=== PATIENT | female | born 1930 | race Hispanic/Latino ===

== ENCOUNTER 2017-11-07 09:26 | Inpatient (IN) | payer MEDICARE, BC ==
[2017-11-07 09:27] VITALS: BMI 35.9
[2017-11-07] MEDS ORDERED: Sodium Chloride 0.9% 500 ML IV SCH (09:45)
--- NOTE | 2017-11-07 09:52 | ED PDOC ---
HPI: General Adult Time Seen by Provider: 11/07/17 09:50 Chief Complaint (Nursing): Lower Extremity Problem/Injury History Per: Patient, Family, Other (accepting physician) History/Exam Limitations: clinical condition (pt with dementia) Onset/Duration Of Symptoms: Unknown Recently: Seen In ED Additional Complaint(s): Pt transferred from [place] [facility] for further eval by Dr Joel; pt p/w severe left knee swelling and pain, with unknown trauma, unknown timeframe of left knee pain/swelling as well; pt was last documented with fall/trauma 10/19 and was evaluated at [place] [facility] at that time with negative results; per patient's daughter who last saw patient 3 days ago at [facility], there were no mention of patient falling as well as left knee swelling as pt was wearing long pants; pt has moderate-severe dementia; pt is a poor historian per daughter, pt is currently at baseline mental status pt denied headaches, cp/sob/abd pain, no n/v, no numbness/tingling pt is here for further eval/pt's without other complaints per daughter, while pt was at [place] [facility] today/overnight, the ED physician had attempted manipulation of the left knee to relocate the knee but appears unsuccessful; pt was subsequently transferred to [place] ED, unknown who the accepting physician is no documentation was noted currently of accepting physician?? PCP: Dr Post pt with b/l knee surgery ([facility]?) pt is a resident of [facility] Past Medical History Reviewed: Historical Data, Nursing Documentation, Vital Signs Vital Signs: Last Vital Signs Temp 99.1 F 11/07/17 09:33 Pulse 82 11/07/17 11:00 Resp 16 11/07/17 09:33 BP 133/51 L 11/07/17 10:56 Pulse Ox 95 11/07/17 12:00 - Medical History PMH: Anemia, Anxiety, Arthritis, COPD, Dementia, Depression, Deep Vein Thrombosis, HTN, Hypercholesterolemia, Hyperlipidemia, Pulmonary Embolism Denies: Diabetes, Hepatitis, HIV, Personality Disorder, Chronic Kidney Disease, Seizures, Sexually Transmitted Disease - Surgical History Surgical History: - Family History Family History: States: Unknown Family Hx - Living Arrangements Living Arrangements: Snf/Assist Lvng - Social History Alcohol: None - Immunization History Hx Tetanus Toxoid Vaccination: No Hx Influenza Vaccination: No Hx Pneumococcal Vaccination: No - Home Medications Home Medications: Ambulatory Orders Medication Instructions Recorded Losartan [Cozaar] 50 mg PO DAILY #0 tab 05/06/15 Venlafaxine [Effexor XR] 225 mg PO DAILY #0 cer 05/06/15 Docusate [Colace] 200 mg PO HS 05/06/17 Acetaminophen [Tylenol 325mg tab] 650 mg PO Q6 PRN 07/20/17 Acetaminophen [Tylenol 325mg tab] 650 mg PO Q6 PRN MDD 101.0 07/20/17 Arformoterol [Brovana] 15 mcg IH [id number] neb 07/23/17 Aspirin [Aspirin Chewable] 81 mg PO DAILY chew 07/23/17 Atorvastatin [Lipitor] 10 mg PO DIN #30 tab 07/23/17 Carvedilol [Coreg] 3.125 mg PO BID #28 tab 07/23/17 Acetaminophen 650 mg PO PRN PRN 11/07/17 Apixaban [Eliquis] 1 tab PO BID 11/07/17 Arformoterol [Brovana] 1 puff IH DAILY 11/07/17 Budesonide [Pulmicort Respules] 0.5 mg IH DAILY 11/07/17 Calcium Carbonate [Oscal] 1 tab PO DAILY 11/07/17 Cholecalciferol (Vitamin D3) 2,000 unit PO DAILY 11/07/17 [Vitamin D3] Lurasidone HCl [Latuda] 1 tab PO DAILY 11/07/17 Pantoprazole [Protonix EC Tab] 40 mg PO DAILY 11/07/17 Potassium Chloride [K-Tab ER] 1 tab PO DAILY 11/07/17 Tiotropium [Spiriva] 1 puff INH DAILY 11/07/17 hydroCHLOROthiazide [Hydrodiuril] 1 tab PO DAILY 11/07/17 - Allergies Allergies/Adverse Reactions: Allergies Allergy/AdvReac Type Severity Reaction Status Date / Time trazodone Allergy DIZZINESS Verified 11/06/17 22:07 Review of Systems Constitutional: Negative for: Fever, Weakness Eyes: Negative for: Pain ENT: Negative for: Ear Pain Cardiovascular: Negative for: Chest Pain Respiratory: Negative for: Cough, Shortness of Breath Gastrointestinal: Negative for: Nausea, Vomiting, Abdominal Pain Genitourinary Female: Negative for: Dysuria Musculoskeletal: Positive for: Other (left knee pain) Skin: Negative for: Rash Neurological: Negative for: Weakness Psych: Negative for: Anxiety Physical Exam - Reviewed Nursing Documentation Reviewed: Yes Vital Signs Reviewed: Yes (mildly elevated BP) - Physical Exam Appears: Positive for: Well, Non-toxic, Uncomfortable (alert/awake, GCS = 15, oriented x 1 (not to date/time), resting in bed, uncomfortable, NAD, responsive to commands with ease, follows command with ease, interactive) Head Exam: Positive for: ATRAUMATIC Skin: Positive for: Normal Color, Warm, Dry Eye Exam: Positive for: Normal appearance, EOMI, PERRL ENT: Positive for: Normal ENT Inspection Neck: Positive for: Normal, Painless ROM, Supple Cardiovascular/Chest: Positive for: Regular Rate, Rhythm Respiratory: Positive for: Normal Breath Sounds Gastrointestinal/Abdominal: Positive for: Normal Exam Back: Positive for: Normal Inspection Extremity: Positive for: Swelling (extensive left knee swelling is noted, NON- indurated, slightly fluctuant/no discoloration is noted; + mildly tender on exam diffusely, decr ROM due to pain/swelling, distal pulses are intact b/l/no skin discoloration is noted, no ecchymosis noted to left knee; + right anterior knee mild ecchymosis is noted (age indeterminate), intact ROM to right knee; + gross defomity is noted to left knee), Other (decr ROM to b/l legs; severe left knee swelling noted). 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, Oriented (oriented x 1 (not to place/time)) - Laboratory Results Result Diagrams: 11/07/17 10:40 11/07/17 10:40 - ECG ECG: Positive for: Interpreted By Me, Viewed By Me Interpretation Of ECG: NSR at 75 bpm, RBBB, no ectopy, inverted T in leads V1-2, poor baseline, no st changes, ABNL EKG; mild changes compare with old ekg 06/2017 O2 Sat by Pulse Oximetry: 95 Pulse Ox Interpretation: Normal - Radiology X-Ray: Read By Radiologist X-Ray Interpretation: Other - Progress ED Course And Treament: 1015 pt is currently comfortable pt is not in any distress pt is awaiting to be transferred to the OR for further left knee care by DR Joel -- CXR results: 11/07/2017 HISTORY: preop COMPARISON: 07/23/2017 FINDINGS: LUNGS: There is a density in the lingular segment of the left lobe most consistent with atelectasis versus pneumonia PLEURA: No significant pleural effusion identified, no pneumothorax apparent. CARDIOVASCULAR: Mild cardiomegaly OSSEOUS STRUCTURES: No significant abnormalities. VISUALIZED UPPER ABDOMEN: Normal. OTHER FINDINGS: None. IMPRESSION: There is a density in the lingular segment of the left lobe most consistent with atelectasis versus pneumonia -- KNEE xray results: 11/07/2017 PROCEDURE: Left knee two view HISTORY: dislocation COMPARISON: 11/06/2017 TECHNIQUE: Three views FINDINGS: There is a persistent dislocation of the knee with anterior displacement of the femur relative to the tibia. There is no significant change in alignment IMPRESSION: As above -- 11/07/2017 PROCEDURE: CT of the left lower extremity with contrast HISTORY: L knee dislocation COMPARISON: TECHNIQUE: 146 mL of Omnipaque 350 Radiation dose: Total exam DLP = 723 mGy-cm. This CT exam was performed using one or more of the following dose reduction techniques: Automated exposure control, adjustment of the mA and/or kV according to patient size, and/or use of iterative reconstruction technique. FINDINGS: There is a dislocation of the knee with the femur anteriorly displaced relative to the tibia. There is also a displaced fracture of the medial femoral condyle. This is best seen on axial image 72 series 2. There is normal enhancement of the popliteal veins and arteries with no vascular occlusion demonstrated The report concurs with the preliminary [facility] report IMPRESSION: There is a dislocation of the knee with the femur anteriorly displaced relative to the tibia. There is also a displaced fracture of the medial femoral condyle. Re-evaluation Time: 10:15 Condition: Unchanged - Physician Consult Information Time Consulting Physican Contacted: 09:40 Physician Contacted: Ally Barnes (hospitalists automobile brakes bonder, made aware, agrees with admission) Outcome Of Conversation: Dr Joel is contacted, and will be at beside to see the patient Medical Decision Making Medical Decision Making: Impression: left knee pain/swelling i have consider all the differential diagnosis regarding pt's chief medical complaints/clinical findings, including but are not limited to: concern for left knee extensive swelling, left knee pain Differential Diagnosis included but are not limited to: knee dislocation, extensive swelling/bleeding, ? avascular necrosis (worse case scenario) A/P: left knee pain/swelling - labs - type and screen, pt/ptt - ct head - supportive care - observe/reevaluation [id number] Hospitalists, Dr Barnes is at bedside, evaluated patient, will admit patient, would like further tests started in the ED for medical clearance 1005 Dr Joel (ortho), is coming to pt's bedside 1010 Dr Joel is at bedside, would like to take patient to the OR immediately to drain the swelling Hospitalists is at bedside as well, and is aware; consulted Cardiology Cardiology is at bedside currently pt/family are made aware of pt's medical results agrees with admission Disposition - Clinical Impression Clinical Impression: Left knee dislocation, Effusion, left knee, Femur fracture, left - Patient ED Disposition Is Patient to be Admitted: Yes Discussed With : Giselle Barnes Doctor Will See Patient In The: ED Counseled Patient/Family Regarding: Studies Performed, Diagnosis - Disposition Disposition Time: 09:30 Condition: STABLE - Pt Status Changed To: Hospital Disposition Of: Inpatient - Admit Certification Admit to Inpatient:: After my assessment, the patient will require hospitalization for at least two midnights. This is because of the severity of symptoms shown, intensity of services needed, and/or the medical risk in this patient being treated as an outpatient.
--- NOTE | 2017-11-07 10:23 | CP.PCM.HP ---
History of Present Illness - History of Present Illness History of Present Illness: 87 year old female with a past medical history of dementia, HTN, Meningioma, PE on Eliquis, MDD, COPD, GERD, OA, cataracts, psychosis, and immobility who resides from [facility] with her daughter, transferred from [facility]. Patient has a history of fall about 2.5 weeks ago and was evaluated in ED at the time and discharged home. Today patient presents with a severely swollen L knee, tender, unknown if patient fell again at [facility], or when this was sustained. The patient's family stated they saw her 3 days ago , however did not notice her knee because she was wearing long pants. Other family members have visited the patient, however it is unknown if they noticed any trauma to the area; the daughter states the family is fractured. History is limited due to patient's dementia. At [place], the patient L Knee XR showed anterior dislocation. Per the daughter , it was manipulated, repeat XR showed dislocation again. BMP and CXR completed. CT + anterior dislocation and displaced femoral fx At [facility], patient was evaluated by Cardiology, Orthopedic surgery, CBC, coags, T& S, EKG RBBB. Patient denies any chest pain or dyspnea at rest. COPD stable. Unknown last known exacerbation. METS <1, HX NSTEMI 3 months ago. Cardiology evaluation by Dr. Tripp appreciated. Echo demonstrated mod impaired LV with mod AI, mild/mod MR/TR, RVSP 66 (concern for PAH). This patient for aspiration and closed reduction today. Open reduction likely Thursday/Thursday due to Eliquis. This patient is moderate risk for moderate risk procedure. RCRI score 2 - Class III risk, 6.6% risk of major cardiac event. ROS: per HPI all other systems reviewed and neg, limited due to dementia PMH: as above PSH: bilateral knee replacement, hernia Family History: Stroke (father) Breast cancer (mother) Social History: Denies tobacco, alcohol, or illicit drug use; Lives at [facility] PMD: Dr. Webb Present on Admission - Present on Admission Any Indicators Present on Admission: Yes History of DVT/PE: Yes Past Patient History - Infectious Disease Hx of Infectious Diseases: None - Tetanus Immunizations Tetanus Immunization: Unknown - Past Social History Alcohol: None - CARDIAC Hx Hypercholesterolemia: Yes Hx Hypertension: Yes - PULMONARY Hx Chronic Obstructive Pulmonary Disease (COPD): Yes Hx Pulmonary Embolism: Yes - NEUROLOGICAL Hx Dementia: Yes Hx Seizures: No - HEENT Hx HEENT Problems: Yes Hx Cataracts: Yes - RENAL Hx Chronic Kidney Disease: No - ENDOCRINE/METABOLIC Hx Endocrine Disorders: No - HEMATOLOGICAL/ONCOLOGICAL Hx Anemia: Yes Hx Human Immunodeficiency Virus (HIV): No - INTEGUMENTARY Hx Dermatological Problems: Yes (HX:Cellulitis of the lower extremities) - MUSCULOSKELETAL/RHEUMATOLOGICAL Hx Arthritis: Yes - GASTROINTESTINAL Hx Gastrointestinal Disorders: Yes (GI bleed, herniorhapphy) Hx Gastroesophageal Reflux: Yes - GENITOURINARY/GYNECOLOGICAL Hx Sexually Transmitted Disorders: No - PSYCHIATRIC Hx Anxiety: Yes Hx Depression: Yes - ANESTHESIA Hx Anesthesia: Yes Hx Anesthesia Reactions: No Hx Malignant Hyperthermia: No Meds Allergies/Adverse Reactions: Allergies Allergy/AdvReac Type Severity Reaction Status Date / Time trazodone Allergy DIZZINESS Verified 11/06/17 22:07 Physical Exam - Constitutional Appears: Non-toxic, No Acute Distress - Head Exam Head Exam: ATRAUMATIC, NORMOCEPHALIC - Eye Exam Eye Exam: EOMI, Normal appearance, PERRL Pupil Exam: NORMAL ACCOMODATION - ENT Exam ENT Exam: Mucous Membranes Moist, Normal Oropharynx - Respiratory Exam Respiratory Exam: Clear to Auscultation Bilateral, NORMAL BREATHING PATTERN - Cardiovascular Exam Cardiovascular Exam: RRR, +S1, +S2 - GI/Abdominal Exam GI & Abdominal Exam: Normal Bowel Sounds, Soft. absent: Mass, Organomegaly - Extremities Exam Extremities exam: Positive for: normal capillary refill, pedal pulses present - Back Exam Back exam: absent: rash noted, vertebral tenderness - Neurological Exam Neurological exam: CN II-XII Intact, Reflexes Normal - Psychiatric Exam Psychiatric exam: Normal Affect, Normal Mood - Skin Skin Exam: Dry, Warm Results - Vital Signs Recent Vital Signs: Last Vital Signs Temp 99.1 F 11/07/17 09:33 Pulse 86 11/07/17 09:33 Resp 16 11/07/17 09:33 BP 126/70 11/07/17 09:52 Pulse Ox 95 11/07/17 10:20 - Labs Result Diagrams: 11/07/17 10:40 11/07/17 10:40 Assessment & Plan - Assessment and Plan (Free Text) Plan: 87 year old female with a past medical history of dementia, HTN, Meningioma, PE on Eliquis, MDD, COPD, GERD, OA, cataracts, psychosis, and immobility who resides from [facility] with her daughter, transferred from [facility]. Patient has a history of fall about 2.5 weeks ago and was evaluated in ED at the time and discharged home. Today patient presents with a severely swollen L knee, tender, unknown if patient fell again [facility], or when this was sustained. The patient's family stated they saw her 3 days ago , however did not notice her knee because she was wearing long pants. Other family members have visited the patient, however it is unknown if they noticed any trauma to the area; the daughter states the family is fractured. History is limited due to patient's dementia. At [place], the patient L Knee XR showed anterior dislocation. Per the daughter , it was manipulated, repeat XR showed dislocation again. BMP and CXR completed. CT showed dislocations and femoral fracture, displaced. At [facility], patient was evaluated by Cardiology, Orthopedic surgery, CBC, coags, T& S, EKG RBBB. Patient denies any chest pain or dyspnea at rest. COPD stable. Unknown last known exacerbation. METS <1, HX NSTEMI 3 months ago. Cardiology evaluation by Dr. Tripp appreciated. Echo demonstrated mod impaired LV with mod AI, mild/mod MR/TR, RVSP 66 (concern for PAH). This patient for aspiration and closed reduction today. Open reduction likely Thursday/Thursday due to Eliquis. This patient is moderate risk for moderate risk procedure. RCRI score 2 - Class III risk, 6.6% risk of major cardiac event. L knee dislocation with hemarthrosis/joint effusion? Orthopedic surgery consult Dr. Joel for aspiration and closed reduction today for open reduction Thursday as patient is on Eliquis. monitor H/H HTN HLD continue statin, losartan, carvedilol COPD hx continue spiriva and breathing tx PRN Psychosis? cont latuda and effexor hold lovenox/heparin for possible bleed and OR
[2017-11-07] MEDS ORDERED: LURASIDONE HCL PO SCH (10:30)
--- NOTE | 2017-11-07 11:01 | CP.PCM.CON ---
History of Present Illness - History of Present Illness History of Present Illness: THE PATIENT IS AN 87YEAR OLF FEMALE WHO HAS A HISTORY OF BILATERAL KNEE REPLACEMENT FOR SEVERE OA IN 2013. SHE HAD FELL 2 WEEKS AGO AND WENT TO [facility] FOR RIGHT KNEE PAIN AND HAD X-RAYS AND WAS SENT BACK TO HER GROUP HOME. SHE HAD LEFT KNEE SWELLING YESTERDAY AND WAS SENT TO [facility] WHERE THIS TIME SHE WAS FOUND TO HAVE A A LEFT KNEE FRACTURE AND DISLOCATED LEFT KNEE PROSTHESIS. SHE WAS TRANSFERRED TO [facility] TO BE TREATED BY DR CERVANTES AND I WAS CALLED TO SEE HER. SHE ALSO HAS A HISTORY OF DEMENTIA, HYPERTENSION, HYPERLIPIDEMIA, COPD AND OLD DVT AND PE WITH AN INC FILTER INSERTION AND SHE IS ON ELIQUIS. SHE WAS ADMITTED TO [facility] IN AUGUST 2017 FOR WHAT THE FAMILY SAID WAS A UTI THAT CAUSED BACTEREMIA AND SHE SUPPOSEDLY HAD A NSTEMI AT THAT TIME. Past Patient History - Infectious Disease Hx of Infectious Diseases: None - Tetanus Immunizations Tetanus Immunization: Unknown - Past Social History Alcohol: None - CARDIAC Hx Hypercholesterolemia: Yes Hx Hypertension: Yes - PULMONARY Hx Chronic Obstructive Pulmonary Disease (COPD): Yes Hx Pulmonary Embolism: Yes - NEUROLOGICAL Hx Dementia: Yes Hx Seizures: No - HEENT Hx HEENT Problems: Yes Hx Cataracts: Yes - RENAL Hx Chronic Kidney Disease: No - ENDOCRINE/METABOLIC Hx Endocrine Disorders: No - HEMATOLOGICAL/ONCOLOGICAL Hx Anemia: Yes Hx Human Immunodeficiency Virus (HIV): No - INTEGUMENTARY Hx Dermatological Problems: Yes (HX:Cellulitis of the lower extremities) - MUSCULOSKELETAL/RHEUMATOLOGICAL Hx Arthritis: Yes - GASTROINTESTINAL Hx Gastrointestinal Disorders: Yes (GI bleed, herniorhapphy) Hx Gastroesophageal Reflux: Yes - GENITOURINARY/GYNECOLOGICAL Hx Sexually Transmitted Disorders: No - PSYCHIATRIC Hx Anxiety: Yes Hx Depression: Yes - ANESTHESIA Hx Anesthesia: Yes Hx Anesthesia Reactions: No Hx Malignant Hyperthermia: No Meds Allergies/Adverse Reactions: Allergies Allergy/AdvReac Type Severity Reaction Status Date / Time trazodone Allergy DIZZINESS Verified 11/06/17 22:07 - Medications Medications: Current Medications Atorvastatin Calcium (Lipitor) 10 mg PO DIN [facility] Calcium Carbonate (Oscal) 1 mg PO DAILY [facility] Carvedilol (Coreg) 3.125 mg PO BID [facility] Cholecalciferol (Vitamin D) 2,000 intlu PO DAILY [facility] Docusate Sodium (Colace) 200 mg PO HS [place] [facility] (Lurasidone Hcl [Latuda]) 1 tab PO DAILY [facility] Sodium Chloride (Sodium Chloride 0.9%) 500 mls @ 100 mls/hr IV .Q5H [facility] Last Admin: 11/07/17 10:26 Dose: 100 mls/hr Losartan Potassium (Cozaar) 50 mg PO DAILY [facility] Ondansetron HCl (Zofran Inj) 4 mg IVP Q6 PRN PRN Reason: Nausea/Vomiting Pantoprazole Sodium (Protonix Ec Tab) 40 mg PO DAILY [facility] Tiotropium [place] (Spiriva) 18 mcg INH DAILY [facility] Venlafaxine HCl (Effexor Xr) 225 mg PO DAILY [facility] Physical Exam - Respiratory Exam Respiratory Exam: Clear to Auscultation Bilateral - Cardiovascular Exam Cardiovascular Exam: REGULAR RHYTHM, +S1, +S2 - Extremities Exam Additional comments: SEVERE SWELLING OF THE LEFT KNEE AREA - Additional Findings Additional findings: EKG NSR, RBBB AND LAD RECENT LABS INCLUDING RENAL FUNCTIONS WERE GOOD WITH GFR>60 Results - Vital Signs Recent Vital Signs: Last Vital Signs Temp 99.1 F 11/07/17 09:33 Pulse 86 11/07/17 09:33 Resp 16 11/07/17 09:33 BP 126/70 11/07/17 09:52 Pulse Ox 95 11/07/17 10:27 Assessment & Plan - Assessment and Plan (Free Text) Assessment: LEFT KNEE FRACTURE AND DISLOCATION OF THE LEFT KNEE PROSTHESIS HYPERTENSION HYPERLIPIDEMIA OLD DVT WITH PE AND SHE IS ON ELIQUIS COPD DEMENTIA Plan: CONTINUE CARVEDILOL, LOSARTAN, ATORVASTATIN AND COPD MEDS HOLD ELIQUIS THE PATIENT NEEDS SURGICAL REPAIR OF THE LEFT KNEE I DISCUSSED THE PATIENT WITH DR CERVANTES AND THE MAJOR SURGICAL REPAIR SURGERT WILL NOT BE DONE BEFORE 11/09/17 SHE WAS ON ELIQUIS DR CERVANTES WANTS TO DUE A LIMITED LEFT KNEE ASPIRATION AND MANIPULATION TODAY AND THE PATIENT WAS CLEARED FOR THAT LIMITED PROCEDURE TODAY
[2017-11-07 11:12] LABS: ALBUMIN 3.5 g/dL (3.5-5.0); ALT/SGPT 49 U/L (9-52); AST/SGOT 41 U/L (14-36); BLOOD UREA NITROGEN 19 mg/dl (7-17); CALCIUM 8.9 mg/dL (8.4-10.2); GFR AFRICAN-AMERICAN > 60; GFR NON-AFRICAN AMERICAN > 60
[2017-11-07 11:14] LABS: INR 1.2 (0.9-1.2); PARTIAL THROMBOPLASTIN TIME 29.1 Seconds (25.6-37.1); PROTHROMBIN TIME 13.8 Seconds (9.8-13.1)
[2017-11-07 11:16] LABS: BASO # 0.1 K/uL (0.0-0.2); BASO % 0.7 % (0.0-2.0); EOS # 0.1 K/uL (0.0-0.7); EOS % 1.5 % (0.0-4.0); HEMOGLOBIN 11.2 g/dL (12.0-16.0); LYMPH # 0.8 K/uL (1.0-4.3); LYMPH % 8.6 % (20.0-40.0); MEAN CELL VOLUME 87.3 fl (81.0-99.0); MEAN CORPUSCULAR HEMOGLOBIN 29.5 pg (27.0-31.0); MEAN CORPUSCULAR HGB CONC 33.8 g/dL (33.0-37.0); MEAN PLATELET VOLUME 8.6 fl (7.2-11.7); MONO % 10.7 % (0.0-10.0); NEUT # 7.6 K/uL (1.8-7.0); NEUT % 78.5 % (50.0-75.0); NRBC % 0.1 % (0.0-0.0); PLATELET COUNT 229 K/uL (130-400); RBC 3.78 Mil/uL (3.80-5.20); RED CELL DISTRIBUTION WIDTH 14.4 % (11.5-14.5); WHITE BLOOD COUNT 9.6 K/uL (4.8-10.8)
[2017-11-07] MEDS ORDERED: Succinylcholine 200 mg/10 ml Inj IV ONE (11:42)
[2017-11-07] MEDS ORDERED: Etomidate 20 mg/10ml Inj IV ONE (11:42)
[2017-11-07] MEDS ORDERED: Rocuronium 10 mg/ml (5 ml) ONE (11:42)
[2017-11-07] MEDS ORDERED: Lidocaine 4% (Laryng-O-Jet) Kit MM ONE (11:42)
[2017-11-07] MEDS ORDERED: Neostigmine 1:1000 (1 mg/ml) Inj ONE (11:48)
[2017-11-07] MEDS ORDERED: Bacitracin Ointment 30 GM TUBE ONE (11:52)
[2017-11-07] MEDS ORDERED: ceFAZolin IV 2 gm in Dextrose 4 GM/100 ML BAG IVPB ONE (11:52)
[2017-11-07] MEDS ORDERED: Lidocaine 2% MPF (5 ml) Inj ONE (11:52)
[2017-11-07] MEDS ORDERED: GELATIN SPONGE,ABSORB/PORCINE 1 EACH SPONGE TP ONE (11:53)
[2017-11-07] MEDS ORDERED: methylPREDNISolone Depo 80 mg/ml Inj ONE (11:53)
[2017-11-07] MEDS ORDERED: Thrombin Topical 5,000 Int Units Spray Kit ONE (11:53)
[2017-11-07 12:05] LABS: ANISOCYTOSIS SLIGHT; EOSINOPHIL 1 % (0-7); LARGE PLATELETS PRESENT; LYMPHOCYTE 8 % (20-50); MONOCYTE 8 % (0-10); NEUTROPHIL 83 % (42-75); OVALOCYTES SLIGHT; PLATELET ESTIMATE NORMAL (NORMAL); TEARDROP CELLS SLIGHT; TOTAL CELLS COUNTED 100
[2017-11-07] MEDS ORDERED: Bupivacaine 0.25% Inj(30mL) IJ ONE (12:20)
--- NOTE | 2017-11-07 12:54 | PCM.SURG1 ---
Surgeon's Initial Post Op Note - Surgeon's Notes Surgeon: [employer] Billing Analyst: Austin Hannon DPM - podiatry resident Type of Anesthesia: General Endo Anesthesia Administered By: Dr Stewart Pre-Operative Diagnosis: Dislocated Total knee replaceemnt. fracture femoral condyle. hemarthrosis Operative Findings: as above Post-Operative Diagnosis: as above Operation Performed: Closed reduction dislocated prosthetic knee replaceemnt. closed redcution femoral condylar fracture and application Jerel Montanez compression dressing and knee immobilizer. aspiration L knee. positioning of fluoro/interpreetation of video images. intraraticular injec mtion L knee Specimen/Specimens Removed: blood aspirate Estimated Blood Loss: EBL {In ML}: 0 (aspirate 55 cc maryl ou blood) Blood Products Given: N/A Drains Used: No Drains Post-Op Condition: Good Date of Surgery/Procedure: 11/07/17 Time of Surgery/Procedure: 12:15 (time in room 11:45/anaesthesia indcution time 11:45)
[2017-11-07] MEDS ORDERED: Lactated Ringer's 1,000 ML IV ONE (13:22)
[2017-11-07 14:50] LABS: FLUID TYPE SYNOVIAL FLUID
[2017-11-07 15:04] LABS: SF GROSS APPEARANCE BLOODY (CLEAR); SYNOVIAL FLUID COMMENT CLOUDY
[2017-11-07] MEDS: Tiotropium 18 mcg Cap For Inhalation INH SCH (15:56)
[2017-11-07] MEDS: Pantoprazole 40 mg EC Tab PO SCH (15:58)
[2017-11-07] MEDS: Venlafaxine 75 mg ER Cap PO SCH (15:58)
[2017-11-07 16:12] LABS: SYNOVIAL FLUID MONO/MACROPHAGE 5 % (0-0)
--- NOTE | 2017-11-07 17:57 | RAD ---
Date of service: 11/07/2017 PROCEDURE: Left Knee Radiographs. HISTORY: Pain. COMPARISON: None. FINDINGS: BONES: Status post left total knee replacement. Hardware intact. . The left distal femur -femoral component is slightly anteriorly located with respect to the tibial component of this may be secondary flexion positioning in the cross-table lateral view. Clinical correlation recommended. JOINTS: Normal. No osteoarthritis. JOINT EFFUSION: Soft tissue swelling with small joint effusion. There may also be some calcification of the suprapatellar bursa as well. OTHER FINDINGS: None. IMPRESSION: Status post left total knee replacement. Hardware intact. . The left distal femur -femoral component is slightly anteriorly located with respect to the tibial component of this may be secondary flexion positioning in the cross-table lateral view. Clinical correlation recommended.
[2017-11-08 07:17] LABS: HEMOGLOBIN 9.8 g/dL (12.0-16.0); MEAN CORPUSCULAR HEMOGLOBIN 29.7 pg (27.0-31.0); MEAN CORPUSCULAR HGB CONC 34.1 g/dL (33.0-37.0); RBC 3.29 Mil/uL (3.80-5.20); RED CELL DISTRIBUTION WIDTH 14.2 % (11.5-14.5); WHITE BLOOD COUNT 7.2 K/uL (4.8-10.8)
[2017-11-08 07:29] LABS: BLOOD UREA NITROGEN 21 mg/dl (7-17); GFR AFRICAN-AMERICAN > 60; GFR NON-AFRICAN AMERICAN > 60
[2017-11-08 07:30] LABS: CALCIUM 8.9 mg/dL (8.4-10.2)
[2017-11-08] MEDS: Venlafaxine 75 mg ER Cap PO SCH (08:35)
[2017-11-08] MEDS: Pantoprazole 40 mg EC Tab PO SCH (08:35)
[2017-11-08] MEDS: Tiotropium 18 mcg Cap For Inhalation INH SCH (08:36)
[2017-11-08] MEDS: Cholecalciferol 1,000 INTLU TAB PO SCH (08:37)
--- NOTE | 2017-11-08 10:46 | CP.PCM.PN ---
Subjective - Date & Time of Evaluation Date of Evaluation: 11/08/17 Time of Evaluation: 10:39 - Subjective Subjective: patient comfortable this morning tolerated procedure well yesterday pain controlled hd stable nad for OR tomorrow Objective - Vital Signs/Intake and Output Vital Signs (last 24 hours): Temp Pulse Resp BP Pulse Ox 97.6 F 69 19 119/97 H 97 11/08/17 08:05 11/08/17 08:05 11/08/17 08:05 11/08/17 08:05 11/08/17 08:05 Constitutional- cooperative, awake, alert Head- NCAT, PERRL Eye- PERRL, EOMI ENT- normal exam, MMM. Neck- normal inspection, supple, no JVD Respiratory- CTAB, no wheezes rales rhonchi Cardiovascular- RRR, +S1, +S2 no MRG GI/Abdominal- normal bowel sounds, soft, no mass, no hsm Skin- warm, dry Extremities Exam- normal capillary refill, warm well perfused Neurological Exam- alert, awake, oriented Psych- normal mood, normal affect - Medications Medications: Current Medications Acetaminophen (Tylenol 325mg Tab) 975 mg PO Q8 [facility] Last Admin: 11/08/17 08:33 Dose: 975 mg Atorvastatin Calcium (Lipitor) 10 mg PO DIN [facility] Last Admin: 11/07/17 16:01 Dose: 10 mg Calcium Carbonate (Oscal) 1 mg PO DAILY [facility] Carvedilol (Coreg) 3.125 mg PO BID [facility] Last Admin: 11/08/17 08:43 Dose: 3.125 mg Cholecalciferol (Vitamin D) 2,000 intlu PO DAILY [facility] Last Admin: 11/08/17 08:37 Dose: 2,000 intlu Docusate Sodium (Colace) 200 mg PO HS [facility] Last Admin: 11/07/17 22:15 Dose: 200 mg Home Med (Lurasidone Hcl [Latuda]) 1 tab PO DAILY [facility] Losartan Potassium (Cozaar) 50 mg PO DAILY [facility] Last Admin: 11/08/17 08:37 Dose: 50 mg Ondansetron HCl (Zofran Inj) 4 mg IVP Q6 PRN PRN Reason: Nausea/Vomiting Pantoprazole Sodium (Protonix Ec Tab) 40 mg PO DAILY [facility] Last Admin: 11/08/17 08:35 Dose: 40 mg Tiotropium [place] (Spiriva) 18 mcg INH DAILY [facility] Last Admin: 11/08/17 08:36 Dose: 18 mcg Venlafaxine HCl (Effexor Xr) 225 mg PO DAILY [facility] Last Admin: 11/08/17 08:35 Dose: 225 mg - Labs Labs: 11/08/17 06:45 11/08/17 06:45 PT 13.8 Seconds (9.8-13.1) H 11/07/17 10:40 INR 1.2 (0.9-1.2) 11/07/17 10:40 APTT 29.1 Seconds (25.6-37.1) 11/07/17 10:40 Assessment and Plan - Assessment and Plan (Free Text) Plan: 87 year old female with a past medical history of dementia, HTN, Meningioma, PE on Eliquis, MDD, COPD, GERD, OA, cataracts, psychosis, and immobility who resides from [facility] with her daughter, transferred from [facility]. Patient has a history of fall about 2.5 weeks ago and was evaluated in ED at the time and discharged home. Today patient presents with a severely swollen L knee, tender, unknown if patient fell again at custodial, or when this was sustained. The patient's family stated they saw her 3 days ago , however did not notice her knee because she was wearing long pants. Other family members have visited the patient, however it is unknown if they noticed any trauma to the area; the daughter states the family is fractured. History is limited due to patient's dementia. At [place], the patient L Knee XR showed anterior dislocation. Per the daughter , it was manipulated, repeat XR showed dislocation again. BMP and CXR completed. CT showed dislocations and femoral fracture, displaced. At [facility], patient was evaluated by Cardiology, Orthopedic surgery, CBC, coags, T& S, EKG RBBB. Patient denies any chest pain or dyspnea at rest. COPD stable. Unknown last known exacerbation. METS <1, HX NSTEMI 3 months ago. Cardiology evaluation by Dr. Tripp appreciated. Echo demonstrated mod impaired LV with mod AI, mild/mod MR/TR, RVSP 66 (concern for PAH). This patient for aspiration and closed reduction today. Open reduction likely Thursday/Thursday due to Eliquis. This patient is moderate risk for moderate risk procedure. RCRI score 2 - Class III risk, 6.6% risk of major cardiac event. L knee dislocation with hemarthrosis/joint effusion? Orthopedic surgery consult Dr. Joel for aspiration and closed reduction today for open reduction Thursday as patient is on Eliquis. NPO after MN, holding all AC. monitor H/H pain control PT OT HTN HLD continue statin, losartan, carvedilol COPD hx continue spiriva and breathing tx PRN Psychosis? cont latuda and effexor hold lovenox/heparin for possible bleed and OR
[2017-11-08] MEDS ORDERED: Potassium Chloride 20 mEq ER Tab PO ONE (11:11)
--- NOTE | 2017-11-08 12:14 | CP.PCM.PN ---
Subjective - Date & Time of Evaluation Date of Evaluation: 11/08/17 Time of Evaluation: 11:00 - Subjective Subjective: S- pt comfortable/ still a bit disoriented Objective - Vital Signs/Intake and Output Vital Signs (last 24 hours): Temp Pulse Resp BP Pulse Ox 97.6 F 69 19 119/97 H 97 11/08/17 08:05 11/08/17 08:05 11/08/17 08:05 11/08/17 08:05 11/08/17 08:05 - Medications Medications: Current Medications Acetaminophen (Tylenol 325mg Tab) 975 mg PO Q8 [facility] Last Admin: 11/08/17 08:33 Dose: 975 mg Atorvastatin Calcium (Lipitor) 10 mg PO DIN [facility] Last Admin: 11/07/17 16:01 Dose: 10 mg Calcium Carbonate (Oscal) 500 mg PO DAILY [facility] Carvedilol (Coreg) 3.125 mg PO BID [facility] Last Admin: 11/08/17 08:43 Dose: 3.125 mg Cholecalciferol (Vitamin D) 2,000 intlu PO DAILY [facility] Last Admin: 11/08/17 08:37 Dose: 2,000 intlu Docusate Sodium (Colace) 200 mg PO HS [facility] Last Admin: 11/07/17 22:15 Dose: 200 mg Home Med (Lurasidone Hcl [Latuda]) 1 tab PO DAILY [facility] Losartan Potassium (Cozaar) 50 mg PO DAILY [facility] Last Admin: 11/08/17 08:37 Dose: 50 mg Ondansetron HCl (Zofran Inj) 4 mg IVP Q6 PRN PRN Reason: Nausea/Vomiting Pantoprazole Sodium (Protonix Ec Tab) 40 mg PO DAILY [facility] Last Admin: 11/08/17 08:35 Dose: 40 mg Tiotropium [place] (Spiriva) 18 mcg INH DAILY [facility] Last Admin: 11/08/17 08:36 Dose: 18 mcg Venlafaxine HCl (Effexor Xr) 225 mg PO DAILY [facility] Last Admin: 11/08/17 08:35 Dose: 225 mg - Labs Labs: 11/08/17 06:45 11/08/17 06:45 PT 13.8 Seconds (9.8-13.1) H 11/07/17 10:40 INR 1.2 (0.9-1.2) 11/07/17 10:40 APTT 29.1 Seconds (25.6-37.1) 11/07/17 10:40 - Skin Additional comments: Obj systemic pt still somewhat disoriented Musculoskeletal stance/gait- defrred L lower exstremity immobilized in knee immobilizer N/V intact Assessment and Plan - Assessment and Plan (Free Text) Assessment: A- s/p closed reduction L knee dislocation post op xray- reveals repeat subluxation (prsothetic knee unstable) ' P- continue conservatuive mgmt(pt had been on Eliquis) for surgical revision Thu /
--- NOTE | 2017-11-08 13:58 | RAD ---
Date of service: 11/07/2017 PROCEDURE: Intraoperative Fluoroscopy. HISTORY: FLUOROSCOPY FINDINGS: Fluoroscopic assistance was provided. Fluoroscopy time = 23.6 seconds. Please refer to operative report for additional details.
--- NOTE | 2017-11-08 15:09 | RAD ---
Date of service: 11/07/2017 PROCEDURE: Radiographs of the left tibia and fibula. HISTORY: s/p surgery COMPARISON: None available. TECHNIQUE: Frontal and lateral views obtained. FINDINGS: BONES: Total knee arthroplasty. Anterior dislocation of the femur/femoral component with respect to the tibia/ tibial component JOINT SPACES: Apparent anterior dislocation left OTHER FINDINGS: None. IMPRESSION: Total knee arthroplasty. Anterior dislocation of the femur/femoral component with respect to the tibia/ tibial component
--- NOTE | 2017-11-08 15:10 | RAD ---
PROCEDURE: Left Hip X-ray Radiographs. HISTORY: s/p surgery COMPARISON: None. FINDINGS: BONES: No evidence of acute displaced fracture nor dislocation. Degenerative changes both hip joints. JOINTS: As above. SOFT TISSUES: Normal. OTHER FINDINGS: Urinary bladder is apparently opacified with intravenous contrast material. Questionable bladder diverticulum. Follow-up CT scan of the pelvis could be performed further evaluation. In situ IVC filter IMPRESSION: No evidence of acute displaced fracture nor dislocation. Urinary bladder is apparently opacified with intravenous contrast material. Questionable bladder diverticulum. Follow-up CT scan of the pelvis could be performed further evaluation.
[2017-11-08 16:06] LABS: SQUAMOUS EPITHIAL 2 /hpf (0-5); URINE BILIRUBIN NEGATIVE (NEGATIVE); URINE BLOOD NEGATIVE (NEGATIVE); URINE CLARITY SLIGHTY-CLOUDY (Clear); URINE COLOR YELLOW (YELLOW); URINE GLUCOSE (UA) NEG (Normal); URINE LEUKOCYTE ESTERASE NEG Leu/uL (Negative); URINE PROTEIN 30 mg/dL (NEGATIVE); URINE UROBILINOGEN 0.2-1.0 mg/dL (0.2-1.0)
--- NOTE | 2017-11-09 08:17 | CP.PCM.PN ---
Subjective - Date & Time of Evaluation Date of Evaluation: 11/09/17 Time of Evaluation: 08:16 - Subjective Subjective: pt doing well, pain controlled OR planned for Wed or per ortho hd stable nad Objective - Vital Signs/Intake and Output Vital Signs (last 24 hours): Temp Pulse Resp BP Pulse Ox 98.0 F 71 19 137/76 95 11/09/17 00:00 11/09/17 00:00 11/09/17 00:00 11/09/17 00:00 11/09/17 00:00 Vitals Reviewed GEN: WDWN, alert, cooperative HEENT: NCAT, PERRL, EOMI HEART: RRR, +S1S2, NO MRG LUNG: CTAB, NO WRR ABD: soft, NT, ND, No HSM, No masses EXT: normal pedal pulses, normal capillary refill NEURO: awake, alert SKIN: warm, dry PSYCH: normal mood, normal affect Intake and Output: 11/09/17 11/09/17 06:59 18:59 Intake Total 240 Balance 240 - Medications Medications: Current Medications Acetaminophen (Tylenol 325mg Tab) 975 mg PO Q8 [facility] Last Admin: 11/09/17 00:10 Dose: 975 mg Atorvastatin Calcium (Lipitor) 10 mg PO DIN [facility] Last Admin: 11/08/17 16:41 Dose: 10 mg Calcium Carbonate (Oscal) 500 mg PO DAILY [facility] Carvedilol (Coreg) 3.125 mg PO BID [facility] Last Admin: 11/08/17 16:46 Dose: 3.125 mg Cholecalciferol (Vitamin D) 2,000 intlu PO DAILY [facility] Last Admin: 11/08/17 08:37 Dose: 2,000 intlu Docusate Sodium (Colace) 200 mg PO HS [facility] Last Admin: 11/08/17 22:01 Dose: 200 mg Home Med (Lurasidone Hcl [Latuda]) 1 tab PO DAILY [facility] Losartan Potassium (Cozaar) 50 mg PO DAILY [facility] Last Admin: 11/08/17 08:37 Dose: 50 mg Ondansetron HCl (Zofran Inj) 4 mg IVP Q6 PRN PRN Reason: Nausea/Vomiting Pantoprazole Sodium (Protonix Ec Tab) 40 mg PO DAILY [facility] Last Admin: 11/08/17 08:35 Dose: 40 mg Tiotropium [place] (Spiriva) 18 mcg INH DAILY [facility] Last Admin: 11/08/17 08:36 Dose: 18 mcg Venlafaxine HCl (Effexor Xr) 225 mg PO DAILY [facility] Last Admin: 11/08/17 08:35 Dose: 225 mg - Labs Labs: 11/08/17 06:45 11/08/17 06:45 PT 13.8 Seconds (9.8-13.1) H 11/07/17 10:40 INR 1.2 (0.9-1.2) 11/07/17 10:40 APTT 29.1 Seconds (25.6-37.1) 11/07/17 10:40 Assessment and Plan - Assessment and Plan (Free Text) Plan: 87 year old female with a past medical history of dementia, HTN, Meningioma, PE on Eliquis, MDD, COPD, GERD, OA, cataracts, psychosis, and immobility who resides from [facility] with her daughter, transferred from [facility]. Patient has a history of fall about 2.5 weeks ago and was evaluated in ED at the time and discharged home. Today patient presents with a severely swollen L knee, tender, unknown if patient fell again at long-term, or when this was sustained. The patient's family stated they saw her 3 days ago , however did not notice her knee because she was wearing long pants. Other family members have visited the patient, however it is unknown if they noticed any trauma to the area; the daughter states the family is fractured. History is limited due to patient's dementia. At [place], the patient L Knee XR showed anterior dislocation. Per the daughter , it was manipulated, repeat XR showed dislocation again. BMP and CXR completed. CT showed dislocations and femoral fracture, displaced. At [facility], patient was evaluated by Cardiology, Orthopedic surgery, CBC, coags, T& S, EKG RBBB. Patient denies any chest pain or dyspnea at rest. COPD stable. Unknown last known exacerbation. METS <1, HX NSTEMI 3 months ago. Cardiology evaluation by Dr. Tripp appreciated. Echo demonstrated mod impaired LV with mod AI, mild/mod MR/TR, RVSP 66 (concern for PAH). This patient for aspiration and closed reduction today. Open reduction likely Thursday/Thursday due to Eliquis. This patient is moderate risk for moderate risk procedure. RCRI score 2 - Class III risk, 6.6% risk of major cardiac event. L knee dislocation with hemarthrosis/joint effusion? Orthopedic surgery consult Dr. Joel for aspiration and closed reduction, tolerated well for open reduction WED OR THURS as patient is on Eliquis. NPO after MN prior, holding all AC except heparin VTE ppx monitor H/H pain control PT OT HTN HLD continue statin, losartan, carvedilol COPD hx continue spiriva and breathing tx PRN Psychosis? cont latuda and effexor hold lovenox/heparin for possible bleed and OR
--- NOTE | 2017-11-09 08:26 | CP.PCM.PN ---
Subjective - Date & Time of Evaluation Date of Evaluation: 11/09/17 Time of Evaluation: 08:15 - Subjective Subjective: Patient was seen and examined at bedside comfortable. Pain well controlled. No other complaints. Objective - Vital Signs/Intake and Output Vital Signs (last 24 hours): Temp Pulse Resp BP Pulse Ox 98.0 F 71 19 137/76 95 11/09/17 00:00 11/09/17 00:00 11/09/17 00:00 11/09/17 00:00 11/09/17 00:00 Intake and Output: 11/09/17 11/09/17 06:59 18:59 Intake Total 240 Balance 240 - Medications Medications: Current Medications Acetaminophen (Tylenol 325mg Tab) 975 mg PO Q8 [facility] Last Admin: 11/09/17 00:10 Dose: 975 mg Atorvastatin Calcium (Lipitor) 10 mg PO DIN [facility] Last Admin: 11/08/17 16:41 Dose: 10 mg Calcium Carbonate (Oscal) 500 mg PO DAILY [facility] Carvedilol (Coreg) 3.125 mg PO BID [facility] Last Admin: 11/08/17 16:46 Dose: 3.125 mg Cholecalciferol (Vitamin D) 2,000 intlu PO DAILY [facility] Last Admin: 11/08/17 08:37 Dose: 2,000 intlu Docusate Sodium (Colace) 200 mg PO HS [facility] Last Admin: 11/08/17 22:01 Dose: 200 mg Home Med (Lurasidone Hcl [Latuda]) 1 tab PO DAILY [facility] Losartan Potassium (Cozaar) 50 mg PO DAILY [facility] Last Admin: 11/08/17 08:37 Dose: 50 mg Ondansetron HCl (Zofran Inj) 4 mg IVP Q6 PRN PRN Reason: Nausea/Vomiting Pantoprazole Sodium (Protonix Ec Tab) 40 mg PO DAILY [facility] Last Admin: 11/08/17 08:35 Dose: 40 mg Tiotropium [place] (Spiriva) 18 mcg INH DAILY [facility] Last Admin: 11/08/17 08:36 Dose: 18 mcg Venlafaxine HCl (Effexor Xr) 225 mg PO DAILY [facility] Last Admin: 11/08/17 08:35 Dose: 225 mg - Labs Labs: 11/08/17 06:45 11/08/17 06:45 PT 13.8 Seconds (9.8-13.1) H 11/07/17 10:40 INR 1.2 (0.9-1.2) 11/07/17 10:40 APTT 29.1 Seconds (25.6-37.1) 11/07/17 10:40 - Extremities Exam Additional comments: LLE: Dressings and knee immobilizer CDI sensation intact SP/DP/TN motor intact EHL/FHL/TA/G pedal pulse intact comps soft NT Assessment and Plan (1) Dislocation of prosthetic joint of knee Assessment & Plan: POD# 2 left knee dislocation operative closed reduction -pain control -Plan for left revision TKA on Thu/ due to patient being on Eliquis -Continue Lovenox/heparin, hold prior to surgery -PT/OT 10% FF WB -above d/w Dr. Joel in agreement Status: Acute
[2017-11-09] MEDS: Venlafaxine 75 mg ER Cap PO SCH (08:35)
[2017-11-09] MEDS: Cholecalciferol 1,000 INTLU TAB PO SCH (08:36)
[2017-11-09] MEDS: Pantoprazole 40 mg EC Tab PO SCH (08:37)
[2017-11-09] MEDS: Tiotropium 18 mcg Cap For Inhalation INH SCH (08:44)
[2017-11-09 09:17] LABS: HEMOGLOBIN 10.1 g/dL (12.0-16.0); MEAN CELL VOLUME 85.9 fl (81.0-99.0); MEAN CORPUSCULAR HEMOGLOBIN 30.2 pg (27.0-31.0); MEAN CORPUSCULAR HGB CONC 35.1 g/dL (33.0-37.0); RBC 3.34 Mil/uL (3.80-5.20); WHITE BLOOD COUNT 7.2 K/uL (4.8-10.8)
[2017-11-09 09:25] LABS: BLOOD UREA NITROGEN 21 mg/dl (7-17); CALCIUM 8.8 mg/dL (8.4-10.2); GFR AFRICAN-AMERICAN > 60; GFR NON-AFRICAN AMERICAN > 60
--- NOTE | 2017-11-09 10:30 | CP.PCM.PN ---
Subjective - Date & Time of Evaluation Date of Evaluation: 11/09/17 Time of Evaluation: 08:40 - Subjective Subjective: NO COMPLAINTS OF CHEST PAIN OR SOB Objective - Vital Signs/Intake and Output Vital Signs (last 24 hours): Temp Pulse Resp BP Pulse Ox 97.9 F 88 19 136/82 94 L 11/09/17 08:52 11/09/17 08:52 11/09/17 08:52 11/09/17 08:52 11/09/17 08:52 Intake and Output: 11/09/17 11/09/17 06:59 18:59 Intake Total 240 Balance 240 - Medications Medications: Current Medications Acetaminophen (Tylenol 325mg Tab) 975 mg PO Q8 [facility] Last Admin: 11/09/17 08:30 Dose: 975 mg Atorvastatin Calcium (Lipitor) 10 mg PO DIN [facility] Last Admin: 11/08/17 16:41 Dose: 10 mg Calcium Carbonate (Oscal) 500 mg PO DAILY [facility] Last Admin: 11/09/17 08:37 Dose: 500 mg Carvedilol (Coreg) 3.125 mg PO BID [facility] Last Admin: 11/09/17 08:47 Dose: 3.125 mg Cholecalciferol (Vitamin D) 2,000 intlu PO DAILY [facility] Last Admin: 11/09/17 08:36 Dose: 2,000 intlu Docusate Sodium (Colace) 200 mg PO HS [facility] Last Admin: 11/08/17 22:01 Dose: 200 mg Home Med (Lurasidone Hcl [Latuda]) 1 tab PO DAILY [facility] Losartan Potassium (Cozaar) 50 mg PO DAILY [facility] Last Admin: 11/09/17 08:34 Dose: 50 mg Ondansetron HCl (Zofran Inj) 4 mg IVP Q6 PRN PRN Reason: Nausea/Vomiting Pantoprazole Sodium (Protonix Ec Tab) 40 mg PO DAILY [facility] Last Admin: 11/09/17 08:37 Dose: 40 mg Tiotropium [place] (Spiriva) 18 mcg INH DAILY [facility] Last Admin: 11/09/17 08:44 Dose: 18 mcg Venlafaxine HCl (Effexor Xr) 225 mg PO DAILY [facility] Last Admin: 11/09/17 08:35 Dose: 225 mg - Labs Labs: 11/09/17 09:08 11/09/17 09:08 PT 13.8 Seconds (9.8-13.1) H 07/14/18 10:40 INR 1.2 (0.9-1.2) 11/07/17 10:40 APTT 29.1 Seconds (25.6-37.1) 11/07/17 10:40 - Respiratory Exam Respiratory Exam: Clear to Ausculation Bilateral - Cardiovascular Exam Cardiovascular Exam: REGULAR RHYTHM, +S1, +S2 - Extremities Exam Additional comments: LLE IN IMMOBILIZER - Additional Findings Additional findings: JAG CERVANTES'S NOTES REVIEWED Assessment and Plan - Assessment and Plan (Free Text) Assessment: LEFT KNEE TRAUMA AND PROSTHESIS DISLOCATION HYPERTENSION HISTORY OF DVT AND PE DEMENTIA HYPERLIPIDEMIA Plan: CONTINUE LOSARTAN, CARVEDILOL AND ATORVASTATIN FOR SURGERY LATER THIS WEEK-PATIENT CLEARED FOR SURGERY
--- NOTE | 2017-11-09 13:25 | CARD ---
APPROVED REPORT Date of service: 11/07/2017 EKG Measurement Heart [id number] <Conclusion> Normal sinus rhythm with sinus arrhythmia Right bundle branch block Left ventricular hypertrophy with repolarization abnormality Abnormal ECG
[2017-11-10 06:39] LABS: BLOOD UREA NITROGEN 23 mg/dl (7-17); CALCIUM 9.1 mg/dL (8.4-10.2); GFR AFRICAN-AMERICAN > 60; GFR NON-AFRICAN AMERICAN > 60
[2017-11-10 06:41] LABS: HEMOGLOBIN 9.5 g/dL (12.0-16.0); MEAN CELL VOLUME 87.5 fl (81.0-99.0); MEAN CORPUSCULAR HEMOGLOBIN 30.2 pg (27.0-31.0); MEAN CORPUSCULAR HGB CONC 34.5 g/dL (33.0-37.0); RBC 3.14 Mil/uL (3.80-5.20); RED CELL DISTRIBUTION WIDTH 14.3 % (11.5-14.5); WHITE BLOOD COUNT 6.2 K/uL (4.8-10.8)
[2017-11-10] MEDS: Pantoprazole 40 mg EC Tab PO SCH (08:25)
[2017-11-10] MEDS: Cholecalciferol 1,000 INTLU TAB PO SCH (08:26)
[2017-11-10] MEDS: Venlafaxine 75 mg ER Cap PO SCH (08:27)
[2017-11-10] MEDS: Tiotropium 18 mcg Cap For Inhalation INH SCH (08:27)
--- NOTE | 2017-11-10 08:34 | CP.PCM.PN ---
Subjective - Date & Time of Evaluation Date of Evaluation: 11/10/17 Time of Evaluation: 07:45 - Subjective Subjective: Patient seen and examined at bedside comfortable. Poor historian due to dementia. Pain well controlled. No new complaints. Objective - Vital Signs/Intake and Output Vital Signs (last 24 hours): Temp Pulse Resp BP Pulse Ox 98.3 F 69 18 120/83 93 L 11/10/17 08:31 11/10/17 08:33 11/10/17 08:31 11/10/17 08:33 11/10/17 08:31 - Medications Medications: Current Medications Acetaminophen (Tylenol 325mg Tab) 975 mg PO Q8 [facility] Last Admin: 11/10/17 08:23 Dose: 975 mg Atorvastatin Calcium (Lipitor) 10 mg PO DIN [facility] Last Admin: 11/09/17 17:51 Dose: 10 mg Calcium Carbonate (Oscal) 500 mg PO DAILY [facility] Last Admin: 11/10/17 08:24 Dose: 500 mg Carvedilol (Coreg) 3.125 mg PO BID [facility] Last Admin: 11/10/17 08:33 Dose: 3.125 mg Cholecalciferol (Vitamin D) 2,000 intlu PO DAILY [facility] Last Admin: 11/10/17 08:26 Dose: 2,000 intlu Docusate Sodium (Colace) 200 mg PO HS [facility] Last Admin: 11/09/17 21:18 Dose: 200 mg Heparin Sodium (Porcine) (Heparin) 5,000 units SC Q8 [facility] PRN Reason: Protocol Last Admin: 11/10/17 08:33 Dose: 5,000 units Home Med (Lurasidone Hcl [Latuda]) 1 tab PO DAILY [facility] Losartan Potassium (Cozaar) 50 mg PO DAILY [facility] Last Admin: 11/10/17 08:32 Dose: 50 mg Ondansetron HCl (Zofran Inj) 4 mg IVP Q6 PRN PRN Reason: Nausea/Vomiting Pantoprazole Sodium (Protonix Ec Tab) 40 mg PO DAILY [facility] Last Admin: 11/10/17 08:25 Dose: 40 mg Tiotropium [place] (Spiriva) 18 mcg INH DAILY [facility] Last Admin: 11/10/17 08:27 Dose: 18 mcg Venlafaxine HCl (Effexor Xr) 225 mg PO DAILY [facility] Last Admin: 11/10/17 08:27 Dose: 225 mg - Labs Labs: 11/10/17 05:45 11/10/17 05:45 PT 13.8 Seconds (9.8-13.1) H 11/07/17 10:40 INR 1.2 (0.9-1.2) 11/07/17 10:40 APTT 29.1 Seconds (25.6-37.1) 11/07/17 10:40 - Extremities Exam Additional comments: LLE: Dressings and knee immobilizer CDI sensation intact SP/DP/TN motor intact EHL/FHL/TA/G pedal pulse intact comps soft NT Assessment and Plan (1) Dislocation of prosthetic joint of knee Assessment & Plan: POD#3 left knee dislocation operative closed reduction -Anemia: Dr. Joel recommends transfuse 1 unit PRBC's prior to OR. Cardiology and medicine on board. -pain control -Plan for left revision TKA josefina vs thurs -NPO pMN -Hold DVT ppx -PT/OT 10% FF WB -above d/w Dr. Joel in agreement Status: Acute
--- NOTE | 2017-11-10 11:02 | CP.PCM.PN ---
Subjective - Date & Time of Evaluation Date of Evaluation: 11/10/17 Time of Evaluation: 10:00 - Subjective Subjective: NO CHEST PAIN OR SOB Objective - Vital Signs/Intake and Output Vital Signs (last 24 hours): Temp Pulse Resp BP Pulse Ox 98.3 F 69 18 120/83 93 L 11/10/17 08:31 11/10/17 08:33 18 08:31 11/10/17 08:33 11/10/17 08:31 - Medications Medications: Current Medications Acetaminophen (Tylenol 325mg Tab) 975 mg PO Q8 [facility] Last Admin: 11/10/17 08:23 Dose: 975 mg Atorvastatin Calcium (Lipitor) 10 mg PO DIN [facility] Last Admin: 11/09/17 17:51 Dose: 10 mg Calcium Carbonate (Oscal) 500 mg PO DAILY [facility] Last Admin: 11/10/17 08:24 Dose: 500 mg Carvedilol (Coreg) 3.125 mg PO BID [facility] Last Admin: 11/10/17 08:33 Dose: 3.125 mg Cholecalciferol (Vitamin D) 2,000 intlu PO DAILY [facility] Last Admin: 11/10/17 08:26 Dose: 2,000 intlu Docusate Sodium (Colace) 200 mg PO HS [facility] Last Admin: 11/09/17 21:18 Dose: 200 mg Heparin Sodium (Porcine) (Heparin) 5,000 units SC Q8 [facility] PRN Reason: Protocol Last Admin: 11/10/17 08:33 Dose: 5,000 units Home Med (Lurasidone Hcl [Latuda]) 1 tab PO DAILY [facility] Losartan Potassium (Cozaar) 50 mg PO DAILY [facility] Last Admin: 11/10/17 08:32 Dose: 50 mg Ondansetron HCl (Zofran Inj) 4 mg IVP Q6 PRN PRN Reason: Nausea/Vomiting Pantoprazole Sodium (Protonix Ec Tab) 40 mg PO DAILY [facility] Last Admin: 11/10/17 08:25 Dose: 40 mg Tiotropium [place] (Spiriva) 18 mcg INH DAILY [facility] Last Admin: 11/10/17 08:27 Dose: 18 mcg Venlafaxine HCl (Effexor Xr) 225 mg PO DAILY [facility] Last Admin: 11/10/17 08:27 Dose: 225 mg - Labs Labs: 11/10/17 05:45 11/10/17 05:45 PT 13.8 Seconds (9.8-13.1) H 11/07/17 10:40 INR 1.2 (0.9-1.2) 11/07/17 10:40 APTT 29.1 Seconds (25.6-37.1) 11/07/17 10:40 - Respiratory Exam Respiratory Exam: Clear to Ausculation Bilateral - Cardiovascular Exam Cardiovascular Exam: REGULAR RHYTHM - Extremities Exam Additional comments: LEFT KNEE SWELLING Assessment and Plan - Assessment and Plan (Free Text) Assessment: DISLOCATION OF LEFT KNEE PROSTHESIS HYPERTENSION OLD DVT AND PE Plan: FOR SURGERY 11/11 0R 11/12 CONTINUE CARVEDILOL, LOSARTAN AND LOVENOX
--- NOTE | 2017-11-10 12:13 | CP.PCM.PN ---
Subjective - Date & Time of Evaluation Date of Evaluation: 11/10/17 Time of Evaluation: 11:30 - Subjective Subjective: No fever her knee pain resolved denies CP no SOB no abd pain Spoke with daughter Kinjal - discussed plan for blood transfusion, benefits/ risks discussed- agreed to the transfusion. Objective - Vital Signs/Intake and Output Vital Signs (last 24 hours): Temp Pulse Resp BP Pulse Ox 98.3 F 69 18 120/83 93 L 11/10/17 08:31 11/10/17 08:33 11/10/17 08:31 11/10/17 08:33 11/10/17 08:31 - Medications Medications: Current Medications Acetaminophen (Tylenol 325mg Tab) 975 mg PO Q8 [facility] Last Admin: 11/10/17 08:23 Dose: 975 mg Atorvastatin Calcium (Lipitor) 10 mg PO DIN [facility] Last Admin: 11/09/17 17:51 Dose: 10 mg Calcium Carbonate (Oscal) 500 mg PO DAILY [facility] Last Admin: 11/10/17 08:24 Dose: 500 mg Carvedilol (Coreg) 3.125 mg PO BID [facility] Last Admin: 11/10/17 08:33 Dose: 3.125 mg Cholecalciferol (Vitamin D) 2,000 intlu PO DAILY [facility] Last Admin: 11/10/17 08:26 Dose: 2,000 intlu Docusate Sodium (Colace) 200 mg PO HS [facility] Last Admin: 11/09/17 21:18 Dose: 200 mg Heparin Sodium (Porcine) (Heparin) 5,000 units SC Q8 [facility] PRN Reason: Protocol Last Admin: 11/10/17 08:33 Dose: 5,000 units Home Med (Lurasidone Hcl [Latuda]) 1 tab PO DAILY [facility] Losartan Potassium (Cozaar) 50 mg PO DAILY [facility] Last Admin: 11/10/17 08:32 Dose: 50 mg Ondansetron HCl (Zofran Inj) 4 mg IVP Q6 PRN PRN Reason: Nausea/Vomiting Pantoprazole Sodium (Protonix Ec Tab) 40 mg PO DAILY [facility] Last Admin: 11/10/17 08:25 Dose: 40 mg Tiotropium [place] (Spiriva) 18 mcg INH DAILY [facility] Last Admin: 11/10/17 08:27 Dose: 18 mcg Venlafaxine HCl (Effexor Xr) 225 mg PO DAILY [facility] Last Admin: 11/10/17 08:27 Dose: 225 mg - Labs Labs: 11/10/17 05:45 11/10/17 05:45 PT 13.8 Seconds (9.8-13.1) H 11/07/17 10:40 INR 1.2 (0.9-1.2) 11/07/17 10:40 APTT 29.1 Seconds (25.6-37.1) 11/07/17 10:40 - Constitutional Appears: Chronically Ill - Head Exam Head Exam: NORMAL INSPECTION, NORMOCEPHALIC - Eye Exam Pupil Exam: NORMAL ACCOMODATION - ENT Exam ENT Exam: Mucous Membranes Moist, Normal External Ear Exam - Neck Exam Neck Exam: Full ROM. absent: Meningismus - Respiratory Exam Respiratory Exam: NORMAL BREATHING PATTERN. absent: Respiratory Distress - Cardiovascular Exam Cardiovascular Exam: REGULAR RHYTHM, +S1, +S2 - GI/Abdominal Exam GI & Abdominal Exam: Soft, Normal Bowel Sounds. absent: Tenderness - Extremities Exam Extremities Exam: Normal Capillary Refill. absent: Calf Tenderness - Back Exam Back Exam: absent: CVA tenderness (L), CVA tenderness (R) - Neurological Exam Neurological Exam: Alert, Awake Additional comments: oriented to person and Place - Psychiatric Exam Psychiatric exam: Flat Affect, Normal Mood - Skin Skin Exam: Dry, Normal Color, Warm Assessment and Plan - Assessment and Plan (Free Text) Assessment: 87 year old female with a past medical history of dementia, HTN, Meningioma, PE on Eliquis, MDD, COPD, GERD, OA, cataracts, psychosis, and immobility who resides at [facility] , transferred from [facility]. Patient has a history of fall about 2.5 weeks ago and was evaluated in ED at the time and discharged home. Today patient presents with a severely swollen L knee, tender, unknown if patient fell again [facility], or when this was sustained. The patient's family stated they saw her 3 days ago, however did not notice her knee because she was wearing long pants. Other family members have visited the patient, however it is unknown if they noticed any trauma to the area. History is limited due to patient's dementia. At [place], the patient L Knee XR showed anterior dislocation. Per the daughter , it was manipulated, repeat XR showed dislocation again. BMP and CXR completed. CT showed dislocations and femoral fracture, displaced. At [facility], patient was evaluated by Cardiology, Orthopedic surgery, CBC, coags, T& S, EKG RBBB. Patient denies any chest pain or dyspnea at rest. COPD stable. METS <1, HX NSTEMI 3 months ago. Cardiology evaluation by Dr. Tripp appreciated. Echo demonstrated mod impaired LV with mod AI, mild/mod MR/TR, RVSP 66 (concern for PAH). TKR sched for tomorrow (due pt being on Eliquis). 1. Left knee dislocation with hemarthrosis/joint effusion s/p Closed Reduction Orthopedic surgery consult Dr. Joel Plan for TKR in am NPO from [place] pain control PT OT post op seen by Dr Tripp for Cardiac pre op eval - 2. Chronic Dementia with some behavioral changes sl worsening since the fall in [place] no signs of infection cont Latuda and Effexor 3. HTN continue statin, losartan, carvedilol 4. COPD chronic continue spiriva and breathing tx PRN 5. History of PE - d/c Eliquis since admission -Pt on Heparin SQ-d/c for the Surgery in am 6. Anemia , chronic transfuse 1 units PRBC in prep for surgery hgb=9.5 DVT proph - Heparin
[2017-11-11 06:37] LABS: HEMOGLOBIN 10.5 g/dL (12.0-16.0); MEAN CELL VOLUME 88.4 fl (81.0-99.0); MEAN CORPUSCULAR HEMOGLOBIN 29.2 pg (27.0-31.0); MEAN CORPUSCULAR HGB CONC 33.1 g/dL (33.0-37.0); RBC 3.59 Mil/uL (3.80-5.20); RED CELL DISTRIBUTION WIDTH 14.2 % (11.5-14.5); WHITE BLOOD COUNT 6.3 K/uL (4.8-10.8)
[2017-11-11 07:29] LABS: BLOOD UREA NITROGEN 22 mg/dl (7-17); CALCIUM 8.9 mg/dL (8.4-10.2); GFR AFRICAN-AMERICAN > 60; GFR NON-AFRICAN AMERICAN > 60
--- NOTE | 2017-11-11 07:52 | CP.PCM.PN ---
Subjective - Date & Time of Evaluation Date of Evaluation: 11/11/17 Time of Evaluation: 07:30 - Subjective Subjective: Patient seen and examined at bedside comfortable. Poor historian. Pain well controlled. No new complaints. Objective - Vital Signs/Intake and Output Vital Signs (last 24 hours): Temp Pulse Resp BP Pulse Ox 98.2 F 83 19 144/72 95 11/11/17 00:00 11/11/17 00:00 11/11/17 00:00 11/11/17 00:00 11/11/17 00:00 - Medications Medications: Current Medications Acetaminophen (Tylenol 325mg Tab) 975 mg PO Q8 [facility] Last Admin: 11/11/17 00:23 Dose: 975 mg Atorvastatin Calcium (Lipitor) 10 mg PO DIN [facility] Last Admin: 11/10/17 16:15 Dose: 10 mg Calcium Carbonate (Oscal) 500 mg PO DAILY [facility] Last Admin: 11/10/17 08:24 Dose: 500 mg Carvedilol (Coreg) 3.125 mg PO BID [facility] Last Admin: 11/10/17 16:15 Dose: 3.125 mg Cholecalciferol (Vitamin D) 2,000 intlu PO DAILY [facility] Last Admin: 11/10/17 08:26 Dose: 2,000 intlu Docusate Sodium (Colace) 200 mg PO HS [facility] Last Admin: 11/10/17 21:37 Dose: 200 mg Heparin Sodium (Porcine) (Heparin) 5,000 units SC Q8 [facility] PRN Reason: Protocol Last Admin: 11/10/17 16:14 Dose: 5,000 units Home Med (Lurasidone Hcl [Latuda]) 1 tab PO DAILY [facility] Losartan Potassium (Cozaar) 50 mg PO DAILY [facility] Last Admin: 11/10/17 08:32 Dose: 50 mg Ondansetron HCl (Zofran Inj) 4 mg IVP Q6 PRN PRN Reason: Nausea/Vomiting Pantoprazole Sodium (Protonix Ec Tab) 40 mg PO DAILY [facility] Last Admin: 11/10/17 08:25 Dose: 40 mg Tiotropium [place] (Spiriva) 18 mcg INH DAILY [facility] Last Admin: 11/10/17 08:27 Dose: 18 mcg Venlafaxine HCl (Effexor Xr) 225 mg PO DAILY [facility] Last Admin: 11/10/17 08:27 Dose: 225 mg - Labs Labs: 11/11/17 05:30 11/11/17 05:30 PT 13.8 Seconds (9.8-13.1) H 11/07/17 10:40 INR 1.2 (0.9-1.2) 11/07/17 10:40 APTT 29.1 Seconds (25.6-37.1) 11/07/17 10:40 - Extremities Exam Additional comments: LLE: Dressings and knee immobilizer CDI sensation intact SP/DP/TN motor intact EHL/FHL/TA/G pedal pulse intact comps soft NT Assessment and Plan (1) Dislocation of prosthetic joint of knee Assessment & Plan: POD#4 left knee dislocation operative closed reduction -HGB acceptable, spoke to Kemal from blood bank, 2 units PRBC's on hold for OR -OR for left revision TKA tomorrow -NPO pMN -PT/OT 10% FF WB -above d/w Dr. Joel in agreement Status: Acute
--- NOTE | 2017-11-11 09:12 | CP.PCM.PN ---
Subjective - Date & Time of Evaluation Date of Evaluation: 11/11/17 Time of Evaluation: 08:20 - Subjective Subjective: NO CHEST PAIN OR SOB Objective - Vital Signs/Intake and Output Vital Signs (last 24 hours): Temp Pulse Resp BP Pulse Ox 98.3 F 76 18 138/82 93 L 11/11/17 09:03 11/11/17 09:03 11/11/17 09:03 11/11/17 09:03 11/11/17 09:03 Intake and Output: 11/11/17 11/11/17 06:59 18:59 Intake Total 200 Balance 200 - Medications Medications: Current Medications Acetaminophen (Tylenol 325mg Tab) 975 mg PO Q8 [facility] Last Admin: 11/11/17 00:23 Dose: 975 mg Atorvastatin Calcium (Lipitor) 10 mg PO DIN [facility] Last Admin: 11/10/17 16:15 Dose: 10 mg Calcium Carbonate (Oscal) 500 mg PO DAILY [facility] Last Admin: 11/10/17 08:24 Dose: 500 mg Carvedilol (Coreg) 3.125 mg PO BID [facility] Last Admin: 11/10/17 16:15 Dose: 3.125 mg Cholecalciferol (Vitamin D) 2,000 intlu PO DAILY [facility] Last Admin: 11/10/17 08:26 Dose: 2,000 intlu Docusate Sodium (Colace) 200 mg PO HS [facility] Last Admin: 11/10/17 21:37 Dose: 200 mg Losartan Potassium (Cozaar) 50 mg PO DAILY [facility] Last Admin: 11/10/17 08:32 Dose: 50 mg Ondansetron HCl (Zofran Inj) 4 mg IVP Q6 PRN PRN Reason: Nausea/Vomiting Pantoprazole Sodium (Protonix Ec Tab) 40 mg PO DAILY [facility] Last Admin: 11/10/17 08:25 Dose: 40 mg Tiotropium [place] (Spiriva) 18 mcg INH DAILY [facility] Last Admin: 11/10/17 08:27 Dose: 18 mcg Venlafaxine HCl (Effexor Xr) 225 mg PO DAILY [facility] Last Admin: 11/10/17 08:27 Dose: 225 mg - Labs Labs: 11/11/17 05:30 11/11/17 05:30 PT 13.8 Seconds (9.8-13.1) H 11/07/17 10:40 INR 1.2 (0.9-1.2) 11/07/17 10:40 APTT 29.1 Seconds (25.6-37.1) 11/07/17 10:40 - Respiratory Exam Respiratory Exam: Clear to Ausculation Bilateral - Cardiovascular Exam Cardiovascular Exam: REGULAR RHYTHM, +S1, +S2 - Extremities Exam Additional comments: LEFT KNEE SWELLING - Additional Findings Additional findings: H/H 10.5/31.7 Assessment and Plan - Assessment and Plan (Free Text) Assessment: LEFT KNEE FRACTURE WITH PROSTHESIS DISLOCATION HYPERTENSION HISTORY OF DVT AND PE HYPERLIPIDEMIA Plan: CONTINUE CARVEDILOL, LOSARTAN AND ATORVASTATIN FOR LEFT KNEE SURGERY
[2017-11-11] MEDS: Pantoprazole 40 mg EC Tab PO SCH (09:28)
[2017-11-11] MEDS: Venlafaxine 75 mg ER Cap PO SCH (09:28)
[2017-11-11] MEDS: Tiotropium 18 mcg Cap For Inhalation INH SCH (09:29)
[2017-11-11] MEDS: Cholecalciferol 1,000 INTLU TAB PO SCH (09:29)
--- NOTE | 2017-11-11 11:37 | OP ---
PROCEDURE DATE: 11/07/2017 PREOPERATIVE DIAGNOSES: 1. Dislocated left total knee replacement. 2. Fracture femoral condyle. 3. Hemarthrosis. OPERATIVE FINDINGS As above. POSTOPERATIVE DIAGNOSES: 1. Dislocated left total knee replacement. 2. Femoral condylar fracture. 3. Hemarthrosis. SURGEON: Dr. Joel. COPIER AND PRINTER FIELD TECHNICIAN: Petey Hannon DPM, podiatry resident. ANESTHESIA: General endotracheal anesthesia administered by Dr. Polanco. COMPLICATIONS: None. DRAINS: None. SPECIMENS REMOVED: Blood aspirate approximately 5 mL. BLOOD LOSS: Approximately 5 mL, the aspirate. POSTOPERATIVE CONDITION: Stable. PROCEDURE TIME: 12:15. TIME IN THE ROOM: 11:45. OPERATIVE INDICATION: Lorie Machado is an 87-year-old woman who presents to the emergency room at [facility] with a dislocated knee. The patient presented between 8 and 09:30 p.m. I was notified at 05:15 a.m. Because of the nature of the problem, the patient was transferred to [facility] in case possible revision arthroplasty was necessitated as an emergency. Pros, cons, risks, and benefits of the proposed procedure were discussed with the patient's daughter and the son, Dr. Herbie Machado in [place] by telephone. The concept that closed reduction will be obtained and accomplished because the patient was on Eliquis, last dose being given on Thursday. The patient will require revision in my opinion because of the instability. After having obtained informed consent, after the satisfactory induction of general anesthesia by Dr. Nakul Polanco, after having identified side, site, and procedure and a critical pause/time-out , the above-captioned individual, Lorie Machado, in the supine position with all bony prominences well padded. Under the surgeon's direction, the fluoroscope was positioned, video images were generated, therapeutic decisions were made therefrom. The image intensification views reveal a dislocated total knee replacement with a calcified popliteal artery. It should be noted that there was a pulse palpable prior to the procedure and preoperative studies, which were done at [place] were reviewed. The dislocation was reduced. The fracture was reduced as well, but the knee re-dislocates. At this point in time, the knee was again reduced and held in a reduced position by Dr. Hannon, as the lower extremity was prepped and free draped. This having been accomplished from a superolateral portal approximately 5 mL of mary lou water aspirated. At this point in time, a Betadine wet dressing sponge was applied to that region and a Jerel Montanez compression dressing and knee immobilizer were applied. Postoperative x-rays reveal acceptable position of the construct. Neurocirculatory status is intact. The concept that this knee will have to be revised in some way, shape, or form to obtain stability. The knee is unstable possibly because of a fractured polyethylene post or because of component malposition. In any event, pros, cons, risks, and benefits of same were discussed at length with the patient's family, and with the patient's son who is a physician in [place]. OPERATIVE PROCEDURE: 1. Closed reduction of dislocating left total knee replacement. 2. Closed reduction femoral condylar fracture. 3. Aspiration of left knee. 4. Application of Jerel Montanez compression dressing and knee immobilizer. 5. Positioning of fluoroscope interpretation of video images. Mega Joel MD
--- NOTE | 2017-11-11 13:06 | CP.PCM.PN ---
Subjective - Date & Time of Evaluation Date of Evaluation: 11/11/17 Time of Evaluation: 12:00 - Subjective Subjective: no fever denies any hip pain minimal knee painno abd pain no CAT no CP no SOB Objective - Vital Signs/Intake and Output Vital Signs (last 24 hours): Temp Pulse Resp BP Pulse Ox 98.3 F 76 18 138/86 93 L 11/11/17 09:03 11/11/17 09:27 11/11/17 09:03 11/11/17 09:27 11/11/17 09:03 Intake and Output: 11/11/17 11/11/17 06:59 18:59 Intake Total 200 Balance 200 - Medications Medications: Current Medications Acetaminophen (Tylenol 325mg Tab) 975 mg PO Q8 [facility] Last Admin: 11/11/17 09:25 Dose: 975 mg Atorvastatin Calcium (Lipitor) 10 mg PO DIN [facility] Last Admin: 11/10/17 16:15 Dose: 10 mg Calcium Carbonate (Oscal) 500 mg PO DAILY [facility] Last Admin: 11/11/17 09:28 Dose: 500 mg Carvedilol (Coreg) 3.125 mg PO BID [facility] Last Admin: 11/11/17 09:26 Dose: 3.125 mg Cholecalciferol (Vitamin D) 2,000 intlu PO DAILY [facility] Last Admin: 11/11/17 09:29 Dose: 2,000 intlu Docusate Sodium (Colace) 200 mg PO HS [facility] Last Admin: 11/10/17 21:37 Dose: 200 mg Losartan Potassium (Cozaar) 50 mg PO DAILY [facility] Last Admin: 11/11/17 09:27 Dose: 50 mg Ondansetron HCl (Zofran Inj) 4 mg IVP Q6 PRN PRN Reason: Nausea/Vomiting Pantoprazole Sodium (Protonix Ec Tab) 40 mg PO DAILY [facility] Last Admin: 11/11/17 09:28 Dose: 40 mg Tiotropium [place] (Spiriva) 18 mcg INH DAILY [facility] Last Admin: 11/11/17 09:29 Dose: 18 mcg Venlafaxine HCl (Effexor Xr) 225 mg PO DAILY [facility] Last Admin: 11/11/17 09:28 Dose: 225 mg - Labs Labs: 11/11/17 05:30 11/11/17 05:30 PT 13.8 Seconds (9.8-13.1) H 11/07/17 10:40 INR 1.2 (0.9-1.2) 11/07/17 10:40 APTT 29.1 Seconds (25.6-37.1) 11/07/17 10:40 - Constitutional Appears: Chronically Ill - Head Exam Head Exam: NORMAL INSPECTION, NORMOCEPHALIC - Eye Exam Pupil Exam: NORMAL ACCOMODATION - ENT Exam ENT Exam: Mucous Membranes Moist, Normal External Ear Exam - Neck Exam Neck Exam: Full ROM. absent: Meningismus - Respiratory Exam Respiratory Exam: NORMAL BREATHING PATTERN. absent: Respiratory Distress - Cardiovascular Exam Cardiovascular Exam: REGULAR RHYTHM, +S1, +S2 - GI/Abdominal Exam GI & Abdominal Exam: Soft, Normal Bowel Sounds. absent: Tenderness - Extremities Exam Extremities Exam: Normal Capillary Refill. absent: Calf Tenderness knee with immobilizer no hip tenderness - Back Exam Back Exam: absent: CVA tenderness (L), CVA tenderness (R) - Neurological Exam Neurological Exam: Alert, Awake Additional comments: oriented to person and Place - Psychiatric Exam Psychiatric exam: Flat Affect, Normal Mood - Skin Skin Exam: Dry, Normal Color, Warm Assessment and Plan - Assessment and Plan (Free Text) Assessment: 87 year old female with a past medical history of dementia, HTN, Meningioma, PE on Eliquis, MDD, COPD, GERD, OA, cataracts, psychosis, and immobility who resides at [facility] , transferred from [facility]. Patient has a history of fall about 2.5 weeks ago and was evaluated in ED at the time and discharged home. This time presented with a severely swollen L knee, tender, unknown if patient fell again at [facility], or when this was sustained. The patient's family stated they saw her 3 days ago, however did not notice her knee because she was wearing long pants. Other family members have visited the patient, however it is unknown if they noticed any trauma to the area. History is limited due to patient's dementia. At [place], the patient L Knee XR showed anterior dislocation. Per the daughter , it was manipulated, repeat XR showed dislocation again. BMP and CXR completed. CT showed dislocations and femoral fracture, displaced. At [facility], patient was evaluated by Cardiology, Orthopedic surgery, CBC, coags, T& S, EKG RBBB. Patient denies any chest pain or dyspnea at rest. COPD stable. METS <1, HX NSTEMI 3 months ago. Cardiology evaluation by Dr. Tripp. Echo demonstrated mod impaired LV with mod AI, mild/mod MR/TR, RVSP 66 (concern for PAH). TKR sched for tomorrow. Pt off Heparin since 11/10 as recommended by Ortho team. 1. Left knee dislocation with hemarthrosis/joint effusion s/p Closed Reduction Orthopedic surgery consult Dr. Joel Plan for TKR in am NPO from [place] pain control PT OT post op seen by Dr Tripp for Cardiac pre op eval - 2. Chronic Dementia with some behavioral changes sl worsening since the fall in [place] no signs of infection cont Effexor 3. HTN continue statin, losartan, carvedilol 4. COPD chronic continue spiriva and breathing tx PRN 5. History of PE - d/c Eliquis since admission -Pt on Heparin SQ-d/c on 11/10 as pt is for surgery 6. Anemia , chronic transfused 1 units PRBC in prep for surgery for hgb=9.5, rpt Hgb is 10.5 7. Small Pustule right buttock Bactroban started DVT proph - Heparin was d/c 11/10
[2017-11-11] MEDS: Bacitracin OINT 15GM TOP SCH (18:25)
[2017-11-12] MEDS ORDERED: Dextrose 5%/0.45% NS 1,000 ML IV SCH (06:00)
[2017-11-12 06:34] LABS: HEMOGLOBIN 10.6 g/dL (12.0-16.0); MEAN CELL VOLUME 87.6 fl (81.0-99.0); MEAN CORPUSCULAR HEMOGLOBIN 29.6 pg (27.0-31.0); MEAN CORPUSCULAR HGB CONC 33.8 g/dL (33.0-37.0); RBC 3.58 Mil/uL (3.80-5.20); RED CELL DISTRIBUTION WIDTH 14.1 % (11.5-14.5); WHITE BLOOD COUNT 5.6 K/uL (4.8-10.8)
[2017-11-12 06:46] LABS: BLOOD UREA NITROGEN 21 mg/dl (7-17); GFR AFRICAN-AMERICAN > 60; GFR NON-AFRICAN AMERICAN > 60
[2017-11-12] MEDS ORDERED: Thrombin Topical 5,000 Int Units Spray Kit ONE (07:07)
[2017-11-12] MEDS ORDERED: Bacitracin Ointment 30 GM TUBE ONE (07:07)
[2017-11-12] MEDS ORDERED: GELATIN SPONGE,ABSORB/PORCINE 1 EACH SPONGE TP ONE (07:07)
--- NOTE | 2017-11-12 08:16 | CP.PCM.PN ---
Subjective - Date & Time of Evaluation Date of Evaluation: 11/12/17 Time of Evaluation: 07:00 - Subjective Subjective: NO COMPLAINTS OF CHEST PAIN OR SOB Objective - Vital Signs/Intake and Output Vital Signs (last 24 hours): Temp Pulse Resp BP Pulse Ox 98.5 F 68 18 164/81 H 95 11/12/17 00:24 11/12/17 00:24 11/12/17 00:24 11/12/17 00:24 11/12/17 00:24 - Medications Medications: Current Medications Acetaminophen (Tylenol 325mg Tab) 975 mg PO Q8 [facility] Last Admin: 11/12/17 01:46 Dose: Not Given Atorvastatin Calcium (Lipitor) 10 mg PO DIN [facility] Last Admin: 11/11/17 17:10 Dose: 10 mg Bacitracin (Bacitracin Oint) 1 applic TOP BID [facility] Last Admin: 11/11/17 18:25 Dose: 1 applic Calcium Carbonate (Oscal) 500 mg PO DAILY [facility] Last Admin: 11/11/17 09:28 Dose: 500 mg Carvedilol (Coreg) 3.125 mg PO BID [facility] Last Admin: 11/11/17 17:10 Dose: 3.125 mg Cholecalciferol (Vitamin D) 2,000 intlu PO DAILY [facility] Last Admin: 11/11/17 09:29 Dose: 2,000 intlu Docusate Sodium (Colace) 200 mg PO HS [facility] Last Admin: 11/11/17 22:19 Dose: Not Given Dextrose/Sodium Chloride (Dextrose 5%/0.45% Ns 1000 Ml) 1,000 mls @ 60 mls/hr IV .[id number] [facility] Stop: 11/13/17 05:56 Last Admin: 11/12/17 06:04 Dose: 60 mls/hr Losartan Potassium (Cozaar) 50 mg PO DAILY [facility] Last Admin: 11/11/17 09:27 Dose: 50 mg Ondansetron HCl (Zofran Inj) 4 mg IVP Q6 PRN PRN Reason: Nausea/Vomiting Pantoprazole Sodium (Protonix Ec Tab) 40 mg PO DAILY [facility] Last Admin: 11/11/17 09:28 Dose: 40 mg Tiotropium [place] (Spiriva) 18 mcg INH DAILY [facility] Last Admin: 11/11/17 09:29 Dose: 18 mcg Venlafaxine HCl (Effexor Xr) 225 mg PO DAILY [facility] Last Admin: 11/11/17 09:28 Dose: 225 mg - Labs Labs: 11/12/17 05:15 11/12/17 05:15 PT 13.8 Seconds (9.8-13.1) H 11/07/17 10:40 INR 1.2 (0.9-1.2) 11/07/17 10:40 APTT 29.1 Seconds (25.6-37.1) 11/07/17 10:40 - Respiratory Exam Respiratory Exam: Clear to Ausculation Bilateral - Cardiovascular Exam Cardiovascular Exam: REGULAR RHYTHM, +S1, +S2 Assessment and Plan - Assessment and Plan (Free Text) Assessment: LEFT PROSTHETIC KNEE DISLOCATION HYPERTENSION COPD HISTORY OF DVT AND PE Plan: FOR SURGERY TODAY-PATIENT IS CLEARED FOR SURGERY
[2017-11-12] MEDS ORDERED: Lidocaine 4% (Laryng-O-Jet) Kit MM ONE (08:33)
[2017-11-12] MEDS ORDERED: Midazolam 2 MG/2 ML VIAL ONE (08:33)
[2017-11-12] MEDS ORDERED: Succinylcholine 200 mg/10 ml Inj IV ONE (08:33)
[2017-11-12] MEDS ORDERED: Rocuronium 10 mg/ml (5 ml) ONE ×2 (08:34→10:24)
[2017-11-12] MEDS ORDERED: Etomidate 20 mg/10ml Inj IV ONE (08:36)
[2017-11-12] MEDS ORDERED: Ropivacaine 0.5% 30ML IV ONE (08:43)
[2017-11-12] MEDS: Bacitracin OINT 15GM TOP SCH ×2 (09:00→16:21)
[2017-11-12] MEDS: Pantoprazole 40 mg EC Tab PO SCH (09:00)
[2017-11-12] MEDS: Tranexamic Acid 1,000 MG in Sodium Chloride 0.9% 100 ML IVPB ONE ×2 (09:00→09:55)
[2017-11-12] MEDS: Tiotropium 18 mcg Cap For Inhalation INH SCH (09:00)
[2017-11-12] MEDS: Cholecalciferol 1,000 INTLU TAB PO SCH (09:00)
[2017-11-12] MEDS: Venlafaxine 75 mg ER Cap PO SCH (09:00)
[2017-11-12] MEDS ORDERED: Lactated Ringer's 1,000 ML IV ONE ×2 (09:19→13:40)
[2017-11-12] MEDS ORDERED: Sevoflurane - Inhalation Anesthetic Liq (250 ml) ONE (10:35)
[2017-11-12 11:39] LABS: FLUID TYPE SYNOVIAL FLUID
[2017-11-12] MEDS ORDERED: Neostigmine 1:1000 (1 mg/ml) Inj ONE (11:40)
--- NOTE | 2017-11-12 11:53 | PCM.SURG1 ---
Surgeon's Initial Post Op Note - Surgeon's Notes Surgeon: Wisam Mail Courier: LISA Anne/ 2nd assist Josue Barone Type of Anesthesia: General Endo, [facility]est[facility] Administered By: DR Fishman Pre-Operative Diagnosis: Unstable L knee replaceemnt. medial femoral conydle fx. synovitis. posterior capsul;ar contracture Operative Findings: as above. patella ligamne partial avuslion Post-Operative Diagnosis: Unstable L TKR. fx medial femoral condyle. patella ligament partial avulsion. synovitris. posteriro capsular contracture Operation Performed: Revision LTKR(1 component). ORIF L medial femoral condyle fx. primary repair patella ligament. ]anterior and posterior synovectomy. posterior cqpsular release. excsion skin/subcuataneous tissue and muscle Specimen/Specimens Removed: cartilage/synovium /bone Estimated Blood Loss: EBL {In ML}: 85 Drains Used: Wound Vac Post-Op Condition: Fair Date of Surgery/Procedure: 11/12/17 Time of Surgery/Procedure: 10:15 (time in room/anaesthesia indcution time 9:14)
--- NOTE | 2017-11-12 11:55 | PCM.ANESB3 ---
Femoral Nerve Block - Femoral Nerve Block Date of Procedure: 11/12/17 Anesthesiologist: Dr. Fishman Pre-Procedure Diagnosis: Fracture/dislocation left knee prosthesis Post-Procedure Diagnosis: Fracture/dislocation left knee prosthesis Procedure Performed: Femoral Nerve Block Left - Procedure Femoral Nerve Block: The procedure was explained to the patient that it is for the post-operative pain management. Consent was obtained after a thorough discussion with the patient regarding the benefits and possible complications of local anesthetic block of the femoral nerve at the inguinal crease area. The patient was brought to the operating room and standard monitors were applied. Time-out was held with the circulating nurse to confirm the correct surgery and the appropriate block. After applying oxygen by mask and administering general anesthesia, patient was placed in supine position with fully extended lower extremities and the left groin exposed. The femoral artery was then carefully palpated. The ultrasound transducer was then applied to this area in the transverse plane and the femoral nerve was visualized lateral to the femoral artery and underneath the fascia iliaca. After thorough identification, the inguinal crease area was prepped with Chloraprep solution. At this point, a #21 gauge Stimuplex 4-inch needle was inserted immediately lateral to the femoral artery pulse at the inguinal crease and advanced perpendicularly. The needle was inserted to the ultrasound transducer in-plane towards the femoral nerve in a [id number] direction. Needle advancement was performed carefully under direct ultrasound visualization. Nerve stimulator was used and twitch of the quadriceps muscle was obtained at current of 0.3MA. After negative aspiration, 2cc of 0.5% Ropivacaine was injected and this was followed with 18cc of 0.5% Ropivacaine. Under ultrasound guidance the local anesthetics were observed spreading below fascia iliaca and around the femoral nerve. The needle was removed intact and sterile dressing was applied. The patient had stable vital signs and in no apparent distress. The patient tolerated the femoral nerve block well with stable vital signs and was prepared for subsequent surgery.
--- NOTE | 2017-11-12 11:58 | PCM.ANESB2 ---
Popliteal Nerve Block - Popliteal Nerve Block Date of Procedure: 11/12/17 Anesthesiologist: Dr. Fishman Pre-Procedure Diagnosis: Fracture/dislocation left knee prosthesis Post-Procedure Diagnosis: Fracture/dislocation left knee prosthesis Procedure Performed: Popliteal Nerve Block Left - Procedure Popliteal Nerve Block: This procedure was explained to the patient that it is for post-operative pain management. Consent was obtained after a thorough discussion with the patient regarding the benefits and possible complications of local anesthetic block of the sciatic nerve at the popliteal level. The patient was brought to the operating room and standard monitors are applied. Time-out was held with the circulating nurse to confirm the correct surgery and the appropriate block. After applying oxygen by mask and administering general anesthesia, patient's operative leg was gently raised and supported and the groove in between the biceps femoris and vastus lateralis muscles was carefully palpated. The skin approximately 8cm above the popliteal crease was then marked. The ultrasound transducer was then applied to the posterior thigh approximately 8cm above the popliteal crease in the transverse plane and the sciatic nerve before its division was visualized lateral to the popliteal artery and in between the bicep femoris and semimembranosus/semitendinosus muscles. After identification, the lateral portion of the thigh was prepped with Chloraprep solution. At this point, a # 21 gauge Stimuplex insulated 4 inch needle was inserted into pre-marked area and advanced in a perpendicular direction. The needle was inserted above the ultrasound transducer in-plane towards the sciatic nerve in a [id number] direction. Needle advancement was performed carefully under direct ultrasound visualization. Nerve stimulator was used and dorsiflexion of the left foot was elicited at a current of 0.3MA. After repeated negative aspiration, 2cc of 0.5% Ropivacaine was injected and this was flowed with 18cc of 0.5% Ropivacaine. Under ultrasound guidance the local anesthetics were observed surrounding sciatic nerve . The needle was removed intact and sterile dressing was applied. The patient tolerated the popliteal nerve block well with stable vital signs and was subsequently prepared for the surgery.
[2017-11-12 12:00] LABS: SF GROSS APPEARANCE BLOODY (CLEAR); SYNOVIAL FLUID COMMENT TURBID
[2017-11-12] MEDS ORDERED: Lactated Ringer's 1,000 ML IV SCH ×2 (12:30→12:45)
[2017-11-12 12:36] LABS: SYNOVIAL FLUID MONO/MACROPHAGE 6 % (0-0)
--- NOTE | 2017-11-12 13:49 | RAD ---
Date of service: 11/12/2017 PROCEDURE: Left Knee Radiographs. HISTORY: Pain. COMPARISON: 11/07/2017 FINDINGS: BONES: Status post revision arthroplasty. Prosthesis intact. New femoral screw and tibial screw identified. There is technical limitation of this examination due to radiopaque extrinsic materials projecting over the region of interest. JOINTS: As above JOINT EFFUSION: Anterior cutaneous clement. Subcutaneous gas consistent with postoperative status. OTHER FINDINGS: None. IMPRESSION: Revision arthroplasty. No osseous fracture.
[2017-11-12] MEDS: ceFAZolin IV 2 gm in Dextrose 2 GM/50 ML BAG IVPB SCH (16:24)
--- NOTE | 2017-11-12 17:38 | CP.PCM.PN ---
Subjective - Date & Time of Evaluation Date of Evaluation: 11/12/17 Time of Evaluation: 17:00 - Subjective Subjective: Patient seen and examined. Complained of soreness on left leg. Objective - Vital Signs/Intake and Output Vital Signs (last 24 hours): Temp Pulse Resp BP Pulse Ox 99.8 F H 79 27 H 142/64 100 11/12/17 16:00 11/12/17 16:00 11/12/17 16:00 11/12/17 16:00 11/12/17 16:00 Intake and Output: 11/12/17 11/12/17 06:59 18:59 Intake Total 1075 Balance 1075 - Medications Medications: Current Medications Acetaminophen (Tylenol 325mg Tab) 975 mg PO Q8 [facility] Last Admin: 11/12/17 17:00 Dose: Not Given Atorvastatin Calcium (Lipitor) 10 mg PO DIN [facility] Last Admin: 11/12/17 17:00 Dose: Not Given Bacitracin (Bacitracin Oint) 1 applic TOP BID [facility] Last Admin: 11/12/17 16:21 Dose: Not Given Calcium Carbonate (Oscal) 500 mg PO DAILY [facility] Last Admin: 11/12/17 09:00 Dose: Not Given Carvedilol (Coreg) 3.125 mg PO BID [facility] Last Admin: 11/12/17 16:59 Dose: Not Given Cholecalciferol (Vitamin D) 2,000 intlu PO DAILY [facility] Last Admin: 11/12/17 09:00 Dose: Not Given Docusate Sodium (Colace) 200 mg PO HS [facility] Last Admin: 11/11/17 22:19 Dose: Not Given Enoxaparin Sodium (Lovenox) 40 mg SC DAILY [facility] PRN Reason: Protocol Dextrose/Sodium Chloride (Dextrose 5%/0.45% Ns 1000 Ml) 1,000 mls @ 60 mls/hr IV .[id number] [facility] Stop: 11/13/17 05:56 Last Admin: 11/12/17 06:04 Dose: 60 mls/hr Tranexamic Acid 1,000 mg/ (Sodium Chloride) 110 mls @ 12.5 mls/hr IVPB ONCE ONE Stop: 11/12/17 18:02 Lactated Ringer's (Lactated Ringer's) 1,000 mls @ 75 mls/hr IV .[id number] [facility] Cefazolin Sodium/Dextrose (Ancef Iv 2 Gm Duplex) 2 gm in 50 mls @ 50 mls/hr IVPB Q8 [facility] PRN Reason: Protocol Stop: 11/13/17 09:59 Last Admin: 11/12/17 16:24 Dose: 50 mls/hr Lactated Ringer's (Lactated Ringer's) 1,000 mls @ 75 mls/hr IV .[id number] [facility] Losartan Potassium (Cozaar) 50 mg PO DAILY [facility] Last Admin: 11/12/17 09:00 Dose: Not Given Ondansetron HCl (Zofran Inj) 4 mg IVP Q6 PRN PRN Reason: Nausea/Vomiting Last Admin: 11/12/17 16:12 Dose: 4 mg Oxycodone HCl (Oxycodone Immediate Release Tab) 10 mg PO Q4 PRN PRN Reason: Pain, moderate (4-7) Pantoprazole Sodium (Protonix Ec Tab) 40 mg PO DAILY [facility] Last Admin: 11/12/17 09:00 Dose: Not Given Tiotropium [place] (Spiriva) 18 mcg INH DAILY [facility] Last Admin: 11/12/17 09:00 Dose: Not Given Venlafaxine HCl (Effexor Xr) 225 mg PO DAILY [facility] Last Admin: 11/12/17 09:00 Dose: Not Given - Labs Labs: 11/12/17 05:15 11/12/17 05:15 PT 13.8 Seconds (9.8-13.1) H 11/07/17 10:40 INR 1.2 (0.9-1.2) 11/07/17 10:40 APTT 29.1 Seconds (25.6-37.1) 11/07/17 10:40 - Constitutional Appears: No Acute Distress - Head Exam Head Exam: ATRAUMATIC - Eye Exam Eye Exam: absent: Scleral icterus - ENT Exam ENT Exam: Mucous Membranes Moist - Neck Exam Neck Exam: absent: Meningismus - Respiratory Exam Respiratory Exam: absent: Rales, Rhonchi, Wheezes, Respiratory Distress - Cardiovascular Exam Cardiovascular Exam: REGULAR RHYTHM, +S1, +S2 - GI/Abdominal Exam GI & Abdominal Exam: Soft. absent: Tenderness - Rectal Exam Rectal Exam: Deferred - Extremities Exam Extremities Exam: absent: Normal Inspection (left leg completely wrapped with zuhair bandage) - Neurological Exam Neurological Exam: Alert - Psychiatric Exam Psychiatric exam: Normal Affect - Skin Skin Exam: Dry, Intact Assessment and Plan - Assessment and Plan (Free Text) Assessment: 87 yo female with history of Dementia, HTN, Meningioma, PE, COPD and OA was seen in the ER because of pain and swelling of the left knee preceded with falls a few weeks ago. Xray showed anterior dislocation of the left knee and medial femoral condyle fracture. Closed reduction and Left TKR was done on day of admission on 11/07/17. Revision of Left TKR done today, 11/12/17. 1. Anterior dislocation of Left Knee Orthopedic surgery consult Dr. Joel TKR done 11/07/17 followed with revision today, 11/12/17 patient tolerated procedure refer to PT for evaluation and management 2. Chronic Dementia stable 3. HTN BP stable continue Losartan, Carvedilol 4. COPD chronic asymptomatic continue Spiriva 5. 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 Anemia , chronic received 1 unit of PRBC prior to surgery Hgb: 10.6 7. DVT prophylaxis on Lovenox 40mg SC daily
[2017-11-12] MEDS: oxyCODONE 10 mg Immediate Release Tab PO PRN (20:33)
[2017-11-13] MEDS: ceFAZolin IV 2 gm in Dextrose 2 GM/50 ML BAG IVPB SCH ×2 (01:14→09:56)
[2017-11-13 05:33] LABS: HEMOGLOBIN 11.6 g/dL (12.0-16.0); MEAN CORPUSCULAR HEMOGLOBIN 29.7 pg (27.0-31.0); MEAN CORPUSCULAR HGB CONC 33.8 g/dL (33.0-37.0); RBC 3.9 Mil/uL (3.80-5.20); RED CELL DISTRIBUTION WIDTH 14.4 % (11.5-14.5); WHITE BLOOD COUNT 9.7 K/uL (4.8-10.8)
[2017-11-13 05:42] LABS: BLOOD UREA NITROGEN 21 mg/dl (7-17); CALCIUM 8.9 mg/dL (8.4-10.2); GFR AFRICAN-AMERICAN > 60; GFR NON-AFRICAN AMERICAN > 60
--- NOTE | 2017-11-13 06:46 | OP ---
PROCEDURE DATE: 11/12/2017 PREOPERATIVE DIAGNOSES: 1. Unstable left total knee replacement, status post dislocation. 2. Medial femoral condyle fracture. POSTOPERATIVE DIAGNOSES: 1. Unstable left total knee replacement, status post dislocation. 2. Medial femoral condyle fracture. 3. Marked synovitis. OPERATIVE PROCEDURES: 1. Revision of total knee replacement arthroplasty one-component. 2. Open reduction and internal fixation, medial femoral condyle. 3. Primary repair of patellar ligament. 4. Posterior capsular release. 5. Anterior and posterior synovectomy. 6. Lateral patellar retinacular release. 7. Excision of skin, subcutaneous tissue, and muscle; application of Jerel Montanez compression dressing and knee immobilizer. SURGEON: Mega Joel MD VACUUM REPAIRER: BRAYAN Pretty, certified registered nursing assistant unit forester. SECOND MACHINE MAINTENANCE: Fredis Barone PA-C. ESTIMATED BLOOD LOSS: Approximately 125 mL. COMPLICATIONS: No complications. DRAINS: Wound VAC drain was employed. OPERATIVE INDICATIONS: Lorie Machado is an 87-year-old woman who had sustained a dislocated knee on Thursday. The patient was transferred to [facility] ([facility] where a close reduction was accomplished, and the knee was immobilized with the knee dislocated. Again, the knee was certainly found to be unstable. Pros, cons, risks, and benefits of total knee replacement and revision were discussed with the family, the possibility of mechanical failure, infection, thromboembolic disease, nerve injury, secondary and tertiary surgeries were discussed with the patient's family. The concern is that although the patient is at best a household ambulator, the care of the nursing facility with an unstable knee may render her at risk for fracture or further injuries as a result of falls, etc. This was discussed at length with the family including the son, Herbie who is a doctor in [place]. Again, the pros, cons, risks, and benefits including were discussed at length. The family wishes the surgery to be accomplished. DESCRIPTION OF PROCEDURE: After having obtained informed consent in the above fashion, after having identified site, side, and procedure, a pause/time-out, after the satisfactory induction of the anesthetic, the patient was identified as Lorie Machado in the supine position with all bony prominences well padded and the left lower extremity was prepped and free draped in the usual fashion for lower extremity surgery. The tourniquet had been applied, but has not yet inflated. After exsanguinating the limb using 6-inch Esmarch bandage, the tourniquet which had been applied was inflated to 350 mmHg. Initial incision was extended two fingerbreadth distally and two fingerbreadth proximally. Using #10 blade, an ellipse of skin, subcutaneous tissue, and muscle was excised. A medial arthrotomy was accomplished. The patella was everted. The knee was flexed. This having been accomplished, the dissection was carried around posterior medially to the direct head of the semimembranosus tendon. A portion of the patella ligament was elevated. The tibia was dislocated anteriorly. The tibial polyethylene was removed from the tibial component. At this point in time, the patella was inspected, the interspaces between the femoral component and tibial component were found to be intact. The polyethylene tibial component was found to be damaged. At this point in time, trialing was accomplished with an #18 semiconstrained polyethylene tibial component. Flexion and extension was found to be balanced. There was no evidence of instability. At this point in time, the tibial component was revised with #18 poly tibial component. Attention was turned to the femur, the femur was found to be intact. The notch was smoothed using a pete to accept the post through an acceptable post and cam mechanism. The lateral patellar retinacular release was accomplished from inside out. The posterior capsule release was accomplished as well because of the pre-existing contracture. This having been accomplished at this point in time, attention was turned to the lateral femoral condyle fracture. There was found to be most likely an avulsion of the ligament. The sliver of bone and femoral condylar fracture was reduced following drill, followed by sounding to 60 mm. A 4.0 cancellous screw was used to fix the lateral femoral condyle as well as the 14-mm screw more distally in the lateral condyle. Permanent repair of the medial condylar ligament was accomplished with sutures. The wound was thoroughly irrigated. The tourniquet was deflated. Hemostasis controlled with the Aquamantys. Primary repair of the patellar ligament was accomplished using the Arthrex anchor with two sets of sutures emanating from the anchor. Using the sutures, the primary repair of the patellar ligament was carried out. The patellar ligament was repaired/reconstructed and stabilized. The wound was thoroughly irrigated with closure of the arthrotomy with #2 FiberWire followed by 0-Vicryl and clement for skin. At this point in time, the skin incision was measured. The Prevena wound VAC was measured and it was employed. The central aspect is cut and the wound VAC is introduced and is applied to the wound. The patient is transferred from the operating table to stretcher having tolerated the procedure well. Jerel Montanez compression dressing and knee immobilizer was applied. SHORTY Celestin and Yara Hines, certified registered nursing assistant unit forester are necessary for the completion of the operative goal. Mega Joel MD
[2017-11-13] MEDS: oxyCODONE 10 mg Immediate Release Tab PO PRN ×3 (06:48→20:33)
[2017-11-13] MEDS: Lactated Ringer's 1,000 ML IV SCH ×2 (07:21→21:19)
--- NOTE | 2017-11-13 08:55 | CP.PCM.PN ---
Subjective - Date & Time of Evaluation Date of Evaluation: 11/13/17 Time of Evaluation: 08:00 - Subjective Subjective: NO CHEST PAIN OR SOB Objective - Vital Signs/Intake and Output Vital Signs (last 24 hours): Temp Pulse Resp BP Pulse Ox 98.5 F 81 12 145/88 97 11/13/17 08:00 11/13/17 08:00 11/13/17 08:00 11/13/17 08:00 11/13/17 08:00 Intake and Output: 11/13/17 11/13/17 06:59 18:59 Intake Total 690 300 Output Total 0 Balance 690 300 - Medications Medications: Current Medications Acetaminophen (Tylenol 325mg Tab) 975 mg PO Q8 [facility] Last Admin: 11/13/17 01:15 Dose: 975 mg Atorvastatin Calcium (Lipitor) 10 mg PO DIN [facility] Last Admin: 11/12/17 17:00 Dose: Not Given Bacitracin (Bacitracin Oint) 1 applic TOP BID [facility] Last Admin: 11/12/17 16:21 Dose: Not Given Calcium Carbonate (Oscal) 500 mg PO DAILY [facility] Last Admin: 11/12/17 09:00 Dose: Not Given Carvedilol (Coreg) 3.125 mg PO BID [facility] Last Admin: 11/12/17 16:59 Dose: Not Given Cholecalciferol (Vitamin D) 2,000 intlu PO DAILY [facility] Last Admin: 11/12/17 09:00 Dose: Not Given Docusate Sodium (Colace) 200 mg PO HS [facility] Last Admin: 11/12/17 22:08 Dose: 200 mg Enoxaparin Sodium (Lovenox) 40 mg SC DAILY [facility] PRN Reason: Protocol Lactated Ringer's (Lactated Ringer's) 1,000 mls @ 75 mls/hr IV .[id number] [facility] Last Admin: 11/13/17 07:21 Dose: 75 mls/hr Cefazolin Sodium/Dextrose (Ancef Iv 2 Gm Duplex) 2 gm in 50 mls @ 50 mls/hr IVPB Q8 [facility] PRN Reason: Protocol Stop: 11/13/17 09:59 Last Admin: 11/13/17 01:14 Dose: 50 mls/hr Lactated Ringer's (Lactated Ringer's) 1,000 mls @ 75 mls/hr IV .[id number] [facility] Losartan Potassium (Cozaar) 50 mg PO DAILY [facility] Last Admin: 11/12/17 09:00 Dose: Not Given Ondansetron HCl (Zofran Inj) 4 mg IVP Q6 PRN PRN Reason: Nausea/Vomiting Last Admin: 11/12/17 16:12 Dose: 4 mg Oxycodone HCl (Oxycodone Immediate Release Tab) 10 mg PO Q4 PRN PRN Reason: Pain, moderate (4-7) Last Admin: 11/13/17 06:48 Dose: 10 mg Pantoprazole Sodium (Protonix Ec Tab) 40 mg PO DAILY [facility] Last Admin: 11/12/17 09:00 Dose: Not Given Tiotropium [place] (Spiriva) 18 mcg INH DAILY [facility] Last Admin: 11/12/17 09:00 Dose: Not Given Venlafaxine HCl (Effexor Xr) 225 mg PO DAILY [facility] Last Admin: 11/12/17 09:00 Dose: Not Given - Labs Labs: 11/13/17 05:00 11/13/17 05:00 PT 13.8 Seconds (9.8-13.1) H 11/07/17 10:40 INR 1.2 (0.9-1.2) 11/07/17 10:40 APTT 29.1 Seconds (25.6-37.1) 11/07/17 10:40 - Respiratory Exam Respiratory Exam: Clear to Ausculation Bilateral - Cardiovascular Exam Cardiovascular Exam: REGULAR RHYTHM, +S1, +S2 - Extremities Exam Additional comments: LLE WITH IMMOBILIZER - Additional Findings Additional findings: 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
--- NOTE | 2017-11-13 09:56 | CP.PCM.PN ---
Subjective - Date & Time of Evaluation Date of Evaluation: 11/13/17 Time of Evaluation: 10:06 - Subjective Subjective: Patient in chair, comfortable. Follows commands. Sleepy. Objective - Vital Signs/Intake and Output Vital Signs (last 24 hours): Temp Pulse Resp BP Pulse Ox 98.5 F 81 12 145/88 97 11/13/17 08:00 11/13/17 08:00 11/13/17 08:00 11/13/17 08:00 11/13/17 08:00 Intake and Output: 11/13/17 11/13/17 06:59 18:59 Intake Total 690 300 Output Total 0 Balance 690 300 - Medications Medications: Current Medications Acetaminophen (Tylenol 325mg Tab) 975 mg PO Q8 [facility] Last Admin: 11/13/17 01:15 Dose: 975 mg Atorvastatin Calcium (Lipitor) 10 mg PO DIN [facility] Last Admin: 11/12/17 17:00 Dose: Not Given Bacitracin (Bacitracin Oint) 1 applic TOP BID [facility] Last Admin: 11/12/17 16:21 Dose: Not Given Calcium Carbonate (Oscal) 500 mg PO DAILY [facility] Last Admin: 11/12/17 09:00 Dose: Not Given Carvedilol (Coreg) 3.125 mg PO BID [facility] Last Admin: 11/12/17 16:59 Dose: Not Given Cholecalciferol (Vitamin D) 2,000 intlu PO DAILY [facility] Last Admin: 11/12/17 09:00 Dose: Not Given Docusate Sodium (Colace) 200 mg PO HS [facility] Last Admin: 11/12/17 22:08 Dose: 200 mg Enoxaparin Sodium (Lovenox) 40 mg SC DAILY [facility] PRN Reason: Protocol Lactated Ringer's (Lactated Ringer's) 1,000 mls @ 75 mls/hr IV .[id number] [facility] Last Admin: 11/13/17 07:21 Dose: 75 mls/hr Cefazolin Sodium/Dextrose (Ancef Iv 2 Gm Duplex) 2 gm in 50 mls @ 50 mls/hr IVPB Q8 [facility] PRN Reason: Protocol Stop: 11/13/17 09:59 Last Admin: 11/13/17 01:14 Dose: 50 mls/hr Lactated Ringer's (Lactated Ringer's) 1,000 mls @ 75 mls/hr IV .[id number] [facility] Losartan Potassium (Cozaar) 50 mg PO DAILY [facility] Last Admin: 11/12/17 09:00 Dose: Not Given Ondansetron HCl (Zofran Inj) 4 mg IVP Q6 PRN PRN Reason: Nausea/Vomiting Last Admin: 11/12/17 16:12 Dose: 4 mg Oxycodone HCl (Oxycodone Immediate Release Tab) 10 mg PO Q4 PRN PRN Reason: Pain, moderate (4-7) Last Admin: 11/13/17 06:48 Dose: 10 mg Pantoprazole Sodium (Protonix Ec Tab) 40 mg PO DAILY [facility] Last Admin: 11/12/17 09:00 Dose: Not Given Tiotropium [place] (Spiriva) 18 mcg INH DAILY [facility] Last Admin: 11/12/17 09:00 Dose: Not Given Venlafaxine HCl (Effexor Xr) 225 mg PO DAILY [facility] Last Admin: 11/12/17 09:00 Dose: Not Given - Labs Labs: 11/13/17 05:00 11/13/17 05:00 PT 13.8 Seconds (9.8-13.1) H 11/07/17 10:40 INR 1.2 (0.9-1.2) 11/07/17 10:40 APTT 29.1 Seconds (25.6-37.1) 11/07/17 10:40 - Extremities Exam Additional comments: LLE: prevena intact, +ROM ankle/toes, sensation intact to foot, calves soft NT. Assessment and Plan (1) Dislocation of prosthetic joint of knee Assessment & Plan: POSD#1 s/p revision/poly exchange PT/OT d/c planning continue prevena dressing at this time VTE proph d/w DR. Joel, agrees with above Status: Acute
[2017-11-13] MEDS: Bacitracin OINT 15GM TOP SCH ×2 (09:57→17:04)
[2017-11-13] MEDS: Venlafaxine 75 mg ER Cap PO SCH (09:59)
[2017-11-13] MEDS: Enoxaparin 40 mg Syringe SC SCH (10:00)
[2017-11-13] MEDS: Pantoprazole 40 mg EC Tab PO SCH (10:01)
[2017-11-13] MEDS: Tiotropium 18 mcg Cap For Inhalation INH SCH (10:01)
[2017-11-13] MEDS: Cholecalciferol 1,000 INTLU TAB PO SCH (10:01)
--- NOTE | 2017-11-13 10:10 | CP.PCM.PN ---
Subjective - Date & Time of Evaluation Date of Evaluation: 11/13/17 Time of Evaluation: 10:08 - Subjective Subjective: patient doing well pain controlled h/h stable nad hd stable Objective - Vital Signs/Intake and Output Vital Signs (last 24 hours): Temp Pulse Resp BP Pulse Ox 98.5 F 90 12 131/70 97 11/13/17 08:00 11/13/17 09:58 11/13/17 08:00 11/13/17 09:58 11/13/17 08:00 Intake and Output: 11/13/17 11/13/17 06:59 18:59 Intake Total 690 300 Output Total 0 Balance 690 300 - Medications Medications: Current Medications Acetaminophen (Tylenol 325mg Tab) 975 mg PO Q8 [facility] Last Admin: 11/13/17 10:04 Dose: 975 mg Atorvastatin Calcium (Lipitor) 10 mg PO DIN [facility] Last Admin: 11/12/17 17:00 Dose: Not Given Bacitracin (Bacitracin Oint) 1 applic TOP BID [facility] Last Admin: 11/13/17 09:57 Dose: 1 applic Calcium Carbonate (Oscal) 500 mg PO DAILY [facility] Last Admin: 11/13/17 10:01 Dose: 500 mg Carvedilol (Coreg) 3.125 mg PO BID [facility] Last Admin: 11/13/17 09:57 Dose: 3.125 mg Cholecalciferol (Vitamin D) 2,000 intlu PO DAILY [facility] Last Admin: 11/13/17 10:01 Dose: 2,000 intlu Docusate Sodium (Colace) 200 mg PO HS [facility] Last Admin: 11/12/17 22:08 Dose: 200 mg Enoxaparin Sodium (Lovenox) 40 mg SC DAILY [facility] PRN Reason: Protocol Last Admin: 11/13/17 10:00 Dose: 40 mg Lactated Ringer's (Lactated Ringer's) 1,000 mls @ 75 mls/hr IV .[id number] [facility] Last Admin: 11/13/17 07:21 Dose: 75 mls/hr Lactated Ringer's (Lactated Ringer's) 1,000 mls @ 75 mls/hr IV .[id number] [facility] Last Admin: 11/13/17 10:00 Dose: 75 mls/hr Losartan Potassium (Cozaar) 50 mg PO DAILY [facility] Last Admin: 11/13/17 09:58 Dose: 50 mg Ondansetron HCl (Zofran Inj) 4 mg IVP Q6 PRN PRN Reason: Nausea/Vomiting Last Admin: 11/12/17 16:12 Dose: 4 mg Oxycodone HCl (Oxycodone Immediate Release Tab) 10 mg PO Q4 PRN PRN Reason: Pain, moderate (4-7) Last Admin: 11/13/17 06:48 Dose: 10 mg Pantoprazole Sodium (Protonix Ec Tab) 40 mg PO DAILY [facility] Last Admin: 11/13/17 10:01 Dose: 40 mg Tiotropium [place] (Spiriva) 18 mcg INH DAILY [facility] Last Admin: 11/13/17 10:01 Dose: 18 mcg Venlafaxine HCl (Effexor Xr) 225 mg PO DAILY [facility] Last Admin: 11/13/17 09:59 Dose: 225 mg - Labs Labs: 11/13/17 05:00 11/13/17 05:00 PT 13.8 Seconds (9.8-13.1) H 11/07/17 10:40 INR 1.2 (0.9-1.2) 11/07/17 10:40 APTT 29.1 Seconds (25.6-37.1) 11/07/17 10:40 - Constitutional Appears: Non-toxic, No Acute Distress - Head Exam Head Exam: ATRAUMATIC, NORMOCEPHALIC - Eye Exam Eye Exam: EOMI, Normal appearance - ENT Exam ENT Exam: Mucous Membranes Moist, Normal Oropharynx - Respiratory Exam Respiratory Exam: Clear to Ausculation Bilateral, NORMAL BREATHING PATTERN - Cardiovascular Exam Cardiovascular Exam: RRR, +S1, +S2 - GI/Abdominal Exam GI & Abdominal Exam: Soft, Normal Bowel Sounds. absent: Mass, Organomegaly - Extremities Exam Extremities Exam: Normal Capillary Refill. absent: Calf Tenderness - Back Exam Back Exam: absent: CVA tenderness (L), CVA tenderness (R) - Neurological Exam Neurological Exam: Alert, Awake Additional comments: dementia - Psychiatric Exam Psychiatric exam: Normal Affect, Normal Mood - Skin Skin Exam: Dry, Warm Assessment and Plan - Assessment and Plan (Free Text) Plan: 87 yo female with history of Dementia, HTN, Meningioma, PE, COPD and OA was seen in the ER because of pain and swelling of the left knee preceded with falls a few weeks ago. Xray showed anterior dislocation of the left knee and medial femoral condyle fracture. Closed reduction and Left TKR was done on day of admission on 11/07/17. Revision of Left TKR done today, 11/12/17. 1. Anterior dislocation of Left Knee Orthopedic surgery consult Dr. Joel TKR done 11/07/17 followed with revision today, 11/12/17 patient tolerated procedure refer to PT for evaluation and management 2. Chronic Dementia stable 3. HTN BP stable continue Losartan, Carvedilol 4. COPD chronic asymptomatic continue Spiriva 5. 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 Anemia , chronic received 1 unit of PRBC prior to surgery Hgb: 10.6 7. DVT prophylaxis on Lovenox 40mg SC daily
[2017-11-14] MEDS: Lactated Ringer's 1,000 ML IV SCH (04:30)
[2017-11-14 07:37] LABS: MEAN CELL VOLUME 87.5 fl (81.0-99.0); MEAN CORPUSCULAR HEMOGLOBIN 29.8 pg (27.0-31.0); RED CELL DISTRIBUTION WIDTH 14.3 % (11.5-14.5); WHITE BLOOD COUNT 6.9 K/uL (4.8-10.8)
[2017-11-14 07:39] LABS: BLOOD UREA NITROGEN 19 mg/dl (7-17); CALCIUM 8.7 mg/dL (8.4-10.2); GFR AFRICAN-AMERICAN > 60; GFR NON-AFRICAN AMERICAN > 60
[2017-11-14 07:52] LABS: HEMOGLOBIN 8.9 g/dL (12.0-16.0)
[2017-11-14] MEDS: oxyCODONE 10 mg Immediate Release Tab PO PRN ×2 (08:52→16:28)
[2017-11-14] MEDS: Cholecalciferol 1,000 INTLU TAB PO SCH (08:54)
[2017-11-14] MEDS: Venlafaxine 75 mg ER Cap PO SCH (08:54)
[2017-11-14] MEDS: Tiotropium 18 mcg Cap For Inhalation INH SCH (08:55)
[2017-11-14] MEDS: Pantoprazole 40 mg EC Tab PO SCH (08:56)
[2017-11-14] MEDS: Enoxaparin 40 mg Syringe SC SCH (08:56)
[2017-11-14] MEDS: Bacitracin OINT 15GM TOP SCH (09:07)
--- NOTE | 2017-11-14 11:28 | CP.PCM.DIS ---
Provider - Provider Date of Admission: 11/07/17 09:46 Attending physician: Giselle Barnes DO Time Spent in preparation of Discharge (in minutes): 90 Diagnosis - Discharge Diagnosis (1) Dislocation of prosthetic joint of knee Status: Acute (2) Effusion, left knee Status: Acute (3) Femur fracture, left Status: Acute (4) Dementia in Alzheimer's disease with delirium Status: Acute Hospital Course - Lab Results Lab Results: Micro Results 11/12/17 16:00 Nose MRSA Culture (Admit) - Final MRSA NOT DETECTED 11/12/17 11:00 Other: Please Indicate Fungal Culture - Preliminary 11/12/17 11:00 Other: Please Indicate Mycobacterial Culture - Preliminary 11/12/17 16:25 Knee - Left Gram Stain - Final 11/12/17 16:25 Knee - Left Wound Culture - Preliminary NO GROWTH AFTER 24 HOURS 11/12/17 16:25 Knee - Left Gram Stain - Final 11/12/17 16:25 Knee - Left Wound Culture - Preliminary NO GROWTH AFTER 24 HOURS 11/12/17 16:25 Knee - Left Gram Stain - Final 11/12/17 16:25 Knee - Left Wound Culture - Preliminary NO GROWTH AFTER 24 HOURS 11/12/17 16:25 Knee - Left Gram Stain - Final 11/12/17 16:25 Knee - Left Wound Culture - Preliminary NO GROWTH AFTER 24 HOURS 11/12/17 16:25 Knee - Left Gram Stain - Final 11/12/17 16:25 Knee - Left Wound Culture - Preliminary NO GROWTH AFTER 24 HOURS 11/12/17 16:25 Knee - Left Gram Stain - Final 11/12/17 16:25 Knee - Left Wound Culture - Preliminary NO GROWTH AFTER 24 HOURS 11/12/17 16:25 Knee - Left Gram Stain - Final 11/12/17 16:25 Knee - Left Wound Culture - Preliminary NO GROWTH AFTER 24 HOURS 11/12/17 16:25 Knee - Left Gram Stain - Final 11/12/17 16:25 Knee - Left Wound Culture - Preliminary NO GROWTH AFTER 24 HOURS 11/12/17 11:00 Synovial Fluid Gram Stain - Final 11/12/17 11:00 Synovial Fluid Body Fluid Culture - Preliminary NO GROWTH AFTER 24 HOURS 11/07/17 15:04 Knee - Left Gram Stain - Final 11/07/17 15:04 Knee - Left Wound Culture - Final Coagulase Neg Staphylococcus 11/07/17 15:04 Knee - Left Gram Stain - Final 11/07/17 15:04 Knee - Left Wound Culture - Final No growth. 11/07/17 15:04 Knee - Left Gram Stain - Final 11/07/17 15:04 Knee - Left Wound Culture - Final No growth. 11/07/17 15:04 Knee - Left Gram Stain - Final 11/07/17 15:04 Knee - Left Wound Culture - Final No growth. 11/07/17 15:04 Knee - Left Gram Stain - Final 11/07/17 15:04 Knee - Left Wound Culture - Final No growth. 11/07/17 13:32 Synovial Fluid Gram Stain - Final 11/07/17 13:32 Synovial Fluid Body Fluid Culture - Final No growth. 11/07/17 15:15 Other: Please Indicate Fungal Culture - Final 11/07/17 15:04 Knee - Left Gram Stain - Final 11/07/17 15:04 Knee - Left Wound Culture - Final No Growth 11/07/17 15:04 Knee - Left Gram Stain - Final 11/07/17 15:04 Knee - Left Anaerobic Culture - Final NO ANAEROBES ISOLATED. 11/07/17 15:04 Knee - Left Wound Culture - Final No Growth 11/07/17 15:04 Knee - Left Gram Stain - Final 11/07/17 15:04 Knee - Left Anaerobic Culture - Final NO ANAEROBES ISOLATED. 11/07/17 15:04 Knee - Left Wound Culture - Final No Growth 11/08/17 14:45 Urine,Catheterized Urine Culture - Final No Growth (<1,000 CFU/ML) Most Recent Lab Values WBC 6.9 K/uL (4.8-10.8) 11/14/17 06:00 RBC 3.00 Mil/uL (3.80-5.20) L 11/14/17 06:00 Hgb 8.9 g/dL (12.0-16.0) L D 11/14/17 06:00 Hct 26.3 % (34.0-47.0) L 11/14/17 06:00 MCV 87.5 fl (81.0-99.0) 11/14/17 06:00 MCH 29.8 pg (27.0-31.0) 11/14/17 06:00 MCHC 34.0 g/dL (33.0-37.0) 11/14/17 06:00 RDW 14.3 % (11.5-14.5) 11/14/17 06:00 Plt Count 192 K/uL (130-400) 11/14/17 06:00 MPV 8.6 fl (7.2-11.7) 11/07/17 10:40 Neut % (Auto) 78.5 % (50.0-75.0) H 11/07/17 10:40 Lymph % (Auto) 8.6 % (20.0-40.0) L 11/07/17 10:40 [place] % (Auto) 10.7 % (0.0-10.0) H 11/07/17 10:40 Eos % (Auto) 1.5 % (0.0-4.0) 11/07/17 10:40 Baso % (Auto) 0.7 % (0.0-2.0) 11/07/17 10:40 Neut # (Auto) 7.6 K/uL (1.8-7.0) H 11/07/17 10:40 Lymph # (Auto) 0.8 K/uL (1.0-4.3) L 11/07/17 10:40 [place] # (Auto) 1.0 K/uL (0.0-0.8) H 11/07/17 10:40 Eos # (Auto) 0.1 K/uL (0.0-0.7) 11/07/17 10:40 Baso # (Auto) 0.1 K/uL (0.0-0.2) 11/07/17 10:40 Neutrophils % (Manual) 83 % (42-75) H 11/07/17 10:40 Lymphocytes % (Manual) 8 % (20-50) L 11/07/17 10:40 Monocytes % (Manual) 8 % (0-10) 11/07/17 10:40 Eosinophils % (Manual) 1 % (0-7) 11/07/17 10:40 Platelet Estimate Normal (NORMAL) 11/07/17 10:40 Large Platelets Present 11/07/17 10:40 Anisocytosis (manual) Slight 11/07/17 10:40 Macrocytosis (manual) Slight 11/07/17 10:40 Tear Drop Cells Slight 11/07/17 10:40 Ovalocytes Slight 11/07/17 10:40 PT 13.8 Seconds (9.8-13.1) H 11/07/17 10:40 INR 1.2 (0.9-1.2) 11/07/17 10:40 APTT 29.1 Seconds (25.6-37.1) 11/07/17 10:40 Sodium 140 mmol/l (132-148) 11/14/17 06:00 Potassium 3.3 MMOL/L (3.6-5.0) L 11/14/17 06:00 Chloride 108 mmol/L (98-107) H 11/14/17 06:00 Carbon Dioxide 24 mmol/L (22-30) 11/14/17 06:00 Anion Gap 11 (10-20) 11/14/17 06:00 BUN 19 mg/dl (7-17) H 11/14/17 06:00 Creatinine 0.6 mg/dl (0.7-1.2) L 11/14/17 06:00 Est GFR ( Amer) > 60 11/14/17 06:00 Est GFR (Non-Af Amer) > 60 11/14/17 06:00 POC Glucose (mg/dL) 102 mg/dL (65-110) 11/14/17 05:29 Random Glucose 95 mg/dL (65-105) 11/14/17 06:00 Calcium 8.7 mg/dL (8.4-10.2) 11/14/17 06:00 Phosphorus 3.2 mg/dl (2.5-4.5) 11/07/17 10:40 Magnesium 1.8 MG/DL (1.6-2.3) 11/07/17 10:40 Total Bilirubin 0.5 mg/dl (0.2-1.3) 11/07/17 10:40 AST 41 U/L (14-36) H 11/07/17 10:40 ALT 49 U/L (9-52) 11/07/17 10:40 Alkaline Phosphatase 119 U/L (38-126) 11/07/17 10:40 Total Protein 7.0 G/DL (6.3-8.2) 11/07/17 10:40 Albumin 3.5 g/dL (3.5-5.0) 11/07/17 10:40 Globulin 3.5 gm/dL (2.2-3.9) 11/07/17 10:40 Albumin/Globulin Ratio 1.0 (1.0-2.1) 11/07/17 10:40 TSH 3rd Generation 3.13 mIU/ML (0.46-4.68) 11/07/17 10:40 Urine Color Yellow (YELLOW) 11/08/17 14:45 Urine Clarity Slighty-cloudy (Clear) 11/08/17 14:45 Urine pH 6.0 (5.0-8.0) 11/08/17 14:45 Ur Specific [place] 1.045 (1.003-1.030) H 11/08/17 14:45 Urine Protein 30 mg/dL (NEGATIVE) 11/08/17 14:45 Urine Glucose (UA) Neg mg/dL (Normal) 11/08/17 14:45 Urine Ketones Negative mg/dL (NEGATIVE) 11/08/17 14:45 Urine Blood Negative (NEGATIVE) 11/08/17 14:45 Urine Nitrate Negative (NEGATIVE) 11/08/17 14:45 Urine Bilirubin Negative (NEGATIVE) 11/08/17 14:45 Urine Urobilinogen 0.2-1.0 mg/dL (0.2-1.0) 11/08/17 14:45 Ur Leukocyte Esterase Neg [place]/uL (Negative) 11/08/17 14:45 Urine RBC (Auto) 2 /hpf (0-3) 11/08/17 14:45 Urine Microscopic WBC 4 /hpf (0-5) 11/08/17 14:45 Ur Squamous Epith Cells 2 /hpf (0-5) 11/08/17 14:45 Fluid Type Synovial fluid 11/12/17 11:25 Synovial WBC 117.0 /mm3 (0.0-150.0) 11/12/17 11:25 Synovial RBC 306125.0 /mm3 (0.0-0.0) H 11/12/17 11:25 Synovial Neutrophils 60.0 % (0-0) H 11/12/17 11:25 Synovial Lymphocytes 34.0 % (0-0) H 11/12/17 11:25 Synov Monos/Macrophage 6 % (0-0) H 11/12/17 11:25 Synovial Fluid Comment Turbid 11/12/17 11:25 Blood Type B POSITIVE 11/10/17 11:54 Antibody Screen Negative 11/10/17 11:54 Crossmatch See Detail 11/10/17 11:54 BBK History Checked Patient has bt 11/10/17 11:54 - Hospital Course Hospital Course: 87 yo female with history of Dementia, HTN, Meningioma, PE, COPD and OA was seen in the ER because of pain and swelling of the left knee preceded with falls a few weeks ago. Xray showed anterior dislocation of the left knee and medial femoral condyle fracture. Closed reduction and Left TKR was done on day of admission on 11/07/17. Revision of Left TKR 11/12/17. Of note: 11/14/17: had extensive and very detailed conversation with family and addressed ALL concerns and questions regarding patient's condition. Total time 90 minutes. HOSPITAL COURSE BY PROBLEM 1. Anterior dislocation of Left Knee Orthopedic surgery consult Dr. Joel TKR done 11/07/17 followed with revision 11/12/17 patient tolerated procedure PT for evaluation and management Outpatient recommendations per Orthopedic team. stable for discharge for further PT back to [facility]. 2. Chronic Dementia stable 3. HTN BP stable continue Losartan, Carvedilol 4. COPD chronic asymptomatic continue Spiriva 5. History of PE Eliquis held since admission will defer decision to resume Eliquis to ortho and cardiology as outpt 6. Anemia , chronic received 1 unit of PRBC prior to surgery Hgb: 10.6 7. DVT prophylaxis on Lovenox 40mg SC daily until otherwise ordered by orthopedic surgery Discharge Exam - Head Exam Additional comments: Vitals Reviewed GEN: WDWN, alert HEENT: NCAT, PERRL, EOMI HEART: RRR, +S1S2, NO MRG LUNG: CTAB, NO WRR ABD: soft, NT, ND, No HSM, No masses EXT: normal pedal pulses, normal capillary refill, dressings in place NEURO: awake, alert, dementia at baseline SKIN: warm, dry PSYCH: normal mood, normal affect Discharge Plan - Follow Up Plan Condition: STABLE Disposition: HOME/ ROUTINE Additional Instructions: patient to RESUME ELIQUIS PER ORTHOPEDIC SURGERY, and continue lovenox in interim. FOLLOW UP ORTHOPEDIC SURGERY AND PCP IN ONE WEEK.
--- NOTE | 2017-11-14 11:37 | CP.PCM.PN ---
Subjective - Date & Time of Evaluation Date of Evaluation: 11/14/17 Time of Evaluation: 11:00 - Subjective Subjective: S-pt resting comfortably/ daughter Bere in attendance Objective - Vital Signs/Intake and Output Vital Signs (last 24 hours): Temp Pulse Resp BP Pulse Ox 98.3 F 74 19 114/73 95 11/14/17 08:17 11/14/17 08:55 11/14/17 08:17 11/14/17 08:55 11/14/17 08:17 Intake and Output: 11/14/17 11/14/17 06:59 18:59 Intake Total 1100 Balance 1100 - Medications Medications: Current Medications Acetaminophen (Tylenol 325mg Tab) 975 mg PO Q8 [facility] Last Admin: 11/14/17 08:52 Dose: 975 mg Atorvastatin Calcium (Lipitor) 10 mg PO DIN [facility] Last Admin: 11/13/17 17:04 Dose: 10 mg Bacitracin (Bacitracin Oint) 1 applic TOP BID [facility] Last Admin: 11/14/17 09:07 Dose: 1 applic Calcium Carbonate (Oscal) 500 mg PO DAILY [facility] Last Admin: 11/14/17 08:54 Dose: 500 mg Carvedilol (Coreg) 3.125 mg PO BID [facility] Last Admin: 11/14/17 08:55 Dose: 3.125 mg Cholecalciferol (Vitamin D) 2,000 intlu PO DAILY [facility] Last Admin: 11/14/17 08:54 Dose: 2,000 intlu Docusate Sodium (Colace) 200 mg PO HS [facility] Last Admin: 11/13/17 22:05 Dose: 200 mg Enoxaparin Sodium (Lovenox) 40 mg SC DAILY [facility] PRN Reason: Protocol Last Admin: 11/14/17 08:56 Dose: 40 mg Lactated Ringer's (Lactated Ringer's) 1,000 mls @ 75 mls/hr IV .[id number] [facility] Last Admin: 11/14/17 04:30 Dose: Not Given Lactated Ringer's (Lactated Ringer's) 1,000 mls @ 75 mls/hr IV .[id number] [facility] Last Admin: 11/13/17 10:00 Dose: 75 mls/hr Losartan Potassium (Cozaar) 50 mg PO DAILY [facility] Last Admin: 11/14/17 08:54 Dose: 50 mg Ondansetron HCl (Zofran Inj) 4 mg IVP Q6 PRN PRN Reason: Nausea/Vomiting Last Admin: 11/12/17 16:12 Dose: 4 mg Oxycodone HCl (Oxycodone Immediate Release Tab) 10 mg PO Q4 PRN PRN Reason: Pain, moderate (4-7) Last Admin: 11/14/17 08:52 Dose: 10 mg Pantoprazole Sodium (Protonix Ec Tab) 40 mg PO DAILY [facility] Last Admin: 11/14/17 08:56 Dose: 40 mg Tiotropium [place] (Spiriva) 18 mcg INH DAILY [facility] Last Admin: 11/14/17 08:55 Dose: 18 mcg Venlafaxine HCl (Effexor Xr) 225 mg PO DAILY [facility] Last Admin: 11/14/17 08:54 Dose: 225 mg - Labs Labs: 11/14/17 06:00 11/14/17 06:00 PT 13.8 Seconds (9.8-13.1) H 11/07/17 10:40 INR 1.2 (0.9-1.2) 11/07/17 10:40 APTT 29.1 Seconds (25.6-37.1) 11/07/17 10:40 - Skin Additional comments: systemic- pt disoriented/ rsting comfortably at time of encounter Musculoskekeltal stance/gait- defrred L knee wound dressing and kneeimmobilizer dry and intact Assessment and Plan - Assessment and Plan (Free Text) Assessment: A- s/p Revisison TKR- successful post op course P- orthopedically stable transfer to [facility] today orthopedically stable
[2017-11-14 16:22] VITALS: BP 126/83; PULSE 73; RESP 20; TEMP 97.9; O2SAT 98
== END 2017-11-14 16:52 | DRG 467 ==
LOC: H.ER 09:26 → EEVIPCON 09:46 → H.ERHOLD 09:46 → H.MEDSURG1 14:13 → H.ICU/CCU 11-12 13:55 → H.MEDSURG1 11-13 15:56
PROVIDERS: ADMIT Student in an Organized Health Care Education/Training Program; ATTEND Student in an Organized Health Care Education/Training Program
PROC: 0SW Lower Joints, Revision (ICD-10-PCS; 2017-11-07)
PROC: 0S9D3ZZ Drainage of Left Knee Joint, Percutaneous Approach (ICD-10-PCS; 2017-11-07)
PROC: 30233N1 Transfusion of Nonautologous Red Blood Cells into Peripheral Vein, Percutaneous Approach (ICD-10-PCS; 2017-11-10)
PROC: 0SBD0ZZ Excision of Left Knee Joint, Open Approach (ICD-10-PCS; 2017-11-12)
PROC: 0MQP0ZZ Repair Left Knee Bursa and Ligament, Open Approach (ICD-10-PCS; 2017-11-12)
PROC: 3E0T3BZ Introduction of Anesthetic Agent into Peripheral Nerves and Plexi, Percutaneous Approach (ICD-10-PCS; 2017-11-12)
PROC: 0SRW0JZ Replacement of Left Knee Joint, Tibial Surface with Synthetic Substitute, Open Approach (ICD-10-PCS; principal; 2017-11-12 10:15)
PROC: 0SPW0JZ Removal of Synthetic Substitute from Left Knee Joint, Tibial Surface, Open Approach (ICD-10-PCS; 2017-11-12 10:15)
PROC: 0QSC04Z Reposition Left Lower Femur with Internal Fixation Device, Open Approach (ICD-10-PCS; 2017-11-12 10:15)
DX: T84.023A Instability of internal left knee prosthesis, initial encounter (principal); M25.062 Hemarthrosis, left knee; S72.432A Displaced fracture of medial condyle of left femur, initial encounter for closed fracture; Y79.2 Prosthetic and other implants, materials and accessory orthopedic devices associated with adverse incidents; Z79.01 Long term (current) use of anticoagulants; Z80.3 Family history of malignant neoplasm of breast; Z82.3 Family history of stroke; Z86.011 Personal history of benign neoplasm of the brain; Z86.711 Personal history of pulmonary embolism; Z86.718 Personal history of other venous thrombosis and embolism; Z91.81 History of falling; F32.9 Major depressive disorder, single episode, unspecified; F41.9 Anxiety disorder, unspecified; H26.9 Unspecified cataract; M19.90 Unspecified osteoarthritis, unspecified site; Z87.440 Personal history of urinary (tract) infections; Z79.899 Other long term (current) drug therapy; M25.462 Effusion, left knee; M25.562 Pain in left knee; E78.00 Pure hypercholesterolemia, unspecified; E78.5 Hyperlipidemia, unspecified; G30.9 Alzheimer's disease, unspecified; F02.80 Dementia in other diseases classified elsewhere, unspecified severity, without behavioral disturbance, psychotic disturbance, mood disturbance, and anxiety; I10 Essential (primary) hypertension; I25.2 Old myocardial infarction; I45.10 Unspecified right bundle-branch block; J44.9 Chronic obstructive pulmonary disease, unspecified; K21.9 Gastro-esophageal reflux disease without esophagitis; M65.9 Synovitis and tenosynovitis, unspecified; S83.115A Anterior dislocation of proximal end of tibia, left knee, initial encounter; D64.9 Anemia, unspecified

== ENCOUNTER 2018-01-05 17:54 | Inpatient (IN) | payer MEDICARE, BC ==
[2018-01-05 17:54] VITALS: BMI 35.9
[2018-01-05] MEDS ORDERED: Sodium Chloride 0.9% 500 ML IV STA (18:39)
--- NOTE | 2018-01-05 18:40 | ED PDOC ---
Lower Extremity Pain/Injury Time Seen by Provider: 01/05/18 18:06 Chief Complaint (Nursing): Lower Extremity Problem/Injury Chief Complaint (Provider): knee swelling History Per: Patient History/Exam Limitations: clinical condition Onset/Duration Of Symptoms: Days (thursday) Additional Complaint(s): Pt. with knee swelling to the right knee noticed by family Thursday. Went to Dr. Joel Thursday who evaluated knee and did x-rays that were negative. Pt. here as swelling has increased. Mild pain. Is bed ridden. Has dementia so h and p limited as pt. not comprehending all questions or giving responses to all. Swelling without redness to knee. No dc. Pt. had left knee surgery by Dr. Joel in October. Per family it is healing and looks much better. No dc from it. Pt. states mild pain to R knee. Past Medical History Reviewed: Historical Data, Nursing Documentation, Vital Signs - Medical History PMH: Anemia, Anxiety, Arthritis, COPD, Dementia, Depression, Deep Vein Thrombosis, Fractures, HTN, Hypercholesterolemia, Hyperlipidemia, Pulmonary Embolism Denies: Diabetes, Hepatitis, HIV, Personality Disorder, Chronic Kidney Disease, Seizures, Sexually Transmitted Disease - Surgical History Surgical History: Other surgeries: knee surgeries - Family History Family History: States: Unknown Family Hx - Living Arrangements Living Arrangements: Detention/Assist Lvng - Immunization History Hx Tetanus Toxoid Vaccination: No Hx Influenza Vaccination: No Hx Pneumococcal Vaccination: No - Home Medications Home Medications: Ambulatory Orders Medication Instructions Recorded Losartan [Cozaar] 50 mg PO DAILY #0 tab 05/06/15 Venlafaxine [Effexor XR] 225 mg PO DAILY #0 cer 05/06/15 Docusate [Colace] 200 mg PO HS 05/06/17 Acetaminophen [Tylenol 325mg tab] 650 mg PO Q6 PRN 07/20/17 Acetaminophen [Tylenol 325mg tab] 650 mg PO Q6 PRN MDD 101.0 07/20/17 Arformoterol [Brovana] 15 mcg IH [id number] neb 07/23/17 Aspirin [Aspirin Chewable] 81 mg PO DAILY chew 07/23/17 Atorvastatin [Lipitor] 10 mg PO DIN #30 tab 07/23/17 Carvedilol [Coreg] 3.125 mg PO BID #28 tab 07/23/17 Acetaminophen 650 mg PO PRN PRN 11/07/17 Arformoterol [Brovana] 1 puff IH DAILY 11/07/17 Budesonide [Pulmicort Respules] 0.5 mg IH DAILY 11/07/17 Calcium Carbonate [Oscal] 1 tab PO DAILY 11/07/17 Cholecalciferol (Vitamin D3) 2,000 unit PO DAILY 11/07/17 [Vitamin D3] Lurasidone HCl [Latuda] 1 tab PO DAILY 11/07/17 Pantoprazole [Protonix EC Tab] 40 mg PO DAILY 11/07/17 Potassium Chloride [K-Tab ER] 1 tab PO DAILY 11/07/17 Tiotropium [Spiriva] 1 puff INH DAILY 11/07/17 hydroCHLOROthiazide [Hydrodiuril] 1 tab PO DAILY 11/07/17 Acetaminophen [Tylenol 325mg tab] 975 mg PO Q8 tab 11/14/17 Bacitracin OINT 1 applic TOP BID tube 11/14/17 Enoxaparin [Lovenox] 40 mg SC DAILY syr 11/14/17 oxyCODONE [oxyCODONE Immediate 10 mg PO Q4 PRN #10 tab 11/14/17 Release Tab] - Allergies Allergies/Adverse Reactions: Allergies Allergy/AdvReac Type Severity Reaction Status Date / Time trazodone Allergy DIZZINESS Verified 11/06/17 22:07 Review of Systems Review Of Systems: ROS cannot be obtained secondary to pt's inabilty to answer questions. Musculoskeletal: Positive for: Other (knee pain and swelling R) Physical Exam - Reviewed Nursing Documentation Reviewed: Yes Vital Signs Reviewed: Yes - Physical Exam Appears: Positive for: Uncomfortable Head Exam: Positive for: ATRAUMATIC, NORMAL INSPECTION, NORMOCEPHALIC Skin: Positive for: Normal Color, Warm, DRY Eye Exam: Positive for: PERRL. Negative for: Periorbital swelling ENT: Positive for: Normal ENT Inspection Neck: Positive for: Normal, Painless ROM, Supple Cardiovascular/Chest: Positive for: Regular Rate, Rhythm Respiratory: Positive for: CNT, Normal Breath Sounds Pulses-Dorsalis Pedis (L): 1+ Pulses-Dorsalis Pedis (R): 1+ Gastrointestinal/Abdominal: Positive for: Normal Exam, Soft. Negative for: Tenderness Back: Positive for: Normal Inspection. Negative for: L CVA Tenderness, R CVA Tenderness Extremity: Positive for: Tenderness (R knee mild; no erythema; large swelling around R knee; 2+ popliteal pulse R.), Other (L knee with slightly open surgical wound; no erythema or dc; mild swelling; no induration.). Negative for : Normal ROM (limited ROM of L and R knee), Calf Tenderness Neurologic/Psych: Positive for: Alert, Oriented. Negative for: Motor/Sensory Deficits (no sensory deficits gross or fine to the right knee and below; pt. is able to respond to this question; limited ROM.) - Laboratory Results Result Diagrams: 01/05/18 19:05 01/05/18 19:05 Interpretation Of Abn Labs: 24 bun - Radiology X-Ray: Interpreted by Me, Viewed By Me X-Ray Interpretation: Other (dislocation knee) - Progress ED Course And Treament: 1800: Stable. Spoke with Dr. Joel. Pt. known to him. Wants ct and eval. 2030: Spoke with Dr. Joel. He reviewed x-rays and ct findings. Wants pt. to be admitted to the hospitalist. Pt. popliteal, dorsalis pedis, and tibalis pulse 1+. No gross sensory deficits to fine or deep touch to the right knee or lower leg. Pain communicating some and responds to question if she can feel me touching her knee. Dr. Joel does not want any further manipulation or tx for it at this time. 2100: Spoke with pt. son, a physician. States pt. had a fall in September and landed on both knees. At that time had knee pain to both. Left had a dislocation and was fixed. Possibility that right knee had mild subluxation that has progressed to this. No echymosis or significant tenderness to knee. 2119: Spoke with hospitalist. Will admit medsur. Pt. stable. Alert. CT: IMPRESSION: 1. Dislocated right total knee arthroplasty. 2. 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 3. Moderate size knee effusion. - Critical Care Total Time (In Min): 30 Documented Critical Care: Time excludes all time spent performint seperately billable procedures Disposition - Clinical Impression Clinical Impression: Knee dislocation - Patient ED Disposition Is Patient to be Admitted: Yes Counseled Patient/Family Regarding: Studies Performed, Diagnosis - Disposition Disposition Time: 21:00 Condition: FAIR - Pt Status Changed To: Hospital Disposition Of: Inpatient - Admit Certification Admit to Inpatient:: After my assessment, the patient will require hospitalization for at least two midnights. This is because of the severity of symptoms shown, intensity of services needed, and/or the medical risk in this patient being treated as an outpatient. - POA Present On Arrival: Falls Or Trauma
[2018-01-05 19:11] LABS: BASO # 0.1 K/uL (0.0-0.2); EOS # 0.2 K/uL (0.0-0.7); EOS % 2.6 % (0.0-4.0); HEMOGLOBIN 11.7 g/dL (12.0-16.0); LYMPH # 1.7 K/uL (1.0-4.3); LYMPH % 19.7 % (20.0-40.0); MEAN CELL VOLUME 86.6 fl (81.0-99.0); MEAN CORPUSCULAR HGB CONC 33.5 g/dL (33.0-37.0); MEAN PLATELET VOLUME 9.1 fl (7.2-11.7); MONO # 0.8 K/uL (0.0-0.8); MONO % 9.2 % (0.0-10.0); NEUT # 5.7 K/uL (1.8-7.0); NEUT % 67.5 % (50.0-75.0); RBC 4.03 Mil/uL (3.80-5.20); RED CELL DISTRIBUTION WIDTH 16.3 % (11.5-14.5); WHITE BLOOD COUNT 8.4 K/uL (4.8-10.8)
[2018-01-05 19:12] LABS: VENOUS BLOOD GAS BASE EXCESS 3.4 mmol/L (0.0-2.0); VENOUS BLOOD GAS PCO2 44 mmHg (40-60); VENOUS BLOOD GAS PO2 20 mm/Hg (30-55); VENOUS BLOOD PH 7.42 (7.32-7.43)
[2018-01-05 19:15] LABS: INR 1.5; PROTHROMBIN TIME 16.3 Seconds (9.8-13.1)
[2018-01-05 19:18] LABS: PARTIAL THROMBOPLASTIN TIME 34.6 Seconds (25.6-37.1)
[2018-01-05 19:20] LABS: ALB/GLOB RATIO 0.9 (1.0-2.1); ALBUMIN 3.3 g/dL (3.5-5.0); ALT/SGPT 19 U/L (9-52); AST/SGOT 19 U/L (14-36); BLOOD UREA NITROGEN 24 mg/dl (7-17); CALCIUM 9.3 mg/dL (8.4-10.2); GFR NON-AFRICAN AMERICAN > 60
[2018-01-05] MEDS ORDERED: Sodium Chloride 0.9% 50 ML IV ONE (19:22)
[2018-01-05] MEDS ORDERED: Iohexol 300 100 ML IJ ONE (19:22)
--- NOTE | 2018-01-05 21:49 | CP.PCM.HP ---
<Aruna Ornelas - Last Filed: 01/05/18 23:11> History of Present Illness - History of Present Illness History of Present Illness: 87 yr old F brought in to ED by daughter with complaint mild right knee pain witth worsening right knee swelling and redness since thursday. [facility] records reviewed. Patient has PMHx of bilateral knee replacements, ORIF of left medial femoral condyle fracture (11/09/2017) s/p mechanical fall out of shower chair in 10/19/17, HTN, HLD, COPD, hx PE, chronic anemia and chronic dementia. Patient lives in a fpc and is bedridden. All transfers from bed to wheelchair or shower chair are done using a lift. H&P limited due to patients advanced dementia. PMD: Dr. Moran Specialists: Dr. Joel PMHx: HTN, HLD, COPD, hx PE, chronic anemia and chronic dementia SurgHx: bilateral knee replacements, hernia, ORIF of left medial femoral condyle fracture (11/09/2017) FMHx: father-stroke; mother-breast cancer SocHx: denies tobacco, Etoh or drugs Medications: see med rec Allergies: Trazodone ED course: -CBC: H/H 11.7/34.9, RDW 16.3, rest wnl -CMP: Na 140, K+ 4.0, Cl 106, HCO3 25, AG 13, BUN 24/Cr 0.6, est GFR >60 -coags: PT 16.3, INR 1.5, PTT 34.6 -VBG: pH 7.42, pCO2 44, HCO3 26.3, lactate 1.9 -troponin: 0.0200 -Right knee xray: report pending -Right LE CT: Dislocated right total knee arthroplasty; Moderate stenosis in the popliteal artery due to atherosclerotic plaque; Moderate size knee effusion. -ED treatment: NS 500mls IV at 100mls/hr; Ativan 0.5mg IV once, -blood culture pending Present on Admission - Present on Admission Any Indicators Present on Admission: Yes History of DVT/PE: Yes History of Uncontrolled Diabetes: No Urinary Catheter: No Decubitus Ulcer Present: No History Surgical Site Infection Following: None Review of Systems - Review of Systems Systems not reviewed;Unavailable: Dementia (advanced) - Musculoskeletal Musculoskeletal: Arthralgias (reports mild knee pain) Past Patient History - Infectious Disease Hx of Infectious Diseases: None - Tetanus Immunizations Tetanus Immunization: Unknown - Past Medical History & Family History Past Medical History?: Yes - Past Social History Smoking Status: Never Smoked - CARDIAC Hx Hypercholesterolemia: Yes Hx Hypertension: Yes - PULMONARY Hx Chronic Obstructive Pulmonary Disease (COPD): Yes Hx Pulmonary Embolism: Yes - NEUROLOGICAL Hx Dementia: Yes Hx Seizures: No - HEENT Hx HEENT Problems: Yes Hx Cataracts: Yes - RENAL Hx Chronic Kidney Disease: No - ENDOCRINE/METABOLIC Hx Endocrine Disorders: No - HEMATOLOGICAL/ONCOLOGICAL Hx Anemia: Yes Hx Human Immunodeficiency Virus (HIV): No - INTEGUMENTARY Hx Dermatological Problems: Yes (HX:Cellulitis of the lower extremities) - MUSCULOSKELETAL/RHEUMATOLOGICAL Hx Arthritis: Yes Hx Fractures: Yes - GASTROINTESTINAL Hx Gastrointestinal Disorders: Yes (GI bleed, herniorhapphy) Hx Gastroesophageal Reflux: Yes - GENITOURINARY/GYNECOLOGICAL Hx Sexually Transmitted Disorders: No - PSYCHIATRIC Hx Anxiety: Yes Hx Depression: Yes - ANESTHESIA Hx Anesthesia: Yes Hx Anesthesia Reactions: No Hx Malignant Hyperthermia: No Meds Allergies/Adverse Reactions: Allergies Allergy/AdvReac Type Severity Reaction Status Date / Time trazodone Allergy DIZZINESS Verified 11/06/17 22:07 Physical Exam - Constitutional Appears: Non-toxic, No Acute Distress - Head Exam Head Exam: ATRAUMATIC, NORMOCEPHALIC - Eye Exam Eye Exam: EOMI - ENT Exam ENT Exam: Mucous Membranes Moist - Neck Exam Neck exam: Positive for: Full Rom. Negative for: Lymphadenopathy - Respiratory Exam Respiratory Exam: Clear to Auscultation Bilateral, NORMAL BREATHING PATTERN - Cardiovascular Exam Cardiovascular Exam: REGULAR RHYTHM, +S1, +S2 - GI/Abdominal Exam GI & Abdominal Exam: Normal Bowel Sounds, Soft. absent: Tenderness - Extremities Exam Extremities exam: Positive for: joint swelling (right knee swelling and tendernesss), pedal pulses present. Negative for: calf tenderness, full ROM ( RLE in external rotation and flexed at knee), pedal edema - Neurological Exam Neurological exam: Alert (and oriented to self only) - Psychiatric Exam Psychiatric exam: Flat Affect, Normal Mood (advanced dementia, cooperative , follows few commands) - Skin Skin Exam: Abrasion (left anterior knee vertical scar healing well; left posterior knee ulcer 3 x 6 cm with necrotic base; ) Results - Labs Result Diagrams: 01/05/18 19:05 01/05/18 19:05 Labs: Laboratory Results - last 24 hr 01/05/18 01/05/18 01/05/18 18:52 19:05 19:05 WBC 8.4 RBC 4.03 Hgb 11.7 L D Hct 34.9 MCV 86.6 MCH 29.0 MCHC 33.5 RDW 16.3 H Plt Count 195 MPV 9.1 Neut % (Auto) 67.5 Lymph % (Auto) 19.7 L [place] % (Auto) 9.2 Eos % (Auto) 2.6 Baso % (Auto) 1.0 Neut # (Auto) 5.7 Lymph # (Auto) 1.7 [place] # (Auto) 0.8 Eos # (Auto) 0.2 Baso # (Auto) 0.1 PT INR APTT pO2 20 L VBG pH 7.42 VBG pCO2 44 VBG HCO3 26.3 VBG Total CO2 29.9 H VBG O2 Sat (Calc) 52.2 VBG Base Excess 3.4 H VBG Potassium 3.9 Sodium 137.0 140 Chloride 107.0 106 Glucose 155 H Lactate 1.9 FiO2 21.0 Potassium 4.0 Carbon Dioxide 25 Anion Gap 13 BUN 24 H Creatinine 0.6 L Est GFR ( Amer) > 60 Est GFR (Non-Af Amer) > 60 Random Glucose 143 H Calcium 9.3 Total Bilirubin 0.3 AST 19 ALT 19 Alkaline Phosphatase 93 Troponin I 0.0200 Total Protein 6.8 Albumin 3.3 L Globulin 3.5 Albumin/Globulin Ratio 0.9 L Venous Blood Potassium 3.9 01/05/18 19:05 WBC RBC Hgb Hct MCV MCH MCHC RDW Plt Count MPV Neut % (Auto) Lymph % (Auto) [place] % (Auto) Eos % (Auto) Baso % (Auto) Neut # (Auto) Lymph # (Auto) [place] # (Auto) Eos # (Auto) Baso # (Auto) PT 16.3 H INR 1.5 APTT 34.6 pO2 VBG pH VBG pCO2 VBG HCO3 VBG Total CO2 VBG O2 Sat (Calc) VBG Base Excess VBG Potassium Sodium Chloride Glucose Lactate FiO2 Potassium Carbon Dioxide Anion Gap BUN Creatinine Est GFR ( Amer) Est GFR (Non-Af Amer) Random Glucose Calcium Total Bilirubin AST ALT Alkaline Phosphatase Troponin I Total Protein Albumin Globulin Albumin/Globulin Ratio Venous Blood Potassium Assessment & Plan - Assessment and Plan (Free Text) Assessment: 87 yr old F admitted for dislocated right total knee arthroplasty with PMHx HTN , HLD, COPD, hx PE, chronic anemia and chronic dementia. 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 -NPO past midnight for possible ortho procedure tomorrow -Orthopedic consult appreciated-Dr. Joel -fall precautions -NS IV fluids at 100 mls/hr -f/u blood culture, right knee xray report -f/u CXR Left posterior knee ulcer -acute-unstageable -wound care consult appreciated Hypertension -chronic, controlled -continue home medications (HCTZ 25mg PO QD, Losartan 50 mg PO QD, Aspirin 81mg PO QD, Carvedilol 3.125mg PO Q12, ) Hyperlipidemia -chronic, controlled -continue home medications (Atorvastatin 10mg PO HS) COPD -chronic, controlled -continue home medications (Budesonide 0.5mg IH QD, Arformoterol 1 puff IH QD, Spiriva 18mcg INH QD, ) Dementia -chronic, advanced -continue home medications (Donepezil 5mg PO QD) Depression -chronic, controlled -continue home medications (Venlafaxine 225mg PO QD) Hx PE -chronic -hold Eliquis DVT prophylaxis -SCD's for now - Date & Time Date: 01/05/18 Time: 21:49 <Francisco Hernandez - Last Filed: 01/06/18 02:45> Results - Vital Signs Recent Vital Signs: Last Vital Signs Temp 98.3 F 01/06/18 00:30 Pulse 67 01/06/18 00:30 Resp 19 01/06/18 00:30 BP 138/61 01/06/18 00:30 Pulse Ox 96 01/06/18 00:30 - Labs Result Diagrams: 01/05/18 19:05 01/05/18 19:05 Labs: Laboratory Results - last 24 hr 01/05/18 01/05/18 01/05/18 18:52 19:05 19:05 WBC 8.4 RBC 4.03 Hgb 11.7 L D Hct 34.9 MCV 86.6 MCH 29.0 MCHC 33.5 RDW 16.3 H Plt Count 195 MPV 9.1 Neut % (Auto) 67.5 Lymph % (Auto) 19.7 L [place] % (Auto) 9.2 Eos % (Auto) 2.6 Baso % (Auto) 1.0 Neut # (Auto) 5.7 Lymph # (Auto) 1.7 [place] # (Auto) 0.8 Eos # (Auto) 0.2 Baso # (Auto) 0.1 PT INR APTT pO2 20 L VBG pH 7.42 VBG pCO2 44 VBG HCO3 26.3 VBG Total CO2 29.9 H VBG O2 Sat (Calc) 52.2 VBG Base Excess 3.4 H VBG Potassium 3.9 Sodium 137.0 140 Chloride 107.0 106 Glucose 155 H Lactate 1.9 FiO2 21.0 Potassium 4.0 Carbon Dioxide 25 Anion Gap 13 BUN 24 H Creatinine 0.6 L Est GFR ( Amer) > 60 Est GFR (Non-Af Amer) > 60 Random Glucose 143 H Calcium 9.3 Total Bilirubin 0.3 AST 19 ALT 19 Alkaline Phosphatase 93 Troponin I 0.0200 Total Protein 6.8 Albumin 3.3 L Globulin 3.5 Albumin/Globulin Ratio 0.9 L Venous Blood Potassium 3.9 01/05/18 19:05 WBC RBC Hgb Hct MCV MCH MCHC RDW Plt Count MPV Neut % (Auto) Lymph % (Auto) [place] % (Auto) Eos % (Auto) Baso % (Auto) Neut # (Auto) Lymph # (Auto) [place] # (Auto) Eos # (Auto) Baso # (Auto) PT 16.3 H INR 1.5 APTT 34.6 pO2 VBG pH VBG pCO2 VBG HCO3 VBG Total CO2 VBG O2 Sat (Calc) VBG Base Excess VBG Potassium Sodium Chloride Glucose Lactate FiO2 Potassium Carbon Dioxide Anion Gap BUN Creatinine Est GFR ( Amer) Est GFR (Non-Af Amer) Random Glucose Calcium Total Bilirubin AST ALT Alkaline Phosphatase Troponin I Total Protein Albumin Globulin Albumin/Globulin Ratio Venous Blood Potassium Attending/Attestation - Attestation I have personally seen and examined this patient.: Yes I have fully participated in the care of the patient.: Yes I have reviewed all pertinent clinical information: Yes Notes (Text): 01/06/18 02:09 I saw and examined this patient with Dr Ornelas. I agree with the assessment and plan. This is an 87 years old female with hx of Dementia and bilateral Total Knee Replacement with revision of the Left TKR on 11/12/17, sent to the ED from the Doctor's office with worsening swelling and deformity of the right knee. X-Ray of the right knee showed Dislocated Prosthesis. A&P #. Dislocated Right Total Knee Arthroplasty - Consult Dr Joel Orthopedist - Orthopedic Management - NPO after midnight - Pain management - follow INR #. Dehydration - IV fluid #. Abnormal EKG( Sinus Rhythm with sinus arrhythmia and PAC with RBBB 79/min) - Consult Dr Tripp Cardiology for Cardiac clearance - Repeat EKG #. COPD Stable - Spiriva - Albuterol #. HTN Controlled - Cozaar - Coreg #. Dementia - Effixer - Aricept
[2018-01-05] MEDS ORDERED: Patient's Own Med (Arformoterol [Brovana] 15 MCG) IH SCH (23:45)
[2018-01-06] MEDS ORDERED: Sodium Chloride 0.9% 1,000 ML IV SCH (01:30)
--- NOTE | 2018-01-06 06:18 | CARD ---
APPROVED REPORT Date of service: 01/05/2018 EKG Measurement Heart [id number] <Conclusion> Sinus rhythm with premature atrial complexes Left axis deviation Right bundle branch block Septal infarct, age undetermined Abnormal ECG
[2018-01-06 06:34] LABS: INR 1.3
--- NOTE | 2018-01-06 07:40 | CP.PCM.CON ---
History of Present Illness - History of Present Illness History of Present Illness: Orthopedic consultation: Dr. Joel Patient is an 87 y/o female with PMH of HTN, HLD, COPD, PE and dementia admitted after her daughter brought the patient to ER due to severe right knee pain and deformity. The patient has right knee surgical history of bilateral knee replacements 2 1/2 years ago, closed reduction of dislocated knee prosthesis on 11/07/17 and open reduction of dislocated knee prosthesis on 11/12/17. Currently, the patient is a poor historian due to confusion/dementia however, she responds to commands. As per daughter, the knee pain began one week ago on Thursday without any instance of trauma or injury. She resides in a detention and is bedridden, transfers with wheelchair. She denies CP/SOB/N/V/D/dysuria/melena. Review of Systems - Review of Systems All systems: reviewed and no additional remarkable complaints except Review of Systems: as per HPI Past Patient History - Infectious Disease Hx of Infectious Diseases: None - Tetanus Immunizations Tetanus Immunization: Unknown - Past Medical History & Family History Past Medical History?: Yes Past Family History: Reviewed and not pertinent - Past Social History Smoking Status: Former Smoker Alcohol: None Drugs: Denies - CARDIAC Hx Hypercholesterolemia: Yes Hx Hypertension: Yes - PULMONARY Hx Respiratory Disorders: Yes Hx Chronic Obstructive Pulmonary Disease (COPD): Yes Hx Pulmonary Embolism: Yes - NEUROLOGICAL Hx Neurological Disorder: Yes Hx Dementia: Yes Hx Seizures: No - HEENT Hx HEENT Problems: Yes Hx Cataracts: Yes - RENAL Hx Chronic Kidney Disease: No - ENDOCRINE/METABOLIC Hx Endocrine Disorders: No - HEMATOLOGICAL/ONCOLOGICAL Hx Blood Disorders: No Hx AIDS: No Hx Human Immunodeficiency Virus (HIV): No - INTEGUMENTARY Hx Dermatological Problems: Yes (HX:Cellulitis of the lower extremities) - MUSCULOSKELETAL/RHEUMATOLOGICAL Hx Musculoskeletal Disorders: Yes Hx Falls: Yes - GASTROINTESTINAL Hx Gastrointestinal Disorders: Yes (GI bleed, herniorhapphy) Hx Gastroesophageal Reflux: Yes - GENITOURINARY/GYNECOLOGICAL Hx Genitourinary Disorders: No Hx Sexually Transmitted Disorders: No - PSYCHIATRIC Hx Psychophysiologic Disorder: No Hx Substance Use: No - SURGICAL HISTORY Hx Surgeries: Yes Hx Joint Replacement: Yes (b/l knee replacements) - ANESTHESIA Hx Anesthesia: Yes Hx Anesthesia Reactions: No Hx Malignant Hyperthermia: No Meds Allergies/Adverse Reactions: Allergies Allergy/AdvReac Type Severity Reaction Status Date / Time trazodone Allergy DIZZINESS Verified 11/06/17 22:07 - Medications Medications: Current Medications Albuterol Sulfate (Albuterol 0.083% Inhal Tashia (2.5 Mg/3 Ml) Ud) 2.5 mg INH RQ6 [facility] Ascorbic Acid (Vitamin C 500 Mg Tab) 1,000 mg PO DAILY [facility] Atorvastatin Calcium (Lipitor) 10 mg PO DIN [facility] Budesonide (Pulmicort Respules) 0.5 mg IH DAILY [facility] Calcium Carbonate (Oscal) 500 mg PO DAILY [facility] Carvedilol (Coreg) 3.125 mg PO BID [facility] Cholecalciferol (Vitamin D) 2,000 intlu PO DAILY [facility] Docusate Sodium (Colace) 200 mg PO HS [facility] Donepezil HCl (Aricept) 5 mg PO DAILY [facility] Hydrochlorothiazide (Hydrodiuril) 25 mg PO DAILY [facility] Dextrose/Sodium Chloride (Dextrose 5%/0.45% Ns 1000 Ml) 1,000 mls @ 100 mls/hr IV .Q10H [place] Stop: 01/07/18 07:18 Losartan Potassium (Cozaar) 50 mg PO DAILY [facility] Pantoprazole Sodium (Protonix Ec Tab) 40 mg PO DAILY [facility] Potassium Chloride (Klor-Con 10) 10 meq PO DAILY [facility] Tiotropium [place] (Spiriva) 18 mcg INH DAILY [facility] Venlafaxine HCl (Effexor Xr) 225 mg PO DAILY [facility] Physical Exam - Constitutional Appears: Confused - Head Exam Head Exam: ATRAUMATIC, NORMOCEPHALIC - Eye Exam Eye Exam: EOMI, Normal appearance, PERRL - ENT Exam ENT Exam: Mucous Membranes Moist - Respiratory Exam Respiratory Exam: Clear to Auscultation Bilateral, NORMAL BREATHING PATTERN - Cardiovascular Exam Cardiovascular Exam: +S1, +S2 - GI/Abdominal Exam GI & Abdominal Exam: Normal Bowel Sounds, Soft - Extremities Exam Additional comments: R knee: + tenderness, +deformity, + swelling, + effusion sensation intact SP/DP/TN motor intact EHL/FHL pedal pulse intact comps soft NT - Neurological Exam Neurological exam: Alert, Oriented x3 - Psychiatric Exam Psychiatric exam: Normal Affect, Normal Mood - Skin Skin Exam: Normal Color, Warm Results - Vital Signs Recent Vital Signs: Last Vital Signs Temp 98.3 F 01/06/18 00:30 Pulse 67 01/06/18 00:30 Resp 19 09/12/18 00:30 BP 138/61 01/06/18 00:30 Pulse Ox 96 01/06/18 00:30 - Labs Result Diagrams: 01/05/18 19:05 01/05/18 19:05 Labs: Laboratory Results - last 24 hr 01/05/18 01/05/18 01/05/18 18:52 19:05 19:05 WBC 8.4 RBC 4.03 Hgb 11.7 L D Hct 34.9 MCV 86.6 MCH 29.0 MCHC 33.5 RDW 16.3 H Plt Count 195 MPV 9.1 Neut % (Auto) 67.5 Lymph % (Auto) 19.7 L [place] % (Auto) 9.2 Eos % (Auto) 2.6 Baso % (Auto) 1.0 Neut # (Auto) 5.7 Lymph # (Auto) 1.7 [place] # (Auto) 0.8 Eos # (Auto) 0.2 Baso # (Auto) 0.1 PT INR APTT pO2 20 L VBG pH 7.42 VBG pCO2 44 VBG HCO3 26.3 VBG Total CO2 29.9 H VBG O2 Sat (Calc) 52.2 VBG Base Excess 3.4 H VBG Potassium 3.9 Sodium 137.0 140 Chloride 107.0 106 Glucose 155 H Lactate 1.9 FiO2 21.0 Potassium 4.0 Carbon Dioxide 25 Anion Gap 13 BUN 24 H Creatinine 0.6 L Est GFR ( Amer) > 60 Est GFR (Non-Af Amer) > 60 Random Glucose 143 H Calcium 9.3 Total Bilirubin 0.3 AST 19 ALT 19 Alkaline Phosphatase 93 Troponin I 0.0200 Total Protein 6.8 Albumin 3.3 L Globulin 3.5 Albumin/Globulin Ratio 0.9 L Venous Blood Potassium 3.9 01/05/18 01/06/18 19:05 05:40 WBC RBC Hgb Hct MCV MCH MCHC RDW Plt Count MPV Neut % (Auto) Lymph % (Auto) [place] % (Auto) Eos % (Auto) Baso % (Auto) Neut # (Auto) Lymph # (Auto) [place] # (Auto) Eos # (Auto) Baso # (Auto) PT 16.3 H 15.0 H INR 1.5 1.3 APTT 34.6 pO2 VBG pH VBG pCO2 VBG HCO3 VBG Total CO2 VBG O2 Sat (Calc) VBG Base Excess VBG Potassium Sodium Chloride Glucose Lactate FiO2 Potassium Carbon Dioxide Anion Gap BUN Creatinine Est GFR ( Amer) Est GFR (Non-Af Amer) Random Glucose Calcium Total Bilirubin AST ALT Alkaline Phosphatase Troponin I Total Protein Albumin Globulin Albumin/Globulin Ratio Venous Blood Potassium Assessment & Plan (1) Dislocation of prosthetic joint of knee Assessment and Plan: -Dr. Joel recommends closed reduction of dislocated knee prosthesis under anesthesia in OR today -Risks/benefits/alternatives were explained to daughter Kinjal Mar who is POA. She understands and agrees to proceed with above procedure -NPO -If closed reduction is not successful, patient may require open reduction of dislocated knee prosthesis in OR. She will need to be off her anticoagulant for at least 5 days if this is the case, last dose was yesterday. -medical and cardiac clearance appreciated -MARIA D CEDENO -above d/w Dr. Joel in agreement Status: Acute Radiology Interpretation - Raimann Machine Operator Raimann Machine Operator:: Radiologist - Study type Study type:: CT - Notes: Notes:: Accession No. : [id number] Patient Name / ID : BRAXTON JARA / [id number] Exam Date : 01/05/2018 19:48:59 ( Approved ) Study Comment : Sex / Age : F / 87Y Creator : cuco jolly Dictator : Sharlene Lombardi MD Refrigeration Supervisor : [employer] Professor : Sharlene Lombardi MD Approver2 : Report Date : 01/05/2018 20:05:32 My Comment : Date of service: 01/05/2018 PROCEDURE: Right Knee Radiographs. HISTORY: swelling COMPARISON: 11/12/2017 FINDINGS: BONES: There is diffuse bone demineralization. No acute fracture or dislocation. JOINTS: Status post total cemented knee arthroplasty. There is lateral and posterior dislocation of joint. JOINT EFFUSION: Small suprapatellar joint effusion. OTHER FINDINGS: Extensive atherosclerotic vascular calcifications IMPRESSION: Status post total cemented knee arthroplasty, lateral posterior dislocation of the knee joint. - Radiology Interpretation #2 Interpretation: Accession No. : [id number] Patient Name / ID : BRAXTON JARA / [id number] Exam Date : 01/05/2018 19:27:28 ( Approved ) Study Comment : Sex / Age : F / 87Y Creator : Sharlene Lombardi MD Dictator : Sharlene Lombardi MD Refrigeration Supervisor : [employer] Professor : Sharlene Lombardi MD Approver2 : Report Date : 01/06/2018 13:15:40 My Comment : Date of service: 01/05/2018 PROCEDURE: CT of the right knee joint with intravenous contrast. HISTORY: knee swelling COMPARISON: None available. TECHNIQUE: Contiguous axial images of the right knee were obtained after intravenous administration of 90 ml Omnipaque 300. Coronal and sagittal reformats were generated. Radiation dose: 428.[address] exam was performed using one or more of the following dose reduction techniques: Automated exposure control, adjustment of the mA and/or kV according to patient size, and/or use of iterative reconstruction technique. FINDINGS: BONES: Status post total cemented right knee arthroplasty, there is lateral and posterior dislocation of the arthroplasty. The femoral and tibial components are well seated. There is no acute displaced fracture or bone destruction. There is is small suprapatellar joint effusion. SOFT TISSUES: There is mild fatty atrophy of the periarticular muscles. There are extensive atherosclerotic vascular calcifications. IMPRESSION: Lateral and posterior dislocation of the right knee arthroplasty. Small suprapatellar joint effusion. A preliminary report was provided by [employer].
[2018-01-06] MEDS: Albuterol 0.083% Inhal Sol (2.5 mg/3 mL) UD INH SCH ×3 (07:45→19:29)
[2018-01-06] MEDS: Budesonide 0.5 mg/2 ml Inhal Susp UD IH SCH ×2 (07:46→10:26)
[2018-01-06] MEDS ORDERED: Patient's Own Med (Cholecalciferol (Vitamin D3) [Vitamin D3] 2,000 UNIT) PO SCH (09:00)
[2018-01-06] MEDS ORDERED: ARFORMOTEROL IH SCH (09:00)
[2018-01-06] MEDS ORDERED: [UNRECOGNIZED DRUG - REMARK] PO SCH (09:00)
--- NOTE | 2018-01-06 09:21 | CARD ---
APPROVED REPORT Date of service: 01/06/2018 EKG Measurement Heart [id number] <Conclusion> Normal sinus rhythm Right bundle branch block Abnormal ECG
[2018-01-06] MEDS: Venlafaxine 75 mg ER Cap PO SCH (10:26)
[2018-01-06] MEDS: Potassium Chloride 10 mEq ER Tab PO SCH (10:26)
[2018-01-06] MEDS: Pantoprazole 40 mg EC Tab PO SCH (10:26)
[2018-01-06] MEDS: Tiotropium 18 mcg Cap For Inhalation INH SCH (10:27)
[2018-01-06] MEDS: Cholecalciferol 1,000 INTLU TAB PO SCH (10:27)
[2018-01-06] MEDS: Dextrose 5%/0.45% NS 1,000 ML IV SCH ×2 (10:34→17:12)
--- NOTE | 2018-01-06 10:56 | CP.PCM.CON ---
History of Present Illness - History of Present Illness History of Present Illness: THE PATIENT IS AN 87 YEAR OLD FEMALE WHO HAD SWELLING OF THE RIGHT KNEE AND WAS SEEN BY DR CERVANTES AND HAS A DISLOCATED RIGHT TKR. SHE HAD A SIMILAR PROBLEM ON HER LEFT KNEE A FEW MONTHS AGO. SHE ALSO HAS A HISTORY OF DEMENTIA, HYPERTENSION, HYPERLIPIDEMIA, COPD AND HAD LE DVT AND A PE IN THE PAST. SHE IS NOT ABLE TO GIVE MUCH HISTORY BUT DENIES CHEST PAIN OR SOB. SHE WAS ON ELIQUIS IN THE [place] AND TOOK IT YESTERDAY. Past Patient History - Infectious Disease Hx of Infectious Diseases: None - Tetanus Immunizations Tetanus Immunization: Unknown - Past Medical History & Family History Past Medical History?: Yes - Past Social History Smoking Status: Former Smoker - CARDIAC Hx Hypercholesterolemia: Yes Hx Hypertension: Yes - PULMONARY Hx Respiratory Disorders: Yes Hx Chronic Obstructive Pulmonary Disease (COPD): Yes Hx Pulmonary Embolism: Yes - NEUROLOGICAL Hx Neurological Disorder: Yes Hx Dementia: Yes Hx Seizures: No - HEENT Hx HEENT Problems: Yes Hx Cataracts: Yes - RENAL Hx Chronic Kidney Disease: No - ENDOCRINE/METABOLIC Hx Endocrine Disorders: No - HEMATOLOGICAL/ONCOLOGICAL Hx Blood Disorders: No Hx AIDS: No Hx Human Immunodeficiency Virus (HIV): No - INTEGUMENTARY Hx Dermatological Problems: Yes (HX:Cellulitis of the lower extremities) - MUSCULOSKELETAL/RHEUMATOLOGICAL Hx Musculoskeletal Disorders: Yes Hx Falls: Yes - GASTROINTESTINAL Hx Gastrointestinal Disorders: Yes (GI bleed, herniorhapphy) Hx Gastroesophageal Reflux: Yes - GENITOURINARY/GYNECOLOGICAL Hx Genitourinary Disorders: No Hx Sexually Transmitted Disorders: No - PSYCHIATRIC Hx Psychophysiologic Disorder: No Hx Substance Use: No - SURGICAL HISTORY Hx Surgeries: Yes Hx Joint Replacement: Yes (b/l knee surgery) - ANESTHESIA Hx Anesthesia: Yes Hx Anesthesia Reactions: No Hx Malignant Hyperthermia: No Meds Allergies/Adverse Reactions: Allergies Allergy/AdvReac Type Severity Reaction Status Date / Time trazodone Allergy DIZZINESS Verified 11/06/17 22:07 - Medications Medications: Current Medications Albuterol Sulfate (Albuterol 0.083% Inhal Tashia (2.5 Mg/3 Ml) Ud) 2.5 mg INH RQ6 [facility] Last Admin: 01/06/18 07:45 Dose: 2.5 mg Ascorbic Acid (Vitamin C 500 Mg Tab) 1,000 mg PO DAILY [facility] Last Admin: 01/06/18 10:27 Dose: Not Given Atorvastatin Calcium (Lipitor) 10 mg PO DIN [facility] Budesonide (Pulmicort Respules) 0.5 mg IH DAILY [facility] Last Admin: 01/06/18 10:26 Dose: Not Given Calcium Carbonate (Oscal) 500 mg PO DAILY [facility] Last Admin: 01/06/18 10:26 Dose: Not Given Carvedilol (Coreg) 3.125 mg PO BID [facility] Last Admin: 01/06/18 10:33 Dose: 3.125 mg Cholecalciferol (Vitamin D) 2,000 intlu PO DAILY [facility] Last Admin: 01/06/18 10:27 Dose: Not Given Docusate Sodium (Colace) 200 mg PO [facility] Donepezil HCl (Aricept) 5 mg PO DAILY [facility] Last Admin: 01/06/18 10:25 Dose: Not Given Hydrochlorothiazide (Hydrodiuril) 25 mg PO DAILY [facility] Last Admin: 01/06/18 10:34 Dose: Not Given Dextrose/Sodium Chloride (Dextrose 5%/0.45% Ns 1000 Ml) 1,000 mls @ 100 mls/hr IV .Q10H [facility] Stop: 01/07/18 07:18 Last Admin: 01/06/18 10:34 Dose: 100 mls/hr Losartan Potassium (Cozaar) 50 mg PO DAILY [facility] Last Admin: 01/06/18 10:33 Dose: Not Given Pantoprazole Sodium (Protonix Ec Tab) 40 mg PO DAILY [facility] Last Admin: 01/06/18 10:26 Dose: Not Given Potassium Chloride (Klor-Con 10) 10 meq PO DAILY [facility] Last Admin: 01/06/18 10:26 Dose: Not Given Tiotropium [place] (Spiriva) 18 mcg INH DAILY [facility] Last Admin: 01/06/18 10:27 Dose: Not Given Venlafaxine HCl (Effexor Xr) 225 mg PO DAILY [facility] Last Admin: 01/06/18 10:26 Dose: Not Given Physical Exam - Respiratory Exam Respiratory Exam: Clear to Auscultation Bilateral - Cardiovascular Exam Cardiovascular Exam: REGULAR RHYTHM, +S1, +S2 - Extremities Exam Additional comments: RIGHT KNEE IS SWOLLEN LLE IS IN AN IMMOBILIZER Results - Vital Signs Recent Vital Signs: Last Vital Signs Temp 97.5 F L 01/06/18 08:17 Pulse 64 01/06/18 10:33 Resp 18 01/06/18 08:17 BP 157/67 H 01/06/18 10:33 Pulse Ox 96 01/06/18 08:17 - Labs Result Diagrams: 01/05/18 19:05 01/05/18 19:05 Labs: Laboratory Results - last 24 hr 01/05/18 01/05/18 01/05/18 18:52 19:05 19:05 WBC 8.4 RBC 4.03 Hgb 11.7 L D Hct 34.9 MCV 86.6 MCH 29.0 MCHC 33.5 RDW 16.3 H Plt Count 195 MPV 9.1 Neut % (Auto) 67.5 Lymph % (Auto) 19.7 L Porter % (Auto) 9.2 Eos % (Auto) 2.6 Baso % (Auto) 1.0 Neut # (Auto) 5.7 Lymph # (Auto) 1.7 Porter # (Auto) 0.8 Eos # (Auto) 0.2 Baso # (Auto) 0.1 PT INR APTT pO2 20 L VBG pH 7.42 VBG pCO2 44 VBG HCO3 26.3 VBG Total CO2 29.9 H VBG O2 Sat (Calc) 52.2 VBG Base Excess 3.4 H VBG Potassium 3.9 Sodium 137.0 140 Chloride 107.0 106 Glucose 155 H Lactate 1.9 FiO2 21.0 Potassium 4.0 Carbon Dioxide 25 Anion Gap 13 BUN 24 H Creatinine 0.6 L Est GFR ( Amer) > 60 Est GFR (Non-Af Amer) > 60 Random Glucose 143 H Calcium 9.3 Total Bilirubin 0.3 AST 19 ALT 19 Alkaline Phosphatase 93 Troponin I 0.0200 Total Protein 6.8 Albumin 3.3 L Globulin 3.5 Albumin/Globulin Ratio 0.9 L Venous Blood Potassium 3.9 01/05/18 01/06/18 19:05 05:40 WBC RBC Hgb Hct MCV MCH MCHC RDW Plt Count MPV Neut % (Auto) Lymph % (Auto) Porter % (Auto) Eos % (Auto) Baso % (Auto) Neut # (Auto) Lymph # (Auto) Porter # (Auto) Eos # (Auto) Baso # (Auto) PT 16.3 H 15.0 H INR 1.5 1.3 APTT 34.6 pO2 VBG pH VBG pCO2 VBG HCO3 VBG Total CO2 VBG O2 Sat (Calc) VBG Base Excess VBG Potassium Sodium Chloride Glucose Lactate FiO2 Potassium Carbon Dioxide Anion Gap BUN Creatinine Est GFR ( Amer) Est GFR (Non-Af Amer) Random Glucose Calcium Total Bilirubin AST ALT Alkaline Phosphatase Troponin I Total Protein Albumin Globulin Albumin/Globulin Ratio Venous Blood Potassium Assessment & Plan - Assessment and Plan (Free Text) Assessment: DISLOCATION OF THE RIGHT TKR HYPERTENSION HYPERLIPIDEMIA DEMENTIA COPD HISTORY OF DVT AND PE AND IS ON ELIQUIS Plan: THE PATIENT WILL HAVE A CLOSED REDUCTION OF THE RIGHT KNEE DISLOCATION ATTEMPT TODAY BY DR CERVANTES AND IS CLEARED FOR THAT IF THE CLOSED REDUCTION IS UNSUCCESSFUL, AN OPEN REDUCTION SHOULD NOT BE DONE BEFORE LATE 01/07 OR ON 01/08 THE PATIENT TOOK ELIQUIS YESTERDAY
--- NOTE | 2018-01-06 11:11 | CP.PCM.PN ---
Subjective - Date & Time of Evaluation Date of Evaluation: 01/06/18 Time of Evaluation: 11:11 - Subjective Subjective: Patient seen bedside resting comfortably in bed and appears to be in no acute distress. She is awake but unable to provide any verbal information due to her chronic dementia. Objective - Vital Signs/Intake and Output Vital Signs (last 24 hours): Temp Pulse Resp BP Pulse Ox 97.5 F L 64 18 157/67 H 96 01/06/18 08:17 01/06/18 10:33 01/06/18 08:17 01/06/18 10:33 01/06/18 08:17 - Medications Medications: Current Medications Albuterol Sulfate (Albuterol 0.083% Inhal Tashia (2.5 Mg/3 Ml) Ud) 2.5 mg INH RQ6 [facility] Last Admin: 01/06/18 07:45 Dose: 2.5 mg Ascorbic Acid (Vitamin C 500 Mg Tab) 1,000 mg PO DAILY [facility] Last Admin: 01/06/18 10:27 Dose: Not Given Atorvastatin Calcium (Lipitor) 10 mg PO DIN [facility] Budesonide (Pulmicort Respules) 0.5 mg IH DAILY [facility] Last Admin: 01/06/18 10:26 Dose: Not Given Calcium Carbonate (Oscal) 500 mg PO DAILY [facility] Last Admin: 01/06/18 10:26 Dose: Not Given Carvedilol (Coreg) 3.125 mg PO BID [facility] Last Admin: 01/06/18 10:33 Dose: 3.125 mg Cholecalciferol (Vitamin D) 2,000 intlu PO DAILY [facility] Last Admin: 01/06/18 10:27 Dose: Not Given Docusate Sodium (Colace) 200 mg PO [facility] Donepezil HCl (Aricept) 5 mg PO DAILY [facility] Last Admin: 01/06/18 10:25 Dose: Not Given Hydrochlorothiazide (Hydrodiuril) 25 mg PO DAILY [facility] Last Admin: 01/06/18 10:34 Dose: Not Given Dextrose/Sodium Chloride (Dextrose 5%/0.45% Ns 1000 Ml) 1,000 mls @ 100 mls/hr IV .Q10H [facility] Stop: 01/07/18 07:18 Last Admin: 01/06/18 10:34 Dose: 100 mls/hr Losartan Potassium (Cozaar) 50 mg PO DAILY [facility] Last Admin: 01/06/18 10:33 Dose: Not Given Pantoprazole Sodium (Protonix Ec Tab) 40 mg PO DAILY [facility] Last Admin: 01/06/18 10:26 Dose: Not Given Potassium Chloride (Klor-Con 10) 10 meq PO DAILY [facility] Last Admin: 01/06/18 10:26 Dose: Not Given Tiotropium [place] (Spiriva) 18 mcg INH DAILY [facility] Last Admin: 01/06/18 10:27 Dose: Not Given Venlafaxine HCl (Effexor Xr) 225 mg PO DAILY [facility] Last Admin: 01/06/18 10:26 Dose: Not Given - Labs Labs: 01/05/18 19:05 01/05/18 19:05 PT 15.0 Seconds (9.8-13.1) H 01/06/18 05:40 INR 1.3 01/06/18 05:40 APTT 34.6 Seconds (25.6-37.1) 01/05/18 19:05 - Constitutional Appears: Non-toxic, No Acute Distress, Confused (extremely drowsy) - Head Exam Head Exam: ATRAUMATIC - Eye Exam Eye Exam: Normal appearance - ENT Exam ENT Exam: Normal External Ear Exam - Neck Exam Neck Exam: Normal Inspection - Respiratory Exam Respiratory Exam: Clear to Ausculation Bilateral, NORMAL BREATHING PATTERN - Cardiovascular Exam Cardiovascular Exam: REGULAR RHYTHM - Extremities Exam Extremities Exam: Joint Swelling (right knee) Additional comments: RLE flexed, in external rotation Assessment and Plan - Assessment and Plan (Free Text) Assessment: 87 years old female with PMHx of bilateral knee replacements, ORIF of left medial femoral condyle fracture (11/09/2017) s/p mechanical fall out of shower chair on 10/19/17, HTN, HLD, COPD, PE, chronic anemia and chronic dementia was sent to the ED from the Doctor's office with worsening swelling and deformity of the right knee. X-Ray of the right knee showed Dislocated Prosthesis. Dislocated Right Total Knee Arthroplasty -Orthopedics (Dr Joel): planning to take patient to OR for closed reduction today (01/06) -As per RN telephone encounter daughter will consent -NPO -Pain management -INR 1.3 Dehydration -IV fluid (D5 NS) Abnormal EKG -Sinus Rhythm with sinus arrhythmia and PAC with RBBB 79/min -Cardiology (Dr Kyreakakis): pt will have a closed reduction of the right knee dislocation attempt today by Dr Joel and is cleared for that. If closed reduction is unsuccessful, an open reduction should not be done before late or on 01/08 as the patient took Eliquis yesterday (01/05) COPD -Stable -Albuterol 2.5 mg INH RQ6 [facility] HTN -Controlled -Coreg 3.125 mg BID Dementia -Chronic DVT Prophylaxis -SCD - possible OR today
--- NOTE | 2018-01-06 11:39 | RAD ---
Date of service: 01/05/2018 PROCEDURE: Right Knee Radiographs. HISTORY: swelling COMPARISON: 11/12/2017 FINDINGS: BONES: There is diffuse bone demineralization. No acute fracture or dislocation. JOINTS: Status post total cemented knee arthroplasty. There is lateral and posterior dislocation of joint. JOINT EFFUSION: Small suprapatellar joint effusion. OTHER FINDINGS: Extensive atherosclerotic vascular calcifications IMPRESSION: Status post total cemented knee arthroplasty, lateral posterior dislocation of the knee joint.
--- NOTE | 2018-01-06 11:59 | RAD ---
Date of service: 01/05/2018 PROCEDURE: CHEST RADIOGRAPH, 1 VIEW HISTORY: preop COMPARISON: None available. FINDINGS: LUNGS: The lungs are clear. PLEURA: No pneumothorax or pleural fluid seen. CARDIOVASCULAR: Normal. OSSEOUS STRUCTURES: No significant abnormalities. VISUALIZED UPPER ABDOMEN: Normal. OTHER FINDINGS: None. IMPRESSION: No active pulmonary disease.
--- NOTE | 2018-01-06 13:17 | CT ---
Date of service: 01/05/2018 PROCEDURE: CT of the right knee joint with intravenous contrast. HISTORY: knee swelling COMPARISON: None available. TECHNIQUE: Contiguous axial images of the right knee were obtained after intravenous administration of 90 ml Omnipaque 300. Coronal and sagittal reformats were generated. Radiation dose: 428.[address] exam was performed using one or more of the following dose reduction techniques: Automated exposure control, adjustment of the mA and/or kV according to patient size, and/or use of iterative reconstruction technique. FINDINGS: BONES: Status post total cemented right knee arthroplasty, there is lateral and posterior dislocation of the arthroplasty. The femoral and tibial components are well seated. There is no acute displaced fracture or bone destruction. There is is small suprapatellar joint effusion. SOFT TISSUES: There is mild fatty atrophy of the periarticular muscles. There are extensive atherosclerotic vascular calcifications. IMPRESSION: Lateral and posterior dislocation of the right knee arthroplasty. Small suprapatellar joint effusion. A preliminary report was provided by [facility].
[2018-01-06] MEDS ORDERED: Bupivacaine HCl 0.5% PF (30 ml) Inj ONE (14:49)
[2018-01-06] MEDS ORDERED: Iohexol 300 100 ML IJ ONE (14:50)
[2018-01-06] MEDS ORDERED: ePHEDrine 50 mg/ml Inj ONE (16:20)
[2018-01-06] MEDS ORDERED: Phenylephrine 10 mg/ml Inj ONE (16:20)
[2018-01-06] MEDS ORDERED: Rocuronium 10 mg/ml (5 ml) ONE (16:20)
[2018-01-06] MEDS ORDERED: Etomidate 20 mg/10ml Inj IV ONE (16:21)
[2018-01-06] MEDS ORDERED: Lactated Ringer's 500 ML IV ONE (16:45)
[2018-01-06] MEDS ORDERED: Neostigmine 1:1000 (1 mg/ml) Inj ONE (17:22)
[2018-01-06] MEDS ORDERED: Lactated Ringer's 1,000 ML IV SCH (18:00)
--- NOTE | 2018-01-06 18:05 | PCM.SURG1 ---
Surgeon's Initial Post Op Note - Surgeon's Notes Surgeon: Wisam Census Enumerator: LISA Anne Type of Anesthesia: General Endo, General LMA Anesthesia Administered By: DR Nunes and DR Milo Dueñas Pre-Operative Diagnosis: Dislocated R TKR Operative Findings: Dislocated R TKR. Quadriceps tendon rupture Post-Operative Diagnosis: as above Operation Performed: Closed reduction dislocated R TKR. aspiration hematioma R Knee. applx knee immobilizer. positioning of fluor/interpretation of video images Specimen/Specimens Removed: hematoma/bloody aspirate Estimated Blood Loss: EBL {In ML}: 40 (aspirate from suprpatell hematoma) Blood Products Given: N/A Drains Used: No Drains Post-Op Condition: Good Date of Surgery/Procedure: 01/06/18 Time of Surgery/Procedure: 17:15 (time in room 1645/[email or web address] induction time 1645)
[2018-01-06 18:15] LABS: FLUID TYPE SYNOVIAL FLUID
[2018-01-06 18:39] LABS: SF GROSS APPEARANCE BLOODY (CLEAR); SYNOVIAL FLUID COMMENT BLOODY
[2018-01-06 18:56] LABS: SYNOVIAL FLUID MONO/MACROPHAGE 10 % (0-0)
[2018-01-07] MEDS: Albuterol 0.083% Inhal Sol (2.5 mg/3 mL) UD INH SCH ×4 (03:02→19:06)
[2018-01-07] MEDS: Dextrose 5%/0.45% NS 1,000 ML IV SCH (04:41)
[2018-01-07 06:34] LABS: HEMOGLOBIN 11.2 g/dL (12.0-16.0); MEAN CELL VOLUME 85.9 fl (81.0-99.0); MEAN CORPUSCULAR HEMOGLOBIN 29.2 pg (27.0-31.0); RBC 3.84 Mil/uL (3.80-5.20); WHITE BLOOD COUNT 9.1 K/uL (4.8-10.8)
[2018-01-07 07:00] LABS: BLOOD UREA NITROGEN 15 mg/dl (7-17); CALCIUM 9.1 mg/dL (8.4-10.2); GFR NON-AFRICAN AMERICAN > 60
[2018-01-07] MEDS: Budesonide 0.5 mg/2 ml Inhal Susp UD IH SCH ×2 (07:09)
--- NOTE | 2018-01-07 08:31 | RAD ---
Date of service: 01/06/2018 PROCEDURE: Right Knee Radiographs. HISTORY: s/p R knee Closed reduction of dislocated prosthesis COMPARISON: 01/05/2018 FINDINGS: BONES: There is no acute displaced fracture or bone destruction. Bone alignment is normal. There is diffuse bone demineralization JOINTS: Status post closed reduction of dislocated knee prosthesis, there is interval improved lateral alignment however persistent mild posterior dislocation of the tibial prosthesis. JOINT EFFUSION: Small suprapatellar joint effusion. OTHER FINDINGS: None. IMPRESSION: Status post close reduction of dislocated knee prosthesis, interval improved lateral alignment however persistent mild posterior displacement of the tibial prosthesis.
[2018-01-07] MEDS: Pantoprazole 40 mg EC Tab PO SCH (09:24)
[2018-01-07] MEDS: Cholecalciferol 1,000 INTLU TAB PO SCH (09:24)
[2018-01-07] MEDS: Venlafaxine 75 mg ER Cap PO SCH (09:24)
[2018-01-07] MEDS: Potassium Chloride 10 mEq ER Tab PO SCH (09:25)
--- NOTE | 2018-01-07 09:25 | CP.PCM.PN ---
Subjective - Date & Time of Evaluation Date of Evaluation: 01/07/18 Time of Evaluation: 09:00 - Subjective Subjective: NO COMPLAINTS Objective - Vital Signs/Intake and Output Vital Signs (last 24 hours): Temp Pulse Resp BP Pulse Ox 98.9 F 107 H 20 91/56 L 95 01/07/18 08:42 01/07/18 08:42 01/07/18 08:42 01/07/18 08:42 01/07/18 08:42 - Medications Medications: Current Medications Acetaminophen (Tylenol 325mg Tab) 650 mg PO Q4 PRN PRN Reason: Other Last Admin: 01/07/18 02:43 Dose: 650 mg Albuterol Sulfate (Albuterol 0.083% Inhal Tashia (2.5 Mg/3 Ml) Ud) 2.5 mg INH RQ6 [facility] Last Admin: 01/07/18 07:09 Dose: 2.5 mg Ascorbic Acid (Vitamin C 500 Mg Tab) 1,000 mg PO DAILY [facility] Last Admin: 01/06/18 10:27 Dose: Not Given Atorvastatin Calcium (Lipitor) 10 mg PO DIN [facility] Last Admin: 01/06/18 17:12 Dose: Not Given Budesonide (Pulmicort Respules) 0.5 mg IH DAILY@0800 [facility] Last Admin: 01/07/18 07:09 Dose: 0.5 mg Calcium Carbonate (Oscal) 500 mg PO DAILY [facility] Last Admin: 01/06/18 10:26 Dose: Not Given Carvedilol (Coreg) 3.125 mg PO BID [facility] Last Admin: 01/06/18 17:12 Dose: Not Given Cholecalciferol (Vitamin D) 2,000 intlu PO DAILY [facility] Last Admin: 01/06/18 10:27 Dose: Not Given Docusate Sodium (Colace) 200 mg PO HS [facility] Last Admin: 01/06/18 22:20 Dose: 200 mg Donepezil HCl (Aricept) 5 mg PO DAILY [facility] Last Admin: 01/06/18 10:25 Dose: Not Given Hydrochlorothiazide (Hydrodiuril) 25 mg PO DAILY [facility] Last Admin: 01/06/18 10:34 Dose: Not Given Lactated Ringer's (Lactated Ringer's) 1,000 mls @ 50 mls/hr IV .Q20H [facility] Last Admin: 01/06/18 21:20 Dose: 50 mls/hr Losartan Potassium (Cozaar) 50 mg PO DAILY [facility] Last Admin: 01/06/18 10:33 Dose: Not Given Ondansetron HCl (Zofran Inj) 4 mg IVP ONCE PRN PRN Reason: Nausea/Vomiting Pantoprazole Sodium (Protonix Ec Tab) 40 mg PO DAILY [facility] Last Admin: 01/06/18 10:26 Dose: Not Given Potassium Chloride (Klor-Con 10) 10 meq PO DAILY [facility] Last Admin: 01/06/18 10:26 Dose: Not Given Tiotropium [place] (Spiriva) 18 mcg INH DAILY [facility] Last Admin: 01/06/18 10:27 Dose: Not Given Venlafaxine HCl (Effexor Xr) 225 mg PO DAILY [facility] Last Admin: 01/06/18 10:26 Dose: Not Given - Labs Labs: 01/07/18 05:40 01/07/18 05:40 PT 15.0 Seconds (9.8-13.1) H 01/06/18 05:40 INR 1.3 01/06/18 05:40 APTT 34.6 Seconds (25.6-37.1) 01/05/18 19:05 - Respiratory Exam Respiratory Exam: Clear to Ausculation Bilateral - Cardiovascular Exam Cardiovascular Exam: REGULAR RHYTHM, +S1, +S2 - Additional Findings Additional findings: DR CERVANTES'S OPERATIVE REPORT REVIEWED AND PATIENT HAD CLOSED REDUCTION OF RIGHT TKR DISLOCATION Assessment and Plan - Assessment and Plan (Free Text) Assessment: S/P RIGHT TKR DISLOCATION WITH CLOSED REDUCTION HYPERTENSION HYPERLIPIDEMIA DEMENTIA Plan: CONTINUE CARVEDILOL, LOSARTAN, HCTZ AND ATORVASTATIN ELIQUIS CAN BE RESTARTED IN A DAY OR TWO IF OKAY WITH DR CERVANTES IF NO ADDITIONAL OPEN ORTHOPEDIC PROCEDURE WILL BE PERFORMED
[2018-01-07] MEDS: Tiotropium 18 mcg Cap For Inhalation INH SCH (11:03)
--- NOTE | 2018-01-07 11:09 | CP.PCM.PN ---
Subjective - Date & Time of Evaluation Date of Evaluation: 01/07/18 Time of Evaluation: 09:40 - Subjective Subjective: Patient seen bedside complaining of right knee pain. She denies nausea, vomiting , difficulty breathing and chest pain. Encounter difficult due to dementia. Objective - Vital Signs/Intake and Output Vital Signs (last 24 hours): Temp Pulse Resp BP Pulse Ox 98.9 F 108 H 20 93/60 L 95 01/07/18 08:42 01/07/18 09:21 01/07/18 08:42 01/07/18 09:26 01/07/18 08:42 - Medications Medications: Current Medications Acetaminophen (Tylenol 325mg Tab) 650 mg PO Q4 PRN PRN Reason: Other Last Admin: 01/07/18 02:43 Dose: 650 mg Albuterol Sulfate (Albuterol 0.083% Inhal Tashia (2.5 Mg/3 Ml) Ud) 2.5 mg INH RQ6 [facility] Last Admin: 01/07/18 07:09 Dose: 2.5 mg Ascorbic Acid (Vitamin C 500 Mg Tab) 1,000 mg PO DAILY [facility] Last Admin: 01/07/18 09:25 Dose: 1,000 mg Atorvastatin Calcium (Lipitor) 10 mg PO DIN [facility] Last Admin: 01/06/18 17:12 Dose: Not Given Budesonide (Pulmicort Respules) 0.5 mg IH DAILY@0800 [facility] Last Admin: 01/07/18 07:09 Dose: 0.5 mg Calcium Carbonate (Oscal) 500 mg PO DAILY [facility] Last Admin: 01/07/18 09:24 Dose: 500 mg Carvedilol (Coreg) 3.125 mg PO BID [facility] Last Admin: 01/07/18 09:21 Dose: Not Given Cholecalciferol (Vitamin D) 2,000 intlu PO DAILY [facility] Last Admin: 01/07/18 09:24 Dose: 2,000 intlu Docusate Sodium (Colace) 200 mg PO HS [facility] Last Admin: 01/06/18 22:20 Dose: 200 mg Donepezil HCl (Aricept) 5 mg PO DAILY [facility] Last Admin: 01/07/18 09:24 Dose: 5 mg Hydrochlorothiazide (Hydrodiuril) 25 mg PO DAILY [facility] Last Admin: 01/07/18 09:23 Dose: Not Given Lactated Ringer's (Lactated Ringer's) 1,000 mls @ 50 mls/hr IV .Q20H [facility] Last Admin: 01/06/18 21:20 Dose: 50 mls/hr Ketorolac Tromethamine (Toradol) 15 mg IVP Q6 PRN PRN Reason: Pain, moderate (4-7) Losartan Potassium (Cozaar) 50 mg PO DAILY [facility] Last Admin: 01/07/18 09:26 Dose: Not Given Ondansetron HCl (Zofran Inj) 4 mg IVP ONCE PRN PRN Reason: Nausea/Vomiting Pantoprazole Sodium (Protonix Ec Tab) 40 mg PO DAILY [facility] Last Admin: 01/07/18 09:24 Dose: 40 mg Potassium Chloride (Klor-Con 10) 10 meq PO DAILY [facility] Last Admin: 01/07/18 09:25 Dose: 10 meq Tiotropium [place] (Spiriva) 18 mcg INH DAILY [facility] Last Admin: 01/07/18 11:03 Dose: Not Given Venlafaxine HCl (Effexor Xr) 225 mg PO DAILY [facility] Last Admin: 01/07/18 09:24 Dose: 225 mg - Labs Labs: 01/07/18 05:40 01/07/18 05:40 PT 15.0 Seconds (9.8-13.1) H 01/06/18 05:40 INR 1.3 01/06/18 05:40 APTT 34.6 Seconds (25.6-37.1) 01/05/18 19:05 - Constitutional Appears: Non-toxic, Agitated, Confused - Head Exam Head Exam: ATRAUMATIC - Eye Exam Eye Exam: Normal appearance - ENT Exam ENT Exam: Normal External Ear Exam - Neck Exam Neck Exam: Full ROM - Respiratory Exam Respiratory Exam: NORMAL BREATHING PATTERN - Cardiovascular Exam Cardiovascular Exam: REGULAR RHYTHM - GI/Abdominal Exam GI & Abdominal Exam: Soft. absent: Tenderness - Extremities Exam Extremities Exam: Pedal Edema (bilateral edema) Additional comments: knee dressing intact, not removed - Neurological Exam Neurological Exam: Awake Additional comments: oriented to self - Psychiatric Exam Psychiatric exam: Agitated - Skin Skin Exam: Normal Color Assessment and Plan - Assessment and Plan (Free Text) Assessment: 87 years old female with PMHx of bilateral knee replacements, ORIF of left medial femoral condyle fracture (11/09/2017) s/p mechanical fall out of shower chair on 10/19/17, HTN, HLD, COPD, PE, chronic anemia and chronic dementia was sent to the ED from the Doctor's office with worsening swelling and deformity of the right knee. X-Ray of the right knee showed Dislocated Prosthesis. 01/06: closed reduction of right knee, patient tolerated procedure well, repeat XR shows improved lateral alignment but persistent mild posterior displacement of tibial process Dislocated Right Total Knee Arthroplasty -XR knee (01/05): s/p total cemented knee arthroplasty, lateral posterior dislocation of the knee joint -Dr. Joel closed reduction 01/06 -XR knee (01/07): s/p close reduction of dislocated knee prosthesis, interval improved lateral alignment however persistent mild posterior displacement of the tibial prosthesis. -Pain management: Tordol 15 mg IV Q6 PRN -Awaiting plan from surgery (possible open reduction?) Urinary Retention -Likely post-operative, post-anesthesia -Bladder scan @ 1:30 am 01/07 showed 600cc - straight catheter yielded 500cc -As per RN no void as of 9:30 am, scan 11:30am shows 160 cc -Will bladder scan again in 1-2 hours (12:30/:30) Hypokalmeia -K 3.4 -IVF changed to D5 0.5 NS + 40 mEq (previously LR s/p surgery) Abnormal EKG -Sinus Rhythm with sinus arrhythmia and PAC with RBBB 79/min -Cardiology (Dr Tripp): (01/06): pt is cleared for closed reduction 01/06. If closed reduction is unsuccessful, an open reduction should not be done before late 01/07 or on 01/08 as the patient took Eliquis yesterday (01/05) (01/07): continue carvedilol, losartan, HCTZ and atorvastati. eliquis can be restarted in 1-2 days if okay with Dr Joel if no additiona l open orthopedic procedure will be performed. COPD -Stable -Albuterol 2.5 mg INH RQ6 [facility] HTN -Controlled -Home meds held (BP 91/56) -Will monitor Dementia -Chronic DVT Prophylaxis -SCD
--- NOTE | 2018-01-07 14:24 | RAD ---
Date of service: 01/06/2018 PROCEDURE: Intraoperative Fluoroscopy. HISTORY: RIGHT KNEE FINDINGS: Fluoroscopic assistance was provided for dislocation right knee arthroplasty.. Please refer to the operative report from [facility]. Total fluoroscopic time (continuous mode) utilized during the procedure 7.3 (seconds). Total exam DLP: 0.4 (mGy).
--- NOTE | 2018-01-07 16:00 | CP.PCM.PN ---
Subjective - Date & Time of Evaluation Date of Evaluation: 01/07/18 Time of Evaluation: 15:00 - Subjective Subjective: Patient seen and examined at bedside comfortable. Baseline confusion but following commands and much more awake. No complaints of pain at this time. No acute events overnight. Objective - Vital Signs/Intake and Output Vital Signs (last 24 hours): Temp Pulse Resp BP Pulse Ox 98.9 F 98 H 20 93/60 L 96 01/07/18 08:42 01/07/18 13:08 01/07/18 08:42 01/07/18 09:26 01/07/18 13:08 - Medications Medications: Current Medications Acetaminophen (Tylenol 325mg Tab) 650 mg PO Q4 PRN PRN Reason: Other Last Admin: 01/07/18 02:43 Dose: 650 mg Albuterol Sulfate (Albuterol 0.083% Inhal Tashia (2.5 Mg/3 Ml) Ud) 2.5 mg INH RQ6 [facility] Last Admin: 01/07/18 13:24 Dose: 2.5 mg Ascorbic Acid (Vitamin C 500 Mg Tab) 1,000 mg PO DAILY [facility] Last Admin: 01/07/18 09:25 Dose: 1,000 mg Atorvastatin Calcium (Lipitor) 10 mg PO DIN [facility] Last Admin: 01/06/18 17:12 Dose: Not Given Budesonide (Pulmicort Respules) 0.5 mg IH DAILY@0800 [facility] Last Admin: 01/07/18 07:09 Dose: 0.5 mg Calcium Carbonate (Oscal) 500 mg PO DAILY [facility] Last Admin: 01/07/18 09:24 Dose: 500 mg Carvedilol (Coreg) 3.125 mg PO BID [facility] Last Admin: 01/07/18 09:21 Dose: Not Given Cholecalciferol (Vitamin D) 2,000 intlu PO DAILY [facility] Last Admin: 01/07/18 09:24 Dose: 2,000 intlu Docusate Sodium (Colace) 200 mg PO HS [facility] Last Admin: 01/06/18 22:20 Dose: 200 mg Donepezil HCl (Aricept) 5 mg PO DAILY [facility] Last Admin: 01/07/18 09:24 Dose: 5 mg Hydrochlorothiazide (Hydrodiuril) 25 mg PO DAILY [facility] Last Admin: 01/07/18 09:23 Dose: Not Given Potassium Chloride/Dextrose/Sod Cl (Potassium Chl 40 Meq In D5-1/2ns) 1,000 mls @ 125 mls/hr IV .Q8H [facility] Stop: 01/08/18 11:58 Ketorolac Tromethamine (Toradol) 15 mg IVP Q6 PRN PRN Reason: Pain, moderate (4-7) Last Admin: 01/07/18 11:06 Dose: 15 mg Losartan Potassium (Cozaar) 50 mg PO DAILY [facility] Last Admin: 01/07/18 09:26 Dose: Not Given Ondansetron HCl (Zofran Inj) 4 mg IVP ONCE PRN PRN Reason: Nausea/Vomiting Pantoprazole Sodium (Protonix Ec Tab) 40 mg PO DAILY [facility] Last Admin: 01/07/18 09:24 Dose: 40 mg Potassium Chloride (Klor-Con 10) 10 meq PO DAILY [facility] Last Admin: 01/07/18 09:25 Dose: 10 meq Tiotropium [place] (Spiriva) 18 mcg INH DAILY [facility] Last Admin: 01/07/18 11:03 Dose: Not Given Venlafaxine HCl (Effexor Xr) 225 mg PO DAILY [facility] Last Admin: 01/07/18 09:24 Dose: 225 mg - Labs Labs: 01/07/18 05:40 01/07/18 05:40 PT 15.0 Seconds (9.8-13.1) H 01/06/18 05:40 INR 1.3 01/06/18 05:40 APTT 34.6 Seconds (25.6-37.1) 01/05/18 19:05 - Extremities Exam Additional comments: R knee: Knee immobilizer in place, Dressings CDI sensation intact SP/DP/TN motor intact EHL/FHL pedal pulse intact comps soft NT Assessment and Plan (1) Dislocation of prosthetic joint of knee Assessment & Plan: POD #1 s/p R knee closed reduction under anesthesia -maintain strict knee immobilizer at all times -PT/OT NWB RLE -No further surgical intervention at this time -may restart anticoagulation -orthopedically stable for discharge -f/u in office within 7-10 days -above d/w Dr. Joel in agreement Status: Acute
[2018-01-07] MEDS: Potassium Chl 40 mEq in D5-1/2 1,000 ML IV SCH (16:02)
[2018-01-08] MEDS: Potassium Chl 40 mEq in D5-1/2 1,000 ML IV SCH (01:08)
[2018-01-08] MEDS: Albuterol 0.083% Inhal Sol (2.5 mg/3 mL) UD INH SCH ×4 (01:11→19:09)
--- NOTE | 2018-01-08 06:47 | OP ---
PROCEDURE DATE: 01/06/2018 PREOPERATIVE DIAGNOSIS: Dislocated right total knee replacement. POSTOPERATIVE DIAGNOSIS: Dislocated right total knee replacement. OPERATIVE FINDINGS: 1. Dislocated right total knee replacement. 2. Quadriceps tendon rupture. OPERATIONS PERFORMED: 1. Closed reduction right total knee replacement. 2. Aspiration hematoma of right knee. 3. Manipulation of the knee under anesthesia. 4. Application of Jerel Montanez compression dressing and knee immobilizer. 5. Positioning of fluoroscope and interpretation of video images. SURGEON: Mega Joel MD BODY AND FRAME TECHNICIAN: BRAYAN Pretty, certified registered nursing ice cream freezer assistant. ANESTHESIA: General tracheal anesthesia, LMA by Dr. Nunes and Dr. Milo Dueñas. SPECIMENS REMOVED: The hematoma bloody aspirate. ESTIMATED BLOOD LOSS: Approximately 40 mL of the suprapatellar hematoma. BLOOD PRODUCTS: No blood products given. DRAINS: No drains. POSTOPERATIVE CONDITION: Fair. TIME OF SURGERY: 07:15 time in the room, anesthesia induction time 16:45. OPERATIVE INDICATIONS: The patient is an 88-year-old woman well-known to my practice, who presented in October after dislocating a left total knee replacement. The patient now presents with a dislocated right total knee replacement after having been remitted back to the same nursing facility by the family. Pros, cons, risks and benefits of closed reduction were discussed. Concept that the patient has a high mortality risk is discussed. The patient's comorbidities were discussed. The possibility of mechanical failure, infection, thromboembolic disease, possibility of later secondary or tertiary surgery was discussed. The patient can no longer withstand the discomfort. OPERATIVE PROCEDURE: After having obtained informed consent from the daughter, Kinjal, after having identified side, site and procedure and a critical pause/time-out, after the satisfactory induction of the anesthetic, the patient identified as in the supine position with all bony prominences well padded. The right lower extremity is evaluated under anesthesia. Under the surgeon's direction, the fluoroscope was positioned, video images were generated and therapeutic decisions were made therefrom. It should be noted that the knee is unstable. There is evidence for a quadriceps tendon rupture. This having been noted, the knee is reduced after the satisfactory induction of the general laryngeal mask anesthesia. The knee was reduced, but was found to be unstable. On palpation, there was found to be a defect in the area of the quadriceps tendon. At this point in time after reducing the dislocation, an 18-gauge needle was placed in the suprapatellar pouch from a suprapatellar portal and approximately 40 mL of bloody aspirate were noted. Again, there was a palpable defect at the quadriceps junction to the patella. This having been accomplished, the aspiration having been accomplished, reduction was again accomplished. Jerel Montanez compression dressing and knee immobilizer was applied and the fluoroscopic views revealed that the knee had been reduced in the operating room. The fact that the knee is unstable; however, is noted. The fact that there was a quadriceps tendon rupture was noted and in fact the intraoperative fluoroscopy again reveals evidence of the rotation of the patella, evidence of the quadriceps tendon rupture, the knee is immobilized satisfactorily in a woman at her age with multiple comorbidities perhaps is the best to just leave the construct this way except the quadriceps tendon defect and treat the knee in immobilization until scarring occurs. This will be discussed with the patient. The patient is transferred from the operating room table to the stretcher in the knee immobilizer. Mega Joel MD
--- NOTE | 2018-01-08 07:40 | CP.PCM.PN ---
Subjective - Date & Time of Evaluation Date of Evaluation: 01/08/18 Time of Evaluation: 07:00 - Subjective Subjective: Patient seen and examined at bedside comfortable. Patient is confused but follows commands. No acute events overnight. Objective - Vital Signs/Intake and Output Vital Signs (last 24 hours): Temp Pulse Resp BP Pulse Ox 99.9 F H 95 H 18 90/60 L 97 01/08/18 01:00 01/08/18 01:00 01/08/18 01:00 01/08/18 01:00 01/08/18 01:00 - Medications Medications: Current Medications Acetaminophen (Tylenol 325mg Tab) 650 mg PO Q4 PRN PRN Reason: Other Last Admin: 01/07/18 02:43 Dose: 650 mg Albuterol Sulfate (Albuterol 0.083% Inhal Tashia (2.5 Mg/3 Ml) Ud) 2.5 mg INH RQ6 [facility] Last Admin: 01/08/18 01:11 Dose: 2.5 mg Ascorbic Acid (Vitamin C 500 Mg Tab) 1,000 mg PO DAILY [facility] Last Admin: 01/07/18 09:25 Dose: 1,000 mg Atorvastatin Calcium (Lipitor) 10 mg PO DIN [facility] Last Admin: 01/07/18 17:27 Dose: 10 mg Budesonide (Pulmicort Respules) 0.5 mg IH DAILY@0800 [facility] Last Admin: 01/07/18 07:09 Dose: 0.5 mg Calcium Carbonate (Oscal) 500 mg PO DAILY [facility] Last Admin: 01/07/18 09:24 Dose: 500 mg Carvedilol (Coreg) 3.125 mg PO BID [facility] Last Admin: 01/07/18 17:28 Dose: 3.125 mg Cholecalciferol (Vitamin D) 2,000 intlu PO DAILY [facility] Last Admin: 01/07/18 09:24 Dose: 2,000 intlu Docusate Sodium (Colace) 200 mg PO HS [facility] Last Admin: 01/07/18 22:00 Dose: 200 mg Donepezil HCl (Aricept) 5 mg PO DAILY [facility] Last Admin: 01/07/18 09:24 Dose: 5 mg Hydrochlorothiazide (Hydrodiuril) 25 mg PO DAILY [facility] Last Admin: 01/07/18 09:23 Dose: Not Given Potassium Chloride/Dextrose/Sod Cl (Potassium Chl 40 Meq In D5-1/2ns) 1,000 mls @ 125 mls/hr IV .Q8H [facility] Stop: 01/08/18 11:58 Last Admin: 01/08/18 01:08 Dose: 125 mls/hr Ketorolac Tromethamine (Toradol) 15 mg IVP Q6 PRN PRN Reason: Pain, moderate (4-7) Last Admin: 01/07/18 11:06 Dose: 15 mg Losartan Potassium (Cozaar) 50 mg PO DAILY [facility] Last Admin: 01/07/18 09:26 Dose: Not Given Ondansetron HCl (Zofran Inj) 4 mg IVP ONCE PRN PRN Reason: Nausea/Vomiting Pantoprazole Sodium (Protonix Ec Tab) 40 mg PO DAILY [facility] Last Admin: 01/07/18 09:24 Dose: 40 mg Potassium Chloride (Klor-Con 10) 10 meq PO DAILY [facility] Last Admin: 01/07/18 09:25 Dose: 10 meq Tiotropium [place] (Spiriva) 18 mcg INH DAILY [facility] Last Admin: 01/07/18 11:03 Dose: Not Given Venlafaxine HCl (Effexor Xr) 225 mg PO DAILY [facility] Last Admin: 01/07/18 09:24 Dose: 225 mg - Labs Labs: 01/07/18 05:40 01/07/18 05:40 PT 15.0 Seconds (9.8-13.1) H 01/06/18 05:40 INR 1.3 01/06/18 05:40 APTT 34.6 Seconds (25.6-37.1) 01/05/18 19:05 - Extremities Exam Additional comments: R knee: Knee immobilizer in place, Dressings CDI, anterior tender deformity which may represent re-dislocation sensation intact SP/DP/TN motor intact EHL/FHL pedal pulse intact comps soft NT Assessment and Plan (1) Dislocation of prosthetic joint of knee Assessment & Plan: POD #2 s/p R knee closed reduction under anesthesia -repeat Xray reveals re-dislocation of right knee prosthesis -plan for open reduction of knee prosthesis in OR Thursday -hold all anticoagulants -medical and cardiac clearance -maintain strict knee immobilizer at all times -NWB RLE -NPO pMN on Thursday -above d/w Dr. Joel in agreement Status: Acute Radiology Interpretation - Notes: Notes:: Accession No. : [id number] Patient Name / ID : BRAXTON JARA / [id number] Exam Date : 01/08/2018 07:59:06 ( Approved ) Study Comment : Sex / Age : F / 87Y Creator : Vasiliy Boothe MD Dictator : Vasiliy Boothe MD First Press Operator : Signal Tester : Vasiliy Boothe MD Approver2 : Report Date : 01/08/2018 08:11:19 My Comment : Date of service: 01/08/2018 PROCEDURE: Right Knee Radiographs. HISTORY: s/p R knee prosthesis closed reduction COMPARISON: None. FINDINGS: BONES: Posterior dislocation of the right tibia and fibula without apparent fracture identified. Diffuse osteopenia suggests osteoporosis. Twenty replaced has been disarticulated however the separate components appear intact without hardware failure grossly evident. This excludes the radial lucent polyethylene component. Polyethylene component is likely unchanged in position relative to tibial prosthetic component. Patella appears unremarkable grossly. JOINTS: As above. JOINT EFFUSION: None. OTHER FINDINGS: None. IMPRESSION: Posterior dislocation of the tibia without fracture or gross disruption of the metallic components of total knee replacement arthroplasty.
[2018-01-08] MEDS: Budesonide 0.5 mg/2 ml Inhal Susp UD IH SCH (07:52)
--- NOTE | 2018-01-08 08:17 | RAD ---
Date of service: 01/08/2018 PROCEDURE: Right Knee Radiographs. HISTORY: s/p R knee prosthesis closed reduction COMPARISON: None. FINDINGS: BONES: Posterior dislocation of the right tibia and fibula without apparent fracture identified. Diffuse osteopenia suggests osteoporosis. Twenty replaced has been disarticulated however the separate components appear intact without hardware failure grossly evident. This excludes the radial lucent polyethylene component. Polyethylene component is likely unchanged in position relative to tibial prosthetic component. Patella appears unremarkable grossly. JOINTS: As above. JOINT EFFUSION: None. OTHER FINDINGS: None. IMPRESSION: Posterior dislocation of the tibia without fracture or gross disruption of the metallic components of total knee replacement arthroplasty.
[2018-01-08] MEDS: Venlafaxine 75 mg ER Cap PO SCH (08:34)
[2018-01-08] MEDS: Potassium Chloride 10 mEq ER Tab PO SCH (08:35)
[2018-01-08] MEDS: Pantoprazole 40 mg EC Tab PO SCH (08:35)
[2018-01-08] MEDS: Cholecalciferol 1,000 INTLU TAB PO SCH (08:36)
--- NOTE | 2018-01-08 10:13 | CP.PCM.PN ---
Subjective - Date & Time of Evaluation Date of Evaluation: 01/08/18 Time of Evaluation: 09:15 - Subjective Subjective: CONFUSED BUT NO COMPLAINTS Objective - Vital Signs/Intake and Output Vital Signs (last 24 hours): Temp Pulse Resp BP Pulse Ox 97.7 F 68 18 128/64 97 01/08/18 08:09 01/08/18 08:34 01/08/18 08:09 01/08/18 08:34 01/08/18 08:09 - Medications Medications: Current Medications Acetaminophen (Tylenol 325mg Tab) 650 mg PO Q4 PRN PRN Reason: Other Last Admin: 01/07/18 02:43 Dose: 650 mg Albuterol Sulfate (Albuterol 0.083% Inhal Tashia (2.5 Mg/3 Ml) Ud) 2.5 mg INH RQ6 [facility] Last Admin: 01/08/18 07:52 Dose: 2.5 mg Ascorbic Acid (Vitamin C 500 Mg Tab) 1,000 mg PO DAILY [facility] Last Admin: 01/08/18 08:36 Dose: 1,000 mg Atorvastatin Calcium (Lipitor) 10 mg PO DIN [facility] Last Admin: 01/07/18 17:27 Dose: 10 mg Budesonide (Pulmicort Respules) 0.5 mg IH DAILY@0800 [facility] Last Admin: 01/08/18 07:52 Dose: 0.5 mg Calcium Carbonate (Oscal) 500 mg PO DAILY [facility] Last Admin: 01/08/18 08:35 Dose: 500 mg Carvedilol (Coreg) 3.125 mg PO BID [facility] Last Admin: 01/08/18 08:33 Dose: 3.125 mg Cholecalciferol (Vitamin D) 2,000 intlu PO DAILY [facility] Last Admin: 01/08/18 08:36 Dose: 2,000 intlu Docusate Sodium (Colace) 200 mg PO HS [facility] Last Admin: 01/07/18 22:00 Dose: 200 mg Donepezil HCl (Aricept) 5 mg PO DAILY [facility] Last Admin: 01/08/18 08:33 Dose: 5 mg Hydrochlorothiazide (Hydrodiuril) 25 mg PO DAILY [facility] Last Admin: 01/08/18 08:35 Dose: 25 mg Potassium Chloride/Dextrose/Sod Cl (Potassium Chl 40 Meq In D5-1/2ns) 1,000 mls @ 125 mls/hr IV .Q8H [facility] Stop: 01/08/18 11:58 Last Admin: 01/08/18 01:08 Dose: 125 mls/hr Ketorolac Tromethamine (Toradol) 15 mg IVP Q6 PRN PRN Reason: Pain, moderate (4-7) Last Admin: 01/08/18 08:31 Dose: 15 mg Losartan Potassium (Cozaar) 50 mg PO DAILY [facility] Last Admin: 01/08/18 08:34 Dose: 50 mg Ondansetron HCl (Zofran Inj) 4 mg IVP ONCE PRN PRN Reason: Nausea/Vomiting Pantoprazole Sodium (Protonix Ec Tab) 40 mg PO DAILY [facility] Last Admin: 01/08/18 08:35 Dose: 40 mg Potassium Chloride (Klor-Con 10) 10 meq PO DAILY [facility] Last Admin: 01/08/18 08:35 Dose: 10 meq Tiotropium [place] (Spiriva) 18 mcg INH DAILY [facility] Last Admin: 01/07/18 11:03 Dose: Not Given Venlafaxine HCl (Effexor Xr) 225 mg PO DAILY [facility] Last Admin: 01/08/18 08:34 Dose: 225 mg - Labs Labs: 01/07/18 05:40 01/07/18 05:40 PT 15.0 Seconds (9.8-13.1) H 01/06/18 05:40 INR 1.3 01/06/18 05:40 APTT 34.6 Seconds (25.6-37.1) 01/05/18 19:05 - Respiratory Exam Respiratory Exam: Clear to Ausculation Bilateral - Cardiovascular Exam Cardiovascular Exam: REGULAR RHYTHM, +S1, +S2 - Additional Findings Additional findings: RIGHT KNEE X-RAYS OF 01/06 AND 01/08 WERE REVIEWED WITH THE RADIOLOGIST AND THERE IS STILL POSTERIOR DISPLACEMENT OF THE TIBIAL PROSTHESIS COMPONENT Assessment and Plan - Assessment and Plan (Free Text) Assessment: S/P CLOSED REDUCTION OF THE RIGHT TKR DISLOCATION WITH PERSISTENT POSTERIOR DISPLACEMENT OF THE TIBIAL COMPONENT HYPERTENSION HYPERLIPIDEMIA DEMENTIA Plan: I SPOKE TO DR CERVANTES WHO WILL REVIEWED THE RIGHT KNEE X-RAYS AND DECIDED TO DO AN OPEN REDUCTION OF THE DISLOCATION WITH A QUADRICEPS REPAIR ON THURSDAY CONTINUE CARVEDILOL, LOSARTAN, HCTZ AND ATORVASTATIN THE HOSPITALISTS AND NURSING STAFF WERE ADVISED NOT TO RESUME THE ELIQUIS IN LIGHT OF THE PROPOSED SURGERY FOR THURSDAY
--- NOTE | 2018-01-08 11:30 | CP.PCM.PN ---
Subjective - Date & Time of Evaluation Date of Evaluation: 01/08/18 Time of Evaluation: 11:30 - Subjective Subjective: Patient seen bedside complaining of right knee pain. Patient at baseline confusion but does not appear to be in any acute distress. Objective - Vital Signs/Intake and Output Vital Signs (last 24 hours): Temp Pulse Resp BP Pulse Ox 97.7 F 68 18 128/64 97 01/08/18 08:09 01/08/18 08:34 01/08/18 08:09 01/08/18 08:34 01/08/18 08:09 - Medications Medications: Current Medications Acetaminophen (Tylenol 325mg Tab) 650 mg PO Q4 PRN PRN Reason: Other Last Admin: 01/07/18 02:43 Dose: 650 mg Albuterol Sulfate (Albuterol 0.083% Inhal Tashia (2.5 Mg/3 Ml) Ud) 2.5 mg INH RQ6 [facility] Last Admin: 01/08/18 07:52 Dose: 2.5 mg Ascorbic Acid (Vitamin C 500 Mg Tab) 1,000 mg PO DAILY [facility] Last Admin: 01/08/18 08:36 Dose: 1,000 mg Atorvastatin Calcium (Lipitor) 10 mg PO DIN [facility] Last Admin: 01/07/18 17:27 Dose: 10 mg Budesonide (Pulmicort Respules) 0.5 mg IH DAILY@0800 [facility] Last Admin: 01/08/18 07:52 Dose: 0.5 mg Calcium Carbonate (Oscal) 500 mg PO DAILY [facility] Last Admin: 01/08/18 08:35 Dose: 500 mg Carvedilol (Coreg) 3.125 mg PO BID [facility] Last Admin: 01/08/18 08:33 Dose: 3.125 mg Cholecalciferol (Vitamin D) 2,000 intlu PO DAILY [facility] Last Admin: 01/08/18 08:36 Dose: 2,000 intlu Docusate Sodium (Colace) 200 mg PO HS [facility] Last Admin: 01/07/18 22:00 Dose: 200 mg Donepezil HCl (Aricept) 5 mg PO DAILY [facility] Last Admin: 01/08/18 08:33 Dose: 5 mg Hydrochlorothiazide (Hydrodiuril) 25 mg PO DAILY [facility] Last Admin: 01/08/18 08:35 Dose: 25 mg Dextrose/Sodium Chloride (Dextrose 5%/0.45% Ns 1000 Ml) 1,000 mls @ 80 mls/hr IV .[id number] [facility] Stop: 01/09/18 11:09 Ketorolac Tromethamine (Toradol) 15 mg IVP Q6 PRN PRN Reason: Pain, moderate (4-7) Last Admin: 01/08/18 08:31 Dose: 15 mg Losartan Potassium (Cozaar) 50 mg PO DAILY [facility] Last Admin: 01/08/18 08:34 Dose: 50 mg Ondansetron HCl (Zofran Inj) 4 mg IVP ONCE PRN PRN Reason: Nausea/Vomiting Pantoprazole Sodium (Protonix Ec Tab) 40 mg PO DAILY [facility] Last Admin: 01/08/18 08:35 Dose: 40 mg Potassium Chloride (Klor-Con 10) 10 meq PO DAILY [facility] Last Admin: 01/08/18 08:35 Dose: 10 meq Tiotropium [place] (Spiriva) 18 mcg INH DAILY [facility] Last Admin: 01/07/18 11:03 Dose: Not Given Venlafaxine HCl (Effexor Xr) 225 mg PO DAILY [facility] Last Admin: 01/08/18 08:34 Dose: 225 mg - Labs Labs: 01/07/18 05:40 01/07/18 05:40 PT 15.0 Seconds (9.8-13.1) H 01/06/18 05:40 INR 1.3 01/06/18 05:40 APTT 34.6 Seconds (25.6-37.1) 01/05/18 19:05 - Constitutional Appears: Non-toxic, Confused - Head Exam Head Exam: NORMAL INSPECTION - Eye Exam Eye Exam: Normal appearance - ENT Exam ENT Exam: Normal External Ear Exam - Neck Exam Neck Exam: Full ROM - Respiratory Exam Respiratory Exam: NORMAL BREATHING PATTERN - Cardiovascular Exam Cardiovascular Exam: REGULAR RHYTHM - GI/Abdominal Exam GI & Abdominal Exam: Soft. absent: Guarding, Tenderness, Rebound - Exam Additional comments: purewick female external catheter noted - Extremities Exam Additional comments: able to move toes bilaterally, knee brace not removed - Neurological Exam Neurological Exam: Awake - Psychiatric Exam Additional comments: confused - Skin Skin Exam: Normal Color, Warm Assessment and Plan - Assessment and Plan (Free Text) Assessment: 87 years old female with PMHx of bilateral knee replacements, ORIF of left medial femoral condyle fracture (11/09/2017) s/p mechanical fall out of shower chair on 10/19/17, HTN, HLD, COPD, PE, chronic anemia and chronic dementia was sent to the ED from the Doctor's office with worsening swelling and deformity of the right knee. X-Ray of the right knee showed Dislocated Prosthesis. Closed reduction of right knee (01/06), patient tolerated procedure well, repeat XR shows improved lateral alignment but persistent mild posterior displacement of tibial process. Dr. Joel planning open reduction of right knee 01/11. Dislocated Right Total Knee Arthroplasty -XR knee (01/05): s/p total cemented knee arthroplasty, lateral posterior dislocation of the knee joint -s/p closed reduction (Dr. Joel) 01/06, POD 2 -XR knee (01/07): s/p close reduction of dislocated knee prosthesis, interval improved lateral alignment however persistent mild posterior displacement of the tibial prosthesis -XR knee (01/08): Posterior dislocation of the tibia without fracture or gross disruption of the metallic components of total knee replacement arthroplasty -Pain management: Tordol 15 mg IV Q6 PRN -Dr Joel planning open reduction for Thursday 01/11 Urinary Retention -Likely post-operative, post-anesthesia -Straight Cath x2 -Currently on [facility] -Follow up UA Abnormal EKG -Sinus Rhythm with sinus arrhythmia and PAC with RBBB 79/min -Cardiology (Dr Tripp): (01/06): pt is cleared for closed reduction 01/06. If closed reduction is unsuccessful, an open reduction should not be done before late 01/07 or on 01/08 as the patient took Eliquis yesterday (01/05) (01/07): continue carvedilol, losartan, HCTZ and atorvastati. eliquis can be restarted in 1-2 days if okay with Dr Joel if no additiona l open orthopedic procedure will be performed. (01/08): hold Eliquis due to planned open reduction Thursday 01/11 COPD -Stable -Albuterol 2.5 mg INH RQ6 [place] HTN -Controlled -Home meds held (BP 91/56) -Will monitor Dementia -Chronic DVT Prophylaxis -SCD, hold Eliquis (open reduction planned for Thursday 01/11)
[2018-01-08] MEDS: Dextrose 5%/0.45% NS 1,000 ML IV SCH (11:53)
[2018-01-08] MEDS: Tiotropium 18 mcg Cap For Inhalation INH SCH (11:54)
[2018-01-08 17:12] LABS: URINE BACTERIA OCC (<OCC); URINE BILIRUBIN NEGATIVE (NEGATIVE); URINE BLOOD SMALL (NEGATIVE); URINE CLARITY CLOUDY (Clear); URINE COLOR YELLOW (YELLOW); URINE GLUCOSE (UA) NEG (Normal); URINE LEUKOCYTE ESTERASE LARGE Leu/uL (Negative); URINE PROTEIN 30 mg/dL (NEGATIVE); URINE UROBILINOGEN 0.2-1.0 mg/dL (0.2-1.0); WBC CLUMPS MOD /hpf
[2018-01-09] MEDS: Albuterol 0.083% Inhal Sol (2.5 mg/3 mL) UD INH SCH ×4 (01:00→19:02)
[2018-01-09] MEDS: Dextrose 5%/0.45% NS 1,000 ML IV SCH (01:24)
[2018-01-09] MEDS: Budesonide 0.5 mg/2 ml Inhal Susp UD IH SCH (07:56)
[2018-01-09 08:19] LABS: BLOOD UREA NITROGEN 11 mg/dl (7-17); CALCIUM 8.8 mg/dL (8.4-10.2); GFR NON-AFRICAN AMERICAN > 60
[2018-01-09 08:51] LABS: HEMOGLOBIN 9.7 g/dL (12.0-16.0); MEAN CELL VOLUME 88.5 fl (81.0-99.0); MEAN CORPUSCULAR HEMOGLOBIN 28.7 pg (27.0-31.0); MEAN CORPUSCULAR HGB CONC 32.4 g/dL (33.0-37.0); RBC 3.4 Mil/uL (3.80-5.20); RED CELL DISTRIBUTION WIDTH 16.7 % (11.5-14.5); WHITE BLOOD COUNT 5.7 K/uL (4.8-10.8)
[2018-01-09] MEDS: Venlafaxine 75 mg ER Cap PO SCH (09:36)
[2018-01-09] MEDS: Potassium Chloride 10 mEq ER Tab PO SCH (09:37)
[2018-01-09] MEDS: Pantoprazole 40 mg EC Tab PO SCH (09:40)
[2018-01-09] MEDS: Tiotropium 18 mcg Cap For Inhalation INH SCH (09:40)
[2018-01-09] MEDS: Cholecalciferol 1,000 INTLU TAB PO SCH (09:55)
--- NOTE | 2018-01-09 10:56 | CP.PCM.PN ---
Subjective - Date & Time of Evaluation Date of Evaluation: 01/09/18 Time of Evaluation: 09:45 Objective - Vital Signs/Intake and Output Vital Signs (last 24 hours): Temp Pulse Resp BP Pulse Ox 97.7 F 72 18 120/68 99 01/09/18 07:53 01/09/18 10:07 01/09/18 07:53 01/09/18 10:07 01/09/18 07:53 Intake and Output: 01/09/18 01/09/18 06:59 18:59 Intake Total 1060 Output Total 450 Balance 610 - Medications Medications: Current Medications Acetaminophen (Tylenol 325mg Tab) 650 mg PO Q4 PRN PRN Reason: Other Last Admin: 01/07/18 02:43 Dose: 650 mg Albuterol Sulfate (Albuterol 0.083% Inhal [place]ia (2.5 Mg/3 Ml) Ud) 2.5 mg INH RQ6 [facility] Last Admin: 01/09/18 07:56 Dose: 2.5 mg Ascorbic Acid (Vitamin C 500 Mg Tab) 1,000 mg PO DAILY [facility] Last Admin: 01/09/18 09:40 Dose: 1,000 mg Atorvastatin Calcium (Lipitor) 10 mg PO DIN [facility] Last Admin: 01/08/18 16:51 Dose: 10 mg Budesonide (Pulmicort Respules) 0.5 mg IH DAILY@0800 [facility] Last Admin: 01/09/18 07:56 Dose: 0.5 mg Calcium Carbonate (Oscal) 500 mg PO DAILY [facility] Last Admin: 01/09/18 09:39 Dose: 500 mg Carvedilol (Coreg) 3.125 mg PO BID [facility] Last Admin: 01/09/18 10:07 Dose: 3.125 mg Cholecalciferol (Vitamin D) 2,000 intlu PO DAILY [facility] Last Admin: 01/09/18 09:55 Dose: 2,000 intlu Docusate Sodium (Colace) 200 mg PO HS [facility] Last Admin: 01/08/18 21:33 Dose: 200 mg Donepezil HCl (Aricept) 5 mg PO DAILY [facility] Last Admin: 01/09/18 09:39 Dose: 5 mg Hydrochlorothiazide (Hydrodiuril) 25 mg PO DAILY [facility] Last Admin: 01/09/18 09:39 Dose: 25 mg Dextrose/Sodium Chloride (Dextrose 5%/0.45% Ns 1000 Ml) 1,000 mls @ 80 mls/hr IV .[id number] [facility] Stop: 01/09/18 11:09 Last Admin: 01/09/18 01:24 Dose: 80 mls/hr Cefepime HCl 1 gm/ Sodium (Chloride) 100 mls @ 100 mls/hr IVPB Q12 [facility] PRN Reason: Protocol Ketorolac Tromethamine (Toradol) 15 mg IVP Q6 PRN PRN Reason: Pain, moderate (4-7) Last Admin: 01/08/18 08:31 Dose: 15 mg Losartan Potassium (Cozaar) 50 mg PO DAILY [facility] Last Admin: 01/09/18 10:06 Dose: 50 mg Ondansetron HCl (Zofran Inj) 4 mg IVP ONCE PRN PRN Reason: Nausea/Vomiting Pantoprazole Sodium (Protonix Ec Tab) 40 mg PO DAILY [facility] Last Admin: 01/09/18 09:40 Dose: 40 mg Potassium Chloride (Klor-Con 10) 10 meq PO DAILY [facility] Last Admin: 01/09/18 09:37 Dose: 10 meq Tiotropium [place] (Spiriva) 18 mcg INH DAILY [facility] Last Admin: 01/09/18 09:40 Dose: 18 mcg Venlafaxine HCl (Effexor Xr) 225 mg PO DAILY [facility] Last Admin: 01/09/18 09:36 Dose: 225 mg - Labs Labs: 01/09/18 06:30 01/09/18 06:30 PT 15.0 Seconds (9.8-13.1) H 01/06/18 05:40 INR 1.3 01/06/18 05:40 APTT 34.6 Seconds (25.6-37.1) 01/05/18 19:05
--- NOTE | 2018-01-09 10:58 | CP.PCM.PN ---
Subjective - Date & Time of Evaluation Date of Evaluation: 01/09/18 Time of Evaluation: 11:00 - Subjective Subjective: Patient was seen and examined bedside. 87 y/o female with PMH dementia,[place] resident bed[place],COPD, HTN sent to hospital for deformity to Right Knee and found to have dislocated right knee arthroplasty. Presently post closed reduction of right knee and doing well. Pain is controlled but imaging post reduction shows posterior disclocation to right knee is still present. Plan for open reduction by ortho on Thursday She is pleasantly demented , elderly female of stated age .,lying in bed in NAD .Denies any pain or discomfort. Hemodynamically stable, afebrile. No acute issues overnight Urinalysis sent yesterday showed many bacteria and WBC so antibiotics started . Objective - Vital Signs/Intake and Output Vital Signs (last 24 hours): Temp Pulse Resp BP Pulse Ox 97.7 F 72 18 120/68 99 01/09/18 07:53 01/09/18 10:07 01/09/18 07:53 01/09/18 10:07 01/09/18 07:53 Intake and Output: 01/09/18 01/09/18 06:59 18:59 Intake Total 1060 Output Total 450 Balance 610 - Medications Medications: Current Medications Acetaminophen (Tylenol 325mg Tab) 650 mg PO Q4 PRN PRN Reason: Other Last Admin: 01/07/18 02:43 Dose: 650 mg Albuterol Sulfate (Albuterol 0.083% Inhal Tashia (2.5 Mg/3 Ml) Ud) 2.5 mg INH RQ6 [facility] Last Admin: 01/09/18 07:56 Dose: 2.5 mg Ascorbic Acid (Vitamin C 500 Mg Tab) 1,000 mg PO DAILY [facility] Last Admin: 01/09/18 09:40 Dose: 1,000 mg Atorvastatin Calcium (Lipitor) 10 mg PO DIN [facility] Last Admin: 01/08/18 16:51 Dose: 10 mg Budesonide (Pulmicort Respules) 0.5 mg IH DAILY@0800 [facility] Last Admin: 01/09/18 07:56 Dose: 0.5 mg Calcium Carbonate (Oscal) 500 mg PO DAILY [facility] Last Admin: 01/09/18 09:39 Dose: 500 mg Carvedilol (Coreg) 3.125 mg PO BID [facility] Last Admin: 01/09/18 10:07 Dose: 3.125 mg Cholecalciferol (Vitamin D) 2,000 intlu PO DAILY [facility] Last Admin: 01/09/18 09:55 Dose: 2,000 intlu Docusate Sodium (Colace) 200 mg PO HS [facility] Last Admin: 01/08/18 21:33 Dose: 200 mg Donepezil HCl (Aricept) 5 mg PO DAILY [facility] Last Admin: 01/09/18 09:39 Dose: 5 mg Hydrochlorothiazide (Hydrodiuril) 25 mg PO DAILY [facility] Last Admin: 01/09/18 09:39 Dose: 25 mg Dextrose/Sodium Chloride (Dextrose 5%/0.45% Ns 1000 Ml) 1,000 mls @ 80 mls/hr IV .[id number] [facility] Stop: 01/09/18 11:09 Last Admin: 01/09/18 01:24 Dose: 80 mls/hr Cefepime HCl 1 gm/ Sodium (Chloride) 100 mls @ 100 mls/hr IVPB Q12 [place] PRN Reason: Protocol Ketorolac Tromethamine (Toradol) 15 mg IVP Q6 PRN PRN Reason: Pain, moderate (4-7) Last Admin: 01/08/18 08:31 Dose: 15 mg Losartan Potassium (Cozaar) 50 mg PO DAILY [facility] Last Admin: 01/09/18 10:06 Dose: 50 mg Ondansetron HCl (Zofran Inj) 4 mg IVP ONCE PRN PRN Reason: Nausea/Vomiting Pantoprazole Sodium (Protonix Ec Tab) 40 mg PO DAILY [facility] Last Admin: 01/09/18 09:40 Dose: 40 mg Potassium Chloride (Klor-Con 10) 10 meq PO DAILY [facility] Last Admin: 01/09/18 09:37 Dose: 10 meq Tiotropium [place] (Spiriva) 18 mcg INH DAILY [facility] Last Admin: 01/09/18 09:40 Dose: 18 mcg Venlafaxine HCl (Effexor Xr) 225 mg PO DAILY [facility] Last Admin: 01/09/18 09:36 Dose: 225 mg - Labs Labs: 01/09/18 06:30 01/09/18 06:30 PT 15.0 Seconds (9.8-13.1) H 01/06/18 05:40 INR 1.3 01/06/18 05:40 APTT 34.6 Seconds (25.6-37.1) 01/05/18 19:05 - Constitutional Appears: Non-toxic, No Acute Distress, Other (stated age, pleasantly demented ) - Head Exam Head Exam: ATRAUMATIC, NORMOCEPHALIC - Eye Exam Eye Exam: EOMI, PERRL - ENT Exam ENT Exam: Mucous Membranes Dry - Neck Exam Neck Exam: Normal Inspection - Respiratory Exam Respiratory Exam: Clear to Ausculation Bilateral, NORMAL BREATHING PATTERN. absent: Rales, Rhonchi, Wheezes - Cardiovascular Exam Cardiovascular Exam: REGULAR RHYTHM, RRR, +S1, +S2. absent: JVD - GI/Abdominal Exam GI & Abdominal Exam: Soft, Normal Bowel Sounds. absent: Distended, Guarding, Rebound - Rectal Exam Rectal Exam: Deferred - Extremities Exam Extremities Exam: absent: Pedal Edema Additional comments: pulses present to LE, able to move toes , warm to touch bilateral knee immobilizers in place upper extremity hand deformities present - Neurological Exam Neurological Exam: Alert, Awake, CN II-XII Intact Additional comments: oriented to place and person - Psychiatric Exam Psychiatric exam: Normal Affect - Skin Skin Exam: Dry, Pallor, Warm Assessment and Plan - Assessment and Plan (Free Text) Assessment: 87 y/o female , [place] resident , demented ,bedbound with PMH COPD, HTN ,chronic anemia , history left knee ORIF 10/19/17 , dyslipidemia,bilateral knee replacement brought to hospital for evaluation of right knee deformity . Imaging showed dislocated right knee arthroplasty Patient underwent closed reduction on 01/06/18 by ortho . Post reduction imaging showing persistent posterior dislocation . Plan for OR with open reduction on Thursday.Dislocated Right Total Knee Arthroplasty s/p closed reduction (Dr. Joel) 01/06 Repeat right knee xary post reduction (01/07) showed -- interval improved lateral alignment however persistent mild posterior displacement of the tibial prosthesis Rep[eat xray of the same knee (01/08) showed : Posterior dislocation of the tibia without fracture or gross disruption of the metallic components of total knee replacement arthroplasty Continue pain management with Tordol 15 mg IV Q6 PRN Plan for open reduction on Thursday 01/11 Hold Eliquis 2.UTI UA with bacteria and WBC count urine cultures sent ID , Dr. Starr consulted Started Maxipime 3.Urinary Retention Likely post-operative, post-anesthesia Straight Cath x2 Currently on purewick 4.Abnormal EKG Sinus Rhythm with sinus arrhythmia and PAC with RBBB 79/min Cardiology consulted Dr Tripp. Patient is cleared from cardiology for OR continue carvedilol, losartan, HCTZ and atorvastatin. Eliquis on hold 5.COPD Stable Albuterol 2.5 mg INH RQ6 [facility] 6.HTN Controlled BP meds with parameters since BP on the lower side 7.Dementia Chronic 8. Chronic anemia H& H stable, Hgb 9.7 slightly worsened by dilution monitor 9. Osteoporosis on Vitamin D PO and Calcium supplements 10. DVT Prophylaxis SCD, hold Eliquis (open reduction planned for Thursday 01/11)
[2018-01-09] MEDS: Cefepime 1 GM in Sodium Chloride 0.9% 100 ML IVPB SCH ×2 (11:31→21:21)
--- NOTE | 2018-01-09 18:36 | CP.PCM.PN ---
Subjective - Date & Time of Evaluation Date of Evaluation: 01/09/18 Time of Evaluation: 18:30 - Subjective Subjective: I D NOTE PATIENT SCHEDULED FOR KNEE SURGERY ON THURSDAY APPEARSTO HAVE UTI HAVE STARTED MAXIPEME Objective - Vital Signs/Intake and Output Vital Signs (last 24 hours): Temp Pulse Resp BP Pulse Ox 98.1 F 64 20 97/58 L 99 01/09/18 16:10 01/09/18 16:10 01/09/18 16:10 01/09/18 16:10 01/09/18 16:10 Intake and Output: 01/09/18 01/09/18 06:59 18:59 Intake Total 1060 Output Total 450 Balance 610 - Medications Medications: Current Medications Acetaminophen (Tylenol 325mg Tab) 650 mg PO Q4 PRN PRN Reason: Other Last Admin: 01/07/18 02:43 Dose: 650 mg Albuterol Sulfate (Albuterol 0.083% Inhal Tashia (2.5 Mg/3 Ml) Ud) 2.5 mg INH RQ6 [facility] Last Admin: 01/09/18 13:06 Dose: 2.5 mg Ascorbic Acid (Vitamin C 500 Mg Tab) 1,000 mg PO DAILY [facility] Last Admin: 01/09/18 09:40 Dose: 1,000 mg Atorvastatin Calcium (Lipitor) 10 mg PO DIN [facility] Last Admin: 01/09/18 16:59 Dose: 10 mg Budesonide (Pulmicort Respules) 0.5 mg IH DAILY@0800 [facility] Last Admin: 01/09/18 07:56 Dose: 0.5 mg Calcium Carbonate (Oscal) 500 mg PO DAILY [facility] Last Admin: 01/09/18 09:39 Dose: 500 mg Carvedilol (Coreg) 3.125 mg PO BID@0900,2100 [facility] Cholecalciferol (Vitamin D) 2,000 intlu PO DAILY [facility] Last Admin: 01/09/18 09:55 Dose: 2,000 intlu Docusate Sodium (Colace) 200 mg PO HS [facility] Last Admin: 01/08/18 21:33 Dose: 200 mg Donepezil HCl (Aricept) 5 mg PO DAILY [facility] Last Admin: 01/09/18 09:39 Dose: 5 mg Hydrochlorothiazide (Hydrodiuril) 25 mg PO DAILY [facility] Last Admin: 01/09/18 09:39 Dose: 25 mg Cefepime HCl 1 gm/ Sodium (Chloride) 100 mls @ 100 mls/hr IVPB Q12 [facility] PRN Reason: Protocol Last Admin: 01/09/18 11:31 Dose: 100 mls/hr Ketorolac Tromethamine (Toradol) 15 mg IVP Q6 PRN PRN Reason: Pain, moderate (4-7) Last Admin: 01/08/18 08:31 Dose: 15 mg Losartan Potassium (Cozaar) 50 mg PO DAILY [facility] Last Admin: 01/09/18 10:06 Dose: 50 mg Ondansetron HCl (Zofran Inj) 4 mg IVP ONCE PRN PRN Reason: Nausea/Vomiting Pantoprazole Sodium (Protonix Ec Tab) 40 mg PO DAILY [facility] Last Admin: 01/09/18 09:40 Dose: 40 mg Potassium Chloride (Klor-Con 10) 10 meq PO DAILY [facility] Last Admin: 01/09/18 09:37 Dose: 10 meq Tiotropium [place] (Spiriva) 18 mcg INH DAILY [facility] Last Admin: 01/09/18 09:40 Dose: 18 mcg Venlafaxine HCl (Effexor Xr) 225 mg PO DAILY [facility] Last Admin: 01/09/18 09:36 Dose: 225 mg - Labs Labs: 01/09/18 06:30 01/09/18 06:30 PT 15.0 Seconds (9.8-13.1) H 01/06/18 05:40 INR 1.3 01/06/18 05:40 APTT 34.6 Seconds (25.6-37.1) 01/05/18 19:05
[2018-01-10] MEDS: Albuterol 0.083% Inhal Sol (2.5 mg/3 mL) UD INH SCH ×4 (02:33→19:20)
[2018-01-10] MEDS: Budesonide 0.5 mg/2 ml Inhal Susp UD IH SCH (08:01)
[2018-01-10] MEDS: Potassium Chloride 10 mEq ER Tab PO SCH (08:44)
[2018-01-10] MEDS: Pantoprazole 40 mg EC Tab PO SCH (08:44)
[2018-01-10] MEDS: Tiotropium 18 mcg Cap For Inhalation INH SCH (08:44)
[2018-01-10] MEDS: Cholecalciferol 1,000 INTLU TAB PO SCH (08:44)
[2018-01-10] MEDS: Venlafaxine 75 mg ER Cap PO SCH (08:44)
--- NOTE | 2018-01-10 08:58 | CP.PCM.PN ---
<Vandana Cueto - Last Filed: 01/10/18 11:51> Subjective - Date & Time of Evaluation Date of Evaluation: 01/10/18 Time of Evaluation: 08:58 - Subjective Subjective: Patient seen and examined at bedside with Dr. Wilson. Patient is sitting comfortably in her hospital bed. She reports that she ate good breakfast and has been feeling okay. Nurse reports that overnight she was a bit disoriented and kept asking where is was and where her daughter Kinjal was. This morning she denies chest pain, shortness of breath, nausea, vomiting or diarrhea. OR was cancelled for tomorrow, Thursday 01/11 because of UTI. OR plan for open reduction is now for Saturday 01/13. Objective - Vital Signs/Intake and Output Vital Signs (last 24 hours): Temp Pulse Resp BP Pulse Ox 98.0 F 67 18 125/70 98 01/10/18 07:53 01/10/18 08:45 01/10/18 07:53 01/10/18 08:45 01/10/18 07:53 Intake and Output: 01/10/18 01/10/18 06:59 18:59 Intake Total 1060 Output Total 400 Balance 660 - Medications Medications: Current Medications Acetaminophen (Tylenol 325mg Tab) 650 mg PO Q4 PRN PRN Reason: Other Last Admin: 01/07/18 02:43 Dose: 650 mg Albuterol Sulfate (Albuterol 0.083% Inhal Tashia (2.5 Mg/3 Ml) Ud) 2.5 mg INH RQ6 [facility] Last Admin: 01/10/18 08:00 Dose: 2.5 mg Ascorbic Acid (Vitamin C 500 Mg Tab) 1,000 mg PO DAILY [facility] Last Admin: 01/10/18 08:44 Dose: 1,000 mg Atorvastatin Calcium (Lipitor) 10 mg PO DIN [facility] Last Admin: 01/09/18 16:59 Dose: 10 mg Budesonide (Pulmicort Respules) 0.5 mg IH DAILY@0800 [facility] Last Admin: 01/10/18 08:01 Dose: 0.5 mg Calcium Carbonate (Oscal) 500 mg PO DAILY [facility] Last Admin: 01/10/18 08:44 Dose: 500 mg Carvedilol (Coreg) 3.125 mg PO BID@0900,2100 [facility] Last Admin: 01/10/18 08:45 Dose: 3.125 mg Cholecalciferol (Vitamin D) 2,000 intlu PO DAILY [facility] Last Admin: 01/10/18 08:44 Dose: 2,000 intlu Docusate Sodium (Colace) 200 mg PO HS [facility] Last Admin: 01/09/18 21:32 Dose: Not Given Donepezil HCl (Aricept) 5 mg PO DAILY [facility] Last Admin: 01/10/18 08:46 Dose: 5 mg Hydrochlorothiazide (Hydrodiuril) 25 mg PO DAILY [facility] Last Admin: 01/10/18 08:45 Dose: 25 mg Cefepime HCl 1 gm/ Sodium (Chloride) 100 mls @ 100 mls/hr IVPB Q12 [place] PRN Reason: Protocol Last Admin: 01/09/18 21:21 Dose: 100 mls/hr Ketorolac Tromethamine (Toradol) 15 mg IVP Q6 PRN PRN Reason: Pain, moderate (4-7) Last Admin: 01/08/18 08:31 Dose: 15 mg Losartan Potassium (Cozaar) 50 mg PO DAILY [facility] Last Admin: 01/10/18 08:45 Dose: 50 mg Ondansetron HCl (Zofran Inj) 4 mg IVP ONCE PRN PRN Reason: Nausea/Vomiting Pantoprazole Sodium (Protonix Ec Tab) 40 mg PO DAILY [facility] Last Admin: 01/10/18 08:44 Dose: 40 mg Potassium Chloride (Klor-Con 10) 10 meq PO DAILY [facility] Last Admin: 01/10/18 08:44 Dose: 10 meq Tiotropium [place] (Spiriva) 18 mcg INH DAILY [facility] Last Admin: 01/10/18 08:44 Dose: 18 mcg Venlafaxine HCl (Effexor Xr) 225 mg PO DAILY [facility] Last Admin: 01/10/18 08:44 Dose: 225 mg - Labs Labs: 01/09/18 06:30 01/09/18 06:30 PT 15.0 Seconds (9.8-13.1) H 01/06/18 05:40 INR 1.3 01/06/18 05:40 APTT 34.6 Seconds (25.6-37.1) 01/05/18 19:05 - Constitutional Appears: Well, Non-toxic, No Acute Distress - ENT Exam ENT Exam: Mucous Membranes Moist - Respiratory Exam Respiratory Exam: Clear to Ausculation Bilateral, NORMAL BREATHING PATTERN. absent: Rales, Rhonchi, Wheezes, Stridor - Cardiovascular Exam Cardiovascular Exam: REGULAR RHYTHM, +S1, +S2, Murmur (Diastolic murmur appreciated on exam. ) - GI/Abdominal Exam GI & Abdominal Exam: Soft (Obese abdomen.), Normal Bowel Sounds. absent: Firm, Guarding, Rigid, Tenderness - Extremities Exam Additional comments: Both legs with immobilizers. - Neurological Exam Neurological Exam: Alert, Awake. absent: Oriented x3 (Oriented x2. ) - Psychiatric Exam Psychiatric exam: Normal Affect, Normal Mood - Skin Skin Exam: Dry, Intact, Normal Color, Warm Assessment and Plan - Assessment and Plan (Free Text) Assessment: 87 [facility] female [facility] resident who is bed bound as a medical history including dementia, COPD, HTN , chronic anemia , history left knee ORIF 10/19/17 , dyslipidemia, bilateral knee replacement brought to hospital for evaluation of right knee deformity . Imaging showed dislocated right knee arthroplasty. Patient underwent closed reduction on 01/06/18 by ortho . Post reduction imaging showing persistent posterior dislocation . Plan for OR with open reduction on Thursday was cancelled due to UTI, plan is now for patient to go to OR with open reduction Thursday01/13/18. Plan: 1.Dislocated Right Total Knee Arthroplasty s/p closed reduction (Dr. Joel) Repeat right knee x-ray post reduction (01/07) showed -- interval improved lateral alignment however persistent mild posterior displacement of the tibial prosthesis Repeat xray of the same knee (01/08) showed : Posterior dislocation of the tibia without fracture or gross disruption of the metallic components of total knee replacement arthroplasty Continue pain management with Tordol 15 mg IV Q6 PRN Surgery was planned for Thursday but is cancelled due to UTI. Plan for open reduction on Thursday the . Continue to Hold the Eliquis 2.UTI UA with bacteria and WBC count urine cultures pending ID consult appreciated, Dr. Starr - [place] 1 gm Q12H added. Today is Day 2. 3.Urinary Retention Likely post-operative, post-anesthesia Straight Cath x2 Currently on purewick 4.Abnormal EKG Sinus Rhythm with sinus arrhythmia and PAC with RBBB 79/min Cardiology consult appreciated, Dr Tripp. Patient is cleared from cardiology for OR ECHO performed 11/17/2017 demonstrates Left ventricle systolic function mildly impaired; EF 45-50%. continue carvedilol, losartan, HCTZ and atorvastatin. Eliquis on hold 5.COPD Stable Albuterol 2.5 mg INH RQ6 [facility] 6.HTN Controlled BP meds with parameters since BP on the lower side 7.Dementia Chronic 8. Chronic anemia H & H 01/10/18 : 9.6/28.2 PT: 13.6 INR: 1.2 Transfuse if Hgb < 10. 2 Units of pRBC's ordered for transfusion 01/10/18. Transfuse 1 unit at a time. F/U CBC Continue to monitor 9. Osteoporosis on Vitamin D PO and Calcium supplements 10. DVT Prophylaxis SCD, hold Eliquis (open reduction planned for Saturday 01/13) <Bindu Wilson - Last Filed: 01/10/18 16:00> Objective - Vital Signs/Intake and Output Vital Signs (last 24 hours): Temp Pulse Resp BP Pulse Ox 98.0 F 67 18 125/70 98 01/10/18 07:53 01/10/18 08:45 01/10/18 07:53 01/10/18 08:45 01/10/18 07:53 Intake and Output: 01/10/18 01/10/18 06:59 18:59 Intake Total 1060 Output Total 400 Balance 660 - Medications Medications: Current Medications Acetaminophen (Tylenol 325mg Tab) 650 mg PO Q4 PRN PRN Reason: Other Last Admin: 01/07/18 02:43 Dose: 650 mg Albuterol Sulfate (Albuterol 0.083% Inhal [place] (2.5 Mg/3 Ml) Ud) 2.5 mg INH RQ6 [facility] Last Admin: 01/10/18 13:48 Dose: 2.5 mg Ascorbic Acid (Vitamin C 500 Mg Tab) 1,000 mg PO DAILY [facility] Last Admin: 01/10/18 08:44 Dose: 1,000 mg Atorvastatin Calcium (Lipitor) 10 mg PO DIN [facility] Last Admin: 01/09/18 16:59 Dose: 10 mg Budesonide (Pulmicort Respules) 0.5 mg IH DAILY@0800 [facility] Last Admin: 01/10/18 08:01 Dose: 0.5 mg Calcium Carbonate (Oscal) 500 mg PO DAILY [facility] Last Admin: 01/10/18 08:44 Dose: 500 mg Carvedilol (Coreg) 3.125 mg PO BID@0900,2100 [facility] Last Admin: 01/10/18 08:45 Dose: 3.125 mg Cholecalciferol (Vitamin D) 2,000 intlu PO DAILY [facility] Last Admin: 01/10/18 08:44 Dose: 2,000 intlu Docusate Sodium (Colace) 200 mg PO HS [facility] Last Admin: 01/09/18 21:32 Dose: Not Given Donepezil HCl (Aricept) 5 mg PO DAILY [facility] Last Admin: 01/10/18 08:46 Dose: 5 mg Hydrochlorothiazide (Hydrodiuril) 25 mg PO DAILY [facility] Last Admin: 01/10/18 08:45 Dose: 25 mg Cefepime HCl 1 gm/ Sodium (Chloride) 100 mls @ 100 mls/hr IVPB Q12 [facility] PRN Reason: Protocol Last Admin: 01/10/18 09:15 Dose: 100 mls/hr Ketorolac Tromethamine (Toradol) 15 mg IVP Q6 PRN PRN Reason: Pain, moderate (4-7) Last Admin: 01/08/18 08:31 Dose: 15 mg Losartan Potassium (Cozaar) 50 mg PO DAILY [facility] Last Admin: 01/10/18 08:45 Dose: 50 mg Ondansetron HCl (Zofran Inj) 4 mg IVP ONCE PRN PRN Reason: Nausea/Vomiting Pantoprazole Sodium (Protonix Ec Tab) 40 mg PO DAILY [facility] Last Admin: 01/10/18 08:44 Dose: 40 mg Potassium Chloride (Klor-Con 10) 10 meq PO DAILY [facility] Last Admin: 01/10/18 08:44 Dose: 10 meq Tiotropium [place] (Spiriva) 18 mcg INH DAILY [facility] Last Admin: 01/10/18 08:44 Dose: 18 mcg Venlafaxine HCl (Effexor Xr) 225 mg PO DAILY [facility] Last Admin: 01/10/18 08:44 Dose: 225 mg - Labs Labs: 01/10/18 09:18 01/09/18 06:30 PT 13.6 Seconds (9.8-13.1) H 01/10/18 09:18 INR 1.2 01/10/18 09:18 APTT 34.6 Seconds (25.6-37.1) 01/05/18 19:05 Attending/Attestation - Attestation I have personally seen and examined this patient.: Yes I have fully participated in the care of the patient.: Yes I have reviewed all pertinent clinical information, including history, physical exam and plan: Yes Notes (Text): UTI - pt had temp of 99.9 -Urinalysis showed leukoesterase +, pyuria -Pt started on IV Cefepime as rec by Dr [email or web address] - Dr Joel informed of UTI - will reschedule surgery for Thursday ( family informed - Kinjal) - Blood c/s : neg so far Chronic Anemia - transfuse 2 units PRBC in preparation for surgery - consent for blood transfusion obtained from daughter Kinjal
[2018-01-10] MEDS: Cefepime 1 GM in Sodium Chloride 0.9% 100 ML IVPB SCH ×2 (09:15→21:31)
[2018-01-10 09:33] LABS: HEMOGLOBIN 9.6 g/dL (12.0-16.0); MEAN CELL VOLUME 85.7 fl (81.0-99.0); MEAN CORPUSCULAR HEMOGLOBIN 29.1 pg (27.0-31.0); MEAN CORPUSCULAR HGB CONC 33.9 g/dL (33.0-37.0); RBC 3.29 Mil/uL (3.80-5.20); RED CELL DISTRIBUTION WIDTH 15.9 % (11.5-14.5); WHITE BLOOD COUNT 5.5 K/uL (4.8-10.8)
[2018-01-10 09:51] LABS: INR 1.2; PROTHROMBIN TIME 13.6 Seconds (9.8-13.1)
--- NOTE | 2018-01-10 10:53 | CP.PCM.PN ---
Subjective - Date & Time of Evaluation Date of Evaluation: 01/10/18 Time of Evaluation: 10:50 - Subjective Subjective: CC- ptwith dislocated TKR- had undergone successful closed reduction dislocated knee replacement- unfrtunately knee redisplaced PT presents at this point with recurerent subluxation/dislocation R TKR surgery was scheduled for tomorrow, cancelled secondary to UTI Objective - Vital Signs/Intake and Output Vital Signs (last 24 hours): Temp Pulse Resp BP Pulse Ox 98.0 F 67 18 125/70 98 01/10/18 07:53 01/10/18 08:45 01/10/18 07:53 01/10/18 08:45 01/10/18 07:53 Intake and Output: 01/10/18 01/10/18 06:59 18:59 Intake Total 1060 Output Total 400 Balance 660 - Medications Medications: Current Medications Acetaminophen (Tylenol 325mg Tab) 650 mg PO Q4 PRN PRN Reason: Other Last Admin: 01/07/18 02:43 Dose: 650 mg Albuterol Sulfate (Albuterol 0.083% Inhal Tashia (2.5 Mg/3 Ml) Ud) 2.5 mg INH RQ6 [facility] Last Admin: 01/10/18 08:00 Dose: 2.5 mg Ascorbic Acid (Vitamin C 500 Mg Tab) 1,000 mg PO DAILY [facility] Last Admin: 01/10/18 08:44 Dose: 1,000 mg Atorvastatin Calcium (Lipitor) 10 mg PO DIN [facility] Last Admin: 01/09/18 16:59 Dose: 10 mg Budesonide (Pulmicort Respules) 0.5 mg IH DAILY@0800 [facility] Last Admin: 01/10/18 08:01 Dose: 0.5 mg Calcium Carbonate (Oscal) 500 mg PO DAILY [facility] Last Admin: 01/10/18 08:44 Dose: 500 mg Carvedilol (Coreg) 3.125 mg PO BID@0900,2100 [facility] Last Admin: 01/10/18 08:45 Dose: 3.125 mg Cholecalciferol (Vitamin D) 2,000 intlu PO DAILY [facility] Last Admin: 01/10/18 08:44 Dose: 2,000 intlu Docusate Sodium (Colace) 200 mg PO HS [facility] Last Admin: 01/09/18 21:32 Dose: Not Given Donepezil HCl (Aricept) 5 mg PO DAILY [facility] Last Admin: 01/10/18 08:46 Dose: 5 mg Hydrochlorothiazide (Hydrodiuril) 25 mg PO DAILY [facility] Last Admin: 01/10/18 08:45 Dose: 25 mg Cefepime HCl 1 gm/ Sodium (Chloride) 100 mls @ 100 mls/hr IVPB Q12 [facility] PRN Reason: Protocol Last Admin: 01/10/18 09:15 Dose: 100 mls/hr Ketorolac Tromethamine (Toradol) 15 mg IVP Q6 PRN PRN Reason: Pain, moderate (4-7) Last Admin: 01/08/18 08:31 Dose: 15 mg Losartan Potassium (Cozaar) 50 mg PO DAILY [facility] Last Admin: 01/10/18 08:45 Dose: 50 mg Ondansetron HCl (Zofran Inj) 4 mg IVP ONCE PRN PRN Reason: Nausea/Vomiting Pantoprazole Sodium (Protonix Ec Tab) 40 mg PO DAILY [facility] Last Admin: 01/10/18 08:44 Dose: 40 mg Potassium Chloride (Klor-Con 10) 10 meq PO DAILY [facility] Last Admin: 01/10/18 08:44 Dose: 10 meq Tiotropium [place] (Spiriva) 18 mcg INH DAILY [facility] Last Admin: 01/10/18 08:44 Dose: 18 mcg Venlafaxine HCl (Effexor Xr) 225 mg PO DAILY [facility] Last Admin: 01/10/18 08:44 Dose: 225 mg - Labs Labs: 01/10/18 09:18 01/09/18 06:30 PT 13.6 Seconds (9.8-13.1) H 01/10/18 09:18 INR 1.2 01/10/18 09:18 APTT 34.6 Seconds (25.6-37.1) 01/05/18 19:05 - Additional Findings Additional findings: Sysyetmic pt totally disoriented remiander of syetmic O/WE umchaged with exception of the aforementioned UTI Musculoskekltal no signs iof neural/vascular [id number] knee has redsilocated sirtuation discussed at length with family Aminta and DR Herbie Machado- they wish attempted Open recutioon possible revision when pt is stable Assessment and Plan - Assessment and Plan (Free Text) Assessment: A- dislocated R TKR P- surgery cancelled for tomorrow, pending transfusion and i9v abios
[2018-01-11] MEDS: Albuterol 0.083% Inhal Sol (2.5 mg/3 mL) UD INH SCH ×4 (01:09→19:43)
[2018-01-11 06:33] LABS: HEMOGLOBIN 10.6 g/dL (12.0-16.0); MEAN CELL VOLUME 86.3 fl (81.0-99.0); MEAN CORPUSCULAR HEMOGLOBIN 29.1 pg (27.0-31.0); MEAN CORPUSCULAR HGB CONC 33.8 g/dL (33.0-37.0); RBC 3.63 Mil/uL (3.80-5.20); RED CELL DISTRIBUTION WIDTH 15.7 % (11.5-14.5); WHITE BLOOD COUNT 5.1 K/uL (4.8-10.8)
--- NOTE | 2018-01-11 07:35 | CP.PCM.PN ---
Addendum entered and electronically signed by Vandana Cueto MD 13:06: Correction: 1.Dislocated Right Total Knee Arthroplasty s/p closed reduction (Dr. Joel) - Repeat xray of the Right knee (01/08) showed : Posterior dislocation of the tibia without fracture or gross disruption of the metallic components of total knee - replacement arthroplasty - Continue pain management with Tordol 15 mg IV Q6 PRN - Surgery was planned for Thursday but is cancelled due to UTI. Plan for open reduction on Thursday the . - Continue to Hold the Eliquis and ASA. 2.UTI - Urine culture positive for Enterococcus faecalis - Last elevated temp: 99.9 (01/08/18) - ID consult appreciated- Vancomycin 1 gm Q12H day 1. - Blood cultures negative to date. Original Note: Subjective - Date & Time of Evaluation Date of Evaluation: 01/11/18 Time of Evaluation: 07:35 - Subjective Subjective: Patient seen and evaluated with Dr. Wilson. She is resting comfortably in her bed. She has been tolerating her food and states she feels well. She is alert and oriented x2 today. She is unable to state where she is- this is baseline. She denies chest pain, shortness of breath, leg pain, one sided weakness, nausea and vomiting. POA: daughter Kinjal. Objective - Vital Signs/Intake and Output Vital Signs (last 24 hours): Temp Pulse Resp BP Pulse Ox 97.7 F 61 19 136/66 99 01/11/18 00:00 01/11/18 00:00 01/11/18 00:00 01/11/18 00:00 01/11/18 00:00 Intake and Output: 01/11/18 01/11/18 06:59 18:59 Intake Total 325 Balance 325 - Medications Medications: Current Medications Acetaminophen (Tylenol 325mg Tab) 650 mg PO Q4 PRN PRN Reason: Other Last Admin: 01/07/18 02:43 Dose: 650 mg Albuterol Sulfate (Albuterol 0.083% Inhal Tashia (2.5 Mg/3 Ml) Ud) 2.5 mg INH RQ6 [facility] Last Admin: 01/11/18 01:09 Dose: 2.5 mg Ascorbic Acid (Vitamin C 500 Mg Tab) 1,000 mg PO DAILY [facility] Last Admin: 01/10/18 08:44 Dose: 1,000 mg Atorvastatin Calcium (Lipitor) 10 mg PO DIN [facility] Last Admin: 01/10/18 17:21 Dose: 10 mg Budesonide (Pulmicort Respules) 0.5 mg IH DAILY@0800 [facility] Last Admin: 01/10/18 08:01 Dose: 0.5 mg Calcium Carbonate (Oscal) 500 mg PO DAILY [facility] Last Admin: 01/10/18 08:44 Dose: 500 mg Carvedilol (Coreg) 3.125 mg PO BID@0900,2100 [facility] Last Admin: 01/10/18 21:32 Dose: 3.125 mg Cholecalciferol (Vitamin D) 2,000 intlu PO DAILY [facility] Last Admin: 01/10/18 08:44 Dose: 2,000 intlu Docusate Sodium (Colace) 200 mg PO HS [facility] Last Admin: 01/10/18 21:32 Dose: 200 mg Donepezil HCl (Aricept) 5 mg PO DAILY [facility] Last Admin: 01/10/18 08:46 Dose: 5 mg Hydrochlorothiazide (Hydrodiuril) 25 mg PO DAILY [facility] Last Admin: 01/10/18 08:45 Dose: 25 mg Cefepime HCl 1 gm/ Sodium (Chloride) 100 mls @ 100 mls/hr IVPB Q12 [facility] PRN Reason: Protocol Last Admin: 01/10/18 21:31 Dose: 100 mls/hr Ketorolac Tromethamine (Toradol) 15 mg IVP Q6 PRN PRN Reason: Pain, moderate (4-7) Last Admin: 01/10/18 16:27 Dose: 15 mg Losartan Potassium (Cozaar) 50 mg PO DAILY [facility] Last Admin: 01/10/18 08:45 Dose: 50 mg Ondansetron HCl (Zofran Inj) 4 mg IVP ONCE PRN PRN Reason: Nausea/Vomiting Pantoprazole Sodium (Protonix Ec Tab) 40 mg PO DAILY [facility] Last Admin: 01/10/18 08:44 Dose: 40 mg Potassium Chloride (Klor-Con 10) 10 meq PO DAILY [facility] Last Admin: 01/10/18 08:44 Dose: 10 meq Tiotropium [place] (Spiriva) 18 mcg INH DAILY [facility] Last Admin: 01/10/18 08:44 Dose: 18 mcg Venlafaxine HCl (Effexor Xr) 225 mg PO DAILY [facility] Last Admin: 01/10/18 08:44 Dose: 225 mg - Labs Labs: 01/11/18 05:30 01/09/18 06:30 PT 13.6 Seconds (9.8-13.1) H 01/10/18 09:18 INR 1.2 01/10/18 09:18 APTT 34.6 Seconds (25.6-37.1) 01/05/18 19:05 - Constitutional Appears: Well, Non-toxic, No Acute Distress - Respiratory Exam Respiratory Exam: Decreased Breath Sounds, Clear to Ausculation Bilateral. absent: Rales, Rhonchi, Wheezes - Cardiovascular Exam Cardiovascular Exam: Diastolic murmur, REGULAR RHYTHM, RRR, +S1, +S2. absent: Gallop, JVD, Rubs, +S4 - GI/Abdominal Exam GI & Abdominal Exam: Distended, Soft, Normal Bowel Sounds. absent: Firm, Guarding, Rigid, Tenderness, Rebound Additional comments: obese abdomen - Extremities Exam Additional comments: Immobilizers placed on both legs. +2 Dorsalis pedis pulses bilaterally. - Neurological Exam Neurological Exam: Alert, Awake (Oriented x2. ) - Psychiatric Exam Psychiatric exam: Normal Affect, Normal Mood - Skin Skin Exam: Dry, Intact, Normal Color, Warm Assessment and Plan - Assessment and Plan (Free Text) Assessment: 87 y/o female long term resident who is bed bound as a medical history including dementia, COPD, HTN , chronic anemia , history left knee ORIF 10/19/17 , dyslipidemia, bilateral knee replacement brought to hospital for evaluation of right knee deformity . Imaging showed dislocated right knee arthroplasty. Patient underwent closed reduction on 01/06/18 by ortho . Post reduction imaging showing persistent posterior dislocation . Plan for OR with open reduction on Thursday01/11/18 was cancelled due to UTI, plan is now for patient to go to OR with open reduction Thursday01/13/18. Plan: 1.Dislocated Right Total Knee Arthroplasty s/p closed reduction (Dr. Joel) - Repeat xray of the Right knee (01/08) showed : Posterior dislocation of the tibia without fracture or gross disruption of the metallic components of total knee - replacement arthroplasty - Continue pain management with Tordol 15 mg IV Q6 PRN - Surgery was planned for Thursday but is cancelled due to UTI. Plan for open reduction on Thursday the . - Wound culture positive for Staphlococcus- ID consult appreciated- Start Vancomycin 1 gm Q12h - today is day 1 - Continue to Hold the Eliquis and ASA. 2.UTI - Urine culture positive for Enterococcus faecalis - Last elevated temp: 99.9 (01/08/18) - urine cultures pending - ID consult appreciated, Dr. Starr - Maxipime 1 gm Q12H added. Today is Day 3. - Blood cultures negative to date. 3.Urinary Retention Likely post-operative, post-anesthesia Straight Cath x2 Currently on Inovus Solar 4. Chronic anemia H & H 01/11/18 : 10.6/31.3 s/p 1 Unit of pRBC transfusion. Transfuse if Hgb < 10 in preparation for surgery on Thursday01/13/18. 2 Units of pRBC's ordered for transfusion 01/10/18. Transfused 1 unit 01/11/18 @ 7p.m. - Kinjal- Patient's POA informed. F/U CBC Continue to monitor 5.Abnormal EKG Sinus Rhythm with sinus arrhythmia and PAC with RBBB 79/min Cardiology consult appreciated, Dr Tripp. Patient is cleared from cardiology for OR Continue carvedilol, losartan, HCTZ and atorvastatin. Eliquis on hold 6.COPD Stable Albuterol 2.5 mg INH RQ6 [facility] 7.HTN Controlled BP meds with parameters since BP on the lower side 8.Dementia Chronic 9. Osteoporosis on Vitamin D PO and Calcium supplements 10. DVT Prophylaxis SCD, Lovenox 40mgs daily until day before the surgery due to history of P.E. - Dr. Tripp recommendations appreciated. hold Eliquis (open reduction planned for Saturday 01/13)
--- NOTE | 2018-01-11 08:09 | PQF ---
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 Please spe cify the acuity of this condition with terms such as: -- Acute -- Chronic -- Acute and chronic -- Acute on chronic -- History only -- Other (please specify in the medical record) The patient's Clinical Indicators include: Documentation of a history of DVT and PE and is on Eliquis. Query created by: Violeta Price on 01/08/2018 11:58 AM Electronically signed by: Felice Tripp MD 01/11/2018 8:06 AM
[2018-01-11] MEDS: Budesonide 0.5 mg/2 ml Inhal Susp UD IH SCH (08:16)
[2018-01-11] MEDS: Potassium Chloride 10 mEq ER Tab PO SCH (08:25)
[2018-01-11] MEDS: Cholecalciferol 1,000 INTLU TAB PO SCH (08:25)
[2018-01-11] MEDS: Pantoprazole 40 mg EC Tab PO SCH (08:26)
[2018-01-11] MEDS: Venlafaxine 75 mg ER Cap PO SCH (08:26)
[2018-01-11] MEDS: Tiotropium 18 mcg Cap For Inhalation INH SCH (08:28)
[2018-01-11] MEDS: Cefepime 1 GM in Sodium Chloride 0.9% 100 ML IVPB SCH (08:28)
--- NOTE | 2018-01-11 08:45 | CP.PCM.PN ---
Subjective - Date & Time of Evaluation Date of Evaluation: 01/11/18 Time of Evaluation: 08:00 - Subjective Subjective: NO COMPLAINTS OF CHEST PAIN OR SOB Objective - Vital Signs/Intake and Output Vital Signs (last 24 hours): Temp Pulse Resp BP Pulse Ox 97.6 F 66 18 121/74 97 01/11/18 07:53 01/11/18 08:27 01/11/18 07:53 01/11/18 08:27 01/11/18 07:53 Intake and Output: 01/11/18 01/11/18 06:59 18:59 Intake Total 325 Balance 325 - Medications Medications: Current Medications Acetaminophen (Tylenol 325mg Tab) 650 mg PO Q4 PRN PRN Reason: Other Last Admin: 01/07/18 02:43 Dose: 650 mg Albuterol Sulfate (Albuterol 0.083% Inhal Tashia (2.5 Mg/3 Ml) Ud) 2.5 mg INH RQ6 [facility] Last Admin: 01/11/18 08:16 Dose: 2.5 mg Ascorbic Acid (Vitamin C 500 Mg Tab) 1,000 mg PO DAILY [facility] Last Admin: 01/11/18 08:27 Dose: 1,000 mg Atorvastatin Calcium (Lipitor) 10 mg PO DIN [facility] Last Admin: 01/10/18 17:21 Dose: 10 mg Budesonide (Pulmicort Respules) 0.5 mg IH DAILY@0800 [facility] Last Admin: 01/11/18 08:16 Dose: 0.5 mg Calcium Carbonate (Oscal) 500 mg PO DAILY [facility] Last Admin: 01/11/18 08:25 Dose: 500 mg Carvedilol (Coreg) 3.125 mg PO BID@0900,2100 [facility] Last Admin: 01/11/18 08:27 Dose: 3.125 mg Cholecalciferol (Vitamin D) 2,000 intlu PO DAILY [facility] Last Admin: 01/11/18 08:25 Dose: 2,000 intlu Docusate Sodium (Colace) 200 mg PO HS [facility] Last Admin: 01/10/18 21:32 Dose: 200 mg Donepezil HCl (Aricept) 5 mg PO DAILY [facility] Last Admin: 01/11/18 08:26 Dose: 5 mg Hydrochlorothiazide (Hydrodiuril) 25 mg PO DAILY [facility] Last Admin: 01/11/18 08:25 Dose: 25 mg Cefepime HCl 1 gm/ Sodium (Chloride) 100 mls @ 100 mls/hr IVPB Q12 [facility] PRN Reason: Protocol Last Admin: 01/11/18 08:28 Dose: 100 mls/hr Vancomycin HCl 1 gm/ Sodium (Chloride) 250 mls @ 166.667 mls/hr IVPB Q12 [facility] PRN Reason: Protocol Ketorolac Tromethamine (Toradol) 15 mg IVP Q6 PRN PRN Reason: Pain, moderate (4-7) Last Admin: 01/10/18 16:27 Dose: 15 mg Losartan Potassium (Cozaar) 50 mg PO DAILY [facility] Last Admin: 01/11/18 08:26 Dose: 50 mg Ondansetron HCl (Zofran Inj) 4 mg IVP ONCE PRN PRN Reason: Nausea/Vomiting Pantoprazole Sodium (Protonix Ec Tab) 40 mg PO DAILY [facility] Last Admin: 01/11/18 08:26 Dose: 40 mg Potassium Chloride (Klor-Con 10) 10 meq PO DAILY [facility] Last Admin: 01/11/18 08:25 Dose: 10 meq Tiotropium [place] (Spiriva) 18 mcg INH DAILY [facility] Last Admin: 01/11/18 08:28 Dose: 18 mcg Venlafaxine HCl (Effexor Xr) 225 mg PO DAILY [facility] Last Admin: 01/11/18 08:26 Dose: 225 mg - Labs Labs: 01/11/18 05:30 01/09/18 06:30 PT 13.6 Seconds (9.8-13.1) H 01/10/18 09:18 INR 1.2 01/10/18 09:18 APTT 34.6 Seconds (25.6-37.1) 01/05/18 19:05 - Respiratory Exam Respiratory Exam: Clear to Ausculation Bilateral - Cardiovascular Exam Cardiovascular Exam: REGULAR RHYTHM, +S1, +S2 Assessment and Plan - Assessment and Plan (Free Text) Assessment: RIGHT TKR DISLOCATION HYPERTENSION HYPERLIPIDEMIA DEMENTIA Plan: ORTHOPEDIC SURGERY POSTPONED DUE TO UTI CONTINUE ANTIBIOTICS, CARVEDILOL, LOSARTAN, HCTZ AND ATORVASTATIN WILL GIVE LOVENOX 40 MGS SC DAILY UP UNTIL THE DAY BEFORE SURGERY DUE TO HISTORY OF DVT AND PE IN THE PAST SINCE SHE IS OFF ELIQUIS AND ASPIRIN AND SURGERY HAS BEEN POSTPONED
--- NOTE | 2018-01-11 08:52 | CP.PCM.PN ---
Subjective - Date & Time of Evaluation Date of Evaluation: 01/11/18 Time of Evaluation: 08:00 - Subjective Subjective: Patient seen and examined at bedside. She is confused but following commands. No acute events overnight. Objective - Vital Signs/Intake and Output Vital Signs (last 24 hours): Temp Pulse Resp BP Pulse Ox 97.6 F 66 18 121/74 97 01/11/18 07:53 01/11/18 08:27 01/11/18 07:53 01/11/18 08:27 01/11/18 07:53 Intake and Output: 01/11/18 01/11/18 06:59 18:59 Intake Total 325 Balance 325 - Medications Medications: Current Medications Acetaminophen (Tylenol 325mg Tab) 650 mg PO Q4 PRN PRN Reason: Other Last Admin: 01/07/18 02:43 Dose: 650 mg Albuterol Sulfate (Albuterol 0.083% Inhal Tashia (2.5 Mg/3 Ml) Ud) 2.5 mg INH RQ6 [facility] Last Admin: 01/11/18 08:16 Dose: 2.5 mg Ascorbic Acid (Vitamin C 500 Mg Tab) 1,000 mg PO DAILY [facility] Last Admin: 01/11/18 08:27 Dose: 1,000 mg Atorvastatin Calcium (Lipitor) 10 mg PO DIN [facility] Last Admin: 01/10/18 17:21 Dose: 10 mg Budesonide (Pulmicort Respules) 0.5 mg IH DAILY@0800 [facility] Last Admin: 01/11/18 08:16 Dose: 0.5 mg Calcium Carbonate (Oscal) 500 mg PO DAILY [facility] Last Admin: 01/11/18 08:25 Dose: 500 mg Carvedilol (Coreg) 3.125 mg PO BID@0900,2100 [facility] Last Admin: 01/11/18 08:27 Dose: 3.125 mg Cholecalciferol (Vitamin D) 2,000 intlu PO DAILY [facility] Last Admin: 01/11/18 08:25 Dose: 2,000 intlu Docusate Sodium (Colace) 200 mg PO HS [facility] Last Admin: 01/10/18 21:32 Dose: 200 mg Donepezil HCl (Aricept) 5 mg PO DAILY [facility] Last Admin: 01/11/18 08:26 Dose: 5 mg Hydrochlorothiazide (Hydrodiuril) 25 mg PO DAILY [facility] Last Admin: 01/11/18 08:25 Dose: 25 mg Cefepime HCl 1 gm/ Sodium (Chloride) 100 mls @ 100 mls/hr IVPB Q12 [facility] PRN Reason: Protocol Last Admin: 01/11/18 08:28 Dose: 100 mls/hr Vancomycin HCl 1 gm/ Sodium (Chloride) 250 mls @ 166.667 mls/hr IVPB Q12 [facility] PRN Reason: Protocol Ketorolac Tromethamine (Toradol) 15 mg IVP Q6 PRN PRN Reason: Pain, moderate (4-7) Last Admin: 01/10/18 16:27 Dose: 15 mg Losartan Potassium (Cozaar) 50 mg PO DAILY [facility] Last Admin: 01/11/18 08:26 Dose: 50 mg Ondansetron HCl (Zofran Inj) 4 mg IVP ONCE PRN PRN Reason: Nausea/Vomiting Pantoprazole Sodium (Protonix Ec Tab) 40 mg PO DAILY [facility] Last Admin: 01/11/18 08:26 Dose: 40 mg Potassium Chloride (Klor-Con 10) 10 meq PO DAILY [facility] Last Admin: 01/11/18 08:25 Dose: 10 meq Tiotropium [place] (Spiriva) 18 mcg INH DAILY [facility] Last Admin: 01/11/18 08:28 Dose: 18 mcg Venlafaxine HCl (Effexor Xr) 225 mg PO DAILY [facility] Last Admin: 01/11/18 08:26 Dose: 225 mg - Labs Labs: 01/11/18 05:30 18 06:30 PT 13.6 Seconds (9.8-13.1) H 01/10/18 09:18 INR 1.2 01/10/18 09:18 APTT 34.6 Seconds (25.6-37.1) 18 19:05 - Extremities Exam Additional comments: R knee: Knee immobilizer in place, Dressings CDI, anterior tender deformity with diffuse tenderness consistent with dislocated prosthesis sensation intact SP/DP/TN motor intact EHL/FHL pedal pulse intact comps soft NT Assessment and Plan (1) Dislocation of prosthetic joint of knee Assessment & Plan: POD #5 s/p R knee closed reduction under anesthesia -OR cancelled due to current UTI, receiving abx as per ID -plan for open reduction of knee prosthesis later this week -continue to hold eliquis and ASA -maintain strict knee immobilizer at all times -NWB RLE -above d/w Dr. Joel in agreement Status: Acute
[2018-01-11] MEDS: Enoxaparin 40 mg Syringe SC SCH (10:22)
[2018-01-12] MEDS: Albuterol 0.083% Inhal Sol (2.5 mg/3 mL) UD INH SCH ×4 (01:02→19:15)
[2018-01-12 06:56] LABS: BLOOD UREA NITROGEN 11 mg/dl (7-17); GFR NON-AFRICAN AMERICAN > 60
[2018-01-12 06:59] LABS: MEAN CELL VOLUME 85.5 fl (81.0-99.0); MEAN CORPUSCULAR HEMOGLOBIN 29.2 pg (27.0-31.0); MEAN CORPUSCULAR HGB CONC 34.1 g/dL (33.0-37.0); RBC 4.1 Mil/uL (3.80-5.20); RED CELL DISTRIBUTION WIDTH 15.2 % (11.5-14.5); WHITE BLOOD COUNT 6.3 K/uL (4.8-10.8)
[2018-01-12] MEDS: Budesonide 0.5 mg/2 ml Inhal Susp UD IH SCH (07:43)
[2018-01-12] MEDS: Enoxaparin 40 mg Syringe SC SCH (08:32)
[2018-01-12] MEDS: Cholecalciferol 1,000 INTLU TAB PO SCH (08:32)
[2018-01-12] MEDS: Venlafaxine 75 mg ER Cap PO SCH (08:33)
[2018-01-12] MEDS: Pantoprazole 40 mg EC Tab PO SCH (08:33)
[2018-01-12] MEDS: Potassium Chloride 10 mEq ER Tab PO SCH (08:33)
[2018-01-12] MEDS: Tiotropium 18 mcg Cap For Inhalation INH SCH (08:33)
--- NOTE | 2018-01-12 09:04 | CP.PCM.PN ---
Subjective - Date & Time of Evaluation Date of Evaluation: 01/12/18 Time of Evaluation: 07:45 - Subjective Subjective: Patient seen and examined at bedside. No complaints of pain. Patient confused but following commands. No acute events overnight. Objective - Vital Signs/Intake and Output Vital Signs (last 24 hours): Temp Pulse Resp BP Pulse Ox 98.4 F 80 20 153/81 H 96 01/12/18 08:06 01/12/18 08:33 01/12/18 08:06 01/12/18 08:33 01/12/18 08:06 - Medications Medications: Current Medications Acetaminophen (Tylenol 325mg Tab) 650 mg PO Q4 PRN PRN Reason: Other Last Admin: 01/07/18 02:43 Dose: 650 mg Albuterol Sulfate (Albuterol 0.083% Inhal Tashia (2.5 Mg/3 Ml) Ud) 2.5 mg INH RQ6 [facility] Last Admin: 01/12/18 07:43 Dose: 2.5 mg Ascorbic Acid (Vitamin C 500 Mg Tab) 1,000 mg PO DAILY [facility] Last Admin: 01/12/18 08:32 Dose: 1,000 mg Atorvastatin Calcium (Lipitor) 10 mg PO DIN [facility] Last Admin: 01/11/18 17:17 Dose: 10 mg Budesonide (Pulmicort Respules) 0.5 mg IH DAILY@0800 [facility] Last Admin: 01/12/18 07:43 Dose: 0.5 mg Calcium Carbonate (Oscal) 500 mg PO DAILY [facility] Last Admin: 01/12/18 08:32 Dose: 500 mg Carvedilol (Coreg) 3.125 mg PO BID@0900,2100 [facility] Last Admin: 01/12/18 08:32 Dose: 3.125 mg Cholecalciferol (Vitamin D) 2,000 intlu PO DAILY [facility] Last Admin: 01/12/18 08:32 Dose: 2,000 intlu Docusate Sodium (Colace) 200 mg PO HS [facility] Last Admin: 01/11/18 21:45 Dose: 200 mg Donepezil HCl (Aricept) 5 mg PO DAILY [facility] Last Admin: 01/12/18 08:34 Dose: 5 mg Enoxaparin Sodium (Lovenox) 40 mg SC DAILY [facility] PRN Reason: Protocol Last Admin: 01/12/18 08:32 Dose: 40 mg Hydrochlorothiazide (Hydrodiuril) 25 mg PO DAILY [facility] Last Admin: 01/12/18 08:33 Dose: 25 mg Vancomycin HCl 1 gm/ Sodium (Chloride) 250 mls @ 166.667 mls/hr IVPB Q12 [facility] PRN Reason: Protocol Last Admin: 01/11/18 21:46 Dose: 166.667 mls/hr Ketorolac Tromethamine (Toradol) 15 mg IVP Q6 PRN PRN Reason: Pain, moderate (4-7) Last Admin: 01/10/18 16:27 Dose: 15 mg Losartan Potassium (Cozaar) 50 mg PO DAILY [facility] Last Admin: 01/12/18 08:33 Dose: 50 mg Ondansetron HCl (Zofran Inj) 4 mg IVP ONCE PRN PRN Reason: Nausea/Vomiting Pantoprazole Sodium (Protonix Ec Tab) 40 mg PO DAILY [facility] Last Admin: 01/12/18 08:33 Dose: 40 mg Potassium Chloride (Klor-Con 10) 10 meq PO DAILY [facility] Last Admin: 01/12/18 08:33 Dose: 10 meq Tiotropium [place] (Spiriva) 18 mcg INH DAILY [facility] Last Admin: 01/12/18 08:33 Dose: 18 mcg Venlafaxine HCl (Effexor Xr) 225 mg PO DAILY [facility] Last Admin: 01/12/18 08:33 Dose: 225 mg - Labs Labs: 01/12/18 05:55 01/12/18 05:55 PT 13.6 Seconds (9.8-13.1) H 01/10/18 09:18 INR 1.2 01/10/18 09:18 APTT 34.6 Seconds (25.6-37.1) 01/05/18 19:05 - Extremities Exam Additional comments: R knee: Knee immobilizer in place, Dressings CDI, anterior tender deformity with diffuse tenderness consistent with dislocated prosthesis sensation intact SP/DP/TN motor intact EHL/FHL pedal pulse intact comps soft NT Assessment and Plan (1) Dislocation of prosthetic joint of knee Assessment & Plan: POD #6 s/p R knee closed reduction under anesthesia -plan for open reduction of knee prosthesis tomorrow -NPO pMN -continue to hold eliquis and ASA -maintain strict knee immobilizer at all times -NWB RLE -above d/w Dr. Joel in agreement Status: Acute
--- NOTE | 2018-01-12 09:13 | CP.PCM.PN ---
Subjective - Date & Time of Evaluation Date of Evaluation: 01/12/18 Time of Evaluation: 09:13 - Subjective Subjective: Patient seen and examined at bedside. She is resting comfortably in her hospital bed. She denies any active complaints and states she is in no pain. She is oriented only to herself- this is baseline. Denies chills, chest pain, shortness of breath, nausea, vomiting, abdominal pain, dysuria, and leg pain. POA: Kinjal- her daughter. Objective - Vital Signs/Intake and Output Vital Signs (last 24 hours): Temp Pulse Resp BP Pulse Ox 98.4 F 80 20 153/81 H 96 01/12/18 08:06 01/12/18 08:33 01/12/18 08:06 01/12/18 08:33 01/12/18 08:06 - Medications Medications: Current Medications Acetaminophen (Tylenol 325mg Tab) 650 mg PO Q4 PRN PRN Reason: Other Last Admin: 01/07/18 02:43 Dose: 650 mg Albuterol Sulfate (Albuterol 0.083% Inhal Tashia (2.5 Mg/3 Ml) Ud) 2.5 mg INH RQ6 [facility] BEDS AT [facility] Last Admin: 01/12/18 07:43 Dose: 2.5 mg Ascorbic Acid (Vitamin C 500 Mg Tab) 1,000 mg PO DAILY COUNTS INCLUDE 234 BEDS AT THE [facility] Last Admin: 01/12/18 08:32 Dose: 1,000 mg Atorvastatin Calcium (Lipitor) 10 mg PO DIN [facility]S [facility]CLUDE 234 BEDS AT THE [facility] Last Admin: 01/11/18 17:17 Dose: 10 mg Budesonide (Pulmicort Respules) 0.5 mg IH DAILY@0800 [facility]S [facility]CLUDE 234 BEDS AT THE [facility] Last Admin: 01/12/18 07:43 Dose: 0.5 mg Calcium Carbonate (Oscal) 500 mg PO DAILY [facility]S INCLUDE 234 BEDS AT THE [facility] Last Admin: 01/12/18 08:32 Dose: 500 mg Carvedilol (Coreg) 3.125 mg PO BID@0900,2100 [facility]S [facility]CLUDE 234 BEDS AT THE [facility] Last Admin: 01/12/18 08:32 Dose: 3.125 mg Cholecalciferol (Vitamin D) 2,000 intlu PO DAILY [facility]S INCLUDE 234 BEDS AT THE [facility] Last Admin: 01/12/18 08:32 Dose: 2,000 intlu Docusate Sodium (Colace) 200 mg PO HS [facility]S INCLUDE 234 BEDS AT THE [facility] Last Admin: 01/11/18 21:45 Dose: 200 mg Donepezil HCl (Aricept) 5 mg PO DAILY [facility]S [facility]CLUDE 234 BEDS AT THE [facility] Last Admin: 01/12/18 08:34 Dose: 5 mg Enoxaparin Sodium (Lovenox) 40 mg SC DAILY [facility] PRN Reason: Protocol Last Admin: 01/12/18 08:32 Dose: 40 mg Hydrochlorothiazide (Hydrodiuril) 25 mg PO DAILY [facility]S INCLUDE 234 BEDS AT THE [facility] Last Admin: 01/12/18 08:33 Dose: 25 mg Vancomycin HCl 1 gm/ Sodium (Chloride) 250 mls @ 166.667 mls/hr IVPB Q12 [facility] PRN Reason: Protocol Last Admin: 01/11/18 21:46 Dose: 166.667 mls/hr Ketorolac Tromethamine (Toradol) 15 mg IVP Q6 PRN PRN Reason: Pain, moderate (4-7) Last Admin: 01/10/18 16:27 Dose: 15 mg Losartan Potassium (Cozaar) 50 mg PO DAILY [facility]S [facility]CLUDE 234 BEDS AT THE [facility] Last Admin: 01/12/18 08:33 Dose: 50 mg Ondansetron HCl (Zofran Inj) 4 mg IVP ONCE PRN PRN Reason: Nausea/Vomiting Pantoprazole Sodium (Protonix Ec Tab) 40 mg PO DAILY [facility]S [facility]CLUDE 234 BEDS AT THE [facility] Last Admin: 01/12/18 08:33 Dose: 40 mg Potassium Chloride (Klor-Con 10) 10 meq PO DAILY [facility]S [facility]CLUDE 234 BEDS AT THE [facility] Last Admin: 01/12/18 08:33 Dose: 10 meq Tiotropium [place] (Spiriva) 18 mcg INH DAILY COUNTS INCLUDE 234 BEDS AT THE [facility] Last Admin: 01/12/18 08:33 Dose: 18 mcg Venlafaxine HCl (Effexor Xr) 225 mg PO DAILY [facility]S [facility]CLUDE 234 BEDS AT THE [facility] Last Admin: 01/12/18 08:33 Dose: 225 mg - Labs Labs: 01/12/18 05:55 01/12/18 05:55 PT 13.6 Seconds (9.8-13.1) H 01/10/18 09:18 INR 1.2 01/10/18 09:18 APTT 34.6 Seconds (25.6-37.1) 01/05/18 19:05 - Constitutional Appears: Well, Non-toxic, No Acute Distress - ENT Exam ENT Exam: Mucous Membranes Moist - Respiratory Exam Respiratory Exam: Clear to Ausculation Bilateral, NORMAL BREATHING PATTERN. absent: Decreased Breath Sounds, Rales, Rhonchi, Wheezes, Respiratory Distress, Stridor - Cardiovascular Exam Cardiovascular Exam: REGULAR RHYTHM, RRR, +S1, +S2, Murmur. absent: Clicks, Gallop, JVD, Rubs, +S4 - GI/Abdominal Exam GI & Abdominal Exam: Soft, Normal Bowel Sounds. absent: Guarding, Tenderness, Organomegaly, Rebound - Neurological Exam Neurological Exam: Alert, Awake (Oriented x1. (to self)) - Psychiatric Exam Psychiatric exam: Normal Affect, Normal Mood - Skin Skin Exam: Dry, Intact, Normal Color, Warm Assessment and Plan - Assessment and Plan (Free Text) Assessment: 87 y/o female long term resident who is bed bound as a medical history including dementia, COPD, HTN , chronic anemia , history left knee ORIF 10/19/17 , dyslipidemia, bilateral knee replacement brought to hospital for evaluation of right knee deformity . Imaging showed dislocated right knee arthroplasty. Patient underwent closed reduction on 01/06/18 by ortho . Post reduction imaging showing persistent posterior dislocation . Plan for OR with open reduction on Thursday01/13/18. Plan: 1.Dislocated Right Total Knee Arthroplasty s/p closed reduction (Dr. Joel) - Repeat xray of the Right knee (01/08) showed : Posterior dislocation of the tibia without fracture or gross disruption of the metallic components of total knee - replacement arthroplasty - Continue pain management with Tordol 15 mg IV Q6 PRN - Plan for open reduction tomorrow, 01/13 - Continue to Hold the Eliquis and ASA. - Hold lovenox for surgery. - NPO at midnight. 2.UTI - Urine culture positive for Enterococcus faecalis - Last elevated temp: 99.9 (01/08/18) - ID consult appreciated- Vancomycin 1 gm Q12H day 2. - Blood cultures negative to date. 3.Urinary Retention - Likely post-operative, post-anesthesia - Straight Cath x2 - Currently on purewick 4. Chronic anemia - H & H 01/12/18 : s/p 2 Unit of pRBC transfusion. - F/U CBC - Continue to monitor 5.Abnormal EKG - Sinus Rhythm with sinus arrhythmia and PAC with RBBB 79/min - Cardiology consult appreciated, Dr Tripp. Patient is cleared from cardiology for OR - Continue carvedilol, losartan, HCTZ and atorvastatin. - Eliquis on hold 6.COPD - Stable - Albuterol 2.5 mg INH RQ6 [facility] 7.HTN - Controlled - BP meds with parameters since BP on the lower side 8.Dementia Chronic 9. Osteoporosis on Vitamin D PO and Calcium supplements 10. DVT Prophylaxis SCD, Lovenox held due to surgery tomorrow. Eliquis on hold for same reason.
--- NOTE | 2018-01-12 12:03 | CP.PCM.PN ---
Subjective - Date & Time of Evaluation Date of Evaluation: 01/12/18 Time of Evaluation: 11:00 - Subjective Subjective: NO COMPLAINTS Objective - Vital Signs/Intake and Output Vital Signs (last 24 hours): Temp Pulse Resp BP Pulse Ox 98.4 F 80 20 153/81 H 96 01/12/18 08:06 01/12/18 08:33 01/12/18 08:06 01/12/18 08:33 01/12/18 08:06 - Medications Medications: Current Medications Acetaminophen (Tylenol 325mg Tab) 650 mg PO Q4 PRN PRN Reason: Other Last Admin: 01/07/18 02:43 Dose: 650 mg Albuterol Sulfate (Albuterol 0.083% Inhal Tashia (2.5 Mg/3 Ml) Ud) 2.5 mg INH RQ6 [facility] Last Admin: 01/12/18 07:43 Dose: 2.5 mg Ascorbic Acid (Vitamin C 500 Mg Tab) 1,000 mg PO DAILY [facility] Last Admin: 01/12/18 08:32 Dose: 1,000 mg Atorvastatin Calcium (Lipitor) 10 mg PO DIN [facility] Last Admin: 01/11/18 17:17 Dose: 10 mg Budesonide (Pulmicort Respules) 0.5 mg IH DAILY@0800 [facility] Last Admin: 01/12/18 07:43 Dose: 0.5 mg Calcium Carbonate (Oscal) 500 mg PO DAILY [facility] Last Admin: 01/12/18 08:32 Dose: 500 mg Carvedilol (Coreg) 3.125 mg PO BID@0900,2100 [facility] Last Admin: 01/12/18 08:32 Dose: 3.125 mg Cholecalciferol (Vitamin D) 2,000 intlu PO DAILY [facility] Last Admin: 01/12/18 08:32 Dose: 2,000 intlu Docusate Sodium (Colace) 200 mg PO HS [facility] Last Admin: 01/11/18 21:45 Dose: 200 mg Donepezil HCl (Aricept) 5 mg PO DAILY [facility] Last Admin: 01/12/18 08:34 Dose: 5 mg Hydrochlorothiazide (Hydrodiuril) 25 mg PO DAILY [facility] Last Admin: 01/12/18 08:33 Dose: 25 mg Vancomycin HCl 1 gm/ Sodium (Chloride) 250 mls @ 166.667 mls/hr IVPB Q12 [facility] PRN Reason: Protocol Last Admin: 01/11/18 21:46 Dose: 166.667 mls/hr Ketorolac Tromethamine (Toradol) 15 mg IVP Q6 PRN PRN Reason: Pain, moderate (4-7) Last Admin: 01/10/18 16:27 Dose: 15 mg Losartan Potassium (Cozaar) 50 mg PO DAILY [facility] Last Admin: 01/12/18 08:33 Dose: 50 mg Ondansetron HCl (Zofran Inj) 4 mg IVP ONCE PRN PRN Reason: Nausea/Vomiting Pantoprazole Sodium (Protonix Ec Tab) 40 mg PO DAILY [facility] Last Admin: 01/12/18 08:33 Dose: 40 mg Potassium Chloride (Klor-Con 10) 10 meq PO DAILY [facility] Last Admin: 01/12/18 08:33 Dose: 10 meq Tiotropium [place] (Spiriva) 18 mcg INH DAILY [facility] Last Admin: 01/12/18 08:33 Dose: 18 mcg Venlafaxine HCl (Effexor Xr) 225 mg PO DAILY [facility] Last Admin: 01/12/18 08:33 Dose: 225 mg - Labs Labs: 01/12/18 05:55 01/12/18 05:55 PT 13.6 Seconds (9.8-13.1) H 01/10/18 09:18 INR 1.2 01/10/18 09:18 APTT 34.6 Seconds (25.6-37.1) 01/05/18 19:05 - Respiratory Exam Respiratory Exam: Clear to Ausculation Bilateral - Cardiovascular Exam Cardiovascular Exam: REGULAR RHYTHM, +S1, +S2 - Extremities Exam Additional comments: BOTH LE IN IMMOBILIZERS Assessment and Plan - Assessment and Plan (Free Text) Assessment: HYPERTENSION HYPERLIPIDEMIA DEMENTIA DISLOCATION OF THE RIGHT KNEE PROSTHESIS AND QUADRICEPS TEAR Plan: FOR SURGERY BY DR CERVANTES TOMORROW-PATIENT IS CLEARED FROM THE CARDIAC [facility] LOVENOX WAS DISCONTINUED CONTINUE [place], CARVEDILOL AND HCTZ
--- NOTE | 2018-01-12 15:01 | PQF ---
PROVIDER RESPONSE TEXT: MOST LIKELY UTI PRESENT ON ADMISSION REVIEWER QUERY TEXT: Present On Admission It is unclear whether a diagnosis of UTI was present on admission. Your help is needed. Please clar carrie the POA status Such as: -- Present on admission -- Not present on admission -- Unable to clinically determine whether condition was present on admission or not The patient's Clinical Indicators include: Admitted with a dislocated total knee arthroplasty. UA not done on admission of 01/05/18 UA and Urine C/S obtained on 01/09/18. Urine C/S growing Enterococcus Faecalis and started on IVAB Query created by: Violeta Price on 01/12/2018 10:22 AM Electronically signed by: Shubham Cummins 01/12/2018 2:58 PM
[2018-01-12 16:21] LABS: SQUAMOUS EPITHIAL < 1 /hpf (0-5); URINE BACTERIA RARE (<OCC); URINE BILIRUBIN NEGATIVE (NEGATIVE); URINE CLARITY SLIGHTY-CLOUDY (Clear); URINE COLOR YELLOW (YELLOW); URINE GLUCOSE (UA) NEG (Normal); URINE LEUKOCYTE ESTERASE SMALL Leu/uL (Negative); URINE PROTEIN NEGATIVE (NEGATIVE); URINE UROBILINOGEN 0.2-1.0 mg/dL (0.2-1.0)
[2018-01-12 16:24] LABS: URINE BLOOD TRACE (NEGATIVE)
--- NOTE | 2018-01-12 20:01 | CP.PCM.PN ---
Subjective - Date & Time of Evaluation Date of Evaluation: 01/12/18 Time of Evaluation: 20:00 - Subjective Subjective: I D NOTE PATIENT c enterococcus faecalis in urine discussed yesterday c Abimbola & Placido rx c vancomycin which will also cover for proposed surgery Objective - Vital Signs/Intake and Output Vital Signs (last 24 hours): Temp Pulse Resp BP Pulse Ox 98.9 F 61 20 137/67 97 01/12/18 16:23 01/12/18 16:23 01/12/18 16:23 01/12/18 16:23 01/12/18 16:23 - Medications Medications: Current Medications Acetaminophen (Tylenol 325mg Tab) 650 mg PO Q4 PRN PRN Reason: Other Last Admin: 01/07/18 02:43 Dose: 650 mg Albuterol Sulfate (Albuterol 0.083% Inhal Tashia (2.5 Mg/3 Ml) Ud) 2.5 mg INH RQ6 [facility] Last Admin: 01/12/18 19:15 Dose: 2.5 mg Ascorbic Acid (Vitamin C 500 Mg Tab) 1,000 mg PO DAILY [facility] Last Admin: 01/12/18 08:32 Dose: 1,000 mg Atorvastatin Calcium (Lipitor) 10 mg PO DIN [facility] Last Admin: 01/12/18 16:26 Dose: 10 mg Budesonide (Pulmicort Respules) 0.5 mg IH DAILY@0800 [facility] Last Admin: 01/12/18 07:43 Dose: 0.5 mg Calcium Carbonate (Oscal) 500 mg PO DAILY [facility] Last Admin: 01/12/18 08:32 Dose: 500 mg Carvedilol (Coreg) 3.125 mg PO BID@0900,2100 [facility] Last Admin: 01/12/18 08:32 Dose: 3.125 mg Cholecalciferol (Vitamin D) 2,000 intlu PO DAILY [facility] Last Admin: 01/12/18 08:32 Dose: 2,000 intlu Docusate Sodium (Colace) 200 mg PO HS [facility] Last Admin: 01/11/18 21:45 Dose: 200 mg Donepezil HCl (Aricept) 5 mg PO DAILY [facility] Last Admin: 01/12/18 08:34 Dose: 5 mg Hydrochlorothiazide (Hydrodiuril) 25 mg PO DAILY [facility] Last Admin: 01/12/18 08:33 Dose: 25 mg Vancomycin HCl 1 gm/ Sodium (Chloride) 250 mls @ 166.667 mls/hr IVPB Q12 [facility] PRN Reason: Protocol Last Admin: 01/12/18 12:34 Dose: 166.667 mls/hr Ketorolac Tromethamine (Toradol) 15 mg IVP Q6 PRN PRN Reason: Pain, moderate (4-7) Last Admin: 01/10/18 16:27 Dose: 15 mg Losartan Potassium (Cozaar) 50 mg PO DAILY [facility] Last Admin: 01/12/18 08:33 Dose: 50 mg Ondansetron HCl (Zofran Inj) 4 mg IVP ONCE PRN PRN Reason: Nausea/Vomiting Pantoprazole Sodium (Protonix Ec Tab) 40 mg PO DAILY [facility] Last Admin: 01/12/18 08:33 Dose: 40 mg Potassium Chloride (Klor-Con 10) 10 meq PO DAILY [facility] Last Admin: 01/12/18 08:33 Dose: 10 meq Tiotropium [place] (Spiriva) 18 mcg INH DAILY [facility] Last Admin: 01/12/18 08:33 Dose: 18 mcg Venlafaxine HCl (Effexor Xr) 225 mg PO DAILY [facility] Last Admin: 01/12/18 08:33 Dose: 225 mg - Labs Labs: 01/12/18 05:55 01/12/18 05:55 PT 13.6 Seconds (9.8-13.1) H 01/10/18 09:18 INR 1.2 01/10/18 09:18 APTT 34.6 Seconds (25.6-37.1) 01/05/18 19:05
[2018-01-13] MEDS: Albuterol 0.083% Inhal Sol (2.5 mg/3 mL) UD INH SCH ×4 (01:04→19:26)
[2018-01-13 06:34] LABS: BLOOD UREA NITROGEN 10 mg/dl (7-17); CALCIUM 8.9 mg/dL (8.4-10.2); GFR NON-AFRICAN AMERICAN > 60
[2018-01-13 07:46] LABS: HEMOGLOBIN 12.2 g/dL (12.0-16.0); MEAN CORPUSCULAR HEMOGLOBIN 29.8 pg (27.0-31.0); MEAN CORPUSCULAR HGB CONC 33.8 g/dL (33.0-37.0); RBC 4.1 Mil/uL (3.80-5.20); RED CELL DISTRIBUTION WIDTH 15.5 % (11.5-14.5); WHITE BLOOD COUNT 4.9 K/uL (4.8-10.8)
[2018-01-13] MEDS ORDERED: Potassium Chloride 20 mEq ER Tab PO ONE (08:01)
[2018-01-13] MEDS: Budesonide 0.5 mg/2 ml Inhal Susp UD IH SCH (08:05)
--- NOTE | 2018-01-13 08:05 | CP.PCM.PN ---
Subjective - Date & Time of Evaluation Date of Evaluation: 01/13/18 Time of Evaluation: 07:15 - Subjective Subjective: NO COMPLAINTS Objective - Vital Signs/Intake and Output Vital Signs (last 24 hours): Temp Pulse Resp BP Pulse Ox 98.8 F 61 19 115/69 98 01/13/18 00:00 01/13/18 00:00 01/13/18 00:00 01/13/18 00:00 01/13/18 00:00 - Medications Medications: Current Medications Acetaminophen (Tylenol 325mg Tab) 650 mg PO Q4 PRN PRN Reason: Other Last Admin: 01/07/18 02:43 Dose: 650 mg Albuterol Sulfate (Albuterol 0.083% Inhal Tashia (2.5 Mg/3 Ml) Ud) 2.5 mg INH RQ6 [facility] Last Admin: 01/13/18 01:04 Dose: 2.5 mg Ascorbic Acid (Vitamin C 500 Mg Tab) 1,000 mg PO DAILY [facility] Last Admin: 01/12/18 08:32 Dose: 1,000 mg Atorvastatin Calcium (Lipitor) 10 mg PO DIN [facility] Last Admin: 01/12/18 16:26 Dose: 10 mg Budesonide (Pulmicort Respules) 0.5 mg IH DAILY@0800 [facility] Last Admin: 01/12/18 07:43 Dose: 0.5 mg Calcium Carbonate (Oscal) 500 mg PO DAILY [facility] Last Admin: 01/12/18 08:32 Dose: 500 mg Carvedilol (Coreg) 3.125 mg PO BID@0900,2100 [facility] Last Admin: 01/12/18 21:03 Dose: 3.125 mg Cholecalciferol (Vitamin D) 2,000 intlu PO DAILY [facility] Last Admin: 01/12/18 08:32 Dose: 2,000 intlu Docusate Sodium (Colace) 200 mg PO HS [facility] Last Admin: 01/11/18 21:45 Dose: 200 mg Donepezil HCl (Aricept) 5 mg PO DAILY [facility] Last Admin: 01/12/18 08:34 Dose: 5 mg Hydrochlorothiazide (Hydrodiuril) 25 mg PO DAILY [facility] Last Admin: 01/12/18 08:33 Dose: 25 mg Vancomycin HCl 1 gm/ Sodium (Chloride) 250 mls @ 166.667 mls/hr IVPB Q12 [facility] PRN Reason: Protocol Last Admin: 01/12/18 21:03 Dose: 166.667 mls/hr Ketorolac Tromethamine (Toradol) 15 mg IVP Q6 PRN PRN Reason: Pain, moderate (4-7) Last Admin: 01/10/18 16:27 Dose: 15 mg Losartan Potassium (Cozaar) 50 mg PO DAILY [facility] Last Admin: 01/12/18 08:33 Dose: 50 mg Ondansetron HCl (Zofran Inj) 4 mg IVP ONCE PRN PRN Reason: Nausea/Vomiting Pantoprazole Sodium (Protonix Ec Tab) 40 mg PO DAILY [facility] Last Admin: 01/12/18 08:33 Dose: 40 mg Potassium Chloride (Klor-Con 10) 10 meq PO DAILY [facility] Last Admin: 01/12/18 08:33 Dose: 10 meq Potassium Chloride (K-Dur 20 Meq Er Tab) 20 meq PO ONCE ONE Stop: 01/13/18 08:02 Tiotropium [place] (Spiriva) 18 mcg INH DAILY [facility] Last Admin: 01/12/18 08:33 Dose: 18 mcg Venlafaxine HCl (Effexor Xr) 225 mg PO DAILY [facility] Last Admin: 01/12/18 08:33 Dose: 225 mg - Labs Labs: 01/13/18 05:55 01/13/18 05:55 PT 13.6 Seconds (9.8-13.1) H 01/10/18 09:18 INR 1.2 01/10/18 09:18 APTT 34.6 Seconds (25.6-37.1) 01/05/18 19:05 - Respiratory Exam Respiratory Exam: Clear to Ausculation Bilateral - Cardiovascular Exam Cardiovascular Exam: REGULAR RHYTHM, +S1, +S2 - Extremities Exam Additional comments: BOTH LE WITH IMMOBILIZERS Assessment and Plan - Assessment and Plan (Free Text) Assessment: RIGHT TKR DISLOCATION AND QUADRICEPS TEAR HYPERTENSION HYPERLIPIDEMIA DEMENTIA Plan: FOR SURGERY TODAY
--- NOTE | 2018-01-13 08:34 | CP.PCM.PN ---
Subjective - Date & Time of Evaluation Date of Evaluation: 01/13/18 Time of Evaluation: 08:34 - Subjective Subjective: Patient seen and examined at bedside. Patient is resting comfortably. She is asking where her daughter is. She states that she is not in pain at the moment and feels well. Patient states that she is home and the year is 1966. She is oriented to herself. She denies subjective fevers, chills, chest pain, shortness of breath, leg pain , abdominal pain, nausea, vomiting, or diarrhea. Objective - Vital Signs/Intake and Output Vital Signs (last 24 hours): Temp Pulse Resp BP Pulse Ox 97.8 F 60 19 142/73 99 01/13/18 08:10 01/13/18 08:10 01/13/18 08:10 01/13/18 08:10 01/13/18 08:10 - Medications Medications: Current Medications Acetaminophen (Tylenol 325mg Tab) 650 mg PO Q4 PRN PRN Reason: Other Last Admin: 01/07/18 02:43 Dose: 650 mg Albuterol Sulfate (Albuterol 0.083% Inhal [place]ashia (2.5 Mg/3 Ml) Ud) 2.5 mg INH RQ6 [facility] Last Admin: 01/13/18 08:05 Dose: 2.5 mg Ascorbic Acid (Vitamin C 500 Mg Tab) 1,000 mg PO DAILY [facility] Last Admin: 01/12/18 08:32 Dose: 1,000 mg Atorvastatin Calcium (Lipitor) 10 mg PO DIN [facility] Last Admin: 01/12/18 16:26 Dose: 10 mg Budesonide (Pulmicort Respules) 0.5 mg IH DAILY@0800 [facility] Last Admin: 01/13/18 08:05 Dose: 0.5 mg Calcium Carbonate (Oscal) 500 mg PO DAILY [facility] Last Admin: 01/12/18 08:32 Dose: 500 mg Carvedilol (Coreg) 3.125 mg PO BID@0900,2100 [facility] Last Admin: 01/12/18 21:03 Dose: 3.125 mg Cholecalciferol (Vitamin D) 2,000 intlu PO DAILY [facility] Last Admin: 01/12/18 08:32 Dose: 2,000 intlu Docusate Sodium (Colace) 200 mg PO HS [facility] Last Admin: 01/11/18 21:45 Dose: 200 mg Donepezil HCl (Aricept) 5 mg PO DAILY [facility] Last Admin: 01/12/18 08:34 Dose: 5 mg Hydrochlorothiazide (Hydrodiuril) 25 mg PO DAILY [facility] Last Admin: 01/12/18 08:33 Dose: 25 mg Vancomycin HCl 1 gm/ Sodium (Chloride) 250 mls @ 166.667 mls/hr IVPB Q12 [facility] PRN Reason: Protocol Last Admin: 01/12/18 21:03 Dose: 166.667 mls/hr Ketorolac Tromethamine (Toradol) 15 mg IVP Q6 PRN PRN Reason: Pain, moderate (4-7) Last Admin: 01/10/18 16:27 Dose: 15 mg Losartan Potassium (Cozaar) 50 mg PO DAILY [facility] Last Admin: 01/12/18 08:33 Dose: 50 mg Ondansetron HCl (Zofran Inj) 4 mg IVP ONCE PRN PRN Reason: Nausea/Vomiting Pantoprazole Sodium (Protonix Ec Tab) 40 mg PO DAILY [facility] Last Admin: 01/12/18 08:33 Dose: 40 mg Potassium Chloride (Klor-Con 10) 10 meq PO DAILY [facility] Last Admin: 01/12/18 08:33 Dose: 10 meq Saccharomyces Boulardii (Florastor) 250 mg PO BID [facility] Tiotropium [place] (Spiriva) 18 mcg INH DAILY [facility] Last Admin: 01/12/18 08:33 Dose: 18 mcg Venlafaxine HCl (Effexor Xr) 225 mg PO DAILY [facility] Last Admin: 01/12/18 08:33 Dose: 225 mg - Labs Labs: 01/13/18 05:55 01/13/18 05:55 PT 13.6 Seconds (9.8-13.1) H 01/10/18 09:18 INR 1.2 01/10/18 09:18 APTT 34.6 Seconds (25.6-37.1) 01/05/18 19:05 - Constitutional Appears: Well, Non-toxic, No Acute Distress - Respiratory Exam Respiratory Exam: Clear to Ausculation Bilateral, NORMAL BREATHING PATTERN. absent: Chest Wall Tenderness, Decreased Breath Sounds, Rales, Rhonchi, Wheezes , Respiratory Distress - Cardiovascular Exam Cardiovascular Exam: REGULAR RHYTHM, RRR, +S1, +S2. absent: Clicks, Rubs, +S4 - GI/Abdominal Exam GI & Abdominal Exam: Distended, Soft, Normal Bowel Sounds. absent: Tenderness, Hernia, Mass, Pulsatile Mass, Rebound - Extremities Exam Additional comments: Knee immobilizers present on both bilateral lower extremities. - Neurological Exam Neurological Exam: Alert (Patient Oriented to herself- this is baseline. ), Awake - Psychiatric Exam Psychiatric exam: Normal Affect, Normal Mood - Skin Skin Exam: Dry, Intact, Normal Color, Warm Assessment and Plan - Assessment and Plan (Free Text) Assessment: 87 y/o female snf resident who is bed bound as a medical history including dementia, COPD, HTN , chronic anemia , history left knee ORIF 10/19/17 , dyslipidemia, bilateral knee replacement brought to hospital for evaluation of right knee deformity . Imaging showed dislocated right knee arthroplasty. Patient underwent closed reduction on 01/06/18 by ortho . Post reduction imaging showing persistent posterior dislocation . Plan for OR with open reduction 01/14/18. Plan: 1.Dislocated Right Total Knee Arthroplasty s/p closed reduction (Dr. Joel) - Repeat xray of the Right knee (01/08) showed : Posterior dislocation of the tibia without fracture or gross disruption of the metallic components of total knee - replacement arthroplasty - Continue pain management with Tordol 15 mg IV Q6 PRN - Surgery cancelled for today, patient back on diet - Plan for open reduction on 01/14/18 - Patient has bilateral lower extremity immobilizers. - Given patient has hardware and Wound culture positive for Staph species sensitive to Vanco- Pt on Vancomycin Q12H day 3. - Continue to Hold the Eliquis and ASA. 2.UTI- Present on admission - Urine culture positive for Enterococcus faecalis sensitive to Vancomycin: pt on Vancomycin 1 gm Q12h - today is day 3. - Blood cultures negative to date. 3.Urinary Retention Likely post-operative, post-anesthesia Straight Cath x2 Currently on purewick 4. Chronic anemia H/H 01/13/18: 12 2 Units of pRBC's transfused 01/10/18. F/U CBC- Continue to monitor 5. Hypokalemia: - Replete with Potassium chloride 10 MeQ. 6.Abnormal EKG Sinus Rhythm with sinus arrhythmia and PAC with RBBB 79/min Cardiology consult appreciated, Dr Tripp. Patient is cleared from cardiology for OR Continue carvedilol, losartan, HCTZ and atorvastatin. Eliquis on hold 7.COPD Stable Albuterol 2.5 mg INH RQ6 [facility] 8.HTN Controlled BP meds with parameters since BP on the lower side 9.Dementia Chronic 10. Osteoporosis on Vitamin D PO and Calcium supplements 11. DVT Prophylaxis SCD, Lovenox 40mgs daily until day before the surgery due to history of P.E. - Dr. Tripp recommendations appreciated. hold Eliquis (open reduction planned for 01/14/18)
[2018-01-13] MEDS: Tiotropium 18 mcg Cap For Inhalation INH SCH (09:48)
--- NOTE | 2018-01-13 11:09 | CP.PCM.PN ---
Subjective - Date & Time of Evaluation Date of Evaluation: 01/13/18 Time of Evaluation: 08:30 - Subjective Subjective: Patient seen and examined at bedside comfortable. No complaints of pain. Patient confused but following commands and responding to questions. Objective - Vital Signs/Intake and Output Vital Signs (last 24 hours): Temp Pulse Resp BP Pulse Ox 97.8 F 60 19 142/73 99 01/13/18 08:10 01/13/18 09:47 01/13/18 08:10 01/13/18 09:47 01/13/18 08:10 - Medications Medications: Current Medications Acetaminophen (Tylenol 325mg Tab) 650 mg PO Q4 PRN PRN Reason: Other Last Admin: 01/07/18 02:43 Dose: 650 mg Albuterol Sulfate (Albuterol 0.083% Inhal Tashia (2.5 Mg/3 Ml) Ud) 2.5 mg INH RQ6 [facility] Last Admin: 01/13/18 08:05 Dose: 2.5 mg Ascorbic Acid (Vitamin C 500 Mg Tab) 1,000 mg PO DAILY [facility] Last Admin: 01/12/18 08:32 Dose: 1,000 mg Atorvastatin Calcium (Lipitor) 10 mg PO DIN [facility] Last Admin: 01/12/18 16:26 Dose: 10 mg Budesonide (Pulmicort Respules) 0.5 mg IH DAILY@0800 [facility] Last Admin: 01/13/18 08:05 Dose: 0.5 mg Calcium Carbonate (Oscal) 500 mg PO DAILY [facility] Last Admin: 01/12/18 08:32 Dose: 500 mg Carvedilol (Coreg) 3.125 mg PO BID@0900,2100 [facility] Last Admin: 01/13/18 09:47 Dose: 3.125 mg Cholecalciferol (Vitamin D) 2,000 intlu PO DAILY [facility] Last Admin: 01/12/18 08:32 Dose: 2,000 intlu Docusate Sodium (Colace) 200 mg PO HS [facility] Last Admin: 01/11/18 21:45 Dose: 200 mg Donepezil HCl (Aricept) 5 mg PO DAILY [facility] Last Admin: 01/12/18 08:34 Dose: 5 mg Hydrochlorothiazide (Hydrodiuril) 25 mg PO DAILY [facility] Last Admin: 01/13/18 09:48 Dose: 25 mg Vancomycin HCl 1 gm/ Sodium (Chloride) 250 mls @ 166.667 mls/hr IVPB Q12 [facility] PRN Reason: Protocol Last Admin: 01/12/18 21:03 Dose: 166.667 mls/hr Ketorolac Tromethamine (Toradol) 15 mg IVP Q6 PRN PRN Reason: Pain, moderate (4-7) Last Admin: 01/10/18 16:27 Dose: 15 mg Losartan Potassium (Cozaar) 50 mg PO DAILY [facility] Last Admin: 01/13/18 09:47 Dose: 50 mg Ondansetron HCl (Zofran Inj) 4 mg IVP ONCE PRN PRN Reason: Nausea/Vomiting Pantoprazole Sodium (Protonix Ec Tab) 40 mg PO DAILY [facility] Last Admin: 01/12/18 08:33 Dose: 40 mg Potassium Chloride (Klor-Con 10) 10 meq PO DAILY [facility] Last Admin: 01/12/18 08:33 Dose: 10 meq Saccharomyces Boulardii (Florastor) 250 mg PO BID [facility] Tiotropium [place] (Spiriva) 18 mcg INH DAILY [facility] Last Admin: 01/13/18 09:48 Dose: 18 mcg Venlafaxine HCl (Effexor Xr) 225 mg PO DAILY [facility] Last Admin: 01/12/18 08:33 Dose: 225 mg - Labs Labs: 01/13/18 05:55 01/13/18 05:55 PT 13.6 Seconds (9.8-13.1) H 01/10/18 09:18 INR 1.2 01/10/18 09:18 APTT 34.6 Seconds (25.6-37.1) 01/05/18 19:05 - Extremities Exam Additional comments: R knee: Knee immobilizer in place, Dressings CDI, anterior tender deformity with diffuse tenderness consistent with dislocated prosthesis sensation intact SP/DP/TN motor intact EHL/FHL pedal pulse intact comps soft NT Assessment and Plan (1) Dislocation of prosthetic joint of knee Assessment & Plan: POD #7 s/p R knee closed reduction under anesthesia -plan for open reduction of knee prosthesis tomorrow, OR held due to UTI -NPO pMN -continue to hold eliquis and ASA -maintain strict knee immobilizer at all times -NWB RLE -above d/w Dr. Joel in agreement Status: Acute
[2018-01-13] MEDS: Saccharomyces Boulardi 250 mg Cap PO SCH ×2 (16:22→19:17)
[2018-01-13] MEDS: Venlafaxine 75 mg ER Cap PO SCH (16:22)
[2018-01-13] MEDS: Cholecalciferol 1,000 INTLU TAB PO SCH (16:25)
[2018-01-13] MEDS: Pantoprazole 40 mg EC Tab PO SCH (16:26)
[2018-01-13] MEDS: Potassium Chloride 10 mEq ER Tab PO SCH (21:45)
[2018-01-14] MEDS: Albuterol 0.083% Inhal Sol (2.5 mg/3 mL) UD INH SCH ×4 (01:00→20:00)
[2018-01-14 07:07] LABS: BLOOD UREA NITROGEN 10 mg/dl (7-17); CALCIUM 9.1 mg/dL (8.4-10.2); GFR NON-AFRICAN AMERICAN > 60
[2018-01-14 07:10] LABS: HEMOGLOBIN 12.8 g/dL (12.0-16.0); MEAN CELL VOLUME 85.7 fl (81.0-99.0); MEAN CORPUSCULAR HEMOGLOBIN 29.5 pg (27.0-31.0); MEAN CORPUSCULAR HGB CONC 34.5 g/dL (33.0-37.0); RBC 4.32 Mil/uL (3.80-5.20); RED CELL DISTRIBUTION WIDTH 15.6 % (11.5-14.5); WHITE BLOOD COUNT 5.4 K/uL (4.8-10.8)
[2018-01-14] MEDS: Budesonide 0.5 mg/2 ml Inhal Susp UD IH SCH (07:45)
[2018-01-14] MEDS: Tiotropium 18 mcg Cap For Inhalation INH SCH (08:45)
[2018-01-14] MEDS: Cholecalciferol 1,000 INTLU TAB PO SCH (08:50)
[2018-01-14] MEDS: Pantoprazole 40 mg EC Tab PO SCH (08:51)
[2018-01-14] MEDS: Potassium Chloride 10 mEq ER Tab PO SCH (08:51)
[2018-01-14] MEDS: Venlafaxine 75 mg ER Cap PO SCH (08:53)
[2018-01-14] MEDS: Saccharomyces Boulardi 250 mg Cap PO SCH ×2 (08:53→17:38)
[2018-01-14] MEDS ORDERED: Bacitracin Ointment 30 GM TUBE ONE (09:20)
[2018-01-14] MEDS ORDERED: GELATIN SPONGE,ABSORB/PORCINE 1 EACH SPONGE TP ONE (09:20)
[2018-01-14] MEDS ORDERED: ceFAZolin IV 1 gm in Dextrose 0 GM/0 ML BAG IVPB ONE (09:21)
[2018-01-14] MEDS ORDERED: Thrombin Topical 5,000 Int Units Spray Kit ONE (09:21)
--- NOTE | 2018-01-14 09:48 | CP.PCM.PN ---
Subjective - Date & Time of Evaluation Date of Evaluation: 01/14/18 Time of Evaluation: 09:46 - Subjective Subjective: Patient seen and examined at bedside. She is resting comfortably in her hospital bed. She denies any active complaints today. She reports feeling well and is Alert and oriented to herself, again this is baseline. Denies nausea, vomiting, chest pain, leg pain, abdominal pain and shortness of breath. Objective - Vital Signs/Intake and Output Vital Signs (last 24 hours): Temp Pulse Resp BP Pulse Ox 97.8 F 77 19 150/84 96 01/14/18 07:59 01/14/18 08:52 01/14/18 07:59 01/14/18 08:52 01/14/18 07:59 - Medications Medications: Current Medications Acetaminophen (Tylenol 325mg Tab) 650 mg PO Q4 PRN PRN Reason: Other Last Admin: 01/07/18 02:43 Dose: 650 mg Albuterol Sulfate (Albuterol 0.083% Inhal Tashia (2.5 Mg/3 Ml) Ud) 2.5 mg INH RQ6 [facility] Last Admin: 01/14/18 07:45 Dose: 2.5 mg Ascorbic Acid (Vitamin C 500 Mg Tab) 1,000 mg PO DAILY [facility] Last Admin: 01/14/18 08:50 Dose: Not Given Atorvastatin Calcium (Lipitor) 10 mg PO DIN [facility] Last Admin: 01/13/18 21:44 Dose: 10 mg Budesonide (Pulmicort Respules) 0.5 mg IH DAILY@0800 [facility] Last Admin: 01/14/18 07:45 Dose: 0.5 mg Calcium Carbonate (Oscal) 500 mg PO DAILY [facility] Last Admin: 01/14/18 08:51 Dose: Not Given Carvedilol (Coreg) 3.125 mg PO BID@0900,2100 [facility] Last Admin: 01/14/18 08:51 Dose: 3.125 mg Cholecalciferol (Vitamin D) 2,000 intlu PO DAILY [facility] Last Admin: 01/14/18 08:50 Dose: Not Given Docusate Sodium (Colace) 200 mg PO HS [facility] Last Admin: 01/13/18 21:44 Dose: 200 mg Donepezil HCl (Aricept) 5 mg PO DAILY [facility] Last Admin: 01/14/18 08:45 Dose: Not Given Hydrochlorothiazide (Hydrodiuril) 25 mg PO DAILY [facility] Last Admin: 01/14/18 08:51 Dose: 25 mg Vancomycin HCl 500 mg/ Sodium (Chloride) 100 mls @ 100 mls/hr IVPB Q12H [facility] PRN Reason: Protocol Last Admin: 01/14/18 08:47 Dose: 100 mls/hr Ketorolac Tromethamine (Toradol) 15 mg IVP Q6 PRN PRN Reason: Pain, moderate (4-7) Last Admin: 01/10/18 16:27 Dose: 15 mg Losartan Potassium (Cozaar) 50 mg PO DAILY [facility] Last Admin: 01/14/18 08:52 Dose: 50 mg Ondansetron HCl (Zofran Inj) 4 mg IVP ONCE PRN PRN Reason: Nausea/Vomiting Pantoprazole Sodium (Protonix Ec Tab) 40 mg PO DAILY [facility] Last Admin: 01/14/18 08:51 Dose: Not Given Potassium Chloride (Klor-Con 10) 10 meq PO DAILY [facility] Last Admin: 01/14/18 08:51 Dose: Not Given Saccharomyces Boulardii (Florastor) 250 mg PO BID [facility] Last Admin: 01/14/18 08:53 Dose: Not Given Tiotropium [place] (Spiriva) 18 mcg INH DAILY [facility] Last Admin: 01/14/18 08:45 Dose: 18 mcg Venlafaxine HCl (Effexor Xr) 225 mg PO DAILY [facility] Last Admin: 01/14/18 08:53 Dose: Not Given - Labs Labs: 01/14/18 06:00 01/14/18 06:00 PT 13.6 Seconds (9.8-13.1) H 01/10/18 09:18 INR 1.2 01/10/18 09:18 APTT 34.6 Seconds (25.6-37.1) 01/05/18 19:05 - Constitutional Appears: Well, Non-toxic, No Acute Distress, Older Than Stated Age - ENT Exam ENT Exam: Mucous Membranes Moist - Respiratory Exam Respiratory Exam: Clear to Ausculation Bilateral, NORMAL BREATHING PATTERN. absent: Decreased Breath Sounds, Rales, Rhonchi, Wheezes, Respiratory Distress, Stridor - GI/Abdominal Exam GI & Abdominal Exam: Distended (Obese abdomen), Soft, Normal Bowel Sounds. absent: Firm, Guarding, Tenderness, Rebound - Extremities Exam Additional comments: Immobilizers on both legs. - Neurological Exam Neurological Exam: Alert, Awake (Oriented to self. ) - Psychiatric Exam Psychiatric exam: Normal Affect, Normal Mood - Skin Skin Exam: Dry, Intact, Normal Color, Warm Assessment and Plan - Assessment and Plan (Free Text) Assessment: 87 y/o female care home resident who is bed bound as a medical history including dementia, COPD, HTN , chronic anemia , history left knee ORIF 10/19/17 , dyslipidemia, bilateral knee replacement brought to hospital for evaluation of right knee deformity . Imaging showed dislocated right knee arthroplasty. Patient underwent closed reduction on 01/06/18 by ortho . Post reduction imaging showing persistent posterior dislocation . Plan for OR with open reduction Today , 01/14/18. Plan: 1.Dislocated Right Total Knee Arthroplasty s/p closed reduction (Dr. Joel) - Repeat xray of the Right knee (01/08) showed : Posterior dislocation of the tibia without fracture or gross disruption of the metallic components of total knee - replacement arthroplasty - Continue pain management with Tordol 15 mg IV Q6 PRN - Surgery cancelled for today, patient back on diet - Plan for open reduction on today, 01/14/18 - Patient has bilateral lower extremity immobilizers. - Given patient has hardware and Wound culture positive for Staph species sensitive to Vanco- Pt on Vancomycin Q12H day 4. - Continue to Hold the Eliquis and ASA. 2.UTI- Present on admission - Urine culture positive for Enterococcus faecalis sensitive to Vancomycin: pt on Vancomycin 1 gm Q12h - today is day 4. - Blood cultures negative to date. 3.Urinary Retention Likely post-operative, post-anesthesia Straight Cath x2 Currently on purewick 4. Chronic anemia H/H 01/14/18: 12.8/ 37 2 Units of pRBC's transfused 01/10/18. F/U CBC- Continue to monitor 5. Hypokalemia: - Potassium- 3.6 - Resolved. 6.Abnormal EKG Sinus Rhythm with sinus arrhythmia and PAC with RBBB 79/min Cardiology consult appreciated, Dr Tripp. Patient is cleared from cardiology for OR Continue carvedilol, losartan, HCTZ and atorvastatin. Eliquis on hold 7.COPD Stable Albuterol 2.5 mg INH RQ6 [facility] 8.HTN Controlled BP meds with parameters since BP on the lower side 9.Dementia Chronic 10. Osteoporosis on Vitamin D PO and Calcium supplements 11. DVT Prophylaxis SCD, Lovenox 40mgs daily until day before the surgery due to history of P.E. - Dr. Tripp recommendations appreciated. arnold Maldonado (open reduction planned for today 01/14/18)
[2018-01-14] MEDS ORDERED: Propofol 10 mg/ml Inj (20 ML) ONE (10:20)
[2018-01-14] MEDS ORDERED: Phenylephrine 10 mg/ml Inj ONE (10:21)
[2018-01-14] MEDS ORDERED: ePHEDrine 50 mg/ml Inj ONE (10:21)
[2018-01-14] MEDS ORDERED: Etomidate 20 mg/10ml Inj IV ONE (10:21)
[2018-01-14] MEDS ORDERED: Rocuronium 10 mg/ml (5 ml) ONE ×2 (10:21→11:40)
[2018-01-14] MEDS ORDERED: Sevoflurane - Inhalation Anesthetic Liq (250 ml) ONE (10:21)
[2018-01-14] MEDS ORDERED: Lactated Ringer's 1,000 ML IV ONE ×2 (10:35→12:10)
[2018-01-14] MEDS ORDERED: Vancomycin 1 g Inj IVPB ONE (10:50)
--- NOTE | 2018-01-14 11:24 | CP.PCM.PN ---
Subjective - Date & Time of Evaluation Date of Evaluation: 01/14/18 Time of Evaluation: 08:45 - Subjective Subjective: NO COMPLAINTS Objective - Vital Signs/Intake and Output Vital Signs (last 24 hours): Temp Pulse Resp BP Pulse Ox 97.8 F 77 19 150/84 96 01/14/18 07:59 01/14/18 08:52 01/14/18 07:59 01/14/18 08:52 01/14/18 07:59 - Medications Medications: Current Medications Acetaminophen (Tylenol 325mg Tab) 650 mg PO Q4 PRN PRN Reason: Other Last Admin: 01/07/18 02:43 Dose: 650 mg Albuterol Sulfate (Albuterol 0.083% Inhal Tashia (2.5 Mg/3 Ml) Ud) 2.5 mg INH RQ6 [facility] Last Admin: 01/14/18 07:45 Dose: 2.5 mg Ascorbic Acid (Vitamin C 500 Mg Tab) 1,000 mg PO DAILY [facility] Last Admin: 01/14/18 08:50 Dose: Not Given Atorvastatin Calcium (Lipitor) 10 mg PO DIN [facility] Last Admin: 01/13/18 21:44 Dose: 10 mg Budesonide (Pulmicort Respules) 0.5 mg IH DAILY@0800 [facility] Last Admin: 01/14/18 07:45 Dose: 0.5 mg Calcium Carbonate (Oscal) 500 mg PO DAILY [facility] Last Admin: 01/14/18 08:51 Dose: Not Given Carvedilol (Coreg) 3.125 mg PO BID@0900,2100 [facility] Last Admin: 01/14/18 08:51 Dose: 3.125 mg Cholecalciferol (Vitamin D) 2,000 intlu PO DAILY [facility] Last Admin: 01/14/18 08:50 Dose: Not Given Docusate Sodium (Colace) 200 mg PO HS [facility] Last Admin: 01/13/18 21:44 Dose: 200 mg Donepezil HCl (Aricept) 5 mg PO DAILY [facility] Last Admin: 01/14/18 08:45 Dose: Not Given Hydrochlorothiazide (Hydrodiuril) 25 mg PO DAILY [facility] Last Admin: 01/14/18 08:51 Dose: 25 mg Vancomycin HCl 500 mg/ Sodium (Chloride) 100 mls @ 100 mls/hr IVPB Q12H [facility] PRN Reason: Protocol Last Admin: 01/14/18 08:47 Dose: 100 mls/hr Ketorolac Tromethamine (Toradol) 15 mg IVP Q6 PRN PRN Reason: Pain, moderate (4-7) Last Admin: 01/10/18 16:27 Dose: 15 mg Losartan Potassium (Cozaar) 50 mg PO DAILY [facility] Last Admin: 01/14/18 08:52 Dose: 50 mg Ondansetron HCl (Zofran Inj) 4 mg IVP ONCE PRN PRN Reason: Nausea/Vomiting Pantoprazole Sodium (Protonix Ec Tab) 40 mg PO DAILY [facility] Last Admin: 01/14/18 08:51 Dose: Not Given Potassium Chloride (Klor-Con 10) 10 meq PO DAILY [facility] Last Admin: 01/14/18 08:51 Dose: Not Given Saccharomyces Boulardii (Florastor) 250 mg PO BID [facility] Last Admin: 01/14/18 08:53 Dose: Not Given Tiotropium [place] (Spiriva) 18 mcg INH DAILY [facility] Last Admin: 01/14/18 08:45 Dose: 18 mcg Venlafaxine HCl (Effexor Xr) 225 mg PO DAILY [facility] Last Admin: 01/14/18 08:53 Dose: Not Given - Labs Labs: 01/14/18 06:00 01/14/18 06:00 PT 13.6 Seconds (9.8-13.1) H 01/10/18 09:18 INR 1.2 01/10/18 09:18 APTT 34.6 Seconds (25.6-37.1) 01/05/18 19:05 - Respiratory Exam Respiratory Exam: Clear to Ausculation Bilateral - Cardiovascular Exam Cardiovascular Exam: REGULAR RHYTHM, +S1, +S2 Assessment and Plan - Assessment and Plan (Free Text) Assessment: DISPLACE RIGHT TKR AND QUADRICEPS TEAR HYPERTENSION HYPERLIPIDEMIA HISTORY OF DVT AND PE IN THE PAST Plan: CONTINUE CARVEDILOL, LOSARTAN, ATORVASTATIN, HCTZ, ATORVASTATIN AND ANTIBIOTICS FOR SURGERY TODAY
[2018-01-14] MEDS ORDERED: Esmolol 100 mg/10ml Inj IV ONE (11:38)
[2018-01-14] MEDS ORDERED: Neostigmine 1:1000 (1 mg/ml) Inj ONE (12:28)
--- NOTE | 2018-01-14 13:06 | PCM.SURG1 ---
Surgeon's Initial Post Op Note - Surgeon's Notes Surgeon: Diana Joel MD [employer] Operator: Norman Gutierrez PA-C Type of Anesthesia: General Endo Anesthesia Administered By: Dr. Dueñas Pre-Operative Diagnosis: Right dislocated total knee prosthesis Operative Findings: tourniquet 37 min@350mmHg Post-Operative Diagnosis: same Operation Performed: 1. Revision right total knee replacement, 1 component. 2. Reduction of prosthetic knee dislocation. 3.Reinforcement/repair patellar tendon. 4. Open treatment of right lateral femoral condyle fracture. 5. Excision of heterotopic bone. 6. Posterior capsular release. 7. Lateral retinacular release Specimen/Specimens Removed: heterotopic bone. lateral femoral condyle fragment Estimated Blood Loss: EBL {In ML}: 120 Blood Products Given: N/A Drains Used: Hemovac Post-Op Condition: Fair Date of Surgery/Procedure: 01/14/18 Time of Surgery/Procedure: 13:07
[2018-01-14] MEDS ORDERED: Sodium Chloride 0.9% 1,000 ML IV SCH (13:15)
--- NOTE | 2018-01-14 14:19 | RAD ---
Date of service: 01/14/2018 PROCEDURE: Bilateral Knee Radiographs. HISTORY: pt in PACU, s/p right knee revision, f/u left knee COMPARISON: None. FINDINGS: BONES: Right Knee: Status post reduction right knee dislocation. Status post right knee arthroplasty. Small amount of intra-articular gas seen. No osseous fracture. No evidence of prosthesis loosening. Postoperative changes in anterior soft tissues with cutaneous clement.. Left Knee: Left knee arthroplasty. No fracture. No evidence of prosthesis loosening. JOINTS: Right Knee: Normal. No osteoarthritis. Left knee: Normal. No osteoarthritis. SOFT TISSUES: Right Knee: As above Left Knee: Normal. JOINT EFFUSION: Right Knee: None. Left Knee: None. OTHER FINDINGS: None. IMPRESSION: Status post reduction right knee dislocation. Bilateral total knee replacement.
[2018-01-14] MEDS: Lactated Ringer's 1,000 ML IV SCH (20:10)
[2018-01-15] MEDS: Albuterol 0.083% Inhal Sol (2.5 mg/3 mL) UD INH SCH ×4 (01:00→19:08)
[2018-01-15] MEDS: Budesonide 0.5 mg/2 ml Inhal Susp UD IH SCH (07:20)
--- NOTE | 2018-01-15 08:41 | CP.PCM.PN ---
<Vandana Cueto - Last Filed: 01/15/18 13:41> Subjective - Date & Time of Evaluation Date of Evaluation: 01/15/18 Time of Evaluation: 08:41 - Subjective Subjective: Patient seen and evaluated at bedside with Dr. Wilson. She has been a hard stick- multiple attempts tried by various nurses. She reports feeling well without any pain. She denies chest pain, shortness of breath, abdominal pain, nausea, vomiting or diarrhea. Hemavac was recently emptied, overall reported output was 120cc since surgery - serosanguineous. Objective - Vital Signs/Intake and Output Vital Signs (last 24 hours): Temp Pulse Resp BP Pulse Ox 98.8 F 66 20 161/66 H 100 01/15/18 08:00 01/15/18 08:00 01/15/18 08:00 01/15/18 08:00 01/15/18 08:00 Intake and Output: 01/15/18 01/15/18 06:59 18:59 Intake Total 1325 Output Total 50 Balance 1275 - Medications Medications: Current Medications Acetaminophen (Tylenol 325mg Tab) 650 mg PO Q4 PRN PRN Reason: Other Last Admin: 01/15/18 00:36 Dose: 650 mg Albuterol Sulfate (Albuterol 0.083% Inhal Tashia (2.5 Mg/3 Ml) Ud) 2.5 mg INH RQ6 [facility] Last Admin: 01/15/18 07:20 Dose: 2.5 mg Ascorbic Acid (Vitamin C 500 Mg Tab) 1,000 mg PO DAILY [facility] Last Admin: 01/14/18 08:50 Dose: Not Given Atorvastatin Calcium (Lipitor) 10 mg PO DIN [facility] Last Admin: 01/14/18 17:38 Dose: 10 mg Budesonide (Pulmicort Respules) 0.5 mg IH DAILY@0800 [facility] Last Admin: 01/15/18 07:20 Dose: 0.5 mg Calcium Carbonate (Oscal) 500 mg PO DAILY [facility] Last Admin: 01/14/18 08:51 Dose: Not Given Carvedilol (Coreg) 3.125 mg PO BID@0900,2100 [facility] Last Admin: 01/14/18 20:29 Dose: 3.125 mg Cholecalciferol (Vitamin D) 2,000 intlu PO DAILY [facility] Last Admin: 01/14/18 08:50 Dose: Not Given Docusate Sodium (Colace) 200 mg PO HS [facility] Last Admin: 01/14/18 22:50 Dose: 200 mg Donepezil HCl (Aricept) 5 mg PO DAILY [facility] Last Admin: 01/14/18 08:45 Dose: Not Given Enoxaparin Sodium (Lovenox) 40 mg SC DAILY [facility] PRN Reason: Protocol Hydrochlorothiazide (Hydrodiuril) 25 mg PO DAILY [facility] Last Admin: 01/14/18 08:51 Dose: 25 mg Vancomycin HCl 500 mg/ Sodium (Chloride) 100 mls @ 100 mls/hr IVPB Q12H [facility] PRN Reason: Protocol Last Admin: 01/14/18 20:31 Dose: 100 mls/hr Lactated Ringer's (Lactated Ringer's) 1,000 mls @ 75 mls/hr IV .[id number] [facility] Last Admin: 01/14/18 20:10 Dose: 75 mls/hr Sodium Chloride (Sodium Chloride 0.9%) 1,000 mls @ 40 mls/hr IV .Q24H [facility] Stop: 01/15/18 13:14 Ketorolac Tromethamine (Toradol) 15 mg IVP Q6 PRN PRN Reason: Pain, moderate (4-7) Last Admin: 01/14/18 16:11 Dose: 15 mg Losartan Potassium (Cozaar) 50 mg PO DAILY [facility] Last Admin: 01/14/18 08:52 Dose: 50 mg Morphine Sulfate (Morphine) 1 mg IVP Q4 PRN PRN Reason: Pain, severe (8-10) Last Admin: 01/14/18 20:39 Dose: 1 mg Ondansetron HCl (Zofran Inj) 4 mg IVP ONCE PRN PRN Reason: Nausea/Vomiting Last Admin: 01/14/18 15:17 Dose: 4 mg Pantoprazole Sodium (Protonix Ec Tab) 40 mg PO DAILY [facility] Last Admin: 01/14/18 08:51 Dose: Not Given Potassium Chloride (Klor-Con 10) 10 meq PO DAILY [facility] Last Admin: 01/14/18 08:51 Dose: Not Given Saccharomyces Boulardii (Florastor) 250 mg PO BID [facility] Last Admin: 01/14/18 17:38 Dose: 250 mg Tiotropium [place] (Spiriva) 18 mcg INH DAILY [facility] Last Admin: 01/14/18 08:45 Dose: 18 mcg Venlafaxine HCl (Effexor Xr) 225 mg PO DAILY [facility] Last Admin: 01/14/18 08:53 Dose: Not Given - Labs Labs: 01/14/18 06:00 01/14/18 06:00 PT 13.6 Seconds (9.8-13.1) H 01/10/18 09:18 INR 1.2 01/10/18 09:18 APTT 34.6 Seconds (25.6-37.1) 01/05/18 19:05 - Constitutional Appears: Well, Non-toxic, No Acute Distress - Respiratory Exam Respiratory Exam: Clear to Ausculation Bilateral, NORMAL BREATHING PATTERN. absent: Decreased Breath Sounds, Prolonged Expiratory Phase, Rales, Rhonchi, Wheezes, Respiratory Distress, Stridor - Cardiovascular Exam Cardiovascular Exam: REGULAR RHYTHM, RRR, +S1, +S2, Murmur. absent: Clicks, Gallop, JVD, Rubs, +S4 - GI/Abdominal Exam GI & Abdominal Exam: Soft, Normal Bowel Sounds. absent: Distended, Firm, Guarding, Tenderness, Organomegaly, Pulsatile Mass, Rebound - Extremities Exam Extremities Exam: Normal Inspection, Pedal Edema. absent: Tenderness Additional comments: +2 dorsalis pedis pulses present bilaterally. - Neurological Exam Neurological Exam: Alert, Awake (Oriented to herself- this is baseline as per Daughter Kinjal. 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 Plan: 1.Dislocated Right Total Knee Arthroplasty s/p reduction of prosthetic right knee dislocation (Dr. Joel) 01/14 - Continue pain management with Tordol 15 mg IV Q6 PRN - Patient has bilateral lower extremity immobilizers. - Given patient has hardware and Wound culture positive for Staph species sensitive to Vanco- Pt on Vancomycin Q12H day 5. - Hemavac in place, output - 120 cc ss since the surgery. - Continue to Hold the Eliquis and ASA. 2.UTI- Present on admission - Urine culture positive for Enterococcus faecalis sensitive to Vancomycin: pt on Vancomycin 1 gm Q12h - today is day 5. - Blood cultures negative to date. 3.Urinary Retention Likely post-operative, post-anesthesia Straight Cath x2 Currently on purewick 4. Chronic anemia H/H 01/14/18: 12.8/ 37 2 Units of pRBC's transfused 01/10/18. F/U CBC- Continue to monitor 5. Hypokalemia: - Resolved. - Monitor 6.Abnormal EKG Sinus Rhythm with sinus arrhythmia and PAC with RBBB 79/min Cardiology consult appreciated, Dr Tripp. Patient is cleared from cardiology for OR Continue carvedilol, losartan, HCTZ and atorvastatin. Eliquis on hold 7.COPD Stable Albuterol 2.5 mg INH RQ6 [facility] 8.HTN Controlled BP meds with parameters since BP on the lower side 9.Dementia Chronic 10. Osteoporosis on Vitamin D PO and Calcium supplements 11. DVT Prophylaxis SCD, Lovenox 40mgs daily. <Bindu Wilson - Last Filed: 01/15/18 15:25> Objective - Vital Signs/Intake and Output Vital Signs (last 24 hours): Temp Pulse Resp BP Pulse Ox 99.6 F 64 18 137/68 100 01/15/18 12:00 01/15/18 12:00 01/15/18 12:00 01/15/18 12:00 01/15/18 12:00 Intake and Output: 01/15/18 01/15/18 06:59 18:59 Intake Total 1325 475 Output Total 50 Balance 1275 475 - Medications Medications: Current Medications Acetaminophen (Tylenol 325mg Tab) 650 mg PO Q4 PRN PRN Reason: Other Last Admin: 01/15/18 00:36 Dose: 650 mg Albuterol Sulfate (Albuterol 0.083% Inhal Tashia (2.5 Mg/3 Ml) Ud) 2.5 mg INH RQ6 [facility] Last Admin: 01/15/18 13:29 Dose: 2.5 mg Ascorbic Acid (Vitamin C 500 Mg Tab) 1,000 mg PO DAILY [facility] Last Admin: 01/15/18 11:29 Dose: 1,000 mg Atorvastatin Calcium (Lipitor) 10 mg PO DIN [facility] Last Admin: 01/14/18 17:38 Dose: 10 mg Budesonide (Pulmicort Respules) 0.5 mg IH DAILY@0800 [facility] Last Admin: 01/15/18 07:20 Dose: 0.5 mg Calcium Carbonate (Oscal) 500 mg PO DAILY [facility] Last Admin: 01/15/18 11:28 Dose: 500 mg Carvedilol (Coreg) 3.125 mg PO BID@0900,2100 [facility] Last Admin: 01/15/18 11:24 Dose: 3.125 mg Cholecalciferol (Vitamin D) 2,000 intlu PO DAILY [facility] Last Admin: 01/15/18 11:27 Dose: 2,000 intlu Docusate Sodium (Colace) 200 mg PO HS [facility] Last Admin: 01/14/18 22:50 Dose: 200 mg Donepezil HCl (Aricept) 5 mg PO DAILY [facility] Last Admin: 01/15/18 11:30 Dose: 5 mg Enoxaparin Sodium (Lovenox) 40 mg SC DAILY [facility] PRN Reason: Protocol Last Admin: 01/15/18 11:28 Dose: 40 mg Hydrochlorothiazide (Hydrodiuril) 25 mg PO DAILY [facility] Last Admin: 01/15/18 11:31 Dose: 25 mg Vancomycin HCl 500 mg/ Sodium (Chloride) 100 mls @ 100 mls/hr IVPB Q12H [facility] PRN Reason: Protocol Last Admin: 01/15/18 09:18 Dose: 100 mls/hr Lactated Ringer's (Lactated Ringer's) 1,000 mls @ 75 mls/hr IV .[id number] [facility] Last Admin: 01/14/18 20:10 Dose: 75 mls/hr Ketorolac Tromethamine (Toradol) 15 mg IVP Q6 PRN PRN Reason: Pain, moderate (4-7) Last Admin: 01/14/18 16:11 Dose: 15 mg Losartan Potassium (Cozaar) 50 mg PO DAILY [facility] Last Admin: 01/15/18 11:23 Dose: 50 mg Morphine Sulfate (Morphine) 1 mg IVP Q4 PRN PRN Reason: Pain, severe (8-10) Last Admin: 01/14/18 20:39 Dose: 1 mg Ondansetron HCl (Zofran Inj) 4 mg IVP ONCE PRN PRN Reason: Nausea/Vomiting Last Admin: 01/14/18 15:17 Dose: 4 mg Pantoprazole Sodium (Protonix Ec Tab) 40 mg PO DAILY [facility] Last Admin: 01/15/18 11:27 Dose: 40 mg Potassium Chloride (Klor-Con 10) 10 meq PO DAILY [facility] Last Admin: 01/15/18 11:30 Dose: 10 meq Saccharomyces Boulardii (Florastor) 250 mg PO BID [facility] Last Admin: 01/15/18 11:27 Dose: 250 mg Tiotropium [place] (Spiriva) 18 mcg INH DAILY [facility] Last Admin: 01/14/18 08:45 Dose: 18 mcg Venlafaxine HCl (Effexor Xr) 225 mg PO DAILY [facility] Last Admin: 01/15/18 11:31 Dose: 225 mg - Labs Labs: 01/15/18 12:52 01/15/18 12:52 PT 13.6 Seconds (9.8-13.1) H 01/10/18 09:18 INR 1.2 01/10/18 09:18 APTT 34.6 Seconds (25.6-37.1) 01/05/18 19:05 Attending/Attestation - Attestation I have personally seen and examined this patient.: Yes I have fully participated in the care of the patient.: Yes I have reviewed all pertinent clinical information, including history, physical exam and plan: Yes Notes (Text): Addendum: Dislocated Right Knee Arthroplasty s/p Revision right total knee replacement, 1 component. 2. Reduction of prosthetic knee dislocation. 3.Reinforcement/repair patellar tendon. 4. Open treatment of right lateral femoral condyle fracture. 5. Excision of heterotopic bone. 6. Posterior capsular release. 7. Lateral retinacular - transfer pt to Med Surg - Pt doing well post op - PT/OT consulted
--- NOTE | 2018-01-15 09:33 | CP.PCM.PN ---
Subjective - Date & Time of Evaluation Date of Evaluation: 01/15/18 Time of Evaluation: 08:20 - Subjective Subjective: NO COMPLAINTS Objective - Vital Signs/Intake and Output Vital Signs (last 24 hours): Temp Pulse Resp BP Pulse Ox 98.8 F 66 20 161/66 H 100 01/15/18 08:00 01/15/18 08:00 01/15/18 08:00 01/15/18 08:00 01/15/18 08:00 Intake and Output: 01/15/18 01/15/18 06:59 18:59 Intake Total 1325 Output Total 50 Balance 1275 - Medications Medications: Current Medications Acetaminophen (Tylenol 325mg Tab) 650 mg PO Q4 PRN PRN Reason: Other Last Admin: 01/15/18 00:36 Dose: 650 mg Albuterol Sulfate (Albuterol 0.083% Inhal Tashia (2.5 Mg/3 Ml) Ud) 2.5 mg INH RQ6 [facility] Last Admin: 01/15/18 07:20 Dose: 2.5 mg Ascorbic Acid (Vitamin C 500 Mg Tab) 1,000 mg PO DAILY [facility] Last Admin: 01/14/18 08:50 Dose: Not Given Atorvastatin Calcium (Lipitor) 10 mg PO DIN [facility] Last Admin: 01/14/18 17:38 Dose: 10 mg Budesonide (Pulmicort Respules) 0.5 mg IH DAILY@0800 [facility] Last Admin: 01/15/18 07:20 Dose: 0.5 mg Calcium Carbonate (Oscal) 500 mg PO DAILY [facility] Last Admin: 01/14/18 08:51 Dose: Not Given Carvedilol (Coreg) 3.125 mg PO BID@0900,2100 [facility] Last Admin: 01/14/18 20:29 Dose: 3.125 mg Cholecalciferol (Vitamin D) 2,000 intlu PO DAILY [facility] Last Admin: 01/14/18 08:50 Dose: Not Given Docusate Sodium (Colace) 200 mg PO HS [facility] Last Admin: 01/14/18 22:50 Dose: 200 mg Donepezil HCl (Aricept) 5 mg PO DAILY [facility] Last Admin: 01/14/18 08:45 Dose: Not Given Enoxaparin Sodium (Lovenox) 40 mg SC DAILY [facility] PRN Reason: Protocol Hydrochlorothiazide (Hydrodiuril) 25 mg PO DAILY [facility] Last Admin: 01/14/18 08:51 Dose: 25 mg Vancomycin HCl 500 mg/ Sodium (Chloride) 100 mls @ 100 mls/hr IVPB Q12H [facility] PRN Reason: Protocol Last Admin: 01/15/18 09:18 Dose: 100 mls/hr Lactated Ringer's (Lactated Ringer's) 1,000 mls @ 75 mls/hr IV .[id number] [facility] Last Admin: 01/14/18 20:10 Dose: 75 mls/hr Sodium Chloride (Sodium Chloride 0.9%) 1,000 mls @ 40 mls/hr IV .Q24H [facility] Stop: 01/15/18 13:14 Ketorolac Tromethamine (Toradol) 15 mg IVP Q6 PRN PRN Reason: Pain, moderate (4-7) Last Admin: 01/14/18 16:11 Dose: 15 mg Losartan Potassium (Cozaar) 50 mg PO DAILY [facility] Last Admin: 01/14/18 08:52 Dose: 50 mg Morphine Sulfate (Morphine) 1 mg IVP Q4 PRN PRN Reason: Pain, severe (8-10) Last Admin: 01/14/18 20:39 Dose: 1 mg Ondansetron HCl (Zofran Inj) 4 mg IVP ONCE PRN PRN Reason: Nausea/Vomiting Last Admin: 01/14/18 15:17 Dose: 4 mg Pantoprazole Sodium (Protonix Ec Tab) 40 mg PO DAILY [facility] Last Admin: 01/14/18 08:51 Dose: Not Given Potassium Chloride (Klor-Con 10) 10 meq PO DAILY [facility] Last Admin: 01/14/18 08:51 Dose: Not Given Saccharomyces Boulardii (Florastor) 250 mg PO BID [facility] Last Admin: 01/14/18 17:38 Dose: 250 mg Tiotropium [place] (Spiriva) 18 mcg INH DAILY [facility] Last Admin: 01/14/18 08:45 Dose: 18 mcg Venlafaxine HCl (Effexor Xr) 225 mg PO DAILY [facility] Last Admin: 01/14/18 08:53 Dose: Not Given - Labs Labs: 01/14/18 06:00 01/14/18 06:00 PT 13.6 Seconds (9.8-13.1) H 01/10/18 09:18 INR 1.2 01/10/18 09:18 APTT 34.6 Seconds (25.6-37.1) 01/05/18 19:05 - Respiratory Exam Respiratory Exam: Clear to Ausculation Bilateral - Cardiovascular Exam Cardiovascular Exam: REGULAR RHYTHM, +S1, +S2 - Extremities Exam Additional comments: RLE IN IMMOBILIZER - Additional Findings Additional findings: OR NOTES REVIEWED Assessment and Plan - Assessment and Plan (Free Text) Assessment: REVISION OF RIGHT TKR HYPERTENSION HYPERLIPIDEMIA Plan: CONTINUE LOSARTAN, CARVEDILOL, ATORVASTATIN, LOVENOX, HCTZ
--- NOTE | 2018-01-15 10:53 | OP ---
PROCEDURE DATE: 01/14/2018 PREOPERATIVE DIAGNOSIS: Dislocated right total knee replacement. POSTOPERATIVE DIAGNOSIS: Dislocated right total knee replacement. PROCEDURES: 1. Revision right total knee replacement, one component. 2. Primary repair/reconstruction of patellar ligament. 3. Posterior capsular release. 4. Lateral patellar retinacular release. 5. Anterior and posterior synovectomy. 6. Positioning of fluoroscope, interpretation of video images. SURGEON: Mega Joel MD METAL TRIMMER: Cass Gutierrez PA-C SECOND MOTOR COACH OPERATOR: BRAYAN Pretty ANESTHESIA: General endotracheal anesthesia. ANESTHESIOLOGIST: Des Dueñas MD COMPLICATIONS: No complications. DRAINS: One Hemovac drain. OPERATIVE INDICATIONS: Lorie Machado is an 87-year-old woman, who presents after a right total knee replacement approximately 10 to 12 years ago. The patient presents with an acute right knee dislocation. The patient has failed closed reduction. Pros, cons, risks, and benefits of surgery approach were discussed at length with the patient's daughter, Kinjal and son, Herbie. The possibility of mechanical failure, infection, thromboembolic disease, possibility of secondary or tertiary surgery were discussed. The patient understands the discomfort and wished the surgery to be accomplished. Informed consent was obtained from the patient, who was lucid at that time and from her daughter, Kinjal. The high-risk nature of the procedure was discussed. The number of comorbidities was discussed. OPERATIVE PROCEDURE: After having obtained informed consent, after the satisfactory induction of general endotracheal anesthesia by Dr. Dueñas, after having identified side, site, and procedure and critical pause/time-out, after the satisfactory induction of the anesthetic, the patient was identified as Lorie Machado in the supine position with all bony prominences well padded. The right lower extremity was prepped and free draped in the usual fashion for lower extremity surgery. The tourniquet which had been applied was inflated to 350 mmHg. Incision was described four fingerbreadths superior to the superior aspect of the patella to the area of the tibia. The skin incision was carried down through the skin and subcutaneous tissue. Dissection was carried out medially and laterally to identify the medial and lateral patellar retinaculum. The patella was dislocated as well. There was evidence of chronic contracture with evidence of valgus deformity. Medial arthrotomy was accomplished and great care was taken to dissect posteromedially. The patellar ligament has been essentially partially ruptured. The insertion was protected. At this point in time, there was found to be a fixed contracture of the knee. Dissection was carried around posteromedially. There was evidence of a fracture of the lateral femoral condyle. The wafer bone from the lateral femoral condyle was excised. This having been accomplished, the lateral femoral condyle wafer was excised. There was an area of heterotopic ossification in the area of the lateral gutter as well. A lateral patellar retinacular release was carefully accomplished. Great care was taken to control the superior lateral genicular vessels with the Aqu[place]ys. Medial arthrotomy having been accomplished at this point in time with the lower extremity rotated and flexed, the femur was elevated. The tibia was relocated anteriorly. The tibia having been relocated anteriorly, this having been accomplished, the knee was located. This having been accomplished, the wound was thoroughly irrigated and the tibia was brought out anteriorly. There was found to be a fixed posterior capsular contracture. Taking great care and using the padded lamina auto wheel alignment specialist, padded with lap sponges, the flexion gap was identified. The previous polyethylene insert was removed from its stump tail. This having been accomplished, the polyethylene was removed. The posterior capsule which was contracted was identified. The posterior capsule was elevated. This having been accomplished, the posterior capsule was incised and it was elevated. A lateral patellar retinacular release having been accomplished, patella was identified. The aforementioned patellar ligament injury was noted. At this point in time, the polyethylene was replaced with a thicker polyethylene of 2 mm thicker and there was found to be stability in flexion/extension after an extensive posterior capsular release and lateral patellar retinacular release. Anterior and posterior synovectomies have been accomplished. The wound was thoroughly irrigated at this point in time, verification of position was offered on image intensification views. This having been accomplished, the patellar ligament was reconstructed with Arthrex anchor and with the primary closure to the medial retinaculum. The medial retinacular closure was accomplished using #2 Arthrex after sterilely irrigating. The tourniquet had been deflated and hemostasis had been controlled. Closures in layers over an 8-inch suction Hemovac drain, #2 Arthrex FiberWire, followed by #2 STRATAFIX, #0 STRATAFIX, and clement for skin over an 8-inch suction Hemovac drain. Jerel Montanez compression dressing and knee immobilizers were applied. OPERATIVE PROCEDURES: 1. Revision total knee replacement arthroplasty, one component. 2. Primary repair and reconstruction of the patellar ligament. 3. Open treatment of lateral femoral condylar fracture. 4. Excision of heterotopic ossification. 5. Posterior capsular release. 6. Lateral patellar retinacular release. 7. Anterior and posterior synovectomy. The patient was transferred from the operating room table to the stretcher having tolerated the procedure well. Mega Joel MD
[2018-01-15] MEDS: Pantoprazole 40 mg EC Tab PO SCH (11:27)
[2018-01-15] MEDS: Saccharomyces Boulardi 250 mg Cap PO SCH ×2 (11:27→16:35)
[2018-01-15] MEDS: Cholecalciferol 1,000 INTLU TAB PO SCH (11:27)
[2018-01-15] MEDS: Enoxaparin 40 mg Syringe SC SCH (11:28)
[2018-01-15] MEDS: Potassium Chloride 10 mEq ER Tab PO SCH (11:30)
[2018-01-15] MEDS: Venlafaxine 75 mg ER Cap PO SCH (11:31)
--- NOTE | 2018-01-15 12:10 | CP.PCM.PN ---
Subjective - Date & Time of Evaluation Date of Evaluation: 01/15/18 Time of Evaluation: 12:08 - Subjective Subjective: Patient awake, says she is tired. Denies pain. Objective - Vital Signs/Intake and Output Vital Signs (last 24 hours): Temp Pulse Resp BP Pulse Ox 98.8 F 68 20 144/79 100 01/15/18 08:00 01/15/18 11:24 01/15/18 08:00 01/15/18 11:24 01/15/18 09:59 Intake and Output: 01/15/18 01/15/18 06:59 18:59 Intake Total 1325 150 Output Total 50 Balance 1275 150 - Medications Medications: Current Medications Acetaminophen (Tylenol 325mg Tab) 650 mg PO Q4 PRN PRN Reason: Other Last Admin: 01/15/18 00:36 Dose: 650 mg Albuterol Sulfate (Albuterol 0.083% Inhal Tashia (2.5 Mg/3 Ml) Ud) 2.5 mg INH RQ6 [facility] Last Admin: 01/15/18 07:20 Dose: 2.5 mg Ascorbic Acid (Vitamin C 500 Mg Tab) 1,000 mg PO DAILY [facility] Last Admin: 01/15/18 11:29 Dose: 1,000 mg Atorvastatin Calcium (Lipitor) 10 mg PO DIN [facility] Last Admin: 01/14/18 17:38 Dose: 10 mg Budesonide (Pulmicort Respules) 0.5 mg IH DAILY@0800 [facility] Last Admin: 01/15/18 07:20 Dose: 0.5 mg Calcium Carbonate (Oscal) 500 mg PO DAILY [facility] Last Admin: 01/15/18 11:28 Dose: 500 mg Carvedilol (Coreg) 3.125 mg PO BID@0900,2100 [facility] Last Admin: 01/15/18 11:24 Dose: 3.125 mg Cholecalciferol (Vitamin D) 2,000 intlu PO DAILY [facility] Last Admin: 01/15/18 11:27 Dose: 2,000 intlu Docusate Sodium (Colace) 200 mg PO HS [facility] Last Admin: 01/14/18 22:50 Dose: 200 mg Donepezil HCl (Aricept) 5 mg PO DAILY [facility] Last Admin: 01/15/18 11:30 Dose: 5 mg Enoxaparin Sodium (Lovenox) 40 mg SC DAILY [facility] PRN Reason: Protocol Last Admin: 01/15/18 11:28 Dose: 40 mg Hydrochlorothiazide (Hydrodiuril) 25 mg PO DAILY [facility] Last Admin: 01/15/18 11:31 Dose: 25 mg Vancomycin HCl 500 mg/ Sodium (Chloride) 100 mls @ 100 mls/hr IVPB Q12H [facility] PRN Reason: Protocol Last Admin: 01/15/18 09:18 Dose: 100 mls/hr Lactated Ringer's (Lactated Ringer's) 1,000 mls @ 75 mls/hr IV .[id number] [facility] Last Admin: 01/14/18 20:10 Dose: 75 mls/hr Sodium Chloride (Sodium Chloride 0.9%) 1,000 mls @ 40 mls/hr IV .Q24H [facility] Stop: 01/15/18 13:14 Ketorolac Tromethamine (Toradol) 15 mg IVP Q6 PRN PRN Reason: Pain, moderate (4-7) Last Admin: 01/14/18 16:11 Dose: 15 mg Losartan Potassium (Cozaar) 50 mg PO DAILY [facility] Last Admin: 01/15/18 11:23 Dose: 50 mg Morphine Sulfate (Morphine) 1 mg IVP Q4 PRN PRN Reason: Pain, severe (8-10) Last Admin: 01/14/18 20:39 Dose: 1 mg Ondansetron HCl (Zofran Inj) 4 mg IVP ONCE PRN PRN Reason: Nausea/Vomiting Last Admin: 01/14/18 15:17 Dose: 4 mg Pantoprazole Sodium (Protonix Ec Tab) 40 mg PO DAILY [facility] Last Admin: 01/15/18 11:27 Dose: 40 mg Potassium Chloride (Klor-Con 10) 10 meq PO DAILY [facility] Last Admin: 01/15/18 11:30 Dose: 10 meq Saccharomyces Boulardii (Florastor) 250 mg PO BID [facility] Last Admin: 01/15/18 11:27 Dose: 250 mg Tiotropium [place] (Spiriva) 18 mcg INH DAILY [facility] Last Admin: 01/14/18 08:45 Dose: 18 mcg Venlafaxine HCl (Effexor Xr) 225 mg PO DAILY [facility] Last Admin: 01/15/18 11:31 Dose: 225 mg - Labs Labs: 01/14/18 06:00 09/20/18 06:00 PT 13.6 Seconds (9.8-13.1) H 01/10/18 09:18 INR 1.2 01/10/18 09:18 APTT 34.6 Seconds (25.6-37.1) 01/05/18 19:05 - Extremities Exam Additional comments: hemovac 50cc last shift, approx 15 in canister, pulled RLE: +flex/ext of toes, small movements, +DF ankle, weak, can not get patient to PF foot, but patient is drowsy also, sensation intact to BLE SP/DP/TN +DP/PT pulses via doppler BLE Assessment and Plan (1) Dislocation of prosthetic joint of knee Assessment & Plan: POD#1 s/p reduction, revision right knee d/c planning ortho stable for transfer to med/surg PT/OT NWB RLE, do not remove knee immobilizer xrays reviewed, knee immob d/c LEFT le VTE proph d/w Dr. Joel, agrees with above Status: Acute
[2018-01-15 12:56] LABS: HEMOGLOBIN 11.8 g/dL (12.0-16.0); MEAN CELL VOLUME 86.8 fl (81.0-99.0); MEAN CORPUSCULAR HEMOGLOBIN 29.3 pg (27.0-31.0); MEAN CORPUSCULAR HGB CONC 33.7 g/dL (33.0-37.0); RBC 4.03 Mil/uL (3.80-5.20); RED CELL DISTRIBUTION WIDTH 15.7 % (11.5-14.5); WHITE BLOOD COUNT 9.6 K/uL (4.8-10.8)
[2018-01-15 13:08] LABS: BLOOD UREA NITROGEN 11 mg/dl (7-17); CALCIUM 8.8 mg/dL (8.4-10.2); GFR NON-AFRICAN AMERICAN > 60
[2018-01-15] MEDS: Tiotropium 18 mcg Cap For Inhalation INH SCH (16:33)
--- NOTE | 2018-01-15 17:21 | CP.PCM.PN ---
Subjective - Date & Time of Evaluation Date of Evaluation: 01/15/18 Time of Evaluation: 17:16 - Subjective Subjective: I D NOTE POST OP F/U URINE CULTURES ARE NEGATIVE CONTINUE VANCOMYCIN POST SURGERY Objective - Vital Signs/Intake and Output Vital Signs (last 24 hours): Temp Pulse Resp BP Pulse Ox 99 F 65 20 130/80 100 01/15/18 16:00 01/15/18 16:00 01/15/18 16:00 01/15/18 16:00 01/15/18 16:00 Intake and Output: 01/15/18 01/15/18 06:59 18:59 Intake Total 1325 775 Output Total 50 Balance 1275 775 - Medications Medications: Current Medications Acetaminophen (Tylenol 325mg Tab) 650 mg PO Q4 PRN PRN Reason: Other Last Admin: 01/15/18 00:36 Dose: 650 mg Albuterol Sulfate (Albuterol 0.083% Inhal Tashia (2.5 Mg/3 Ml) Ud) 2.5 mg INH RQ6 [facility] Last Admin: 01/15/18 13:29 Dose: 2.5 mg Ascorbic Acid (Vitamin C 500 Mg Tab) 1,000 mg PO DAILY [facility] Last Admin: 01/15/18 11:29 Dose: 1,000 mg Atorvastatin Calcium (Lipitor) 10 mg PO DIN [facility] Last Admin: 01/15/18 16:35 Dose: 10 mg Budesonide (Pulmicort Respules) 0.5 mg IH DAILY@0800 [facility] Last Admin: 01/15/18 07:20 Dose: 0.5 mg Calcium Carbonate (Oscal) 500 mg PO DAILY [facility] Last Admin: 01/15/18 11:28 Dose: 500 mg Carvedilol (Coreg) 3.125 mg PO BID@0900,2100 [facility] Last Admin: 01/15/18 11:24 Dose: 3.125 mg Cholecalciferol (Vitamin D) 2,000 intlu PO DAILY [facility] Last Admin: 01/15/18 11:27 Dose: 2,000 intlu Docusate Sodium (Colace) 200 mg PO HS [facility] Last Admin: 01/14/18 22:50 Dose: 200 mg Donepezil HCl (Aricept) 5 mg PO DAILY [facility] Last Admin: 01/15/18 11:30 Dose: 5 mg Enoxaparin Sodium (Lovenox) 40 mg SC DAILY [facility] PRN Reason: Protocol Last Admin: 01/15/18 11:28 Dose: 40 mg Hydrochlorothiazide (Hydrodiuril) 25 mg PO DAILY [facility] Last Admin: 01/15/18 11:31 Dose: 25 mg Vancomycin HCl 500 mg/ Sodium (Chloride) 100 mls @ 100 mls/hr IVPB Q12H [facility] PRN Reason: Protocol Last Admin: 01/15/18 09:18 Dose: 100 mls/hr Lactated Ringer's (Lactated Ringer's) 1,000 mls @ 75 mls/hr IV .[id number] [facility] Last Admin: 01/14/18 20:10 Dose: 75 mls/hr Ketorolac Tromethamine (Toradol) 15 mg IVP Q6 PRN PRN Reason: Pain, moderate (4-7) Last Admin: 01/14/18 16:11 Dose: 15 mg Losartan Potassium (Cozaar) 50 mg PO DAILY [facility] Last Admin: 01/15/18 11:23 Dose: 50 mg Morphine Sulfate (Morphine) 1 mg IVP Q4 PRN PRN Reason: Pain, severe (8-10) Last Admin: 01/14/18 20:39 Dose: 1 mg Ondansetron HCl (Zofran Inj) 4 mg IVP ONCE PRN PRN Reason: Nausea/Vomiting Last Admin: 01/14/18 15:17 Dose: 4 mg Pantoprazole Sodium (Protonix Ec Tab) 40 mg PO DAILY [facility] Last Admin: 01/15/18 11:27 Dose: 40 mg Potassium Chloride (Klor-Con 10) 10 meq PO DAILY [facility] Last Admin: 01/15/18 11:30 Dose: 10 meq Saccharomyces Boulardii (Florastor) 250 mg PO BID [facility] Last Admin: 01/15/18 16:35 Dose: 250 mg Tiotropium [place] (Spiriva) 18 mcg INH DAILY [facility] Last Admin: 01/15/18 16:33 Dose: 18 mcg Venlafaxine HCl (Effexor Xr) 225 mg PO DAILY [facility] Last Admin: 01/15/18 11:31 Dose: 225 mg - Labs Labs: 01/15/18 12:52 01/15/18 12:52 PT 13.6 Seconds (9.8-13.1) H 01/10/18 09:18 INR 1.2 09/16/18 09:18 APTT 34.6 Seconds (25.6-37.1) 01/05/18 19:05
[2018-01-15] MEDS: Lactated Ringer's 1,000 ML IV SCH (19:01)
[2018-01-16] MEDS: Albuterol 0.083% Inhal Sol (2.5 mg/3 mL) UD INH SCH ×4 (02:12→14:05)
[2018-01-16] MEDS: Lactated Ringer's 1,000 ML IV SCH ×2 (06:00→07:25)
[2018-01-16 06:57] LABS: HEMOGLOBIN 10.5 g/dL (12.0-16.0); MEAN CELL VOLUME 86.5 fl (81.0-99.0); MEAN CORPUSCULAR HEMOGLOBIN 29.4 pg (27.0-31.0); RBC 3.57 Mil/uL (3.80-5.20); RED CELL DISTRIBUTION WIDTH 15.3 % (11.5-14.5); WHITE BLOOD COUNT 8.7 K/uL (4.8-10.8)
[2018-01-16 07:16] LABS: BLOOD UREA NITROGEN 11 mg/dl (7-17); CALCIUM 8.7 mg/dL (8.4-10.2); GFR NON-AFRICAN AMERICAN > 60
[2018-01-16] MEDS ORDERED: Insulin Lispro (humaLOG) 100 Units/ml Inj SC SCH (07:30)
[2018-01-16 07:48] VITALS: O2SAT 100
[2018-01-16] MEDS: Budesonide 0.5 mg/2 ml Inhal Susp UD IH SCH (07:59)
[2018-01-16] MEDS ORDERED: Potassium Chloride 20 mEq/15 ml LIQ UD PO ONE (08:11)
[2018-01-16] MEDS ORDERED: SILVASORB ANTIMICROBIAL WOUND GEL TP SCH (09:00)
--- NOTE | 2018-01-16 09:34 | CP.PCM.DIS ---
Provider - Provider Date of Admission: 01/05/18 21:28 Attending physician: Francisco Hernandez Consults: Dr Joel: Ortho Dr Jordan: ID Dr Tripp: Cardiology Time Spent in preparation of Discharge (in minutes): 40 Diagnosis - Discharge Diagnosis (1) Dislocation of prosthetic joint of knee Status: Acute Comment: . s/p Revision right total knee replacement, 1 component. 2. Reduction of prosthetic knee dislocation. 3.Reinforcement/repair patellar tendon. 4. Open treatment of right lateral femoral condyle fracture. 5. Excision of heterotopic bone. 6. Posterior capsular release. 7. Lateral retinacular (2) Hypertension Status: Chronic Comment: Stable. C/w current meds. Evaluated by Cardiology (3) Dementia Status: Chronic (4) UTI (lower urinary tract infection) Status: Acute Comment: EFecaelis UTI, On Vanco IV. Evaluated by ID and recs 2 weeks of renal adjusted dose of IV Vanco (5) History of pulmonary embolism Status: Chronic Comment: Stable. C/w Eliquis as outpatient Hospital Course - Lab Results Lab Results: Micro Results 01/12/18 15:58 Urine,Catheterized Urine Culture - Final No Growth (<1,000 CFU/ML) 01/06/18 18:16 Other: Please Indicate Mycobacterial Culture - Preliminary 01/06/18 18:14 Knee - Right Gram Stain - Final 01/06/18 18:14 Knee - Right Wound Culture - Final Coagulase Neg Staphylococcus 01/06/18 18:14 Knee - Right Gram Stain - Final 01/06/18 18:14 Knee - Right Anaerobic Culture - Final NO ANAEROBES ISOLATED. 01/06/18 18:14 Knee - Right Wound Culture - Final Coagulase Neg Staphylococcus 01/09/18 11:40 Urine,Catheterized Urine Culture - Final Enterococcus Faecalis 01/05/18 19:05 Blood-Venous Blood Culture - Final NO GROWTH AFTER 5 DAYS 01/05/18 19:05 Blood-Venous Gram Stain - Final TEST NOT PERFORMED 01/05/18 19:35 Blood-Venous Blood Culture - Final NO GROWTH AFTER 5 DAYS 01/05/18 19:35 Blood-Venous Gram Stain - Final TEST NOT PERFORMED 01/06/18 18:14 Knee - Right Gram Stain - Final 01/06/18 18:14 Knee - Right Wound Culture - Final Staphylococcus Sp Coag Neg 01/06/18 18:14 Synovial Fluid Gram Stain - Final 01/06/18 18:14 Synovial Fluid Body Fluid Culture - Final NO GROWTH AFTER 4 DAYS 01/06/18 18:14 Knee - Right Gram Stain - Final 01/06/18 18:14 Knee - Right Wound Culture - Final No Growth 01/06/18 18:14 Knee - Right Gram Stain - Final 01/06/18 18:14 Knee - Right Wound Culture - Final No growth. 01/06/18 18:14 Knee - Right Gram Stain - Final 01/06/18 18:14 Knee - Right Wound Culture - Final Coagulase Neg Staphylococcus 01/06/18 18:14 Knee - Right Gram Stain - Final 01/06/18 18:14 Knee - Right Wound Culture - Final No growth. 01/06/18 18:14 Knee - Right Gram Stain - Final 01/06/18 18:14 Knee - Right Wound Culture - Final No growth. 01/06/18 18:14 Knee - Right Anaerobic Culture - Final NO ANAEROBES ISOLATED. Most Recent Lab Values WBC 8.7 K/uL (4.8-10.8) 01/16/18 05:20 RBC 3.57 Mil/uL (3.80-5.20) L 01/16/18 05:20 Hgb 10.5 g/dL (12.0-16.0) L 01/16/18 05:20 Hct 30.9 % (34.0-47.0) L 01/16/18 05:20 MCV 86.5 fl (81.0-99.0) 01/16/18 05:20 MCH 29.4 pg (27.0-31.0) 01/16/18 05:20 MCHC 34.0 g/dL (33.0-37.0) 01/16/18 05:20 RDW 15.3 % (11.5-14.5) H 01/16/18 05:20 Plt Count 166 K/uL (130-400) 01/16/18 05:20 MPV 9.1 fl (7.2-11.7) 01/05/18 19:05 Neut % (Auto) 67.5 % (50.0-75.0) 01/05/18 19:05 Lymph % (Auto) 19.7 % (20.0-40.0) L 01/05/18 19:05 Webb % (Auto) 9.2 % (0.0-10.0) 01/05/18 19:05 Eos % (Auto) 2.6 % (0.0-4.0) 01/05/18 19:05 Baso % (Auto) 1.0 % (0.0-2.0) 01/05/18 19:05 Neut # (Auto) 5.7 K/uL (1.8-7.0) 01/05/18 19:05 Lymph # (Auto) 1.7 K/uL (1.0-4.3) 01/05/18 19:05 Webb # (Auto) 0.8 K/uL (0.0-0.8) 01/05/18 19:05 Eos # (Auto) 0.2 K/uL (0.0-0.7) 01/05/18 19:05 Baso # (Auto) 0.1 K/uL (0.0-0.2) 01/05/18 19:05 PT 13.6 Seconds (9.8-13.1) H 01/10/18 09:18 INR 1.2 01/10/18 09:18 APTT 34.6 Seconds (25.6-37.1) 01/05/18 19:05 pO2 20 mm/Hg (30-55) L 01/05/18 18:52 VBG pH 7.42 (7.32-7.43) 01/05/18 18:52 VBG pCO2 44 mmHg (40-60) 01/05/18 18:52 VBG HCO3 26.3 mmol/L 01/05/18 18:52 VBG Total CO2 29.9 mmol/L (22-28) H 01/05/18 18:52 VBG O2 Sat (Calc) 52.2 % (40-65) 01/05/18 18:52 VBG Base Excess 3.4 mmol/L (0.0-2.0) H 01/05/18 18:52 VBG Potassium 3.9 mmol/L (3.6-5.2) 01/05/18 18:52 Sodium 137.0 mmol/L (132-148) 01/05/18 18:52 Chloride 107.0 mmol/L (98-107) 01/05/18 18:52 Glucose 155 mg/dL (65-105) H 01/05/18 18:52 Lactate 1.9 mmol/L (0.7-2.1) 01/05/18 18:52 FiO2 21.0 % 01/05/18 18:52 Sodium 138 mmol/l (132-148) 01/16/18 05:20 Potassium 3.1 MMOL/L (3.6-5.0) L 01/16/18 05:20 Chloride 105 mmol/L (98-107) 01/16/18 05:20 Carbon Dioxide 30 mmol/L (22-30) 01/16/18 05:20 Anion Gap 6 (10-20) L 01/16/18 05:20 BUN 11 mg/dl (7-17) 01/16/18 05:20 Creatinine 0.5 mg/dl (0.7-1.2) L 01/16/18 05:20 Est GFR ( Amer) > 60 01/16/18 05:20 Est GFR (Non-Af Amer) > 60 01/16/18 05:20 POC Glucose (mg/dL) 100 mg/dL (65-110) 01/16/18 05:25 Random Glucose 102 mg/dL (65-105) 01/16/18 05:20 Calcium 8.7 mg/dL (8.4-10.2) 01/16/18 05:20 Total Bilirubin 0.3 mg/dl (0.2-1.3) 01/05/18 19:05 AST 19 U/L (14-36) 01/05/18 19:05 ALT 19 U/L (9-52) 01/05/18 19:05 Alkaline Phosphatase 93 U/L (38-126) 01/05/18 19:05 Troponin I 0.0200 ng/mL (0.00-0.120) 01/05/18 19:05 Total Protein 6.8 G/DL (6.3-8.2) 01/05/18 19:05 Albumin 3.3 g/dL (3.5-5.0) L 01/05/18 19:05 Globulin 3.5 gm/dL (2.2-3.9) 01/05/18 19:05 Albumin/Globulin Ratio 0.9 (1.0-2.1) L 01/05/18 19:05 Venous Blood Potassium 3.9 mmol/L (3.6-5.2) 01/05/18 18:52 Urine Color Yellow (YELLOW) 01/12/18 15:58 Urine Clarity Slighty-cloudy (Clear) 01/12/18 15:58 Urine pH 6.0 (5.0-8.0) 01/12/18 15:58 Ur Specific [place] 1.013 (1.003-1.030) 01/12/18 15:58 Urine Protein Negative mg/dL (NEGATIVE) 01/12/18 15:58 Urine Glucose (UA) Neg mg/dL (Normal) 01/12/18 15:58 Urine Ketones Negative mg/dL (NEGATIVE) 01/12/18 15:58 Urine Blood Trace (NEGATIVE) 01/12/18 15:58 Urine Nitrate Negative (NEGATIVE) 01/12/18 15:58 Urine Bilirubin Negative (NEGATIVE) 01/12/18 15:58 Urine Urobilinogen 0.2-1.0 mg/dL (0.2-1.0) 01/12/18 15:58 Ur Leukocyte Esterase Small [place]/uL (Negative) 01/12/18 15:58 Urine RBC (Auto) 21 /hpf (0-3) H 01/12/18 15:58 Urine WBC Clumps (Auto) Mod /hpf (NONE) H 01/08/18 16:51 Urine Microscopic WBC 15 /hpf (0-5) H 01/12/18 15:58 Ur Squamous Epith Cells < 1 /hpf (0-5) 01/12/18 15:58 Urine Bacteria Rare (<OCC) 01/12/18 15:58 Hyaline Casts 3-5 /hpf (0-2) H 01/12/18 15:58 Fluid Type Synovial fluid 01/06/18 18:14 Synovial WBC 1646.0 /mm3 (0.0-150.0) H 01/06/18 18:14 Synovial RBC 343535.0 /mm3 (0.0-0.0) H 01/06/18 18:14 Synovial Neutrophils 78.0 % (0-0) H 01/06/18 18:14 Synovial Lymphocytes 12.0 % (0-0) H 01/06/18 18:14 Synov Monos/Macrophage 10 % (0-0) H 01/06/18 18:14 Synovial Fluid Comment Bloody 01/06/18 18:14 Vancomycin Trough 15.1 ug/mL (5.0-10.0) H 01/15/18 17:44 Blood Type B POSITIVE 01/10/18 09:18 Antibody Screen Negative 01/10/18 09:18 Crossmatch See Detail 01/10/18 09:18 BBK History Checked Patient has bt 01/10/18 09:18 - Hospital Course Hospital Course: 87 y/o F with PMhx of HTN and Dementia was brought to hosp for Dislocated Right Knee Arthroplasty patient was evaluated by Ortho Dr Joel who performed Revision right total knee replacement, 1 component. 2. Reduction of prosthetic knee dislocation. 3.Reinforcement/repair patellar tendon. 4. Open treatment of right lateral femoral condyle fracture. 5. Excision of heterotopic bone. 6. Posterior capsular release. 7. Lateral retinacular. Patient also had a UCx postiive for EFaecalis and was started on IV Vanco. ID evaluated the patient as well as Cardiology for hx of HTN and DVT/PE in the past. Meds were optimized and patient has remained stable after Surgery. She is to be DC today to fdc to c/w IV Vancomycin after cleared by Ortho and to c/w current meds Discharge Exam - Head Exam Head Exam: NORMOCEPHALIC - Eye Exam Eye Exam: EOMI, PERRL - Respiratory Exam Respiratory Exam: Clear to PA & Lateral, NORMAL BREATHING PATTERN, UNREMARKABLE - Cardiovascular Exam Cardiovascular Exam: REGULAR RHYTHM, Systolic Murmur. absent: Gallop - GI/Abdominal Exam GI & Abdominal Exam: Normal Bowel Sounds, Soft, Unremarkable. absent: Tenderness - Extremities Exam Extremities exam: pedal edema (R/foot) Additional comments: R/knee immobilizer in place. NO signs of acute neurovascular compromise in LE - Neurological Exam Neurological exam: Alert Additional comments: Bedbound. Mod to Severe cognitive impairment - Skin Skin Exam: Normal Color Discharge Plan - Discharge Medications Prescriptions: Potassium Chloride [K-Dur 20 mEq ER Tab] 20 meq PO DAILY #30 tab - Follow Up Plan Condition: FAIR Disposition: REHAB FACILITY/REHAB UNIT Instructions: Total Knee Replacement (DC), Knee Immobilizer (DC) Additional Instructions: follow up with primary MD and ortho MD 1 week Referrals: Mega Joel III, MD [Staff Provider] - Christopher Jordan MD [Medical Doctor] - Darren Webb MD [Family Provider] -
[2018-01-16] MEDS: Venlafaxine 75 mg ER Cap PO SCH (09:56)
[2018-01-16] MEDS: Saccharomyces Boulardi 250 mg Cap PO SCH (09:56)
[2018-01-16] MEDS: Enoxaparin 40 mg Syringe SC SCH (09:57)
[2018-01-16] MEDS: Potassium Chloride 10 mEq ER Tab PO SCH (09:57)
[2018-01-16] MEDS: Pantoprazole 40 mg EC Tab PO SCH (09:58)
[2018-01-16] MEDS: Tiotropium 18 mcg Cap For Inhalation INH SCH (09:59)
[2018-01-16] MEDS: Cholecalciferol 1,000 INTLU TAB PO SCH (10:00)
--- NOTE | 2018-01-16 13:15 | CP.PCM.PN ---
Subjective - Date & Time of Evaluation Date of Evaluation: 01/16/18 Time of Evaluation: 11:30 - Subjective Subjective: NO COMPLAINTS Objective - Vital Signs/Intake and Output Vital Signs (last 24 hours): Temp Pulse Resp BP Pulse Ox 98.4 F 67 20 121/68 100 01/16/18 07:47 01/16/18 09:55 01/16/18 07:47 01/16/18 09:55 01/16/18 07:47 - Medications Medications: Current Medications Acetaminophen (Tylenol 325mg Tab) 650 mg PO Q4 PRN PRN Reason: Other Last Admin: 01/15/18 00:36 Dose: 650 mg Albuterol Sulfate (Albuterol 0.083% Inhal Tashia (2.5 Mg/3 Ml) Ud) 2.5 mg INH RQ6 [facility] Last Admin: 01/16/18 07:59 Dose: 2.5 mg Ascorbic Acid (Vitamin C 500 Mg Tab) 1,000 mg PO DAILY [facility] Last Admin: 01/16/18 10:00 Dose: 1,000 mg Atorvastatin Calcium (Lipitor) 10 mg PO DIN [facility] Last Admin: 01/15/18 16:35 Dose: 10 mg Budesonide (Pulmicort Respules) 0.5 mg IH DAILY@0800 [facility] Last Admin: 01/16/18 07:59 Dose: 0.5 mg Calcium Carbonate (Oscal) 500 mg PO DAILY [facility] Last Admin: 01/16/18 09:59 Dose: 500 mg Carvedilol (Coreg) 3.125 mg PO BID@0900,2100 [facility] Last Admin: 01/16/18 09:54 Dose: 3.125 mg Cholecalciferol (Vitamin D) 2,000 intlu PO DAILY [facility] Last Admin: 01/16/18 10:00 Dose: 2,000 intlu Docusate Sodium (Colace) 200 mg PO HS [facility] Last Admin: 01/15/18 21:13 Dose: 200 mg Donepezil HCl (Aricept) 5 mg PO DAILY [facility] Last Admin: 01/15/18 11:30 Dose: 5 mg Enoxaparin Sodium (Lovenox) 40 mg SC DAILY [facility] PRN Reason: Protocol Last Admin: 01/16/18 09:57 Dose: 40 mg Hydrochlorothiazide (Hydrodiuril) 25 mg PO DAILY [facility] Last Admin: 01/16/18 09:56 Dose: 25 mg Vancomycin HCl 500 mg/ Sodium (Chloride) 100 mls @ 100 mls/hr IVPB Q12H [facility] PRN Reason: Protocol Last Admin: 01/16/18 10:03 Dose: 100 mls/hr Lactated Ringer's (Lactated Ringer's) 1,000 mls @ 75 mls/hr IV .[id number] [facility] Last Admin: 01/16/18 07:25 Dose: 75 mls/hr Insulin Human Lispro (Humalog) 0 units SC ACB [facility] PRN Reason: Protocol Ketorolac Tromethamine (Toradol) 15 mg IVP Q6 PRN PRN Reason: Pain, moderate (4-7) Last Admin: 01/14/18 16:11 Dose: 15 mg Losartan Potassium (Cozaar) 50 mg PO DAILY [facility] Last Admin: 01/16/18 09:55 Dose: 50 mg Morphine Sulfate (Morphine) 1 mg IVP Q4 PRN PRN Reason: Pain, severe (8-10) Last Admin: 01/16/18 03:41 Dose: 1 mg Ondansetron HCl (Zofran Inj) 4 mg IVP ONCE PRN PRN Reason: Nausea/Vomiting Last Admin: 01/14/18 15:17 Dose: 4 mg Pantoprazole Sodium (Protonix Ec Tab) 40 mg PO DAILY [facility] Last Admin: 01/16/18 09:58 Dose: 40 mg Potassium Chloride (Klor-Con 10) 10 meq PO DAILY [facility] Last Admin: 01/16/18 09:57 Dose: 10 meq Saccharomyces Boulardii (Florastor) 250 mg PO BID [facility] Last Admin: 01/16/18 09:56 Dose: 250 mg Tiotropium [place] (Spiriva) 18 mcg INH DAILY [facility] Last Admin: 01/16/18 09:59 Dose: 18 mcg Venlafaxine HCl (Effexor Xr) 225 mg PO DAILY [facility] Last Admin: 01/16/18 09:56 Dose: 225 mg - Labs Labs: 01/16/18 05:20 01/16/18 05:20 PT 13.6 Seconds (9.8-13.1) H 01/10/18 09:18 INR 1.2 01/10/18 09:18 APTT 34.6 Seconds (25.6-37.1) 01/05/18 19:05 - Respiratory Exam Respiratory Exam: Clear to Ausculation Bilateral - Cardiovascular Exam Cardiovascular Exam: REGULAR RHYTHM, +S1, +S2 - Extremities Exam Additional comments: RLE WITH IMMOBILIZER LLE WITHOUT EDEMA Assessment and Plan - Assessment and Plan (Free Text) Assessment: REPAIR OF RIGHT TKR DISLOCATION HYPERTENSION HYPERLIPIDEMIA Plan: CONTINUE LOSARTAN, CARVEDILOL, ATORVASTATIN, HCTZ, LOVENOX FOR DISCHARGE TODAY
[2018-01-16 16:03] VITALS: BP 105/53; PULSE 61; RESP 18; TEMP 98.3
--- NOTE | 2018-01-28 21:34 | PQF ---
PROVIDER RESPONSE TEXT: The ulcer at the left posterior knee was a venous stasis ulcer limited to break down of skin. REVIEWER QUERY TEXT: Skin Ulcer Type and Severity Skin ulcer is documented in the Medical Record. Please specify the type and severity Such as: Type: -- Pressure ulcer -- Diabetic skin ulcer -- Venous stasis ulcer -- Other, please specify Severity: -- Limited to breakdown of skin -- With fat layer exposure -- With necrosis of muscle -- With necrosis of bone -- Other, please specify The patient's Clinical Indicators include: History and Physical " left posterior knee ulcer unstageable." Query created by: Sammi Moya on 01/18/2018 1:49 PM Electronically signed by: Francisco Hernandez MD 01/28/2018 8:17 PM
== END 2018-01-16 16:40 | DRG 467 ==
LOC: H.ER 17:54 → H.ERHOLD 21:28 → H.MEDSURG1 23:51 → H.ICU/CCU 01-14 14:42 → H.ERHOLD 01-15 09:28 → H.ICU/CCU 01-15 09:46 → H.MEDSURG1 01-15 23:08
PROVIDERS: ADMIT Internal Medicine; ATTEND Internal Medicine
PROC: 0S9C3ZZ Drainage of Right Knee Joint, Percutaneous Approach (ICD-10-PCS; 2018-01-06)
PROC: 0SSCXZZ Reposition Right Knee Joint, External Approach (ICD-10-PCS; 2018-01-06)
PROC: 30233N1 Transfusion of Nonautologous Red Blood Cells into Peripheral Vein, Percutaneous Approach (ICD-10-PCS; 2018-01-10)
PROC: 0SPC0JZ Removal of Synthetic Substitute from Right Knee Joint, Open Approach (ICD-10-PCS; 2018-01-14)
PROC: 0SNC0ZZ Release Right Knee Joint, Open Approach (ICD-10-PCS; 2018-01-14)
PROC: 0QS Lower Bones, Reposition (ICD-10-PCS; 2018-01-14)
PROC: 0SBC0ZZ Excision of Right Knee Joint, Open Approach (ICD-10-PCS; 2018-01-14)
PROC: 0MQN0ZZ Repair Right Knee Bursa and Ligament, Open Approach (ICD-10-PCS; 2018-01-14)
PROC: 0QBB0ZZ Excision of Right Lower Femur, Open Approach (ICD-10-PCS; 2018-01-14)
PROC: 0SRC0LA Replacement of Right Knee Joint with Medial Unicondylar Synthetic Substitute, Uncemented, Open Approach (ICD-10-PCS; principal; 2018-01-14 11:15)
DX: T84.022A Instability of internal right knee prosthesis, initial encounter (principal); N39.0 Urinary tract infection, site not specified; S72.421A Displaced fracture of lateral condyle of right femur, initial encounter for closed fracture; L97.821 Non-pressure chronic ulcer of other part of left lower leg limited to breakdown of skin; I10 Essential (primary) hypertension; E78.5 Hyperlipidemia, unspecified; J44.9 Chronic obstructive pulmonary disease, unspecified; F03.90 Unspecified dementia, unspecified severity, without behavioral disturbance, psychotic disturbance, mood disturbance, and anxiety; Z86.711 Personal history of pulmonary embolism; Z86.718 Personal history of other venous thrombosis and embolism; E87.6 Hypokalemia; E86.0 Dehydration; E78.00 Pure hypercholesterolemia, unspecified; Z74.01 Bed confinement status; F41.9 Anxiety disorder, unspecified; F32.9 Major depressive disorder, single episode, unspecified; Y79.2 Prosthetic and other implants, materials and accessory orthopedic devices associated with adverse incidents; Z79.01 Long term (current) use of anticoagulants; Z87.891 Personal history of nicotine dependence; I45.10 Unspecified right bundle-branch block; M81.0 Age-related osteoporosis without current pathological fracture; D64.9 Anemia, unspecified; I70.201 Unspecified atherosclerosis of native arteries of extremities, right leg; M25.461 Effusion, right knee; Z66 Do not resuscitate; R33.8 Other retention of urine; N99.89 Other postprocedural complications and disorders of genitourinary system; Y83.8 Other surgical procedures as the cause of abnormal reaction of the patient, or of later complication, without mention of misadventure at the time of the procedure; B95.2 Enterococcus as the cause of diseases classified elsewhere; B95.7 Other staphylococcus as the cause of diseases classified elsewhere; S76.111A Strain of right quadriceps muscle, fascia and tendon, initial encounter; W19.XXXA Unspecified fall, initial encounter; M24.561 Contracture, right knee; M21.061 Valgus deformity, not elsewhere classified, right knee; M61.9 Calcification and ossification of muscle, unspecified; I87.8 Other specified disorders of veins

== ENCOUNTER 2018-03-08 17:12 | Inpatient (IN) | payer MEDICARE, BC ==
[2018-03-08 17:13] VITALS: BMI 35.9
[2018-03-08] MEDS ORDERED: Povidone Iodine Topical 10% Sol ONE (17:35)
[2018-03-08 18:06] LABS: BASO # 0.1 K/uL (0.0-0.2); BASO % 0.7 % (0.0-2.0); EOS # 0.3 K/uL (0.0-0.7); EOS % 3.8 % (0.0-4.0); HEMOGLOBIN 11.2 g/dL (12.0-16.0); LYMPH # 0.8 K/uL (1.0-4.3); LYMPH % 10.7 % (20.0-40.0); MEAN CORPUSCULAR HEMOGLOBIN 28.9 pg (27.0-31.0); MEAN CORPUSCULAR HGB CONC 32.9 g/dL (33.0-37.0); MEAN PLATELET VOLUME 7.7 fl (7.2-11.7); MONO # 0.7 K/uL (0.0-0.8); MONO % 9.4 % (0.0-10.0); NEUT # 5.7 K/uL (1.8-7.0); NEUT % 75.4 % (50.0-75.0); RBC 3.86 Mil/uL (3.80-5.20); RED CELL DISTRIBUTION WIDTH 16.3 % (11.5-14.5); WHITE BLOOD COUNT 7.5 K/uL (4.8-10.8)
[2018-03-08 18:18] LABS: ALB/GLOB RATIO 0.9 (1.0-2.1); ALBUMIN 3.3 g/dL (3.5-5.0); ALT/SGPT 30 U/L (9-52); AST/SGOT 29 U/L (14-36); BLOOD UREA NITROGEN 23 mg/dl (7-17); CALCIUM 9.4 mg/dL (8.4-10.2); GFR NON-AFRICAN AMERICAN > 60
--- NOTE | 2018-03-08 18:20 | ED PDOC ---
Lower Extremity Pain/Injury Time Seen by Provider: 03/08/18 17:27 Chief Complaint (Nursing): Lower Extremity Problem/Injury Chief Complaint (Provider): right knee wound History Per: Patient, Family (daughter) Additional Complaint(s): 88yo female resident of [facility] presents with complication of R knee wound. State saw Dr Joel about 2 weeks ago and had acute change in appearance per rehab center. No reports fever. Patient has intermittent periods confusion for several months. - Knee Knee: 1 - open wound Past Medical History Reviewed: Historical Data, Nursing Documentation, Vital Signs Vital Signs: Last Vital Signs Temp 98.8 F 03/08/18 17:20 Pulse 74 03/08/18 17:20 Resp 18 03/08/18 17:20 BP 133/74 03/08/18 17:20 Pulse Ox 95 03/08/18 17:20 - Medical History PMH: Anemia, Anxiety, Arthritis, COPD, Dementia, Depression, Deep Vein Thro mbosis, Fractures, HTN, Hypercholesterolemia, Hyperlipidemia, Pulmonary Embolism Denies: Diabetes, Hepatitis, HIV, Personality Disorder, Chronic Kidney Disease, Seizures, Sexually Transmitted Disease - Surgical History Surgical History: - Family History Family History: States: Unknown Family Hx - Immunization History Hx Tetanus Toxoid Vaccination: No Hx Influenza Vaccination: No Hx Pneumococcal Vaccination: No - Home Medications Home Medications: Ambulatory Orders Medication Instructions Recorded RX: Docusate [Colace] 200 mg PO HS 05/06/17 RX: Arformoterol [Brovana] 15 mcg IH [id number] neb 07/23/17 RX: Carvedilol [Coreg] 3.125 mg PO BID #28 tab 07/23/17 RX: Budesonide [Pulmicort Respules] 0.5 mg IH DAILY 11/07/17 RX: Calcium Carbonate [Oscal] 500 mg PO DAILY 11/07/17 RX: Cholecalciferol (Vitamin D3) 2,000 unit PO DAILY 11/07/17 [Vitamin D3] RX: Pantoprazole [Protonix EC Tab] 40 mg PO DAILY 11/07/17 RX: Tiotropium [Spiriva] 18 mcg IH HS 11/07/17 RX: Apixaban [Eliquis] 2.5 mg PO BID 01/05/18 RX: Ferrous Sulfate [Feosol] 325 mg PO DAILY 01/06/18 RX: Potassium Chloride [K-Dur 20 20 meq PO DAILY #30 tab 01/16/18 mEq ER Tab] Acetaminophen [Tylenol 325mg tab] 650 mg PO Q6 PRN 03/08/18 Acetaminophen [Tylenol 325mg tab] 650 mg PO Q6 PRN 03/08/18 Magnesium Oxide [Magox 400] 400 mg PO QPM 03/08/18 Mirtazapine [Remeron] 15 mg PO HS 03/08/18 RX: Atorvastatin [Lipitor] 10 mg PO HS 03/08/18 RX: Losartan [Cozaar] 50 mg PO QPM 03/08/18 RX: oxyCODONE [oxyCODONE Immediate 10 mg PO Q4 PRN 03/08/18 Release Tab] Venlafaxine HCl [Venlafaxine HCl 225 mg PO HS 03/08/18 ER] - Allergies Allergies/Adverse Reactions: Allergies Allergy/AdvReac Type Severity Reaction Status Date / Time trazodone Allergy DIZZINESS Verified 03/08/18 17:20 Review of Systems ROS Statement: Except As Marked, All Systems Reviewed And Found Negative (poor historian) Physical Exam - Reviewed Nursing Documentation Reviewed: Yes Vital Signs Reviewed: Yes - Physical Exam Appears: Positive for: Non-toxic (elderly chronically ill appearing), No Acute Distress Head Exam: Positive for: ATRAUMATIC, NORMAL INSPECTION, NORMOCEPHALIC Skin: Positive for: Normal Color, Warm, DRY Eye Exam: Positive for: EOMI, Normal appearance, PERRL ENT: Positive for: Normal ENT Inspection Neck: Positive for: Normal, Painless ROM Cardiovascular/Chest: Positive for: Regular Rate, Rhythm Respiratory: Positive for: CNT, Normal Breath Sounds Gastrointestinal/Abdominal: Positive for: Soft Extremity: Positive for: Other (R knee wound dehiscence hardware and patella visible minimal drainage; L knee incision intact) Neurologic/Psych: Positive for: Alert, Oriented (periods confusion) - Laboratory Results Result Diagrams: 03/11/18 05:15 03/11/18 05:15 - ECG O2 Sat by Pulse Oximetry: 95 Medical Decision Making Medical Decision Making: wound undressed sterile fashion and inspected, discussed w Dr Joel, XRay knee recommended, basic labs and admit hospitalist Wound redressed with sterile dressings and betadine. Disposition - Clinical Impression Clinical Impression: Wound dehiscence - Patient ED Disposition Is Patient to be Admitted: Yes - Disposition Disposition Time: 18:15 Condition: FAIR - Pt Status Changed To: Hospital Disposition Of: Inpatient - Admit Certification Admit to Inpatient:: After my assessment, the patient will require hospitalization for at least two midnights. This is because of the severity of symptoms shown, intensity of services needed, and/or the medical risk in this patient being treated as an outpatient. - POA Present On Arrival: Surgical Site Infection
[2018-03-08] MEDS ORDERED: Patient's Own Med (Arformoterol [Brovana] 15 MCG) IH SCH (20:45)
--- NOTE | 2018-03-08 20:50 | CP.PCM.HP ---
History of Present Illness - History of Present Illness History of Present Illness: 88 y/o F with PMH of HTN, HLD, COPD, hx PE/DVT, chronic anemia, extensive psych hx, S/p Revision of b/l TKR in 11/2017 and chronic dementia brought in to the hospital for evaluation and treatment of Right knee wound s/p surgery. Patient lives in a long-term and is bedridden. All transfers from bed to wheelchair or shower chair are done using a lift. history collected from family and medical records. Patient is alert and awake, family reports S/p R knee replacement, patient never had complete wound healing. Family visited ortho clinic s/p surgery and was told 2 cm open wound will get closed as time passes and c/w wound care. As per family it never got close but now its progressively getting worse and now knee prosthesis can be visualize. Denies any fever, vomiting, diarrhea/constipation, chest pain, SOB or abdominal pain. PMD: Dr. Moran Specialists: Dr. Joel PMHx: HTN, HLD, COPD, hx PE/DVT, chronic anemia, extensive psych hx, S/p Revision of b/l TKR in 11/2017 and chronic dementia SurgHx: bilateral knee replacements, hernia, ORIF of left medial femoral condyle fracture (11/09/2017), S/p Revision of b/l TKR in 11/2017 FMHx: father-stroke; mother-breast cancer SocHx: denies tobacco, Etoh or drugs Medications: see med rec Allergies: Trazodone ROS: As per HPI ER course: VS: Afebrile and stable CBC: no wbc CMP: bun/cr 23/0.6 S/p Xanax Present on Admission - Present on Admission Any Indicators Present on Admission: Yes History of DVT/PE: Yes Past Patient History - Infectious Disease Hx of Infectious Diseases: None - Tetanus Immunizations Tetanus Immunization: Unknown - Past Medical History & Family History Past Medical History?: Yes - Past Social History Smoking Status: Former Smoker - CARDIAC Hx Hypercholesterolemia: Yes Hx Hypertension: Yes - PULMONARY Hx Chronic Obstructive Pulmonary Disease (COPD): Yes Hx Pulmonary Embolism: Yes - NEUROLOGICAL Hx Dementia: Yes Hx Seizures: No - HEENT Hx HEENT Problems: Yes Hx Cataracts: Yes - RENAL Hx Chronic Kidney Disease: No - ENDOCRINE/METABOLIC Hx Endocrine Disorders: No - HEMATOLOGICAL/ONCOLOGICAL Hx Anemia: Yes Hx Human Immunodeficiency Virus (HIV): No - INTEGUMENTARY Hx Dermatological Problems: Yes (HX:Cellulitis of the lower extremities) - MUSCULOSKELETAL/RHEUMATOLOGICAL Hx Arthritis: Yes Hx Fractures: Yes - GASTROINTESTINAL Hx Gastrointestinal Disorders: Yes (GI bleed, herniorhapphy) Hx Gastroesophageal Reflux: Yes - GENITOURINARY/GYNECOLOGICAL Hx Sexually Transmitted Disorders: No - PSYCHIATRIC Hx Anxiety: Yes Hx Depression: Yes - ANESTHESIA Hx Anesthesia: Yes Hx Anesthesia Reactions: No Hx Malignant Hyperthermia: No Meds Allergies/Adverse Reactions: Allergies Allergy/AdvReac Type Severity Reaction Status Date / Time trazodone Allergy DIZZINESS Verified 03/08/18 17:20 Physical Exam - Constitutional Appears: Other (Moaning ) - Head Exam Head Exam: NORMAL INSPECTION - Eye Exam Eye Exam: Normal appearance - ENT Exam ENT Exam: Mucous Membranes Moist - Neck Exam Neck exam: Positive for: Normal Inspection - Respiratory Exam Respiratory Exam: Decreased Breath Sounds, Clear to Auscultation Bilateral, NORMAL BREATHING PATTERN. absent: Accessory Muscle Use, Chest Wall Tenderness - Cardiovascular Exam Cardiovascular Exam: REGULAR RHYTHM, +S1, +S2, Systolic Murmur - GI/Abdominal Exam GI & Abdominal Exam: Normal Bowel Sounds, Soft - Extremities Exam Additional comments: R knee vertical surgical scar, wound dehiscence seen at anterior knee cap, hardware and patella visible with minimal drainage, mild erythema, no clement seen L knee incision intact - Neurological Exam Neurological exam: Alert - Psychiatric Exam Psychiatric exam: Anxious - Skin Skin Exam: Normal Color Results - Vital Signs Recent Vital Signs: Last Vital Signs Temp 98.8 F 03/08/18 17:20 Pulse 79 03/08/18 19:15 Resp 16 03/08/18 19:15 BP 147/70 03/08/18 19:15 Pulse Ox 95 03/08/18 19:29 - Labs Result Diagrams: 03/08/18 18:03 03/08/18 18:03 Labs: Laboratory Results - last 24 hr 03/08/18 03/08/18 18:03 18:03 WBC 7.5 RBC 3.86 Hgb 11.2 L Hct 34.0 MCV 88.0 MCH 28.9 MCHC 32.9 L RDW 16.3 H Plt Count 348 D MPV 7.7 Neut % (Auto) 75.4 H Lymph % (Auto) 10.7 L [place] % (Auto) 9.4 Eos % (Auto) 3.8 Baso % (Auto) 0.7 Neut # (Auto) 5.7 Lymph # (Auto) 0.8 L [place] # (Auto) 0.7 Eos # (Auto) 0.3 Baso # (Auto) 0.1 Sodium 141 Potassium 4.5 Chloride 110 H Carbon Dioxide 21 L Anion Gap 15 BUN 23 H Creatinine 0.6 L Est GFR ( Amer) > 60 Est GFR (Non-Af Amer) > 60 Random Glucose 137 H Calcium 9.4 Total Bilirubin 0.3 AST 29 ALT 30 Alkaline Phosphatase 107 Total Protein 7.0 Albumin 3.3 L Globulin 3.7 Albumin/Globulin Ratio 0.9 L Assessment & Plan - Assessment and Plan (Free Text) Assessment: A/P: 88 y/o F with PMH of HTN, HLD, COPD, hx PE/DVT, chronic anemia, extensive psych hx, S/p Revision of b/l TKR in 11/2017 and chronic dementia brought in to the hospital for evaluation and treatment of Right knee wound s/p surgery Right knee open wound s/p R TKR - Wound dehiscence, hardware and patella visible - Consult Ortho, Dr. Joel, f/u rec - Consult Dr. Nikki PYLE, f/u rec - START Vanco 1gm Q12 day#0 - START Zosyn 2.2 Q6H day #0 - CXR, EKG, Bcx, UA, Ucx Coag ordered - Pain management History of PE/DVT - C/w Eliquis 2.5mg PO BID home dose (Patient qualifies for 5mg PO BID as per pharmacy) Hypertension - Chronic - Controlled - C/w home medications: Coreg, Cozaar COPD - Chronic - Stable - C/w home: Spiriva, Pulmicort, Brovana Q12 HLD - Hold Lipitor for now Dementia - Speech and Swallow eval in morning, Coughing on PO intake Chronic Anemia, unknown etiology - C/w home medications: Iron and Colace DVT PPX - C/w Eliquis and SCD for now, f/u ortho recs
[2018-03-08] MEDS: Tiotropium 18 mcg Cap For Inhalation IH SCH (22:00)
[2018-03-08] MEDS: Venlafaxine 75 mg ER Cap PO SCH (22:00)
[2018-03-08] MEDS: Dextrose 5%/0.9% NS 1,000 ML IV ONE (22:01)
[2018-03-09] MEDS ORDERED: Piperacillin/Tazobact 3.375 gm Inj IVPB ONE (01:03)
[2018-03-09 01:25] LABS: INR 1.3; PROTHROMBIN TIME 14.2 Seconds (9.8-13.1)
[2018-03-09 01:27] LABS: PARTIAL THROMBOPLASTIN TIME 33.8 Seconds (25.6-37.1)
[2018-03-09] MEDS ORDERED: Vancomycin 1 g Inj ONE (01:38)
[2018-03-09 03:00] LABS: SQUAMOUS EPITHIAL 6 /hpf (0-5); URINE BILIRUBIN NEGATIVE (NEGATIVE); URINE BLOOD SMALL (NEGATIVE); URINE CALCIUM OXALATE CRYSTALS OCC /hpf (<OCC); URINE CLARITY TURBID (Clear); URINE COLOR YELLOW (YELLOW); URINE GLUCOSE (UA) NEG (Normal); URINE LEUKOCYTE ESTERASE LARGE Leu/uL (Negative); URINE PROTEIN 30 mg/dL (NEGATIVE); URINE UROBILINOGEN 0.2-1.0 mg/dL (0.2-1.0); WBC CLUMPS FEW /hpf
[2018-03-09] MEDS: Dextrose 5%/0.9% NS 1,000 ML IV ONE (03:30)
--- NOTE | 2018-03-09 08:39 | RAD ---
Date of service: 03/08/2018 PROCEDURE: CHEST RADIOGRAPH, 1 VIEW HISTORY: Dementia COMPARISON: 01/05/2018 FINDINGS: LUNGS: The lungs are well inflated and clear. PLEURA: No pneumothorax or right pleural effusion. Suspect small left pleural effusion. CARDIOVASCULAR: The heart is normal in size. Aortic atherosclerotic calcifications present. 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 VISUALIZED UPPER ABDOMEN: Normal. OTHER FINDINGS: There is a large retrocardiac lucency compatible with a hiatal hernia. IMPRESSION: Suspect small left pleural effusion. Large hiatal hernia.
[2018-03-09] MEDS ORDERED: Budesonide 0.5 mg/2 ml Inhal Susp UD IH SCH (09:00)
[2018-03-09] MEDS: Pantoprazole 40 mg EC Tab PO SCH (09:27)
[2018-03-09] MEDS: Cholecalciferol 1,000 INTLU TAB PO SCH (09:27)
--- NOTE | 2018-03-09 10:52 | RAD ---
Date of service: 03/08/2018 PROCEDURE: Right knee HISTORY: wound dehisence COMPARISON: 01/14/2018 TECHNIQUE: Standard protocol for this study/examination. FINDINGS: New postoperative changes identified including removal of fenestrated screws in both components of the right TKA. Surgical sutures identified. IMPRESSION: Unremarkable postoperative status.
--- NOTE | 2018-03-09 11:56 | CP.PCM.PN ---
<Sean Chiu - Last Filed: 03/09/18 12:07> Subjective - Date & Time of Evaluation Date of Evaluation: 03/09/18 Time of Evaluation: 11:41 - Subjective Subjective: 88 y/o F patient seen and evaluated at the bedside for Right knee dehiscent wound s/p TKR surgery. Patient is poor historian and her information obtained through the chart and her nurse. Patient states that the patient admitted to the hospital yesterday through the ED. She states that the patient didn't have any overnight acute events. She denies any overnight F/N/V/C/C or SOB. Objective - Vital Signs/Intake and Output Vital Signs (last 24 hours): Temp Pulse Resp BP Pulse Ox 97.6 F 68 20 113/70 98 03/09/18 08:56 03/09/18 09:26 03/09/18 08:56 03/09/18 09:26 03/09/18 08:56 - Medications Medications: Current Medications Acetaminophen (Tylenol 325mg Tab) 650 mg PO Q6 PRN PRN Reason: Fever 101 and above Acetaminophen (Tylenol 325mg Tab) 650 mg PO Q6 PRN PRN Reason: Pain, Mild (1-3) Apixaban (Eliquis) 2.5 mg PO BID [facility]; Protocol Last Admin: 03/09/18 09:26 Dose: 2.5 mg Atorvastatin Calcium (Lipitor) 10 mg PO HS [facility] Budesonide (Pulmicort Respules) 0.5 mg IH BID [facility] Calcium Carbonate (Oscal) 500 mg PO DAILY [facility] Last Admin: 03/09/18 09:26 Dose: 500 mg Carvedilol (Coreg) 3.125 mg PO BID [facility] Last Admin: 03/09/18 09:26 Dose: 3.125 mg Cholecalciferol (Vitamin D) 2,000 intlu PO DAILY [facility] Last Admin: 03/09/18 09:27 Dose: 2,000 intlu Docusate Sodium (Colace) 200 mg PO HS [facility] Last Admin: 03/08/18 22:00 Dose: 200 mg Ferrous Sulfate (Feosol) 325 mg PO DAILY [facility] Last Admin: 03/09/18 09:27 Dose: 325 mg Piperacillin Sod/Tazobactam (Sod 2.25 gm/ Sodium Chloride) 100 mls @ 100 mls/hr IVPB Q6 [facility]; Protocol Last Admin: 03/09/18 05:00 Dose: 100 mls/hr Vancomycin HCl 1 gm/ Sodium (Chloride) 250 mls @ 166.667 mls/hr IVPB Q12 [facility]; Protocol Losartan Potassium (Cozaar) 50 mg PO QPM [facility] Magnesium Oxide (Mag-Ox) 400 mg PO QPM [facility] Mirtazapine (Remeron) 15 mg PO [facility] Last Admin: 03/08/18 22:00 Dose: 15 mg Oxycodone HCl (Oxycodone Immediate Release Tab) 10 mg PO Q4 PRN PRN Reason: Pain, moderate (4-7) Pantoprazole Sodium (Protonix Ec Tab) 40 mg PO DAILY [facility] Last Admin: 03/09/18 09:27 Dose: 40 mg Tiotropium [place] (Spiriva) 18 mcg IH [facility] Last Admin: 03/08/18 22:00 Dose: 18 mcg Venlafaxine HCl (Effexor Xr) 225 mg PO [facility] Last Admin: 03/08/18 22:00 Dose: 225 mg - Labs Labs: 03/08/18 18:03 03/08/18 18:03 PT 14.2 Seconds (9.8-13.1) H 03/09/18 01:05 INR 1.3 03/09/18 01:05 APTT 33.8 Seconds (25.6-37.1) 03/09/18 01:05 - Constitutional Appears: No Acute Distress - Head Exam Head Exam: ATRAUMATIC - Eye Exam Eye Exam: EOMI, PERRL - ENT Exam ENT Exam: Mucous Membranes Moist, Normal Exam - Neck Exam Neck Exam: Full ROM, Normal Inspection - Respiratory Exam Respiratory Exam: Clear to Ausculation Bilateral, NORMAL BREATHING PATTERN - Cardiovascular Exam Cardiovascular Exam: REGULAR RHYTHM, RRR - GI/Abdominal Exam GI & Abdominal Exam: Soft, Normal Bowel Sounds - Extremities Exam Extremities Exam: Normal Capillary Refill, Normal Inspection Additional comments: R knee vertical surgical scar, wound dehiscence seen at anterior knee cap, hardware and patella visible with minimal drainage, mild erythema, no clement seen L knee incision intact - Back Exam Back Exam: NORMAL INSPECTION - Neurological Exam Neurological Exam: Alert, Awake Neuro motor strength exam: Left Upper Extremity: 5, Right Upper Extremity: 5, Left Lower Extremity: 5, Right Lower Extremity: 5 - Skin Skin Exam: Dry, Intact, Normal Color, Warm Assessment and Plan - Assessment and Plan (Free Text) Assessment: 88 y/o F patient seen and evaluated at the bedside for Right knee dehiscent wound s/p TKR surgery Plan: Right knee open wound s/p R TKR - Wound dehiscence, hardware and patella visible - Consult Ortho, Dr. Joel, f/u rec - Consult ID, Dr. Jordan, f/u rec - Continue Vanco 1gm Q12 day#1 - Continue Zosyn 2.2 Q6H day #1 - CXR: Hiatal hernia and minimal R pleural effusion. - B/L Knee X-ray: S/P TKR b/l. - Pain management History of PE/DVT - C/w Eliquis 2.5mg PO BID home dose (Patient qualifies for 5mg PO BID as per pharmacy) Hypertension - Chronic - Controlled - C/w home medications: Coreg, Cozaar COPD - Chronic - Stable - C/w home: Spiriva, Pulmicort, Brovana Q12 HLD - Hold Lipitor for now Dementia - Speech and Swallow eval in morning, Coughing on PO intake Chronic Anemia, unknown etiology - C/w home medications: Iron and Colace DVT PPX - C/w Eliquis and SCD for now, f/u ortho recs <Indra Walters D - Last Filed: 03/09/18 16:01> Objective - Vital Signs/Intake and Output Vital Signs (last 24 hours): Temp Pulse Resp BP Pulse Ox 97.6 F 68 20 113/70 98 03/09/18 08:56 03/09/18 09:26 03/09/18 08:56 03/09/18 09:26 03/09/18 08:56 - Medications Medications: Current Medications Acetaminophen (Tylenol 325mg Tab) 650 mg PO Q6 PRN PRN Reason: Fever 101 and above Acetaminophen (Tylenol 325mg Tab) 650 mg PO Q6 PRN PRN Reason: Pain, Mild (1-3) Apixaban (Eliquis) 2.5 mg PO BID [facility]; Protocol Last Admin: 03/09/18 09:26 Dose: 2.5 mg Atorvastatin Calcium (Lipitor) 10 mg PO HS [facility] Budesonide (Pulmicort Respules) 0.5 mg IH BID [facility] Calcium Carbonate (Oscal) 500 mg PO DAILY [facility] Last Admin: 03/09/18 09:26 Dose: 500 mg Carvedilol (Coreg) 3.125 mg PO BID [facility] Last Admin: 03/09/18 09:26 Dose: 3.125 mg Cholecalciferol (Vitamin D) 2,000 intlu PO DAILY [facility] Last Admin: 03/09/18 09:27 Dose: 2,000 intlu Docusate Sodium (Colace) 200 mg PO [facility] Last Admin: 03/08/18 22:00 Dose: 200 mg Ferrous Sulfate (Feosol) 325 mg PO DAILY [facility] Last Admin: 03/09/18 09:27 Dose: 325 mg Piperacillin Sod/Tazobactam (Sod 2.25 gm/ Sodium Chloride) 100 mls @ 100 mls/hr IVPB Q6 [facility]; Protocol Last Admin: 03/09/18 05:00 Dose: 100 mls/hr Vancomycin HCl 1 gm/ Sodium (Chloride) 250 mls @ 166.667 mls/hr IVPB Q12 [facility]; Protocol Losartan Potassium (Cozaar) 50 mg PO QPM [facility] Magnesium Oxide (Mag-Ox) 400 mg PO QPM [facility] Mirtazapine (Remeron) 15 mg PO [facility] Last Admin: 03/08/18 22:00 Dose: 15 mg Oxycodone HCl (Oxycodone Immediate Release Tab) 10 mg PO Q4 PRN PRN Reason: Pain, moderate (4-7) Pantoprazole Sodium (Protonix Ec Tab) 40 mg PO DAILY [facility] Last Admin: 03/09/18 09:27 Dose: 40 mg Tiotropium [place] (Spiriva) 18 mcg IH [facility] Last Admin: 03/08/18 22:00 Dose: 18 mcg Venlafaxine HCl (Effexor Xr) 225 mg PO [facility] Last Admin: 03/08/18 22:00 Dose: 225 mg - Labs Labs: 03/08/18 18:03 03/08/18 18:03 PT 14.2 Seconds (9.8-13.1) H 03/09/18 01:05 INR 1.3 03/09/18 01:05 APTT 33.8 Seconds (25.6-37.1) 03/09/18 01:05 Attending/Attestation - Attestation I have personally seen and examined this patient.: Yes I have fully participated in the care of the patient.: Yes I have reviewed all pertinent clinical information, including history, physical exam and plan: Yes Notes (Text): 03/09/18 15:58 Patient seen and examined with resident. Patient had no complaint but surgical wound on right knee completely dehisced with prosthesis exposed. Minimal yellow discharges noted. Will continue IV Vanco and Zosyn when picc line is inserted.
[2018-03-09] MEDS ORDERED: Povidone Iodine Topical 10% Sol ONE (13:13)
--- NOTE | 2018-03-09 14:15 | CP.PCM.CON ---
History of Present Illness - History of Present Illness History of Present Illness: Orthopedic consult: Dr. Joel Patient is an 88 y/o female well known to the service who presents due to right knee wound dehiscence. The patient is a poor historian due to dementia, history obtained from chart and family. The patient had primary R TKA done approximately 2 1/2 years ago. A right revision TKA was performed on 01/14/18 following an acute right knee prosthetic dislocation. Family notes that the wound breakdown progressed acutely into knee joint and presented to [facility] for evaluation. Patient is bedridden and resides in a detention. Patient has been on Eliquis, last dose today. Denies CP/SOB/N/V/D/fever. Review of Systems - Review of Systems All systems: reviewed and no additional remarkable complaints except Review of Systems: as per HPI Past Patient History - Infectious Disease Hx of Infectious Diseases: None - Tetanus Immunizations Tetanus Immunization: Unknown - Past Medical History & Family History Past Medical History?: Yes Past Family History: Reviewed and not pertinent - Past Social History Smoking Status: Never Smoked Alcohol: None Drugs: Denies - CARDIAC Hx Cardiac Disorders: Yes Hx Hypercholesterolemia: Yes Hx Hypertension: Yes - PULMONARY Hx Respiratory Disorders: Yes Hx Chronic Obstructive Pulmonary Disease (COPD): Yes Hx Pulmonary Embolism: Yes - NEUROLOGICAL Hx Neurological Disorder: Yes Hx Dementia: Yes Hx Seizures: No - HEENT Hx HEENT Problems: Yes Hx Cataracts: Yes - RENAL Hx Chronic Kidney Disease: No - ENDOCRINE/METABOLIC Hx Endocrine Disorders: No - HEMATOLOGICAL/ONCOLOGICAL Hx Blood Disorders: Yes Hx Anemia: Yes Hx Human Immunodeficiency Virus (HIV): No - INTEGUMENTARY Hx Dermatological Problems: Yes (HX:Cellulitis of the lower extremities) - MUSCULOSKELETAL/RHEUMATOLOGICAL Hx Musculoskeletal Disorders: Yes Hx Arthritis: Yes Hx Falls: Yes Hx Fractures: Yes - GASTROINTESTINAL Hx Gastrointestinal Disorders: Yes (GI bleed, herniorhapphy) Hx Gastroesophageal Reflux: Yes - GENITOURINARY/GYNECOLOGICAL Hx Genitourinary Disorders: No Hx Sexually Transmitted Disorders: No - PSYCHIATRIC Hx Psychophysiologic Disorder: Yes Hx Anxiety: Yes Hx Depression: Yes Hx Substance Use: No - SURGICAL HISTORY Hx Surgeries: Yes Hx Herniorrhaphy: Yes - ANESTHESIA Hx Anesthesia: Yes Hx Anesthesia Reactions: No Hx Malignant Hyperthermia: No Has any member of the family had a problem w/ anesthesia?: No Meds Allergies/Adverse Reactions: Allergies Allergy/AdvReac Type Severity Reaction Status Date / Time trazodone Allergy DIZZINESS Verified 03/08/18 17:20 - Medications Medications: Current Medications Acetaminophen (Tylenol 325mg Tab) 650 mg PO Q6 PRN PRN Reason: Fever 101 and above Acetaminophen (Tylenol 325mg Tab) 650 mg PO Q6 PRN PRN Reason: Pain, Mild (1-3) Apixaban (Eliquis) 2.5 mg PO BID [facility]; Protocol Last Admin: 03/09/18 09:26 Dose: 2.5 mg Atorvastatin Calcium (Lipitor) 10 mg PO HS [facility] Budesonide (Pulmicort Respules) 0.5 mg IH BID [facility] Calcium Carbonate (Oscal) 500 mg PO DAILY [facility] Last Admin: 03/09/18 09:26 Dose: 500 mg Carvedilol (Coreg) 3.125 mg PO BID [facility] Last Admin: 03/09/18 09:26 Dose: 3.125 mg Cholecalciferol (Vitamin D) 2,000 intlu PO DAILY [facility] Last Admin: 03/09/18 09:27 Dose: 2,000 intlu Docusate Sodium (Colace) 200 mg PO HS [facility] Last Admin: 03/08/18 22:00 Dose: 200 mg Ferrous Sulfate (Feosol) 325 mg PO DAILY [facility] Last Admin: 03/09/18 09:27 Dose: 325 mg Piperacillin Sod/Tazobactam (Sod 2.25 gm/ Sodium Chloride) 100 mls @ 100 mls/hr IVPB Q6 [facility]; Protocol Last Admin: 03/09/18 05:00 Dose: 100 mls/hr Vancomycin HCl 1 gm/ Sodium (Chloride) 250 mls @ 166.667 mls/hr IVPB Q12 [facility]; Protocol Losartan Potassium (Cozaar) 50 mg PO QPM [facility] Magnesium Oxide (Mag-Ox) 400 mg PO QPM [facility] Mirtazapine (Remeron) 15 mg PO HS [facility] Last Admin: 03/08/18 22:00 Dose: 15 mg Oxycodone HCl (Oxycodone Immediate Release Tab) 10 mg PO Q4 PRN PRN Reason: Pain, moderate (4-7) Pantoprazole Sodium (Protonix Ec Tab) 40 mg PO DAILY [facility] Last Admin: 03/09/18 09:27 Dose: 40 mg Tiotropium [place] (Spiriva) 18 mcg IH HS [facility] Last Admin: 03/08/18 22:00 Dose: 18 mcg Venlafaxine HCl (Effexor Xr) 225 mg PO HS [facility] Last Admin: 03/08/18 22:00 Dose: 225 mg Physical Exam - Constitutional Appears: Well, No Acute Distress - Head Exam Head Exam: ATRAUMATIC, NORMOCEPHALIC - Eye Exam Eye Exam: EOMI, Normal appearance, PERRL - ENT Exam ENT Exam: Mucous Membranes Moist - Respiratory Exam Respiratory Exam: NORMAL BREATHING PATTERN - Cardiovascular Exam Cardiovascular Exam: +S1, +S2 - GI/Abdominal Exam GI & Abdominal Exam: Soft. absent: Tenderness - Extremities Exam Additional comments: R knee: knee immobilizer in place Dressings intact mid wound dehiscence measuring approximately 12x10 cm with exposed prosthesis laterally 2x2 cm inferior wound milky foul drainage mild diffuse tenderness ROM not tested comps soft NT b/l - Neurological Exam Neurological exam: Alert - Psychiatric Exam Psychiatric exam: Normal Affect, Normal Mood - Skin Skin Exam: Normal Color, Warm Results - Vital Signs Recent Vital Signs: Last Vital Signs Temp 97.6 F 03/09/18 08:56 Pulse 68 03/09/18 09:26 Resp 20 03/09/18 08:56 BP 113/70 03/09/18 09:26 Pulse Ox 98 03/09/18 08:56 - Labs Result Diagrams: 03/08/18 18:03 03/08/18 18:03 Labs: Laboratory Results - last 24 hr 03/08/18 03/08/18 03/09/18 18:03 18:03 00:50 WBC 7.5 RBC 3.86 Hgb 11.2 L Hct 34.0 MCV 88.0 MCH 28.9 MCHC 32.9 L RDW 16.3 H Plt Count 348 D MPV 7.7 Neut % (Auto) 75.4 H Lymph % (Auto) 10.7 L [place] % (Auto) 9.4 Eos % (Auto) 3.8 Baso % (Auto) 0.7 Neut # (Auto) 5.7 Lymph # (Auto) 0.8 L [place] # (Auto) 0.7 Eos # (Auto) 0.3 Baso # (Auto) 0.1 PT INR APTT Sodium 141 Potassium 4.5 Chloride 110 H Carbon Dioxide 21 L Anion Gap 15 BUN 23 H Creatinine 0.6 L Est GFR ( Amer) > 60 Est GFR (Non-Af Amer) > 60 Random Glucose 137 H Calcium 9.4 Total Bilirubin 0.3 AST 29 ALT 30 Alkaline Phosphatase 107 Troponin I 0.0190 Total Protein 7.0 Albumin 3.3 L Globulin 3.7 Albumin/Globulin Ratio 0.9 L Urine Color Urine Clarity Urine pH Ur Specific [place] Urine Protein Urine Glucose (UA) Urine Ketones Urine Blood Urine Nitrate Urine Bilirubin Urine Urobilinogen Ur Leukocyte Esterase Urine RBC (Auto) Urine WBC Clumps (Auto) Urine Microscopic WBC Ur Squamous Epith Cells Calcium Oxalate Crystal 03/09/18 03/09/18 01:05 02:44 WBC RBC Hgb Hct MCV MCH MCHC RDW Plt Count MPV Neut % (Auto) Lymph % (Auto) [place] % (Auto) Eos % (Auto) Baso % (Auto) Neut # (Auto) Lymph # (Auto) [place] # (Auto) Eos # (Auto) Baso # (Auto) PT 14.2 H INR 1.3 APTT 33.8 Sodium Potassium Chloride Carbon Dioxide Anion Gap BUN Creatinine Est GFR ( Amer) Est GFR (Non-Af Amer) Random Glucose Calcium Total Bilirubin AST ALT Alkaline Phosphatase Troponin I Total Protein Albumin Globulin Albumin/Globulin Ratio Urine Color Yellow Urine Clarity Turbid Urine pH 5.0 Ur Specific [place] 1.024 Urine Protein 30 Urine Glucose (UA) Neg Urine Ketones Negative Urine Blood Small Urine Nitrate Negative Urine Bilirubin Negative Urine Urobilinogen 0.2-1.0 Ur Leukocyte Esterase Large Urine RBC (Auto) 52 H Urine WBC Clumps (Auto) Few H Urine Microscopic WBC 956 H Ur Squamous Epith Cells 6 H Calcium Oxalate Crystal Occ H Assessment & Plan (1) Wound dehiscence Assessment and Plan: -Dr. Joel recommends irrigation and debridement of right knee wound and joint, placement of VAC dressings -NPO pMN -Hold Eliquis -Abx as per Dr. Jordan, aware of UTI as well -strict knee imm -wet to dry betadine dressings applied -NWB RLE -above d/w Dr. Joel in agreement Status: Acute - Date & Time Date: 03/09/18 Time: 14:15
[2018-03-09] MEDS ORDERED: Lidocaine 1% Inj (20ml) ONE (15:28)
--- NOTE | 2018-03-09 15:53 | PCM.SURG1 ---
Surgeon's Initial Post Op Note - Surgeon's Notes Surgeon: Whitney Stewarding Supervisor: None Type of Anesthesia: Local Pre-Operative Diagnosis: IV access for jail medication. Operative Findings: Patent right brachial vein Post-Operative Diagnosis: IV access for jail medication. Operation Performed: Right brachial vein 4F SL 33cm PICC placed Specimen/Specimens Removed: None Estimated Blood Loss: EBL {In ML}: 1 Date of Surgery/Procedure: 03/09/18 Time of Surgery/Procedure: 15:45
[2018-03-09] MEDS: Magnesium Oxide 400 mg Tab UD PO SCH (17:18)
[2018-03-09] MEDS: Budesonide 0.5 mg/2 ml Inhal Susp UD IH SCH (18:25)
--- NOTE | 2018-03-09 20:16 | CP.PCM.CON ---
History of Present Illness - History of Present Illness History of Present Illness: THE PATIENT IS AN 88 YEAR OLD FEMALE WHO HAD RECENT REVISION OF A RIGHT TKR AND FRACTURE WITH REVISION AND NOW HAS A WOUND DEHISCENCE AND IS ADMITTED FOR TREATMENT. 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 I WAS CALLED TO SEE HER PRE-OP. Past Patient History - Infectious Disease Hx of Infectious Diseases: None - Tetanus Immunizations Tetanus Immunization: Unknown - Past Medical History & Family History Past Medical History?: Yes Past Family History: Reviewed and not pertinent - Past Social History Smoking Status: Never Smoked Alcohol: None Drugs: Denies - CARDIAC Hx Cardiac Disorders: Yes Hx Hypercholesterolemia: Yes Hx Hypertension: Yes - PULMONARY Hx Respiratory Disorders: Yes Hx Chronic Obstructive Pulmonary Disease (COPD): Yes Hx Pulmonary Embolism: Yes - NEUROLOGICAL Hx Neurological Disorder: Yes Hx Dementia: Yes Hx Seizures: No - HEENT Hx HEENT Problems: Yes Hx Cataracts: Yes - RENAL Hx Chronic Kidney Disease: No - ENDOCRINE/METABOLIC Hx Endocrine Disorders: No - HEMATOLOGICAL/ONCOLOGICAL Hx Blood Disorders: Yes Hx Anemia: Yes Hx Human Immunodeficiency Virus (HIV): No - INTEGUMENTARY Hx Dermatological Problems: Yes (HX:Cellulitis of the lower extremities) - MUSCULOSKELETAL/RHEUMATOLOGICAL Hx Musculoskeletal Disorders: Yes Hx Arthritis: Yes Hx Falls: Yes Hx Fractures: Yes - GASTROINTESTINAL Hx Gastrointestinal Disorders: Yes (GI bleed, herniorhapphy) Hx Gastroesophageal Reflux: Yes - GENITOURINARY/GYNECOLOGICAL Hx Genitourinary Disorders: No Hx Sexually Transmitted Disorders: No - PSYCHIATRIC Hx Psychophysiologic Disorder: Yes Hx Anxiety: Yes Hx Depression: Yes Hx Substance Use: No - SURGICAL HISTORY Hx Surgeries: Yes Hx Herniorrhaphy: Yes - ANESTHESIA Hx Anesthesia: Yes Hx Anesthesia Reactions: No Hx Malignant Hyperthermia: No Has any member of the family had a problem w/ anesthesia?: No Meds Allergies/Adverse Reactions: Allergies Allergy/AdvReac Type Severity Reaction Status Date / Time trazodone Allergy DIZZINESS Verified 03/08/18 17:20 - Medications Medications: Current Medications Acetaminophen (Tylenol 325mg Tab) 650 mg PO Q6 PRN PRN Reason: Fever 101 and above Acetaminophen (Tylenol 325mg Tab) 650 mg PO Q6 PRN PRN Reason: Pain, Mild (1-3) Apixaban (Eliquis) 2.5 mg PO BID [facility]; Protocol Last Admin: 03/09/18 09:26 Dose: 2.5 mg Atorvastatin Calcium (Lipitor) 10 mg PO HS [facility] Budesonide (Pulmicort Respules) 0.5 mg IH BID [facility] Last Admin: 03/09/18 18:25 Dose: 0.5 mg Calcium Carbonate (Oscal) 500 mg PO DAILY [facility] Last Admin: 03/09/18 09:26 Dose: 500 mg Carvedilol (Coreg) 3.125 mg PO BID [facility] Last Admin: 03/09/18 17:18 Dose: 3.125 mg Cholecalciferol (Vitamin D) 2,000 intlu PO DAILY [facility] Last Admin: 03/09/18 09:27 Dose: 2,000 intlu Docusate Sodium (Colace) 200 mg PO [facility] Last Admin: 03/08/18 22:00 Dose: 200 mg Ferrous Sulfate (Feosol) 325 mg PO DAILY [facility] Last Admin: 03/09/18 09:27 Dose: 325 mg Piperacillin Sod/Tazobactam (Sod 2.25 gm/ Sodium Chloride) 100 mls @ 100 mls/hr IVPB Q6 [facility]; Protocol Last Admin: 03/09/18 16:24 Dose: 100 mls/hr Vancomycin HCl 1 gm/ Sodium (Chloride) 250 mls @ 166.667 mls/hr IVPB Q12 [facility]; Protocol Last Admin: 03/09/18 17:16 Dose: 166.667 mls/hr Losartan Potassium (Cozaar) 50 mg PO QPM [facility] Magnesium Oxide (Mag-Ox) 400 mg PO QPM [facility] Last Admin: 03/09/18 17:18 Dose: 400 mg Mirtazapine (Remeron) 15 mg PO [facility] Last Admin: 03/08/18 22:00 Dose: 15 mg Oxycodone HCl (Oxycodone Immediate Release Tab) 10 mg PO Q4 PRN PRN Reason: Pain, moderate (4-7) Pantoprazole Sodium (Protonix Ec Tab) 40 mg PO DAILY [facility] Last Admin: 03/09/18 09:27 Dose: 40 mg Tiotropium [place] (Spiriva) 18 mcg IH [facility] Last Admin: 03/08/18 22:00 Dose: 18 mcg Venlafaxine HCl (Effexor Xr) 225 mg PO [facility] Last Admin: 03/08/18 22:00 Dose: 225 mg Physical Exam - Respiratory Exam Respiratory Exam: Clear to Auscultation Bilateral - Cardiovascular Exam Cardiovascular Exam: REGULAR RHYTHM, +S1, +S2 - Extremities Exam Additional comments: RLE IN IMMOBILIZER LLE WITHOUT EDEMA - Additional Findings Additional findings: INR 1.3 CXR REPORT REVIEWED NO EKG FROM THIS ADMISSION IN EMR YET EKG FROM 01/06/18 WITH NSR, RBBB, LAD ECHO OCTOBER 2017 LVEF OF 45-50%, MILD , MILD MR, MILD TR, MILD TO MODERATE AR Results - Vital Signs Recent Vital Signs: Last Vital Signs Temp 98 F 03/09/18 17:00 Pulse 74 03/09/18 17:18 Resp 20 03/09/18 17:00 BP 108/69 03/09/18 17:18 Pulse Ox 97 03/09/18 17:00 - Labs Result Diagrams: 03/13/18 07:00 03/14/18 10:30 Labs: Laboratory Results - last 24 hr 03/09/18 03/09/18 03/09/18 00:50 01:05 02:44 PT 14.2 H INR 1.3 APTT 33.8 Troponin I 0.0190 Urine Color Yellow Urine Clarity Turbid Urine pH 5.0 Ur Specific [place] 1.024 Urine Protein 30 Urine Glucose (UA) Neg Urine Ketones Negative Urine Blood Small Urine Nitrate Negative Urine Bilirubin Negative Urine Urobilinogen 0.2-1.0 Ur Leukocyte Esterase Large Urine RBC (Auto) 52 H Urine WBC Clumps (Auto) Few H Urine Microscopic WBC 956 H Ur Squamous Epith Cells 6 H Calcium Oxalate Crystal Occ H Blood Type Antibody Screen BBK History Checked 03/09/18 16:25 PT INR APTT Troponin I Urine Color Urine Clarity Urine pH Ur Specific [place] Urine Protein Urine Glucose (UA) Urine Ketones Urine Blood Urine Nitrate Urine Bilirubin Urine Urobilinogen Ur Leukocyte Esterase Urine RBC (Auto) Urine WBC Clumps (Auto) Urine Microscopic WBC Ur Squamous Epith Cells Calcium Oxalate Crystal Blood Type B POSITIVE Antibody Screen Negative BBK History Checked Patient has bt Assessment & Plan - Assessment and Plan (Free Text) Assessment: RIGHT TKR WITH RECENT FRACTURE AND REVSION, NOW WITH WOUND DEHISCENCE DEMENTIA HYPERTENSION HYPERLIPIDEMIA COPD HISTORY OF DVT AND PE WITH IVC FILTER INSERTION Plan: THE PATIENT IS ON IV ANTIBIOTICS, CARVEDILOL, LOSARTAN, ATORVASTATIN AND SPIRIVA SHE IS ON ELIQUIS WHICH SHOULD BE HELD AT LEAST 2 DAYS PRIOR TO SURGERY EKG ORDERED FOR THE AM
--- NOTE | 2018-03-09 20:50 | CP.PCM.PN ---
Subjective - Date & Time of Evaluation Date of Evaluation: 03/09/18 Time of Evaluation: 20:46 - Subjective Subjective: I D NOTE DIHISCENSE OF TKR HOLD ANTIBIOTICS SO APPROPRIATE CULTURES CAN BE TAKEN INTRAOPERATIVELY. DISCUSSED c ORTHPAEDICS Objective - Vital Signs/Intake and Output Vital Signs (last 24 hours): Temp Pulse Resp BP Pulse Ox 98 F 74 20 108/69 97 03/09/18 17:00 03/09/18 17:18 03/09/18 17:00 03/09/18 17:18 03/09/18 17:00 - Medications Medications: Current Medications Acetaminophen (Tylenol 325mg Tab) 650 mg PO Q6 PRN PRN Reason: Fever 101 and above Acetaminophen (Tylenol 325mg Tab) 650 mg PO Q6 PRN PRN Reason: Pain, Mild (1-3) Apixaban (Eliquis) 2.5 mg PO BID [facility]; Protocol Last Admin: 03/09/18 09:26 Dose: 2.5 mg Atorvastatin Calcium (Lipitor) 10 mg PO HS [facility] Budesonide (Pulmicort Respules) 0.5 mg IH BID [facility] Last Admin: 03/09/18 18:25 Dose: 0.5 mg Calcium Carbonate (Oscal) 500 mg PO DAILY [facility] Last Admin: 03/09/18 09:26 Dose: 500 mg Carvedilol (Coreg) 3.125 mg PO BID [facility] Last Admin: 03/09/18 17:18 Dose: 3.125 mg Cholecalciferol (Vitamin D) 2,000 intlu PO DAILY [facility] Last Admin: 03/09/18 09:27 Dose: 2,000 intlu Docusate Sodium (Colace) 200 mg PO HS [facility] Last Admin: 03/08/18 22:00 Dose: 200 mg Ferrous Sulfate (Feosol) 325 mg PO DAILY [facility] Last Admin: 03/09/18 09:27 Dose: 325 mg Piperacillin Sod/Tazobactam (Sod 2.25 gm/ Sodium Chloride) 100 mls @ 100 mls/hr IVPB Q6 [facility]; Protocol Last Admin: 03/09/18 16:24 Dose: 100 mls/hr Vancomycin HCl 1 gm/ Sodium (Chloride) 250 mls @ 166.667 mls/hr IVPB Q12 [facility]; Protocol Last Admin: 03/09/18 17:16 Dose: 166.667 mls/hr Losartan Potassium (Cozaar) 50 mg PO QPM [facility] Magnesium Oxide (Mag-Ox) 400 mg PO QPM [facility] Last Admin: 03/09/18 17:18 Dose: 400 mg Mirtazapine (Remeron) 15 mg PO HS [facility] Last Admin: 03/08/18 22:00 Dose: 15 mg Oxycodone HCl (Oxycodone Immediate Release Tab) 10 mg PO Q4 PRN PRN Reason: Pain, moderate (4-7) Pantoprazole Sodium (Protonix Ec Tab) 40 mg PO DAILY [facility] Last Admin: 03/09/18 09:27 Dose: 40 mg Tiotropium [place] (Spiriva) 18 mcg IH [facility] Last Admin: 03/08/18 22:00 Dose: 18 mcg Venlafaxine HCl (Effexor Xr) 225 mg PO [facility] Last Admin: 03/08/18 22:00 Dose: 225 mg - Labs Labs: 03/08/18 18:03 03/08/18 18:03 PT 14.2 Seconds (9.8-13.1) H 03/09/18 01:05 INR 1.3 03/09/18 01:05 APTT 33.8 Seconds (25.6-37.1) 03/09/18 01:05
[2018-03-09] MEDS: Venlafaxine 75 mg ER Cap PO SCH (22:10)
[2018-03-09] MEDS: Tiotropium 18 mcg Cap For Inhalation IH SCH (22:11)
[2018-03-09] MEDS: oxyCODONE 10 mg Immediate Release Tab PO PRN (23:42)
[2018-03-10 06:24] LABS: HEMOGLOBIN 8.9 g/dL (12.0-16.0); MEAN CELL VOLUME 87.8 fl (81.0-99.0); MEAN CORPUSCULAR HEMOGLOBIN 29.5 pg (27.0-31.0); MEAN CORPUSCULAR HGB CONC 33.6 g/dL (33.0-37.0); RBC 3.02 Mil/uL (3.80-5.20); RED CELL DISTRIBUTION WIDTH 15.9 % (11.5-14.5); WHITE BLOOD COUNT 6.3 K/uL (4.8-10.8)
[2018-03-10 06:38] LABS: ALB/GLOB RATIO 0.9 (1.0-2.1); ALBUMIN 2.8 g/dL (3.5-5.0); ALT/SGPT 29 U/L (9-52); AST/SGOT 21 U/L (14-36); BLOOD UREA NITROGEN 18 mg/dl (7-17); CALCIUM 8.9 mg/dL (8.4-10.2); GFR NON-AFRICAN AMERICAN > 60
[2018-03-10] MEDS: Budesonide 0.5 mg/2 ml Inhal Susp UD IH SCH ×2 (08:51→18:23)
--- NOTE | 2018-03-10 09:24 | CP.PCM.PN ---
Subjective - Date & Time of Evaluation Date of Evaluation: 03/10/18 Time of Evaluation: 08:45 - Subjective Subjective: NO COMPLAINTS Objective - Vital Signs/Intake and Output Vital Signs (last 24 hours): Temp Pulse Resp BP Pulse Ox 97.9 F 79 18 116/62 97 03/10/18 00:04 03/10/18 00:04 03/10/18 00:04 03/10/18 00:04 03/10/18 00:04 - Medications Medications: Current Medications Acetaminophen (Tylenol 325mg Tab) 650 mg PO Q6 PRN PRN Reason: Fever 101 and above Acetaminophen (Tylenol 325mg Tab) 650 mg PO Q6 PRN PRN Reason: Pain, Mild (1-3) Atorvastatin Calcium (Lipitor) 10 mg PO HS [facility] Budesonide (Pulmicort Respules) 0.5 mg IH BID [facility] Last Admin: 03/10/18 08:51 Dose: 0.5 mg Calcium Carbonate (Oscal) 500 mg PO DAILY [facility] Last Admin: 03/09/18 09:26 Dose: 500 mg Carvedilol (Coreg) 3.125 mg PO BID [facility] Last Admin: 03/09/18 17:18 Dose: 3.125 mg Cholecalciferol (Vitamin D) 2,000 intlu PO DAILY [facility] Last Admin: 03/09/18 09:27 Dose: 2,000 intlu Docusate Sodium (Colace) 200 mg PO HS [facility] Last Admin: 03/09/18 22:10 Dose: 200 mg Ferrous Sulfate (Feosol) 325 mg PO DAILY [facility] Last Admin: 03/09/18 09:27 Dose: 325 mg Vancomycin HCl 1 gm/ Sodium (Chloride) 250 mls @ 166.667 mls/hr IVPB Q12 [facility]; Protocol Last Admin: 03/09/18 17:16 Dose: 166.667 mls/hr Losartan Potassium (Cozaar) 50 mg PO QPM [facility] Magnesium Oxide (Mag-Ox) 400 mg PO QPM [facility] Last Admin: 03/09/18 17:18 Dose: 400 mg Mirtazapine (Remeron) 15 mg PO HS [facility] Last Admin: 03/09/18 22:11 Dose: 15 mg Oxycodone HCl (Oxycodone Immediate Release Tab) 10 mg PO Q4 PRN PRN Reason: Pain, moderate (4-7) Last Admin: 03/09/18 23:42 Dose: 10 mg Pantoprazole Sodium (Protonix Ec Tab) 40 mg PO DAILY [facility] Last Admin: 03/09/18 09:27 Dose: 40 mg Tiotropium [place] (Spiriva) 18 mcg IH HS [facility] Last Admin: 03/09/18 22:11 Dose: 18 mcg Venlafaxine HCl (Effexor Xr) 225 mg PO HS [facility] Last Admin: 03/09/18 22:10 Dose: 225 mg - Labs Labs: 03/10/18 06:00 03/10/18 06:00 PT 14.2 Seconds (9.8-13.1) H 03/09/18 01:05 INR 1.3 03/09/18 01:05 APTT 33.8 Seconds (25.6-37.1) 03/09/18 01:05 - Respiratory Exam Respiratory Exam: Clear to Ausculation Bilateral - Cardiovascular Exam Cardiovascular Exam: REGULAR RHYTHM, +S1, +S2 - Extremities Exam Additional comments: RLE IN IMMOBILIZER - Additional Findings Additional findings: EKG NSR, RBBB Assessment and Plan - Assessment and Plan (Free Text) Assessment: DEHISCENCE OF RIGHT TKR WOUND HYPERTENSION HYPERLIPIDEMIA DEMENTIA Plan: I SPOKE TO DR CERVANTES AND SURGERY WILL BE DELAYED UNTIL TOMORROW BECAUSE SHE WAS ON ELIQUIS WHICH I STOPPED THIS MORNING(SHE DID NOT GET HER AM DOSE TODAY) THE PATIENT IS CLEARED FOR TOMORROW'S SURGERY
--- NOTE | 2018-03-10 10:20 | CP.PCM.PN ---
<Shannon Beaulieu - Last Filed: 03/10/18 15:49> Subjective - Date & Time of Evaluation Date of Evaluation: 03/10/18 Time of Evaluation: 13:00 - Subjective Subjective: Pt seen/evaluated at bedside today, laying in bed in no acute distress. Able to answer simple questions and can follow some very simple commands, like to squeeze hand. OR was planned for today, but was rescheduled as pt needs to be off eliquis for 48 hrs as per cardiology. Objective - Vital Signs/Intake and Output Vital Signs (last 24 hours): Temp Pulse Resp BP Pulse Ox 97.9 F 79 18 116/62 97 03/10/18 00:04 03/10/18 00:04 03/10/18 00:04 03/10/18 00:04 03/10/18 00:04 - Medications Medications: Current Medications Acetaminophen (Tylenol 325mg Tab) 650 mg PO Q6 PRN PRN Reason: Fever 101 and above Acetaminophen (Tylenol 325mg Tab) 650 mg PO Q6 PRN PRN Reason: Pain, Mild (1-3) Atorvastatin Calcium (Lipitor) 10 mg PO HS [facility] Budesonide (Pulmicort Respules) 0.5 mg IH BID [facility] Last Admin: 03/10/18 08:51 Dose: 0.5 mg Calcium Carbonate (Oscal) 500 mg PO DAILY [facility] Last Admin: 03/09/18 09:26 Dose: 500 mg Carvedilol (Coreg) 3.125 mg PO BID [facility] Last Admin: 03/09/18 17:18 Dose: 3.125 mg Cholecalciferol (Vitamin D) 2,000 intlu PO DAILY [facility] Last Admin: 03/09/18 09:27 Dose: 2,000 intlu Docusate Sodium (Colace) 200 mg PO HS [facility] Last Admin: 03/09/18 22:10 Dose: 200 mg Ferrous Sulfate (Feosol) 325 mg PO DAILY [facility] Last Admin: 03/09/18 09:27 Dose: 325 mg Vancomycin HCl 1 gm/ Sodium (Chloride) 250 mls @ 166.667 mls/hr IVPB Q12 [facility]; Protocol Last Admin: 03/09/18 17:16 Dose: 166.667 mls/hr Losartan Potassium (Cozaar) 50 mg PO QPM [facility] Magnesium Oxide (Mag-Ox) 400 mg PO QPM [facility] Last Admin: 03/09/18 17:18 Dose: 400 mg Mirtazapine (Remeron) 15 mg PO [facility] Last Admin: 03/09/18 22:11 Dose: 15 mg Oxycodone HCl (Oxycodone Immediate Release Tab) 10 mg PO Q4 PRN PRN Reason: Pain, moderate (4-7) Last Admin: 03/09/18 23:42 Dose: 10 mg Pantoprazole Sodium (Protonix Ec Tab) 40 mg PO DAILY [facility] Last Admin: 03/09/18 09:27 Dose: 40 mg Tiotropium [place] (Spiriva) 18 mcg IH [facility] Last Admin: 03/09/18 22:11 Dose: 18 mcg Venlafaxine HCl (Effexor Xr) 225 mg PO [facility] Last Admin: 03/09/18 22:10 Dose: 225 mg - Labs Labs: 03/10/18 06:00 03/10/18 06:00 PT 14.2 Seconds (9.8-13.1) H 03/09/18 01:05 INR 1.3 03/09/18 01:05 APTT 33.8 Seconds (25.6-37.1) 03/09/18 01:05 - Constitutional Appears: No Acute Distress, Chronically Ill - Respiratory Exam Respiratory Exam: NORMAL BREATHING PATTERN - Cardiovascular Exam Cardiovascular Exam: REGULAR RHYTHM, +S1, +S2 - GI/Abdominal Exam GI & Abdominal Exam: Soft - Extremities Exam Additional comments: RLE in immobilizer LLE small wound/abrasion above left popliteal space - Neurological Exam Neurological Exam: Alert, Awake - Skin Skin Exam: Warm Assessment and Plan - Assessment and Plan (Free Text) Assessment: 88 y/o F PMH of HTN, HLD, COPD, hx PE/DVT, chronic anemia, extensive psych hx, s/p Revision of b/l TKR in 11/2017 and chronic dementia; admitted due to wound dehiscence of R knee; pending incision and debridement by ortho team. PICC line inserted yesterday. Pt's surgery held due to pt being on eliquis. Pt also noted to have small wound proximal to left popliteal space, as per discussion with patient's nurse, this was noted yesterday morning as well. Wound care consulted. Plan: Right knee open wound s/p R TKR - Wound dehiscence, hardware and patella visible - Consult Ortho, Dr. Joel - rec for incision and debridement - Consult Dr. Nikki PYLE - hold off on antibiotics to obtain wound cultures - Cardiology consult for clearance - Dr. Tripp - hold off on eliquis, repeat EKG - B/L Knee X-ray: S/P TKR b/l - Pain management History of PE/DVT - Hold eliquis (last given 03/09 9:26 am) Cronic Anemia - Hgb 8.9; 11.2 on admission - Check iron studies, TIBC, ferritin, iron, transferrin - Continue PO iron, colace Hypertension - Chronic - Controlled - C/w home medications: Coreg, Cozaar COPD - Chronic - Stable - C/w home meds: Spiriva, Pulmicort, [place] Q12 HLD - Continue with home med, atorvastatin Dementia - Speech and Swallow eval in morning, Coughing on PO intake - NPO after midnight DVT PPX - Hold eliquis as per cardio, (last given 03/09 9:26 am) <Indra Walters D - Last Filed: 03/10/18 15:55> Objective - Vital Signs/Intake and Output Vital Signs (last 24 hours): Temp Pulse Resp BP Pulse Ox 97.6 F 79 18 116/62 96 03/10/18 09:00 03/10/18 11:22 03/10/18 09:00 03/10/18 11:22 03/10/18 09:00 - Medications Medications: Current Medications Acetaminophen (Tylenol 325mg Tab) 650 mg PO Q6 PRN PRN Reason: Fever 101 and above Acetaminophen (Tylenol 325mg Tab) 650 mg PO Q6 PRN PRN Reason: Pain, Mild (1-3) Atorvastatin Calcium (Lipitor) 10 mg PO HS [facility] Budesonide (Pulmicort Respules) 0.5 mg IH BID [facility] Last Admin: 03/10/18 08:51 Dose: 0.5 mg Calcium Carbonate (Oscal) 500 mg PO DAILY [facility] Last Admin: 03/10/18 11:07 Dose: Not Given Carvedilol (Coreg) 3.125 mg PO BID [facility] Last Admin: 03/10/18 11:22 Dose: 3.125 mg Cholecalciferol (Vitamin D) 2,000 intlu PO DAILY [facility] Last Admin: 11/14/18 11:07 Dose: Not Given Docusate Sodium (Colace) 200 mg PO HS [facility] Last Admin: 03/09/18 22:10 Dose: 200 mg Ferrous Sulfate (Feosol) 325 mg PO DAILY [facility] Last Admin: 03/10/18 11:07 Dose: Not Given Vancomycin HCl 1 gm/ Sodium (Chloride) 250 mls @ 166.667 mls/hr IVPB Q12 [facility]; Protocol Last Admin: 03/09/18 17:16 Dose: 166.667 mls/hr Losartan Potassium (Cozaar) 50 mg PO QPM [facility] Last Admin: 03/09/18 18:00 Dose: Not Given Magnesium Oxide (Mag-Ox) 400 mg PO QPM [facility] Last Admin: 03/09/18 17:18 Dose: 400 mg Mirtazapine (Remeron) 15 mg PO HS [facility] Last Admin: 03/09/18 22:11 Dose: 15 mg Oxycodone HCl (Oxycodone Immediate Release Tab) 10 mg PO Q4 PRN PRN Reason: Pain, moderate (4-7) Last Admin: 03/09/18 23:42 Dose: 10 mg Pantoprazole Sodium (Protonix Ec Tab) 40 mg PO DAILY [facility] Last Admin: 03/10/18 11:07 Dose: Not Given Tiotropium [place] (Spiriva) 18 mcg IH [facility] Last Admin: 03/09/18 22:11 Dose: 18 mcg Venlafaxine HCl (Effexor Xr) 225 mg PO [facility] Last Admin: 03/09/18 22:10 Dose: 225 mg - Labs Labs: 03/10/18 06:00 03/10/18 06:00 PT 14.2 Seconds (9.8-13.1) H 03/09/18 01:05 INR 1.3 03/09/18 01:05 APTT 33.8 Seconds (25.6-37.1) 03/09/18 01:05 Attending/Attestation - Attestation I have personally seen and examined this patient.: Yes I have fully participated in the care of the patient.: Yes I have reviewed all pertinent clinical information, including history, physical exam and plan: Yes Notes (Text): 03/10/18 15:54 Patient seen and examined with resident. Case discussed and agreed with assessment and plan of management.
[2018-03-10] MEDS: Cholecalciferol 1,000 INTLU TAB PO SCH (11:07)
[2018-03-10] MEDS: Pantoprazole 40 mg EC Tab PO SCH (11:07)
[2018-03-10 11:45] LABS: IRON 14 ug/dL (37-170)
[2018-03-10 11:55] LABS: % IRON SATURATION 8 % (20-55); TOTAL IRON BINDING CAPACITY 183 ug/dL (250-450)
--- NOTE | 2018-03-10 12:35 | CARD ---
APPROVED REPORT Date of service: 03/10/2018 EKG Measurement Heart [id number] <Conclusion> Sinus bradycardia with 1st degree AV block Right bundle branch block Minimal voltage criteria for LVH, may be normal variant Abnormal ECG
--- NOTE | 2018-03-10 13:17 | CP.PCM.PN ---
Subjective - Date & Time of Evaluation Date of Evaluation: 03/10/18 Time of Evaluation: 13:15 - Subjective Subjective: Patient seen by Dr. Joel, discussion with family. Surgery cancelled today as patient received eliquis yesterday, and needs 48 hours off per cardio recommendation. Objective - Vital Signs/Intake and Output Vital Signs (last 24 hours): Temp Pulse Resp BP Pulse Ox 97.9 F 79 18 116/62 97 03/10/18 00:04 03/10/18 11:22 03/10/18 00:04 03/10/18 11:22 03/10/18 00:04 - Medications Medications: Current Medications Acetaminophen (Tylenol 325mg Tab) 650 mg PO Q6 PRN PRN Reason: Fever 101 and above Acetaminophen (Tylenol 325mg Tab) 650 mg PO Q6 PRN PRN Reason: Pain, Mild (1-3) Atorvastatin Calcium (Lipitor) 10 mg PO HS [facility] Budesonide (Pulmicort Respules) 0.5 mg IH BID [facility] Last Admin: 03/10/18 08:51 Dose: 0.5 mg Calcium Carbonate (Oscal) 500 mg PO DAILY [facility] Last Admin: 03/10/18 11:07 Dose: Not Given Carvedilol (Coreg) 3.125 mg PO BID [facility] Last Admin: 03/10/18 11:22 Dose: 3.125 mg Cholecalciferol (Vitamin D) 2,000 intlu PO DAILY [facility] Last Admin: 03/10/18 11:07 Dose: Not Given Docusate Sodium (Colace) 200 mg PO [facility] Last Admin: 03/09/18 22:10 Dose: 200 mg Ferrous Sulfate (Feosol) 325 mg PO DAILY [facility] Last Admin: 03/10/18 11:07 Dose: Not Given Vancomycin HCl 1 gm/ Sodium (Chloride) 250 mls @ 166.667 mls/hr IVPB Q12 [facility]; Protocol Last Admin: 03/09/18 17:16 Dose: 166.667 mls/hr Losartan Potassium (Cozaar) 50 mg PO QPM [facility] Last Admin: 03/09/18 18:00 Dose: Not Given Magnesium Oxide (Mag-Ox) 400 mg PO QPM [facility] Last Admin: 03/09/18 17:18 Dose: 400 mg Mirtazapine (Remeron) 15 mg PO HS [facility] Last Admin: 03/09/18 22:11 Dose: 15 mg Oxycodone HCl (Oxycodone Immediate Release Tab) 10 mg PO Q4 PRN PRN Reason: Pain, moderate (4-7) Last Admin: 03/09/18 23:42 Dose: 10 mg Pantoprazole Sodium (Protonix Ec Tab) 40 mg PO DAILY [facility] Last Admin: 03/10/18 11:07 Dose: Not Given Tiotropium [place] (Spiriva) 18 mcg IH HS [facility] Last Admin: 03/09/18 22:11 Dose: 18 mcg Venlafaxine HCl (Effexor Xr) 225 mg PO HS [facility] Last Admin: 03/09/18 22:10 Dose: 225 mg - Labs Labs: 03/10/18 06:00 03/10/18 06:00 PT 14.2 Seconds (9.8-13.1) H 03/09/18 01:05 INR 1.3 03/09/18 01:05 APTT 33.8 Seconds (25.6-37.1) 03/09/18 01:05 - Extremities Exam Additional comments: No change in appearance, hardware exposed Assessment and Plan (1) Wound dehiscence Assessment & Plan: NPO for OR on I&D wound closure consider transfusion labs in am d/w Dr. Joel, agrees with above Status: Acute
[2018-03-10] MEDS: Magnesium Oxide 400 mg Tab UD PO SCH (18:09)
[2018-03-10] MEDS ORDERED: Potassium Chl 20 mEq in D5-NS 1,000 ML IV SCH (21:00)
[2018-03-10] MEDS: oxyCODONE 10 mg Immediate Release Tab PO PRN (21:10)
[2018-03-10] MEDS: Venlafaxine 75 mg ER Cap PO SCH (21:11)
[2018-03-10] MEDS: Tiotropium 18 mcg Cap For Inhalation IH SCH (21:13)
[2018-03-11 06:55] LABS: BASO % 0.6 % (0.0-2.0); EOS # 0.2 K/uL (0.0-0.7); EOS % 4.5 % (0.0-4.0); HEMOGLOBIN 8.8 g/dL (12.0-16.0); LYMPH # 0.8 K/uL (1.0-4.3); LYMPH % 15.8 % (20.0-40.0); MEAN CELL VOLUME 90.5 fl (81.0-99.0); MEAN CORPUSCULAR HEMOGLOBIN 29.8 pg (27.0-31.0); MEAN CORPUSCULAR HGB CONC 32.9 g/dL (33.0-37.0); MEAN PLATELET VOLUME 7.6 fl (7.2-11.7); MONO # 0.7 K/uL (0.0-0.8); MONO % 12.6 % (0.0-10.0); NEUT # 3.6 K/uL (1.8-7.0); NEUT % 66.5 % (50.0-75.0); NRBC % 0.1 % (0.0-0.0); RBC 2.95 Mil/uL (3.80-5.20); RED CELL DISTRIBUTION WIDTH 15.7 % (11.5-14.5); WHITE BLOOD COUNT 5.4 K/uL (4.8-10.8)
[2018-03-11 07:06] LABS: ALB/GLOB RATIO 0.8 (1.0-2.1); ALBUMIN 2.4 g/dL (3.5-5.0); ALT/SGPT 29 U/L (9-52); AST/SGOT 16 U/L (14-36); BLOOD UREA NITROGEN 13 mg/dl (7-17); CALCIUM 8.6 mg/dL (8.4-10.2); GFR NON-AFRICAN AMERICAN > 60
[2018-03-11] MEDS ORDERED: Absorbable Gelatin Sponge Size 12-7 ONE (07:23)
[2018-03-11] MEDS: Budesonide 0.5 mg/2 ml Inhal Susp UD IH SCH ×3 (07:24→19:15)
[2018-03-11] MEDS ORDERED: Succinylcholine 200 mg/10 ml Inj IV ONE (08:27)
[2018-03-11] MEDS ORDERED: Propofol 10 mg/ml Inj (20 ML) ONE (08:27)
[2018-03-11] MEDS ORDERED: Rocuronium 10 mg/ml (5 ml) ONE (08:27)
[2018-03-11] MEDS ORDERED: Midazolam 2 MG/2 ML VIAL ONE (08:27)
[2018-03-11] MEDS ORDERED: Phenylephrine 10 mg/ml Inj ONE (08:28)
[2018-03-11] MEDS ORDERED: ePHEDrine 50 mg/ml Inj ONE (08:28)
[2018-03-11] MEDS ORDERED: Atropine 0.4 mg/ml Inj (1 mL) ONE (08:43)
[2018-03-11] MEDS ORDERED: Lactated Ringer's 1,000 ML IV ONE (09:15)
[2018-03-11 10:35] LABS: FLUID TYPE SYNOVIAL FLUID
--- NOTE | 2018-03-11 11:04 | CP.PCM.PN ---
Subjective - Date & Time of Evaluation Date of Evaluation: 03/11/18 Time of Evaluation: 08:00 - Subjective Subjective: NO COMPLAINTS Objective - Vital Signs/Intake and Output Vital Signs (last 24 hours): Temp Pulse Resp BP Pulse Ox 97.6 F 57 L 20 135/82 98 03/11/18 08:28 03/11/18 08:28 03/11/18 08:28 03/11/18 08:28 03/11/18 08:28 - Medications Medications: Current Medications Acetaminophen (Tylenol 325mg Tab) 650 mg PO Q6 PRN PRN Reason: Fever 101 and above Acetaminophen (Tylenol 325mg Tab) 650 mg PO Q6 PRN PRN Reason: Pain, Mild (1-3) Atorvastatin Calcium (Lipitor) 10 mg PO HS [facility] Budesonide (Pulmicort Respules) 0.5 mg IH BID [facility] Last Admin: 03/11/18 07:24 Dose: 0.5 mg Calcium Carbonate (Oscal) 500 mg PO DAILY [facility] Last Admin: 03/10/18 11:07 Dose: Not Given Carvedilol (Coreg) 3.125 mg PO BID [facility] Last Admin: 03/11/18 07:39 Dose: 3.125 mg Cholecalciferol (Vitamin D) 2,000 intlu PO DAILY [facility] Last Admin: 03/10/18 11:07 Dose: Not Given Docusate Sodium (Colace) 200 mg PO HS [facility] Last Admin: 03/10/18 21:13 Dose: 200 mg Ferrous Sulfate (Feosol) 325 mg PO DAILY [facility] Last Admin: 03/10/18 11:07 Dose: Not Given Vancomycin HCl 1 gm/ Sodium (Chloride) 250 mls @ 166.667 mls/hr IVPB Q12 [facility]; Protocol Last Admin: 03/10/18 21:12 Dose: Not Given Potassium Chloride/Dextrose/Sod Cl (Potassium Chl 20 Meq In D5-Ns) 1,000 mls @ 100 mls/hr IV .Q10H [facility] Stop: 03/11/18 20:50 Last Admin: 03/10/18 21:50 Dose: 100 mls/hr Losartan Potassium (Cozaar) 50 mg PO QPM [facility] Last Admin: 03/10/18 18:09 Dose: 50 mg Magnesium Oxide (Mag-Ox) 400 mg PO QPM [facility] Last Admin: 11/14/18 18:09 Dose: 400 mg Mirtazapine (Remeron) 15 mg PO HS [facility] Last Admin: 03/10/18 21:11 Dose: 15 mg Oxycodone HCl (Oxycodone Immediate Release Tab) 10 mg PO Q4 PRN PRN Reason: Pain, moderate (4-7) Last Admin: 03/10/18 21:10 Dose: 10 mg Pantoprazole Sodium (Protonix Ec Tab) 40 mg PO DAILY [facility] Last Admin: 03/10/18 11:07 Dose: Not Given Tiotropium [place] (Spiriva) 18 mcg IH [facility] Last Admin: 03/10/18 21:13 Dose: 18 mcg Venlafaxine HCl (Effexor Xr) 225 mg PO [facility] Last Admin: 03/10/18 21:11 Dose: 225 mg - Labs Labs: 03/11/18 05:15 03/11/18 05:15 PT 14.2 Seconds (9.8-13.1) H 03/09/18 01:05 INR 1.3 03/09/18 01:05 APTT 33.8 Seconds (25.6-37.1) 03/09/18 01:05 - Respiratory Exam Respiratory Exam: Clear to Ausculation Bilateral - Cardiovascular Exam Cardiovascular Exam: REGULAR RHYTHM, +S1, +S2 - Extremities Exam Additional comments: RLE IMMOBILIZED LLE WITHOUT ANY SIGNIFICANT EDEMA Assessment and Plan - Assessment and Plan (Free Text) Assessment: S/P RIGHT TKR AND SUBSEQUENT REVISION WITH WOUND DEHISCENCE HYPERTENSION HYPERLIPIDEMIA DEMENTIA Plan: FOR SURGERY TODAY
[2018-03-11 11:49] LABS: SF GROSS APPEARANCE BLOODY (CLEAR); SYNOVIAL FLUID COMMENT TURBID; SYNOVIAL FLUID MONO/MACROPHAGE 2 % (0-0)
[2018-03-11] MEDS ORDERED: Lactated Ringer's 1,000 ML IV PRN (12:26)
--- NOTE | 2018-03-11 12:29 | PCM.SURG1 ---
Surgeon's Initial Post Op Note - Surgeon's Notes Surgeon: Wisam Thaw Shed Heater Tender: LISA Pretty Type of Anesthesia: General Endo Anesthesia Administered By: DR Des Dueñas Pre-Operative Diagnosis: s/p R Revision TKRwound dehiscience. R/O septic R TKR Operative Findings: Wound dehiscience s/p Revision R TKR. R/O septic R TKR Post-Operative Diagnosis: asabove. no evidence for deep sepsis Operation Performed: Patellectomy. reconstructionpatella tendon. irrigation/debridement revision R tKR. primary plastic closure R knee with relaxing inciision. application wound vac. maniupuolation knee under anaesthesias Specimen/Specimens Removed: patyella/tendon skin, subcutaneous tissue Estimated Blood Loss: EBL {In ML}: 15 Blood Products Given: N/A Drains Used: Wound Vac Post-Op Condition: Fair Date of Surgery/Procedure: 03/11/18 Time of Surgery/Procedure: 10:10 (time in room/anaesthjesia indcution time 9:15)
[2018-03-11] MEDS ORDERED: Oxycodone/Acetaminophen 5/325 mg Tab PO PRN (12:36)
[2018-03-11] MEDS: Pantoprazole 40 mg EC Tab PO SCH (14:57)
[2018-03-11] MEDS: Cholecalciferol 1,000 INTLU TAB PO SCH (14:58)
[2018-03-11] MEDS: oxyCODONE 10 mg Immediate Release Tab PO PRN ×2 (15:12→21:35)
[2018-03-11] MEDS: Sodium Chloride 0.9% 1,000 ML IV SCH (15:20)
--- NOTE | 2018-03-11 15:51 | RAD ---
Date of service: 03/11/2018 PROCEDURE: Fluoroscopic assistance in excess of 1 hour. HISTORY: RIGHT KNEE COMPARISON: None TECHNIQUE: Standard protocol for this study/examination. FINDINGS: Total fluoroscopic time (continuous mode) utilized during the procedure 4.3 seconds. IMPRESSION: Submitted images from the current procedure: 2.0
--- NOTE | 2018-03-11 17:06 | CP.PCM.PN ---
<Shannon Beaulieu - Last Filed: 03/11/18 18:50> Subjective - Date & Time of Evaluation Date of Evaluation: 03/11/18 Time of Evaluation: 16:45 - Subjective Subjective: Pt seen at bedside post-operatively; went to OR for procedure today with ortho. Underwent patellectomy, reconstruction of patella tendon, irrigation/debridement of wound, revision R TKR, with primary plastic closure of R knee with relaxing incision. Wound vac was applied. Pt tolerated procedure well. She has baseline dementia so was unable to provide much info, but was able to say she felt "okay." Objective - Vital Signs/Intake and Output Vital Signs (last 24 hours): Temp Pulse Resp BP Pulse Ox 97.4 F L 60 18 141/84 97 03/11/18 15:58 03/11/18 15:58 03/11/18 15:58 03/11/18 15:58 03/11/18 15:58 Intake and Output: 03/11/18 03/11/18 06:59 18:59 Intake Total 800 Balance 800 - Medications Medications: Current Medications Acetaminophen (Tylenol 325mg Tab) 650 mg PO Q6 PRN PRN Reason: Fever 101 and above Acetaminophen (Tylenol 325mg Tab) 650 mg PO Q6 PRN PRN Reason: Pain, Mild (1-3) Atorvastatin Calcium (Lipitor) 10 mg PO HS [facility] Budesonide (Pulmicort Respules) 0.5 mg IH BID [facility] Last Admin: 03/11/18 14:57 Dose: Not Given Calcium Carbonate (Oscal) 500 mg PO DAILY [facility] Last Admin: 03/11/18 14:56 Dose: Not Given Carvedilol (Coreg) 3.125 mg PO BID [facility] Last Admin: 03/11/18 14:55 Dose: Not Given Cholecalciferol (Vitamin D) 2,000 intlu PO DAILY [facility] Last Admin: 03/11/18 14:58 Dose: Not Given Docusate Sodium (Colace) 200 mg PO HS [facility] Last Admin: 03/10/18 21:13 Dose: 200 mg Enoxaparin Sodium (Lovenox) 40 mg SC DAILY [facility]; Protocol Ferrous Sulfate (Feosol) 325 mg PO DAILY [facility] Last Admin: 03/11/18 14:56 Dose: Not Given Potassium Chloride/Dextrose/Sod Cl (Potassium Chl 20 Meq In D5-Ns) 1,000 mls @ 100 mls/hr IV .Q10H [facility] Stop: 03/11/18 20:50 Last Admin: 03/10/18 21:50 Dose: 100 mls/hr Lactated Ringer's (Lactated Ringer's) 1,000 mls @ 65 mls/hr IV .[id number] PRN PRN Reason: Hypotension Sodium Chloride (Sodium Chloride 0.9%) 1,000 mls @ 100 mls/hr IV .Q10H [facility] Stop: 03/12/18 12:36 Last Admin: 03/11/18 15:20 Dose: 100 mls/hr Vancomycin HCl 1 gm/ Sodium (Chloride) 250 mls @ 166.667 mls/hr IVPB Q12@0500,1700 [facility]; Protocol Last Admin: 03/11/18 16:20 Dose: 166.667 mls/hr Losartan Potassium (Cozaar) 50 mg PO QPM [facility] Last Admin: 03/10/18 18:09 Dose: 50 mg Magnesium Oxide (Mag-Ox) 400 mg PO QPM [facility] Last Admin: 03/10/18 18:09 Dose: 400 mg Mirtazapine (Remeron) 15 mg PO [facility] Last Admin: 03/10/18 21:11 Dose: 15 mg Morphine Sulfate (Morphine) 2 mg IVP Q4 PRN PRN Reason: Pain, severe (8-10) Last Admin: 03/11/18 16:12 Dose: 2 mg Ondansetron HCl (Zofran Inj) 4 mg IVP ONCE PRN PRN Reason: Nausea/Vomiting Oxycodone HCl (Oxycodone Immediate Release Tab) 10 mg PO Q4 PRN PRN Reason: Pain, moderate (4-7) Last Admin: 03/11/18 15:12 Dose: 10 mg Oxycodone/Acetaminophen (Percocet 5/325 Mg Tab) 2 tab PO Q4 PRN PRN Reason: Pain, moderate (4-7) Stop: 03/14/18 12:37 Pantoprazole Sodium (Protonix Ec Tab) 40 mg PO DAILY [facility] Last Admin: 03/11/18 14:57 Dose: Not Given Tiotropium [place] (Spiriva) 18 mcg IH [facility] Last Admin: 03/10/18 21:13 Dose: 18 mcg Venlafaxine HCl (Effexor Xr) 225 mg PO HS [facility] Last Admin: 03/10/18 21:11 Dose: 225 mg - Labs Labs: 03/11/18 05:15 03/11/18 05:15 PT 14.2 Seconds (9.8-13.1) H 03/09/18 01:05 INR 1.3 03/09/18 01:05 APTT 33.8 Seconds (25.6-37.1) 03/09/18 01:05 - Constitutional Appears: No Acute Distress, Chronically Ill - Respiratory Exam Respiratory Exam: NORMAL BREATHING PATTERN - Cardiovascular Exam Cardiovascular Exam: REGULAR RHYTHM, +S1, +S2 - GI/Abdominal Exam GI & Abdominal Exam: Soft. absent: Tenderness - Extremities Exam Additional comments: right lower ext in immobilizer left lower ext - wound proximal to popliteal space (present on admission; noted in transfer paperwork from SN[facility]) able to wiggle toes on both extremities - Neurological Exam Neurological Exam: Awake - Skin Skin Exam: Dry, Warm Assessment and Plan - Assessment and Plan (Free Text) Assessment: 88 y/o F PMH of HTN, HLD, COPD, hx PE/DVT, chronic anemia, extensive psych hx, s/p Revision of b/l TKR in 11/2017 and chronic dementia; admitted due to wound dehiscence of R knee; pending incision and debridement by ortho team. Has PICC line. Was taken to OR today, 03/11/18 for patellectomy, reconstruction of patella tendon, irrigation/debridement of wound, revision R TKR, with primary plastic closure of R knee with relaxing incision Pt also noted to have small wound proximal to left popliteal space; documentation of this was present on paperwork from transfer from [facility]. Wound care consulted. Plan: Right knee open wound s/p R TKR - Wound dehiscence, hardware and patella visible - Consult Ortho, Dr. Joel - is POD 0 after patellectomy, reconstruction of patella tendon, irrigation/debridement of wound, revision R TKR, with primary plastic closure of R knee with relaxing incision - Consult ID, Dr. Jordan - abx restarted after surgery - Cardiology consult for clearance - Dr. Tripp - B/L Knee X-ray: S/P TKR b/l - Pain management - F/u wound cultures Chronic Anemia - Hgb 8.9; 11.2 on admission - Likely iron deficiency - Continue PO iron, colace Hypertension - Chronic - Controlled - C/w home medications: Coreg, Cozaar COPD - Chronic - Stable - C/w home meds: Spiriva, Pulmicort, [place] Q12 HLD - Continue with home med, atorvastatin Dementia - Baseline Diet - Modified dysphagia - finely chopped, nectar thick History of PE/DVT - Eliquis was held for surgery; prophylactic resume as per cardio/ortho recs <Indra Walters D - Last Filed: 03/11/18 19:04> Objective - Vital Signs/Intake and Output Vital Signs (last 24 hours): Temp Pulse Resp BP Pulse Ox 97.4 F L 83 20 130/63 98 03/11/18 16:30 03/11/18 18:14 03/11/18 16:30 03/11/18 18:14 03/11/18 16:30 Intake and Output: 03/11/18 03/12/18 18:59 06:59 Intake Total 2039 Output Total 600 Balance 1439 - Medications Medications: Current Medications Acetaminophen (Tylenol 325mg Tab) 650 mg PO Q6 PRN PRN Reason: Fever 101 and above Acetaminophen (Tylenol 325mg Tab) 650 mg PO Q6 PRN PRN Reason: Pain, Mild (1-3) Atorvastatin Calcium (Lipitor) 10 mg PO HS [facility] Budesonide (Pulmicort Respules) 0.5 mg IH BID [facility] Last Admin: 03/11/18 14:57 Dose: Not Given Calcium Carbonate (Oscal) 500 mg PO DAILY [facility] Last Admin: 03/11/18 14:56 Dose: Not Given Carvedilol (Coreg) 3.125 mg PO BID [facility] Last Admin: 03/11/18 18:14 Dose: 3.125 mg Cholecalciferol (Vitamin D) 2,000 intlu PO DAILY [facility] Last Admin: 03/11/18 14:58 Dose: Not Given Docusate Sodium (Colace) 200 mg PO HS [facility] Last Admin: 03/10/18 21:13 Dose: 200 mg Enoxaparin Sodium (Lovenox) 40 mg SC DAILY [facility]; Protocol Ferrous Sulfate (Feosol) 325 mg PO DAILY [facility] Last Admin: 03/11/18 14:56 Dose: Not Given Potassium Chloride/Dextrose/Sod Cl (Potassium Chl 20 Meq In D5-Ns) 1,000 mls @ 100 mls/hr IV .Q10H [facility] Stop: 03/11/18 20:50 Last Admin: 03/10/18 21:50 Dose: 100 mls/hr Lactated Ringer's (Lactated Ringer's) 1,000 mls @ 65 mls/hr IV .[id number] PRN PRN Reason: Hypotension Sodium Chloride (Sodium Chloride 0.9%) 1,000 mls @ 100 mls/hr IV .Q10H [facility] Stop: 03/12/18 12:36 Last Admin: 03/11/18 15:20 Dose: 100 mls/hr Vancomycin HCl 1 gm/ Sodium (Chloride) 250 mls @ 166.667 mls/hr IVPB Q12@0500,1700 [facility]; Protocol Last Admin: 03/11/18 16:20 Dose: 166.667 mls/hr Losartan Potassium (Cozaar) 50 mg PO QPM [facility] Last Admin: 03/11/18 18:13 Dose: 50 mg Magnesium Oxide (Mag-Ox) 400 mg PO QPM [facility] Last Admin: 03/11/18 18:14 Dose: 400 mg Mirtazapine (Remeron) 15 mg PO [facility] Last Admin: 03/10/18 21:11 Dose: 15 mg Morphine Sulfate (Morphine) 2 mg IVP Q4 PRN PRN Reason: Pain, severe (8-10) Last Admin: 03/11/18 16:12 Dose: 2 mg Ondansetron HCl (Zofran Inj) 4 mg IVP ONCE PRN PRN Reason: Nausea/Vomiting Oxycodone HCl (Oxycodone Immediate Release Tab) 10 mg PO Q4 PRN PRN Reason: Pain, moderate (4-7) Last Admin: 03/11/18 15:12 Dose: 10 mg Oxycodone/Acetaminophen (Percocet 5/325 Mg Tab) 2 tab PO Q4 PRN PRN Reason: Pain, moderate (4-7) Stop: 03/14/18 12:37 Pantoprazole Sodium (Protonix Ec Tab) 40 mg PO DAILY [facility] Last Admin: 03/11/18 14:57 Dose: Not Given Tiotropium [place] (Spiriva) 18 mcg IH [facility] Last Admin: 03/10/18 21:13 Dose: 18 mcg Venlafaxine HCl (Effexor Xr) 225 mg PO HS [facility] Last Admin: 03/10/18 21:11 Dose: 225 mg - Labs Labs: 03/11/18 05:15 03/11/18 05:15 PT 14.2 Seconds (9.8-13.1) H 03/09/18 01:05 INR 1.3 03/09/18 01:05 APTT 33.8 Seconds (25.6-37.1) 03/09/18 01:05 Attending/Attestation - Attestation I have personally seen and examined this patient.: Yes I have fully participated in the care of the patient.: Yes I have reviewed all pertinent clinical information, including history, physical exam and plan: Yes Notes (Text): 03/11/18 19:03 Patient seen and examined with resident. Case discussed and agreed with assessment and plan of management.
[2018-03-11] MEDS: Magnesium Oxide 400 mg Tab UD PO SCH (18:14)
[2018-03-11] MEDS: Venlafaxine 75 mg ER Cap PO SCH (21:36)
[2018-03-11] MEDS: Tiotropium 18 mcg Cap For Inhalation IH SCH (21:51)
[2018-03-12] MEDS: Sodium Chloride 0.9% 1,000 ML IV SCH ×3 (00:36→18:26)
[2018-03-12 06:40] LABS: HEMOGLOBIN 8.4 g/dL (12.0-16.0); MEAN CELL VOLUME 87.8 fl (81.0-99.0); MEAN CORPUSCULAR HEMOGLOBIN 28.6 pg (27.0-31.0); MEAN CORPUSCULAR HGB CONC 32.6 g/dL (33.0-37.0); RBC 2.94 Mil/uL (3.80-5.20); RED CELL DISTRIBUTION WIDTH 15.7 % (11.5-14.5); WHITE BLOOD COUNT 7.5 K/uL (4.8-10.8)
[2018-03-12 06:53] LABS: BLOOD UREA NITROGEN 11 mg/dl (7-17); CALCIUM 8.2 mg/dL (8.4-10.2); GFR NON-AFRICAN AMERICAN > 60
[2018-03-12] MEDS: Budesonide 0.5 mg/2 ml Inhal Susp UD IH SCH ×2 (07:39→16:01)
[2018-03-12] MEDS: Enoxaparin 40 mg Syringe SC SCH (10:09)
[2018-03-12] MEDS: Pantoprazole 40 mg EC Tab PO SCH (10:11)
[2018-03-12] MEDS: Cholecalciferol 1,000 INTLU TAB PO SCH (10:11)
--- NOTE | 2018-03-12 10:57 | CP.PCM.PN ---
Subjective - Date & Time of Evaluation Date of Evaluation: 03/12/18 Time of Evaluation: 10:45 - Subjective Subjective: NO COMPLAINTS Objective - Vital Signs/Intake and Output Vital Signs (last 24 hours): Temp Pulse Resp BP Pulse Ox 98.9 F 88 20 106/68 95 03/12/18 08:07 03/12/18 10:09 03/12/18 08:07 03/12/18 10:09 03/12/18 08:07 - Medications Medications: Current Medications Acetaminophen (Tylenol 325mg Tab) 650 mg PO Q6 PRN PRN Reason: Fever 101 and above Acetaminophen (Tylenol 325mg Tab) 650 mg PO Q6 PRN PRN Reason: Pain, Mild (1-3) Last Admin: 03/12/18 00:47 Dose: 650 mg Atorvastatin Calcium (Lipitor) 10 mg PO HS [facility] Budesonide (Pulmicort Respules) 0.5 mg IH BID [facility] Last Admin: 03/12/18 07:39 Dose: 0.5 mg Calcium Carbonate (Oscal) 500 mg PO DAILY [facility] Last Admin: 03/12/18 10:10 Dose: 500 mg Carvedilol (Coreg) 3.125 mg PO BID [facility] Last Admin: 03/12/18 10:09 Dose: 3.125 mg Cholecalciferol (Vitamin D) 2,000 intlu PO DAILY [facility] Last Admin: 03/12/18 10:11 Dose: 2,000 intlu Docusate Sodium (Colace) 200 mg PO HS [facility] Last Admin: 03/11/18 21:36 Dose: 200 mg Enoxaparin Sodium (Lovenox) 40 mg SC DAILY [facility]; Protocol Last Admin: 03/12/18 10:09 Dose: 40 mg Ferrous Sulfate (Feosol) 325 mg PO DAILY [facility] Last Admin: 03/12/18 10:09 Dose: 325 mg Lactated Ringer's (Lactated Ringer's) 1,000 mls @ 65 mls/hr IV .[id number] PRN PRN Reason: Hypotension Sodium Chloride (Sodium Chloride 0.9%) 1,000 mls @ 100 mls/hr IV .Q10H [facility] Stop: 03/12/18 12:36 Last Admin: 03/12/18 06:01 Dose: 100 mls/hr Vancomycin HCl 1 gm/ Sodium (Chloride) 250 mls @ 166.667 mls/hr IVPB Q12@0500,1700 [facility]; Protocol Last Admin: 03/12/18 04:00 Dose: 166.667 mls/hr Losartan Potassium (Cozaar) 50 mg PO QPM [facility] Last Admin: 03/11/18 18:13 Dose: 50 mg Magnesium Oxide (Mag-Ox) 400 mg PO QPM [facility] Last Admin: 03/11/18 18:14 Dose: 400 mg Mirtazapine (Remeron) [address] [facility] Last Admin: 03/11/18 21:36 Dose: 15 mg Morphine Sulfate (Morphine) 2 mg IVP Q4 PRN PRN Reason: Pain, severe (8-10) Last Admin: 03/12/18 05:59 Dose: 2 mg Ondansetron HCl (Zofran Inj) 4 mg IVP ONCE PRN PRN Reason: Nausea/Vomiting Oxycodone HCl (Oxycodone Immediate Release Tab) 10 mg PO Q4 PRN PRN Reason: Pain, moderate (4-7) Last Admin: 03/11/18 21:35 Dose: 10 mg Oxycodone/Acetaminophen (Percocet 5/325 Mg Tab) 2 tab PO Q4 PRN PRN Reason: Pain, moderate (4-7) Stop: 03/14/18 12:37 Pantoprazole Sodium (Protonix Ec Tab) 40 mg PO DAILY [facility] Last Admin: 03/12/18 10:11 Dose: 40 mg Tiotropium [place] (Spiriva) [address] [facility] Last Admin: 03/11/18 21:51 Dose: Not Given Venlafaxine HCl (Effexor Xr) [address] [facility] Last Admin: 03/11/18 21:36 Dose: 225 mg - Labs Labs: 03/12/18 05:15 03/12/18 05:15 PT 14.2 Seconds (9.8-13.1) H 03/09/18 01:05 INR 1.3 03/09/18 01:05 APTT 33.8 Seconds (25.6-37.1) 03/09/18 01:05 - Respiratory Exam Respiratory Exam: Clear to Ausculation Bilateral - Cardiovascular Exam Cardiovascular Exam: REGULAR RHYTHM, +S1, +S2 - Extremities Exam Extremities Exam: Normal Inspection - Additional Findings Additional findings: OR NOTES REVIEWED WITH REVISION AND WOUND CARE Assessment and Plan - Assessment and Plan (Free Text) Assessment: S/P REVISION AND WOUND CARE OF RIGHT TKR WOUND DEHISCENCE HYPERTENSION HYPERLIPIDEMIA DEMENTIA Plan: CONTINUE CARVEDILOL, LOSARTAN, ATORVASTATIN, LOVENOX AND ANTIBIOTICS
--- NOTE | 2018-03-12 11:04 | CP.PCM.PN ---
<Socorro Yoo - Last Filed: 03/12/18 12:32> Subjective - Date & Time of Evaluation Date of Evaluation: 03/12/18 Time of Evaluation: 08:15 - Subjective Subjective: PT seen and examined this morning. Slightly confused as per baseline. States she feels fine, denies pain. Objective - Vital Signs/Intake and Output Vital Signs (last 24 hours): Temp Pulse Resp BP Pulse Ox 98.9 F 88 20 106/68 95 03/12/18 08:07 03/12/18 10:09 03/12/18 08:07 03/12/18 10:09 03/12/18 08:07 - Medications Medications: Current Medications Acetaminophen (Tylenol 325mg Tab) 650 mg PO Q6 PRN PRN Reason: Fever 101 and above Acetaminophen (Tylenol 325mg Tab) 650 mg PO Q6 PRN PRN Reason: Pain, Mild (1-3) Last Admin: 03/12/18 00:47 Dose: 650 mg Atorvastatin Calcium (Lipitor) 10 mg PO [facility] Budesonide (Pulmicort Respules) 0.5 mg IH BID [facility] Last Admin: 03/12/18 07:39 Dose: 0.5 mg Calcium Carbonate (Oscal) 500 mg PO DAILY [facility] Last Admin: 03/12/18 10:10 Dose: 500 mg Carvedilol (Coreg) 3.125 mg PO BID [facility] Last Admin: 03/12/18 10:09 Dose: 3.125 mg Cholecalciferol (Vitamin D) 2,000 intlu PO DAILY [facility] Last Admin: 03/12/18 10:11 Dose: 2,000 intlu Docusate Sodium (Colace) 200 mg PO HS [facility] Last Admin: 03/11/18 21:36 Dose: 200 mg Enoxaparin Sodium (Lovenox) 40 mg SC DAILY [facility]; Protocol Last Admin: 03/12/18 10:09 Dose: 40 mg Ferrous Sulfate (Feosol) 325 mg PO DAILY [facility] Last Admin: 03/12/18 10:09 Dose: 325 mg Lactated Ringer's (Lactated Ringer's) 1,000 mls @ 65 mls/hr IV .[id number] PRN PRN Reason: Hypotension Sodium Chloride (Sodium Chloride 0.9%) 1,000 mls @ 100 mls/hr IV .Q10H [facility] Stop: 03/12/18 12:36 Last Admin: 03/12/18 06:01 Dose: 100 mls/hr Vancomycin HCl 1 gm/ Sodium (Chloride) 250 mls @ 166.667 mls/hr IVPB Q12@0500,1700 [facility]; Protocol Last Admin: 03/12/18 04:00 Dose: 166.667 mls/hr Losartan Potassium (Cozaar) 50 mg PO QPM [facility] Last Admin: 03/11/18 18:13 Dose: 50 mg Magnesium Oxide (Mag-Ox) 400 mg PO QPM [facility] Last Admin: 03/11/18 18:14 Dose: 400 mg Mirtazapine (Remeron) 15 mg PO [facility] Last Admin: 03/11/18 21:36 Dose: 15 mg Morphine Sulfate (Morphine) 2 mg IVP Q4 PRN PRN Reason: Pain, severe (8-10) Last Admin: 03/12/18 05:59 Dose: 2 mg Ondansetron HCl (Zofran Inj) 4 mg IVP ONCE PRN PRN Reason: Nausea/Vomiting Oxycodone HCl (Oxycodone Immediate Release Tab) 10 mg PO Q4 PRN PRN Reason: Pain, moderate (4-7) Last Admin: 03/11/18 21:35 Dose: 10 mg Oxycodone/Acetaminophen (Percocet 5/325 Mg Tab) 2 tab PO Q4 PRN PRN Reason: Pain, moderate (4-7) Stop: 03/14/18 12:37 Pantoprazole Sodium (Protonix Ec Tab) 40 mg PO DAILY [facility] Last Admin: 03/12/18 10:11 Dose: 40 mg Tiotropium [place] (Spiriva) 18 mcg IH [facility] Last Admin: 03/11/18 21:51 Dose: Not Given Venlafaxine HCl (Effexor Xr) 225 mg PO [facility] Last Admin: 03/11/18 21:36 Dose: 225 mg - Labs Labs: 03/12/18 05:15 03/12/18 05:15 PT 14.2 Seconds (9.8-13.1) H 03/09/18 01:05 INR 1.3 03/09/18 01:05 APTT 33.8 Seconds (25.6-37.1) 03/09/18 01:05 - Constitutional Appears: Well, Non-toxic, No Acute Distress - Head Exam Head Exam: ATRAUMATIC - Eye Exam Eye Exam: Normal appearance - ENT Exam ENT Exam: Mucous Membranes Moist - Respiratory Exam Respiratory Exam: Clear to Ausculation Bilateral. absent: Rales, Wheezes - Cardiovascular Exam Cardiovascular Exam: REGULAR RHYTHM, +S1, +S2 - GI/Abdominal Exam GI & Abdominal Exam: Soft, Normal Bowel Sounds. absent: Tenderness - Extremities Exam Additional comments: RIGHT knee-Cast in place. Toes warm with good capillary refill. Sensorium and motor of digits in tact. - Neurological Exam Neurological Exam: Alert Assessment and Plan - Assessment and Plan (Free Text) Assessment: Assessment: 88 y/o F PMH of HTN, HLD, COPD, hx PE/DVT, chronic anemia, extensive psych hx, s/p Revision of b/l TKR in 11/2017 and chronic dementia; admitted due to wound dehiscence of R knee and underwent patellectomy, reconstruction of patella tendon, irrigation/debridement of wound, revision R TKR, with primary plastic closure of R knee with relaxing incision on 03/11/18. Wound vac in place. Has picc line. Plan: Right knee open wound s/p R TKR - Pain controlled. - Ortho following - Knee Cx +GNR (no sensitivities) - Consult ID, Dr. Jordan - B/L Knee X-ray: S/P TKR b/l - F/u remaining wound cultures and sensitivities - C/W Vanco. Will start Zosyn as well for Gram Neg coverage. - PT Chronic Anemia - Hgb 8.4; 11.2 on admission - Likely iron deficiency - Continue PO iron, colace Hypertension - Chronic - Controlled - C/w home medications: Coreg, Cozaar COPD - Chronic - Stable - C/w home meds: Spiriva, Pulmicort, Brovana Q12 HLD - Continue with home med, atorvastatin Dementia - Baseline Diet - Modified dysphagia - finely chopped, nectar thick History of PE/DVT - Eliquis was held for surgery; prophylactic resume as per cardio/ortho recs <Giselle Barnes - Last Filed: 03/13/18 10:02> Objective - Vital Signs/Intake and Output Vital Signs (last 24 hours): Temp Pulse Resp BP Pulse Ox 98.4 F 74 20 148/73 95 03/13/18 08:12 11/17/18 08:12 03/13/18 08:12 03/13/18 08:12 03/13/18 08:12 - Medications Medications: Current Medications Acetaminophen (Tylenol 325mg Tab) 650 mg PO Q6 PRN PRN Reason: Fever 101 and above Acetaminophen (Tylenol 325mg Tab) 650 mg PO Q6 PRN PRN Reason: Pain, Mild (1-3) Last Admin: 03/13/18 00:06 Dose: 650 mg Atorvastatin Calcium (Lipitor) 10 mg PO HS [facility] Budesonide (Pulmicort Respules) 0.5 mg IH BID [facility] Last Admin: 03/12/18 16:01 Dose: Not Given Calcium Carbonate (Oscal) 500 mg PO DAILY [facility] Last Admin: 03/13/18 08:31 Dose: 500 mg Carvedilol (Coreg) 3.125 mg PO BID [facility] Last Admin: 03/13/18 08:30 Dose: 3.125 mg Cholecalciferol (Vitamin D) 2,000 intlu PO DAILY [facility] Last Admin: 03/13/18 08:32 Dose: 2,000 intlu Docusate Sodium (Colace) 200 mg PO HS [facility] Last Admin: 03/12/18 22:22 Dose: 200 mg Enoxaparin Sodium (Lovenox) 40 mg SC DAILY [facility]; Protocol Last Admin: 03/13/18 08:27 Dose: 40 mg Ferrous Sulfate (Feosol) 325 mg PO DAILY [facility] Last Admin: 03/13/18 08:28 Dose: 325 mg Lactated Ringer's (Lactated Ringer's) 1,000 mls @ 65 mls/hr IV .[id number] PRN PRN Reason: Hypotension Vancomycin HCl 1 gm/ Sodium (Chloride) 250 mls @ 166.667 mls/hr IVPB Q12@0500,1700 [facility]; Protocol Last Admin: 03/13/18 05:24 Dose: 166.667 mls/hr Piperacillin Sod/Tazobactam (Sod 3.375 gm/ Sodium Chloride) 100 mls @ 100 mls/hr IVPB Q12@0500,1700 [facility]; Protocol Last Admin: 03/13/18 04:15 Dose: 100 mls/hr Losartan Potassium (Cozaar) 50 mg PO QPM [facility] Last Admin: 03/12/18 17:35 Dose: 50 mg Magnesium Oxide (Mag-Ox) 400 mg PO QPM [facility] Last Admin: 03/12/18 17:33 Dose: 400 mg Mirtazapine (Remeron) 15 mg PO HS [facility] Last Admin: 03/12/18 22:21 Dose: 15 mg Morphine Sulfate (Morphine) 2 mg IVP Q4 PRN PRN Reason: Pain, severe (8-10) Last Admin: 03/12/18 11:07 Dose: 2 mg Ondansetron HCl (Zofran Inj) 4 mg IVP ONCE PRN PRN Reason: Nausea/Vomiting Oxycodone HCl (Oxycodone Immediate Release Tab) 10 mg PO Q4 PRN PRN Reason: Pain, moderate (4-7) Last Admin: 03/12/18 18:32 Dose: 10 mg Oxycodone/Acetaminophen (Percocet 5/325 Mg Tab) 2 tab PO Q4 PRN PRN Reason: Pain, moderate (4-7) Stop: 03/14/18 12:37 Pantoprazole Sodium (Protonix Ec Tab) 40 mg PO DAILY [facility] Last Admin: 03/13/18 08:31 Dose: 40 mg Tiotropium [place] (Spiriva) 18 mcg IH [facility] Last Admin: 03/12/18 22:22 Dose: 18 mcg Venlafaxine HCl (Effexor Xr) 225 mg PO [facility] Last Admin: 03/12/18 22:21 Dose: 225 mg - Labs Labs: 03/13/18 07:00 03/13/18 07:00 PT 14.2 Seconds (9.8-13.1) H 03/09/18 01:05 INR 1.3 03/09/18 01:05 APTT 33.8 Seconds (25.6-37.1) 03/09/18 01:05 Attending/Attestation - Attestation I have personally seen and examined this patient.: Yes I have fully participated in the care of the patient.: Yes I have reviewed all pertinent clinical information, including history, physical exam and plan: Yes Notes (Text): 03/13/18 10:02 Seen, examined, and discussed with resident. Agree with findings and plan as above.
[2018-03-12] MEDS ORDERED: Piperacillin/Tazobact 3.375 GM in Sodium Chloride 0.9% 100 ML IVPB SCH (12:45)
--- NOTE | 2018-03-12 12:58 | PQF ---
PROVIDER RESPONSE TEXT: Provider was unable to determine a response for this query. REVIEWER QUERY TEXT: Anemia Type Iron 14, TIBC 183, % Saturation 8, Transferrin 110.74 all low and Ferritin 340 high Rx: Feosol Chronic Anemia is documented in the Medical Record. Please specify the cause/type (includes suspected or probable cause) Such as: -- Due to acute blood loss -- Due to chronic blood loss -- Due to iron deficiency -- Due to postoperative blood loss -- Due to chronic disease clarify the disease process -- Other, please specify The patient's Clinical Indicators include: Iron 14, TIBC 183, % Saturation 8, Transferrin 110.74 all low and Ferritin 340 high Rx: Feosol Query created by: Violeta Price on 03/11/2018 10:53 AM Electronically signed by: Indra Walters MD 03/12/2018 12:55 PM
--- NOTE | 2018-03-12 14:29 | CP.PCM.PN ---
Subjective - Date & Time of Evaluation Date of Evaluation: 03/12/18 Time of Evaluation: 07:00 - Subjective Subjective: Patient seen and examined at bedside. In no distress. No acute events overnight. Poor historian. Objective - Vital Signs/Intake and Output Vital Signs (last 24 hours): Temp Pulse Resp BP Pulse Ox 98.0 F 81 20 161/69 H 98 03/12/18 11:50 03/12/18 13:51 03/12/18 11:50 03/12/18 11:50 03/12/18 13:51 - Medications Medications: Current Medications Acetaminophen (Tylenol 325mg Tab) 650 mg PO Q6 PRN PRN Reason: Fever 101 and above Acetaminophen (Tylenol 325mg Tab) 650 mg PO Q6 PRN PRN Reason: Pain, Mild (1-3) Last Admin: 03/12/18 00:47 Dose: 650 mg Atorvastatin Calcium (Lipitor) 10 mg PO [facility] Budesonide (Pulmicort Respules) 0.5 mg IH BID [facility] Last Admin: 03/12/18 07:39 Dose: 0.5 mg Calcium Carbonate (Oscal) 500 mg PO DAILY [facility] Last Admin: 03/12/18 10:10 Dose: 500 mg Carvedilol (Coreg) 3.125 mg PO BID [facility] Last Admin: 03/12/18 10:09 Dose: 3.125 mg Cholecalciferol (Vitamin D) 2,000 intlu PO DAILY [facility] Last Admin: 03/12/18 10:11 Dose: 2,000 intlu Docusate Sodium (Colace) 200 mg PO [facility] Last Admin: 03/11/18 21:36 Dose: 200 mg Enoxaparin Sodium (Lovenox) 40 mg SC DAILY [facility]; Protocol Last Admin: 03/12/18 10:09 Dose: 40 mg Ferrous Sulfate (Feosol) 325 mg PO DAILY [facility] Last Admin: 03/12/18 10:09 Dose: 325 mg Lactated Ringer's (Lactated Ringer's) 1,000 mls @ 65 mls/hr IV .[id number] PRN PRN Reason: Hypotension Vancomycin HCl 1 gm/ Sodium (Chloride) 250 mls @ 166.667 mls/hr IVPB Q12@0500,1700 [facility]; Protocol Last Admin: 03/12/18 04:00 Dose: 166.667 mls/hr Piperacillin Sod/Tazobactam (Sod 3.375 gm/ Sodium Chloride) 100 mls @ 100 mls/hr IVPB Q12 [facility]; Protocol Losartan Potassium (Cozaar) 50 mg PO QPM [facility] Last Admin: 03/11/18 18:13 Dose: 50 mg Magnesium Oxide (Mag-Ox) 400 mg PO QPM [facility] Last Admin: 03/11/18 18:14 Dose: 400 mg Mirtazapine (Remeron) 15 mg PO [facility] Last Admin: 03/11/18 21:36 Dose: 15 mg Morphine Sulfate (Morphine) 2 mg IVP Q4 PRN PRN Reason: Pain, severe (8-10) Last Admin: 03/12/18 11:07 Dose: 2 mg Ondansetron HCl (Zofran Inj) 4 mg IVP ONCE PRN PRN Reason: Nausea/Vomiting Oxycodone HCl (Oxycodone Immediate Release Tab) 10 mg PO Q4 PRN PRN Reason: Pain, moderate (4-7) Last Admin: 03/11/18 21:35 Dose: 10 mg Oxycodone/Acetaminophen (Percocet 5/325 Mg Tab) 2 tab PO Q4 PRN PRN Reason: Pain, moderate (4-7) Stop: 03/14/18 12:37 Pantoprazole Sodium (Protonix Ec Tab) 40 mg PO DAILY [facility] Last Admin: 03/12/18 10:11 Dose: 40 mg Tiotropium [place] (Spiriva) 18 mcg IH [facility] Last Admin: 03/11/18 21:51 Dose: Not Given Venlafaxine HCl (Effexor Xr) 225 mg PO [facility] Last Admin: 03/11/18 21:36 Dose: 225 mg - Labs Labs: 03/12/18 05:15 03/12/18 05:15 PT 14.2 Seconds (9.8-13.1) H 03/09/18 01:05 INR 1.3 03/09/18 01:05 APTT 33.8 Seconds (25.6-37.1) 03/09/18 01:05 - Extremities Exam Additional comments: R knee: Knee imm intact Dressings and prevena intact motor intact EHL/FHL/TA/G unable to test sensation pedal pulses intact comps soft NT b/l Assessment and Plan (1) Wound dehiscence Assessment & Plan: POD#1 s/p R knee I&D and Prevena VAC placement -continue prevena, monitor output -strict knee immobilizer -abx as per ID -DVT ppx, may restart Eliquis -orthopedically stable -above d/w Dr. Joel in agreement Status: Acute
[2018-03-12] MEDS: Magnesium Oxide 400 mg Tab UD PO SCH (17:33)
[2018-03-12] MEDS: oxyCODONE 10 mg Immediate Release Tab PO PRN (18:32)
[2018-03-12] MEDS: Venlafaxine 75 mg ER Cap PO SCH (22:21)
[2018-03-12] MEDS: Tiotropium 18 mcg Cap For Inhalation IH SCH (22:22)
[2018-03-13] MEDS: Piperacillin/Tazobact 3.375 GM in Sodium Chloride 0.9% 100 ML IVPB SCH ×2 (04:15→16:11)
[2018-03-13] MEDS: Budesonide 0.5 mg/2 ml Inhal Susp UD IH SCH ×2 (07:15→16:01)
[2018-03-13 08:23] LABS: BASO % 0.5 % (0.0-2.0); EOS # 0.1 K/uL (0.0-0.7); LYMPH # 0.7 K/uL (1.0-4.3); LYMPH % 9.6 % (20.0-40.0); MEAN CELL VOLUME 86.9 fl (81.0-99.0); MEAN CORPUSCULAR HEMOGLOBIN 29.4 pg (27.0-31.0); MEAN CORPUSCULAR HGB CONC 33.8 g/dL (33.0-37.0); MEAN PLATELET VOLUME 7.3 fl (7.2-11.7); MONO # 0.9 K/uL (0.0-0.8); MONO % 11.6 % (0.0-10.0); NEUT # 5.9 K/uL (1.8-7.0); NEUT % 77.3 % (50.0-75.0); PLATELET COUNT 249 K/uL (130-400); RBC 2.71 Mil/uL (3.80-5.20); RED CELL DISTRIBUTION WIDTH 15.8 % (11.5-14.5); WHITE BLOOD COUNT 7.6 K/uL (4.8-10.8)
[2018-03-13] MEDS: Enoxaparin 40 mg Syringe SC SCH (08:27)
[2018-03-13 08:30] LABS: BLOOD UREA NITROGEN 10 mg/dl (7-17); CALCIUM 8.4 mg/dL (8.4-10.2); GFR NON-AFRICAN AMERICAN > 60
[2018-03-13] MEDS: Pantoprazole 40 mg EC Tab PO SCH (08:31)
[2018-03-13] MEDS: Cholecalciferol 1,000 INTLU TAB PO SCH (08:32)
[2018-03-13 09:47] LABS: ANISOCYTOSIS SLIGHT; BASOPHIL 1 % (0-2); LYMPHOCYTE 8 % (20-50); MONOCYTE 10 % (0-10); NEUTROPHIL 81 % (42-75); PLATELET ESTIMATE NORMAL (NORMAL); TOTAL CELLS COUNTED 100
[2018-03-13 09:48] LABS: HYPOCHROMIC SLIGHT; LARGE PLATELETS PRESENT; OVALOCYTES MODERATE
--- NOTE | 2018-03-13 10:08 | CP.PCM.PN ---
<Socorro Yoo - Last Filed: 03/13/18 11:06> Subjective - Date & Time of Evaluation Date of Evaluation: 03/13/18 Time of Evaluation: 08:10 - Subjective Subjective: PT seen and examined this morning. States she feels fine, denies pain. Objective - Vital Signs/Intake and Output Vital Signs (last 24 hours): Temp Pulse Resp BP Pulse Ox 98.4 F 74 20 148/73 95 03/13/18 08:12 03/13/18 08:12 03/13/18 08:12 03/13/18 08:12 03/13/18 08:12 - Medications Medications: Current Medications Acetaminophen (Tylenol 325mg Tab) 650 mg PO Q6 PRN PRN Reason: Fever 101 and above Acetaminophen (Tylenol 325mg Tab) 650 mg PO Q6 PRN PRN Reason: Pain, Mild (1-3) Last Admin: 03/13/18 00:06 Dose: 650 mg Atorvastatin Calcium (Lipitor) 10 mg PO HS [facility] Budesonide (Pulmicort Respules) 0.5 mg IH BID [facility] Last Admin: 03/12/18 16:01 Dose: Not Given Calcium Carbonate (Oscal) 500 mg PO DAILY [facility] Last Admin: 03/13/18 08:31 Dose: 500 mg Carvedilol (Coreg) 3.125 mg PO BID [facility] Last Admin: 03/13/18 08:30 Dose: 3.125 mg Cholecalciferol (Vitamin D) 2,000 intlu PO DAILY [facility] Last Admin: 03/13/18 08:32 Dose: 2,000 intlu Docusate Sodium (Colace) 200 mg PO [facility] Last Admin: 03/12/18 22:22 Dose: 200 mg Enoxaparin Sodium (Lovenox) 40 mg SC DAILY [facility]; Protocol Last Admin: 03/13/18 08:27 Dose: 40 mg Ferrous Sulfate (Feosol) 325 mg PO DAILY [facility] Last Admin: 03/13/18 08:28 Dose: 325 mg Lactated Ringer's (Lactated Ringer's) 1,000 mls @ 65 mls/hr IV .[id number] PRN PRN Reason: Hypotension Vancomycin HCl 1 gm/ Sodium (Chloride) 250 mls @ 166.667 mls/hr IVPB Q12@0500,1700 [facility]; Protocol Last Admin: 03/13/18 05:24 Dose: 166.667 mls/hr Piperacillin Sod/Tazobactam (Sod 3.375 gm/ Sodium Chloride) 100 mls @ 100 mls/hr IVPB Q12@0500,1700 [facility]; Protocol Last Admin: 03/13/18 04:15 Dose: 100 mls/hr Losartan Potassium (Cozaar) 50 mg PO QPM [facility] Last Admin: 03/12/18 17:35 Dose: 50 mg Magnesium Oxide (Mag-Ox) 400 mg PO QPM [facility] Last Admin: 03/12/18 17:33 Dose: 400 mg Mirtazapine (Remeron) 15 mg PO [facility] Last Admin: 03/12/18 22:21 Dose: 15 mg Morphine Sulfate (Morphine) 2 mg IVP Q4 PRN PRN Reason: Pain, severe (8-10) Last Admin: 03/12/18 11:07 Dose: 2 mg Ondansetron HCl (Zofran Inj) 4 mg IVP ONCE PRN PRN Reason: Nausea/Vomiting Oxycodone HCl (Oxycodone Immediate Release Tab) 10 mg PO Q4 PRN PRN Reason: Pain, moderate (4-7) Last Admin: 03/12/18 18:32 Dose: 10 mg Oxycodone/Acetaminophen (Percocet 5/325 Mg Tab) 2 tab PO Q4 PRN PRN Reason: Pain, moderate (4-7) Stop: 03/14/18 12:37 Pantoprazole Sodium (Protonix Ec Tab) 40 mg PO DAILY [facility] Last Admin: 03/13/18 08:31 Dose: 40 mg Tiotropium [place] (Spiriva) 18 mcg IH [facility] Last Admin: 03/12/18 22:22 Dose: 18 mcg Venlafaxine HCl (Effexor Xr) 225 mg PO [facility] Last Admin: 03/12/18 22:21 Dose: 225 mg - Labs Labs: 03/13/18 07:00 03/13/18 07:00 PT 14.2 Seconds (9.8-13.1) H 03/09/18 01:05 INR 1.3 03/09/18 01:05 APTT 33.8 Seconds (25.6-37.1) 03/09/18 01:05 - Constitutional Appears: Well, Non-toxic, No Acute Distress - Head Exam Head Exam: NORMAL INSPECTION - Eye Exam Eye Exam: Normal appearance - ENT Exam ENT Exam: Mucous Membranes Moist - Respiratory Exam Respiratory Exam: Clear to Ausculation Bilateral - Cardiovascular Exam Cardiovascular Exam: REGULAR RHYTHM, +S1, +S2. absent: Murmur - GI/Abdominal Exam GI & Abdominal Exam: Soft. absent: Tenderness - Extremities Exam Additional comments: RIGHT knee-Cast in place. Toes warm with good capillary refill. Sensorium and motor of digits in tact. - Neurological Exam Neurological Exam: Alert, Oriented x3 Assessment and Plan - Assessment and Plan (Free Text) Assessment: 88 y/o F PMH of HTN, HLD, COPD, hx PE/DVT, chronic anemia, extensive psych hx, s/p Revision of b/l TKR in 11/2017 and chronic dementia; admitted due to wound dehiscence of R knee and underwent patellectomy, reconstruction of patella tendon, irrigation/debridement of wound, revision R TKR, with primary plastic closure of R knee with relaxing incision on 03/11/18. Wound vac in place. Has picc line. Started on Zosyn yesterday (<24hours), Spiked low grade fever 100.8F. No leukocytosis. Knee Cx growing Proteus Mirabilis pansensitive. Plan: Right knee open wound s/p R TKR - Pain controlled. - Ortho following - Knee Cx +GNR (no sensitivities) - Consult ID, Dr. Jordan - B/L Knee X-ray: S/P TKR b/l - F/u remaining wound cultures and sensitivities - C/W Vanco and Zosyn - PT Chronic Anemia - Hgb 8.0; 11.2 on admission - Likely iron deficiency - Continue PO iron, colace Hypertension - Chronic - Controlled - C/w home medications: Coreg, Cozaar COPD - Chronic - Stable - C/w home meds: Spiriva, Pulmicort, Brovana Q12 HLD - Continue with home med, atorvastatin Dementia - Baseline Diet - Modified dysphagia - finely chopped, nectar thick History of PE/DVT - Lovenox started by Ortho for dvt ppx. Pt on Eliquis at home for hx of DVT <Giselle Barnes - Last Filed: 03/13/18 11:17> Objective - Vital Signs/Intake and Output Vital Signs (last 24 hours): Temp Pulse Resp BP Pulse Ox 98.4 F 74 20 148/73 95 03/13/18 08:12 03/13/18 08:12 03/13/18 08:12 03/13/18 08:12 03/13/18 08:12 - Medications Medications: Current Medications Acetaminophen (Tylenol 325mg Tab) 650 mg PO Q6 PRN PRN Reason: Fever 101 and above Acetaminophen (Tylenol 325mg Tab) 650 mg PO Q6 PRN PRN Reason: Pain, Mild (1-3) Last Admin: 03/13/18 00:06 Dose: 650 mg Atorvastatin Calcium (Lipitor) 10 mg PO HS [facility] Budesonide (Pulmicort Respules) 0.5 mg IH BID [facility] Last Admin: 03/13/18 07:15 Dose: 0.5 mg Calcium Carbonate (Oscal) 500 mg PO DAILY [facility] Last Admin: 03/13/18 08:31 Dose: 500 mg Carvedilol (Coreg) 3.125 mg PO BID [facility] Last Admin: 03/13/18 08:30 Dose: 3.125 mg Cholecalciferol (Vitamin D) 2,000 intlu PO DAILY [facility] Last Admin: 03/13/18 08:32 Dose: 2,000 intlu Docusate Sodium (Colace) 200 mg PO HS [facility] Last Admin: 03/12/18 22:22 Dose: 200 mg Enoxaparin Sodium (Lovenox) 40 mg SC DAILY [facility]; Protocol Last Admin: 03/13/18 08:27 Dose: 40 mg Ferrous Sulfate (Feosol) 325 mg PO DAILY [facility] Last Admin: 03/13/18 08:28 Dose: 325 mg Lactated Ringer's (Lactated Ringer's) 1,000 mls @ 65 mls/hr IV .[id number] PRN PRN Reason: Hypotension Vancomycin HCl 1 gm/ Sodium (Chloride) 250 mls @ 166.667 mls/hr IVPB Q12@0500,1700 [facility]; Protocol Last Admin: 03/13/18 05:24 Dose: 166.667 mls/hr Piperacillin Sod/Tazobactam (Sod 3.375 gm/ Sodium Chloride) 100 mls @ 100 mls/hr IVPB Q12@0500,1700 [facility]; Protocol Last Admin: 03/13/18 04:15 Dose: 100 mls/hr Losartan Potassium (Cozaar) 50 mg PO QPM [facility] Last Admin: 03/12/18 17:35 Dose: 50 mg Magnesium Oxide (Mag-Ox) 400 mg PO QPM [facility] Last Admin: 03/12/18 17:33 Dose: 400 mg Mirtazapine (Remeron) 15 mg PO [facility] Last Admin: 03/12/18 22:21 Dose: 15 mg Morphine Sulfate (Morphine) 2 mg IVP Q4 PRN PRN Reason: Pain, severe (8-10) Last Admin: 03/12/18 11:07 Dose: 2 mg Ondansetron HCl (Zofran Inj) 4 mg IVP ONCE PRN PRN Reason: Nausea/Vomiting Oxycodone HCl (Oxycodone Immediate Release Tab) 10 mg PO Q4 PRN PRN Reason: Pain, moderate (4-7) Last Admin: 03/12/18 18:32 Dose: 10 mg Oxycodone/Acetaminophen (Percocet 5/325 Mg Tab) 2 tab PO Q4 PRN PRN Reason: Pain, moderate (4-7) Stop: 03/14/18 12:37 Pantoprazole Sodium (Protonix Ec Tab) 40 mg PO DAILY [facility] Last Admin: 03/13/18 08:31 Dose: 40 mg Tiotropium [place] (Spiriva) 18 mcg IH [facility] Last Admin: 03/12/18 22:22 Dose: 18 mcg Venlafaxine HCl (Effexor Xr) 225 mg PO [facility] Last Admin: 03/12/18 22:21 Dose: 225 mg - Labs Labs: 03/13/18 07:00 03/13/18 07:00 PT 14.2 Seconds (9.8-13.1) H 03/09/18 01:05 INR 1.3 03/09/18 01:05 APTT 33.8 Seconds (25.6-37.1) 03/09/18 01:05 Attending/Attestation - Attestation I have personally seen and examined this patient.: Yes I have fully participated in the care of the patient.: Yes I have reviewed all pertinent clinical information, including history, physical exam and plan: Yes Notes (Text): 03/13/18 11:17 Seen, examined, and discussed with resident. Agree with findings and plan as above.
[2018-03-13] MEDS ORDERED: Potassium Chloride 20 mEq ER Tab PO ONE ×2 (11:31→16:00)
[2018-03-13] MEDS ORDERED: Potassium Chloride 20 mEq/15 ml LIQ UD PO ONE ×2 (11:38→16:39)
--- NOTE | 2018-03-13 13:40 | CP.PCM.PN ---
Subjective - Date & Time of Evaluation Date of Evaluation: 03/13/18 Time of Evaluation: 12:50 - Subjective Subjective: NO COMPLAINTS Objective - Vital Signs/Intake and Output Vital Signs (last 24 hours): Temp Pulse Resp BP Pulse Ox 98.4 F 74 20 148/73 95 03/13/18 08:12 03/13/18 08:12 03/13/18 08:12 03/13/18 08:12 03/13/18 08:12 - Medications Medications: Current Medications Acetaminophen (Tylenol 325mg Tab) 650 mg PO Q6 PRN PRN Reason: Fever 101 and above Acetaminophen (Tylenol 325mg Tab) 650 mg PO Q6 PRN PRN Reason: Pain, Mild (1-3) Last Admin: 03/13/18 00:06 Dose: 650 mg Atorvastatin Calcium (Lipitor) 10 mg PO [facility] Budesonide (Pulmicort Respules) 0.5 mg IH BID [facility] Last Admin: 03/13/18 07:15 Dose: 0.5 mg Calcium Carbonate (Oscal) 500 mg PO DAILY [facility] Last Admin: 03/13/18 08:31 Dose: 500 mg Carvedilol (Coreg) 3.125 mg PO BID [facility] Last Admin: 03/13/18 08:30 Dose: 3.125 mg Cholecalciferol (Vitamin D) 2,000 intlu PO DAILY [facility] Last Admin: 03/13/18 08:32 Dose: 2,000 intlu Docusate Sodium (Colace) 200 mg PO HS [facility] Last Admin: 03/12/18 22:22 Dose: 200 mg Enoxaparin Sodium (Lovenox) 40 mg SC DAILY [facility]; Protocol Last Admin: 03/13/18 08:27 Dose: 40 mg Ferrous Sulfate (Feosol) 325 mg PO DAILY [facility] Last Admin: 03/13/18 08:28 Dose: 325 mg Lactated Ringer's (Lactated Ringer's) 1,000 mls @ 65 mls/hr IV .[id number] PRN PRN Reason: Hypotension Vancomycin HCl 1 gm/ Sodium (Chloride) 250 mls @ 166.667 mls/hr IVPB Q12@0500,1700 [facility]; Protocol Last Admin: 03/13/18 05:24 Dose: 166.667 mls/hr Piperacillin Sod/Tazobactam (Sod 3.375 gm/ Sodium Chloride) 100 mls @ 100 mls/hr IVPB Q12@0500,1700 [facility]; Protocol Last Admin: 03/13/18 04:15 Dose: 100 mls/hr Losartan Potassium (Cozaar) 50 mg PO QPM [facility] Last Admin: 03/12/18 17:35 Dose: 50 mg Magnesium Oxide (Mag-Ox) 400 mg PO QPM [facility] Last Admin: 03/12/18 17:33 Dose: 400 mg Mirtazapine (Remeron) 15 mg PO [facility] Last Admin: 03/12/18 22:21 Dose: 15 mg Morphine Sulfate (Morphine) 2 mg IVP Q4 PRN PRN Reason: Pain, severe (8-10) Last Admin: 03/12/18 11:07 Dose: 2 mg Ondansetron HCl (Zofran Inj) 4 mg IVP ONCE PRN PRN Reason: Nausea/Vomiting Oxycodone HCl (Oxycodone Immediate Release Tab) 10 mg PO Q4 PRN PRN Reason: Pain, moderate (4-7) Last Admin: 03/12/18 18:32 Dose: 10 mg Oxycodone/Acetaminophen (Percocet 5/325 Mg Tab) 2 tab PO Q4 PRN PRN Reason: Pain, moderate (4-7) Stop: 03/14/18 12:37 Pantoprazole Sodium (Protonix Ec Tab) 40 mg PO DAILY [facility] Last Admin: 03/13/18 08:31 Dose: 40 mg Potassium Chloride (Potassium Chloride Oral Soln) 40 meq PO ONCE ONE Stop: 03/13/18 16:40 Tiotropium [place] (Spiriva) 18 mcg IH [facility] Last Admin: 03/12/18 22:22 Dose: 18 mcg Venlafaxine HCl (Effexor Xr) 225 mg PO [facility] Last Admin: 03/12/18 22:21 Dose: 225 mg - Labs Labs: 03/13/18 07:00 03/13/18 07:00 PT 14.2 Seconds (9.8-13.1) H 03/09/18 01:05 INR 1.3 03/09/18 01:05 APTT 33.8 Seconds (25.6-37.1) 03/09/18 01:05 - Respiratory Exam Respiratory Exam: Clear to Ausculation Bilateral - Cardiovascular Exam Cardiovascular Exam: REGULAR RHYTHM, +S1, +S2 - Extremities Exam Additional comments: RLE WITH IMMOBILIZER LLE WITHOUT EDEMA Assessment and Plan - Assessment and Plan (Free Text) Assessment: S/P REVISION OF RIGHT TKR HYPERTENSIUON HYPERLIPIDEMIA Plan: CONTINUE LOSARTAN, CARVEDILOL, ATORVASTATIN, LOVENOX AND ANTIBIOTICS
--- NOTE | 2018-03-13 14:14 | OP ---
PROCEDURE DATE: 03/11/2018 PREOPERATIVE DIAGNOSES: 1. Status post complex revision right total knee replacement with wound dehiscence. 2. Rule out septic right total knee replacement. OPERATIVE FINDINGS: 1. Wound dehiscence, status post revision right total knee replacement. 2. Rule out septic right total knee. POSTOPERATIVE DIAGNOSES: 1. Status post complex revision right total knee replacement with wound dehiscence. 2. Rule out septic right total knee replacement. 3. No evidence for deep sepsis. OPERATIONS PERFORMED: 1. Patellectomy. 2. Reconstruction extensor mechanism patella tendon. 3. Primary plastic closure of the right knee with relaxing incision technique approximately 18 cm. 4. Application of wound VAC. 5. Manipulation of knee under anesthesia. SPECIMENS REMOVED: Patella, tendon, skin, and subcutaneous tissue. BLOOD LOSS: 15 mL. BLOOD PRODUCTS GIVEN: None. DRAINS USED: Wound VAC. POSTOPERATIVE CONDITION: Fair. TIME OF SURGERY: Time in the room 09:15, time of procedure 10:10. OPERATIVE INDICATIONS: Lorie Machado is an 88-year-old woman who underwent revision right total knee replacement for a dislocated knee, total knee replacement several months ago. The patient was treated at [facility] and unfortunately poor wound care resulted in a complete dehiscence secondary to external rotation pressure on the lateral femoral condyle of the knee. Pros, cons, risks and benefits were discussed at length with the patient's daughter and her son, Dr. Herbie Machado. The possibility of mechanical failure, infection, thromboembolic disease, possibility of secondary or tertiary surgery was discussed. The option of amputation was discussed. The possibility of later amputation was discussed. The grave condition of the patient at 88 years old was discussed. The possibility of was discussed. DESCRIPTION OF OPERATIVE PROCEDURE: After having obtained informed consent with the family insisting upon the procedure, after having identified side, site and procedure and a critical pause/time-out, after a satisfactory induction of the anesthetic, the patient identified as Lorie Machado in the supine position with all bony prominences well padded. The right lower extremity was prepped and draped in usual fashion for lower extremity surgery. The tourniquet was applied and was not inflated. Under the surgeon's direction, the fluoroscope was positioned, video images were generated and therapeutic decisions were made therefrom. The knee is manipulated under anesthesia. Because the patient is not ambulatory, the sole goal here is for wound coverage. The initial step is patellectomy. An ellipse of skin is removed and using #10 blade skin and subcutaneous tissue and some muscle. The wound is thoroughly irrigated. At this point in time, the patellar button and tuscarora bony patella are grasped using a Lynn with sharp dissection using electrocautery and taking great care to hug the bone and the plastic tube, eliminate numerous excision of tissue. The patellectomy was accomplished at this point in time. Using interrupted FiberWire suture with the knee in extension, the patellar ligament was repaired. Using modified tensor sutures at this point in time, the wound is thoroughly irrigated. Partial synovectomy is accomplished and there was found to be a 3 cm gap in closure, so as to spare this patient from a large procedure, the concept of a medial relaxing incision to close the wound laterally is entertained. This was measured carefully so that the relaxing incision is accomplished about 8 to 10 cm medially, so as not to endanger the flap. Skin incision was carried down through the skin and subcutaneous tissue. The dissection was carried down to the level of the prepatellar bursa. Dissection was carried out to leave that flap very thick to the lateral aspect. This having been accomplished, mobilizing the skin in that fashion, the patellar ligament was again repaired from the medial aspect using interrupted FiberWire and #1 Vicryl. This having been accomplished, the original skin incision was closed with interrupted Vicryl and 2-0 nylon. The skin coverage was found to be acceptable. In fact, closure in that area was with interrupted Vicryl and nylon. The entire skin laterally, which had been a large 5 cm diameter defect is entirely closed. At this point in time, the wound was thoroughly irrigated. Attention was turned to the medial relaxing incision and closures in layers with interrupted Vicryl, 0 Vicryl, 2-0 Vicryl and clement for skin medially. Verification of position is offered on AP image intensification views again. At this point in time, hemostasis having been controlled, the Prevena wound VAC is applied. The #1 step of the wound VAC was accomplished. The wound VAC is fitted to size and the wound VAC is applied over the lateral wound. The lateral wound is the wound that needs the Prevena wound VAC drainage. This having been accomplished, a 50 cent piece area in the porous material was accomplished and the secondary #2 aspect of the wound VAC was applied. This having been accomplished, the Prevena wound VAC having been applied, the suction was introduced. Compression dressing was applied medially. Jerel Montanez compression dressing and knee immobilizers applied. The patient tolerated the procedure well. OPERATIVE PROCEDURES: 1. Patellectomy. 2. Reconstruction patellar ligament extensor expansion. 3. Primary plastic closure. 4. Arthrotomy, partial synovectomy. 5. Application of wound VAC. 6. Manipulation of the knee under anesthesia. SURGEON: Mega Joel MD. ESTIMATOR P[employer]ERBOARD BOXES: Yara Hines. COMPLICATIONS: No complications. DRAINS: Wound VAC drain. Mega Joel MD
[2018-03-13] MEDS: Magnesium Oxide 400 mg Tab UD PO SCH (17:09)
[2018-03-13] MEDS: Tiotropium 18 mcg Cap For Inhalation IH SCH (21:56)
[2018-03-13] MEDS: Venlafaxine 75 mg ER Cap PO SCH (22:09)
[2018-03-14] MEDS: Piperacillin/Tazobact 3.375 GM in Sodium Chloride 0.9% 100 ML IVPB SCH ×2 (04:15→16:08)
[2018-03-14] MEDS: Budesonide 0.5 mg/2 ml Inhal Susp UD IH SCH ×2 (07:04→19:08)
[2018-03-14] MEDS: Cholecalciferol 1,000 INTLU TAB PO SCH (08:28)
[2018-03-14] MEDS: Enoxaparin 40 mg Syringe SC SCH (08:28)
[2018-03-14] MEDS: Pantoprazole 40 mg EC Tab PO SCH (08:29)
--- NOTE | 2018-03-14 08:36 | CP.PCM.PN ---
<Dragan MosquedaafuaJose Guadalupe - Last Filed: 03/14/18 15:32> Subjective - Date & Time of Evaluation Date of Evaluation: 03/14/18 Time of Evaluation: 07:00 - Subjective Subjective: Pt is seen and examined. No acute event overnight. Patient have no complain. Objective - Vital Signs/Intake and Output Vital Signs (last 24 hours): Temp Pulse Resp BP Pulse Ox 97.8 F 61 20 122/69 93 L 03/14/18 08:16 03/14/18 08:16 03/14/18 08:16 03/14/18 08:16 03/14/18 08:16 - Medications Medications: Current Medications Acetaminophen (Tylenol 325mg Tab) 650 mg PO Q6 PRN PRN Reason: Fever 101 and above Acetaminophen (Tylenol 325mg Tab) 650 mg PO Q6 PRN PRN Reason: Pain, Mild (1-3) Last Admin: 03/13/18 00:06 Dose: 650 mg Atorvastatin Calcium (Lipitor) 10 mg PO HS [facility] Budesonide (Pulmicort Respules) 0.5 mg IH BID [facility] Last Admin: 03/14/18 07:04 Dose: 0.5 mg Calcium Carbonate (Oscal) 500 mg PO DAILY [facility] Last Admin: 03/14/18 08:26 Dose: 500 mg Carvedilol (Coreg) 3.125 mg PO BID [facility] Last Admin: 03/14/18 08:26 Dose: 3.125 mg Cholecalciferol (Vitamin D) 2,000 intlu PO DAILY [facility] Last Admin: 03/14/18 08:28 Dose: 2,000 intlu Docusate Sodium (Colace) 200 mg PO HS [facility] Last Admin: 03/13/18 21:55 Dose: 200 mg Enoxaparin Sodium (Lovenox) 40 mg SC DAILY [facility]; Protocol Last Admin: 03/14/18 08:28 Dose: 40 mg Ferrous Sulfate (Feosol) 325 mg PO DAILY [facility] Last Admin: 03/14/18 08:27 Dose: 325 mg Lactated Ringer's (Lactated Ringer's) 1,000 mls @ 65 mls/hr IV .[id number] PRN PRN Reason: Hypotension Vancomycin HCl 1 gm/ Sodium (Chloride) 250 mls @ 166.667 mls/hr IVPB Q12@0500,1700 [facility]; Protocol Last Admin: 03/14/18 05:43 Dose: 166.667 mls/hr Piperacillin Sod/Tazobactam (Sod 3.375 gm/ Sodium Chloride) 100 mls @ 100 mls/hr IVPB Q12@0500,1700 [facility]; Protocol Last Admin: 03/14/18 04:15 Dose: 100 mls/hr Losartan Potassium (Cozaar) 50 mg PO QPM [facility] Last Admin: 03/13/18 17:10 Dose: 50 mg Magnesium Oxide (Mag-Ox) 400 mg PO QPM [facility] Last Admin: 03/13/18 17:09 Dose: 400 mg Mirtazapine (Remeron) 15 mg PO [facility] Last Admin: 03/13/18 21:54 Dose: 15 mg Morphine Sulfate (Morphine) 2 mg IVP Q4 PRN PRN Reason: Pain, severe (8-10) Last Admin: 03/12/18 11:07 Dose: 2 mg Ondansetron HCl (Zofran Inj) 4 mg IVP ONCE PRN PRN Reason: Nausea/Vomiting Oxycodone HCl (Oxycodone Immediate Release Tab) 10 mg PO Q4 PRN PRN Reason: Pain, moderate (4-7) Last Admin: 03/12/18 18:32 Dose: 10 mg Oxycodone/Acetaminophen (Percocet 5/325 Mg Tab) 2 tab PO Q4 PRN PRN Reason: Pain, moderate (4-7) Stop: 03/14/18 12:37 Pantoprazole Sodium (Protonix Ec Tab) 40 mg PO DAILY [facility] Last Admin: 03/14/18 08:29 Dose: 40 mg Tiotropium [place] (Spiriva) 18 mcg IH [facility] Last Admin: 03/13/18 21:56 Dose: 18 mcg Venlafaxine HCl (Effexor Xr) 225 mg PO [facility] Last Admin: 03/13/18 22:09 Dose: 225 mg - Labs Labs: 03/13/18 07:00 03/13/18 07:00 PT 14.2 Seconds (9.8-13.1) H 03/09/18 01:05 INR 1.3 03/09/18 01:05 APTT 33.8 Seconds (25.6-37.1) 03/09/18 01:05 - Constitutional Appears: Well, Non-toxic, No Acute Distress - Head Exam Head Exam: ATRAUMATIC, NORMAL INSPECTION, NORMOCEPHALIC - Eye Exam Eye Exam: EOMI, Normal appearance, PERRL Pupil Exam: NORMAL ACCOMODATION, PERRL - ENT Exam ENT Exam: Mucous Membranes Moist, Normal Exam - Neck Exam Neck Exam: Full ROM, Normal Inspection - Respiratory Exam Respiratory Exam: Clear to Ausculation Bilateral, NORMAL BREATHING PATTERN - Cardiovascular Exam Cardiovascular Exam: REGULAR RHYTHM, +S1, +S2 - GI/Abdominal Exam GI & Abdominal Exam: Soft, Normal Bowel Sounds - Extremities Exam Extremities Exam: Normal Capillary Refill Additional comments: SCD noted on lower extremity b/l, RAINA wrap noted Right leg - Back Exam Back Exam: NORMAL INSPECTION - Neurological Exam Neurological Exam: Alert, Awake, Oriented x3 - Psychiatric Exam Psychiatric exam: Normal Affect, Normal Mood - Skin Skin Exam: Dry, Intact, Normal Color, Warm Assessment and Plan - Assessment and Plan (Free Text) Assessment: 88 y/o F PMH of HTN, HLD, COPD, hx PE/DVT, chronic anemia, extensive psych hx, s/p Revision of b/l TKR in 11/2017 and chronic dementia; admitted due to wound dehiscence of R knee and underwent patellectomy, reconstruction of patella tendon, irrigation/debridement of wound, revision R TKR, with primary plastic closure of R knee with relaxing incision on 03/11/18. Wound vac in place. Has picc line. On Zosyn day 2 (<24hours), Knee Cx growing Proteus Mirabilis pansensitive. Right knee open wound s/p R TKR - Pain controlled. - Ortho following - Knee Cx +GNR (no sensitivities) - Dr. Jordan, f/u recommendation - B/L Knee X-ray: S/P TKR b/l - Blood culture + Proteus mirabilis, klepsiella pneumonia Final - Continue with Vanco day 4 - Continue Zosyn Day 2 - PT Chronic Anemia - Hgb 8.0; 11.2 on admission - Likely iron deficiency - Continue PO iron, colace Hypertension - Chronic - Controlled - C/w home medications: Coreg, Cozaar COPD - Chronic - Stable - C/w home meds: Spiriva, Pulmicort, Brovana Q12 HLD - Continue with home med, atorvastatin Dementia - Baseline Diet - Modified dysphagia - finely chopped, nectar thick History of PE/DVT - Lovenox started by Ortho for dvt ppx. Pt on Eliquis at home for hx of DVT <Bindu Wilson - Last Filed: 03/14/18 15:53> Objective - Vital Signs/Intake and Output Vital Signs (last 24 hours): Temp Pulse Resp BP Pulse Ox 97.8 F 61 20 122/69 93 L 03/14/18 08:16 03/14/18 08:16 03/14/18 08:16 03/14/18 08:16 03/14/18 08:16 - Medications Medications: Current Medications Acetaminophen (Tylenol 325mg Tab) 650 mg PO Q6 PRN PRN Reason: Fever 101 and above Acetaminophen (Tylenol 325mg Tab) 650 mg PO Q6 PRN PRN Reason: Pain, Mild (1-3) Last Admin: 03/13/18 00:06 Dose: 650 mg Atorvastatin Calcium (Lipitor) 10 mg PO HS [facility] Budesonide (Pulmicort Respules) 0.5 mg IH BID [facility] Last Admin: 03/14/18 07:04 Dose: 0.5 mg Calcium Carbonate (Oscal) 500 mg PO DAILY [facility] Last Admin: 03/14/18 08:26 Dose: 500 mg Carvedilol (Coreg) 3.125 mg PO BID [facility] Last Admin: 03/14/18 08:26 Dose: 3.125 mg Cholecalciferol (Vitamin D) 2,000 intlu PO DAILY [facility] Last Admin: 03/14/18 08:28 Dose: 2,000 intlu Docusate Sodium (Colace) 200 mg PO [facility] Last Admin: 03/13/18 21:55 Dose: 200 mg Enoxaparin Sodium (Lovenox) 40 mg SC DAILY [facility]; Protocol Last Admin: 03/14/18 08:28 Dose: 40 mg Ferrous Sulfate (Feosol) 325 mg PO BID [facility] Last Admin: 03/14/18 09:00 Dose: Not Given Lactated Ringer's (Lactated Ringer's) 1,000 mls @ 65 mls/hr IV .[id number] PRN PRN Reason: Hypotension Vancomycin HCl 1 gm/ Sodium (Chloride) 250 mls @ 166.667 mls/hr IVPB Q12@0500,1700 [facility]; Protocol Last Admin: 03/14/18 05:43 Dose: 166.667 mls/hr Piperacillin Sod/Tazobactam (Sod 3.375 gm/ Sodium Chloride) 100 mls @ 100 mls/hr IVPB Q12@0500,1700 [facility]; Protocol Last Admin: 03/14/18 04:15 Dose: 100 mls/hr Losartan Potassium (Cozaar) 50 mg PO QPM [facility] Last Admin: 03/13/18 17:10 Dose: 50 mg Magnesium Oxide (Mag-Ox) 400 mg PO QPM [facility] Last Admin: 03/13/18 17:09 Dose: 400 mg Mirtazapine (Remeron) 15 mg PO HS [facility] Last Admin: 03/13/18 21:54 Dose: 15 mg Ondansetron HCl (Zofran Inj) 4 mg IVP ONCE PRN PRN Reason: Nausea/Vomiting Oxycodone HCl (Oxycodone Immediate Release Tab) 10 mg PO Q4 PRN PRN Reason: Pain, moderate (4-7) Last Admin: 03/12/18 18:32 Dose: 10 mg Pantoprazole Sodium (Protonix Ec Tab) 40 mg PO DAILY [facility] Last Admin: 03/14/18 08:29 Dose: 40 mg Tiotropium [place] (Spiriva) 18 mcg IH [facility] Last Admin: 03/13/18 21:56 Dose: 18 mcg Venlafaxine HCl (Effexor Xr) 225 mg PO HS [facility] Last Admin: 03/13/18 22:09 Dose: 225 mg - Labs Labs: 03/13/18 07:00 03/14/18 10:30 PT 14.2 Seconds (9.8-13.1) H 03/09/18 01:05 INR 1.3 03/09/18 01:05 APTT 33.8 Seconds (25.6-37.1) 03/09/18 01:05 Attending/Attestation - Attestation I have personally seen and examined this patient.: Yes I have fully participated in the care of the patient.: Yes I have reviewed all pertinent clinical information, including history, physical exam and plan: Yes
--- NOTE | 2018-03-14 09:16 | CP.PCM.PN ---
Subjective - Date & Time of Evaluation Date of Evaluation: 03/13/18 Time of Evaluation: 08:30 - Subjective Subjective: S- pt awake and responsive/disoriented Objective - Vital Signs/Intake and Output Vital Signs (last 24 hours): Temp Pulse Resp BP Pulse Ox 97.8 F 61 20 122/69 93 L 03/14/18 08:16 03/14/18 08:16 03/14/18 08:16 03/14/18 08:16 03/14/18 08:16 - Medications Medications: Current Medications Acetaminophen (Tylenol 325mg Tab) 650 mg PO Q6 PRN PRN Reason: Fever 101 and above Acetaminophen (Tylenol 325mg Tab) 650 mg PO Q6 PRN PRN Reason: Pain, Mild (1-3) Last Admin: 03/13/18 00:06 Dose: 650 mg Atorvastatin Calcium (Lipitor) 10 mg PO [facility] Budesonide (Pulmicort Respules) 0.5 mg IH BID [facility] Last Admin: 03/14/18 07:04 Dose: 0.5 mg Calcium Carbonate (Oscal) 500 mg PO DAILY [facility] Last Admin: 03/14/18 08:26 Dose: 500 mg Carvedilol (Coreg) 3.125 mg PO BID [facility] Last Admin: 03/14/18 08:26 Dose: 3.125 mg Cholecalciferol (Vitamin D) 2,000 intlu PO DAILY [facility] Last Admin: 03/14/18 08:28 Dose: 2,000 intlu Docusate Sodium (Colace) 200 mg PO [facility] Last Admin: 03/13/18 21:55 Dose: 200 mg Enoxaparin Sodium (Lovenox) 40 mg SC DAILY [facility]; Protocol Last Admin: 03/14/18 08:28 Dose: 40 mg Ferrous Sulfate (Feosol) 325 mg PO BID [facility] Last Admin: 03/14/18 09:00 Dose: Not Given Lactated Ringer's (Lactated Ringer's) 1,000 mls @ 65 mls/hr IV .[id number] PRN PRN Reason: Hypotension Vancomycin HCl 1 gm/ Sodium (Chloride) 250 mls @ 166.667 mls/hr IVPB Q12@0500,1700 [facility]; Protocol Last Admin: 03/14/18 05:43 Dose: 166.667 mls/hr Piperacillin Sod/Tazobactam (Sod 3.375 gm/ Sodium Chloride) 100 mls @ 100 mls/hr IVPB Q12@0500,1700 [facility]; Protocol Last Admin: 03/14/18 04:15 Dose: 100 mls/hr Losartan Potassium (Cozaar) 50 mg PO QPM [facility] Last Admin: 03/13/18 17:10 Dose: 50 mg Magnesium Oxide (Mag-Ox) 400 mg PO QPM [facility] Last Admin: 03/13/18 17:09 Dose: 400 mg Mirtazapine (Remeron) 15 mg PO [facility] Last Admin: 03/13/18 21:54 Dose: 15 mg Morphine Sulfate (Morphine) 2 mg IVP Q4 PRN PRN Reason: Pain, severe (8-10) Last Admin: 03/12/18 11:07 Dose: 2 mg Ondansetron HCl (Zofran Inj) 4 mg IVP ONCE PRN PRN Reason: Nausea/Vomiting Oxycodone HCl (Oxycodone Immediate Release Tab) 10 mg PO Q4 PRN PRN Reason: Pain, moderate (4-7) Last Admin: 03/12/18 18:32 Dose: 10 mg Oxycodone/Acetaminophen (Percocet 5/325 Mg Tab) 2 tab PO Q4 PRN PRN Reason: Pain, moderate (4-7) Stop: 03/14/18 12:37 Pantoprazole Sodium (Protonix Ec Tab) 40 mg PO DAILY [facility] Last Admin: 03/14/18 08:29 Dose: 40 mg Tiotropium [place] (Spiriva) 18 mcg IH [facility] Last Admin: 03/13/18 21:56 Dose: 18 mcg Venlafaxine HCl (Effexor Xr) 225 mg PO [facility] Last Admin: 03/13/18 22:09 Dose: 225 mg - Labs Labs: 03/13/18 07:00 03/13/18 07:00 PT 14.2 Seconds (9.8-13.1) H 03/09/18 01:05 INR 1.3 03/09/18 01:05 APTT 33.8 Seconds (25.6-37.1) 03/09/18 01:05 - Additional Findings Additional findings: Objective systemic- unchanged Musciuloskekltal stance/gait- defrred r lower ext dressing intact/ wound vac functioining Assessment and Plan - Assessment and Plan (Free Text) Assessment: A- s/p patelelctomy/primary closure qwound orthopedically stable continue provenea wound vac orthopedically stable
--- NOTE | 2018-03-14 09:18 | CP.PCM.PN ---
Subjective - Date & Time of Evaluation Date of Evaluation: 03/14/18 Time of Evaluation: 09:00 - Subjective Subjective: S- doing well/ pt much more alert and respopmsive mfrom yesterday/ pt with no pain, eating breakfsat Objective - Vital Signs/Intake and Output Vital Signs (last 24 hours): Temp Pulse Resp BP Pulse Ox 97.8 F 61 20 122/69 93 L 03/14/18 08:16 03/14/18 08:16 03/14/18 08:16 03/14/18 08:16 03/14/18 08:16 - Medications Medications: Current Medications Acetaminophen (Tylenol 325mg Tab) 650 mg PO Q6 PRN PRN Reason: Fever 101 and above Acetaminophen (Tylenol 325mg Tab) 650 mg PO Q6 PRN PRN Reason: Pain, Mild (1-3) Last Admin: 03/13/18 00:06 Dose: 650 mg Atorvastatin Calcium (Lipitor) 10 mg PO [facility] Budesonide (Pulmicort Respules) 0.5 mg IH BID [facility] Last Admin: 03/14/18 07:04 Dose: 0.5 mg Calcium Carbonate (Oscal) 500 mg PO DAILY [facility] Last Admin: 03/14/18 08:26 Dose: 500 mg Carvedilol (Coreg) 3.125 mg PO BID [facility] Last Admin: 03/14/18 08:26 Dose: 3.125 mg Cholecalciferol (Vitamin D) 2,000 intlu PO DAILY [facility] Last Admin: 03/14/18 08:28 Dose: 2,000 intlu Docusate Sodium (Colace) 200 mg PO [facility] Last Admin: 03/13/18 21:55 Dose: 200 mg Enoxaparin Sodium (Lovenox) 40 mg SC DAILY [facility]; Protocol Last Admin: 03/14/18 08:28 Dose: 40 mg Ferrous Sulfate (Feosol) 325 mg PO BID [facility] Last Admin: 03/14/18 09:00 Dose: Not Given Lactated Ringer's (Lactated Ringer's) 1,000 mls @ 65 mls/hr IV .[id number] PRN PRN Reason: Hypotension Vancomycin HCl 1 gm/ Sodium (Chloride) 250 mls @ 166.667 mls/hr IVPB Q12@0500,1700 [facility]; Protocol Last Admin: 03/14/18 05:43 Dose: 166.667 mls/hr Piperacillin Sod/Tazobactam (Sod 3.375 gm/ Sodium Chloride) 100 mls @ 100 mls/hr IVPB Q12@0500,1700 [facility]; Protocol Last Admin: 03/14/18 04:15 Dose: 100 mls/hr Losartan Potassium (Cozaar) 50 mg PO QPM [facility] Last Admin: 03/13/18 17:10 Dose: 50 mg Magnesium Oxide (Mag-Ox) 400 mg PO QPM [facility] Last Admin: 03/13/18 17:09 Dose: 400 mg Mirtazapine (Remeron) 15 mg PO [facility] Last Admin: 03/13/18 21:54 Dose: 15 mg Morphine Sulfate (Morphine) 2 mg IVP Q4 PRN PRN Reason: Pain, severe (8-10) Last Admin: 03/12/18 11:07 Dose: 2 mg Ondansetron HCl (Zofran Inj) 4 mg IVP ONCE PRN PRN Reason: Nausea/Vomiting Oxycodone HCl (Oxycodone Immediate Release Tab) 10 mg PO Q4 PRN PRN Reason: Pain, moderate (4-7) Last Admin: 03/12/18 18:32 Dose: 10 mg Oxycodone/Acetaminophen (Percocet 5/325 Mg Tab) 2 tab PO Q4 PRN PRN Reason: Pain, moderate (4-7) Stop: 03/14/18 12:37 Pantoprazole Sodium (Protonix Ec Tab) 40 mg PO DAILY [facility] Last Admin: 03/14/18 08:29 Dose: 40 mg Tiotropium [place] (Spiriva) 18 mcg IH [facility] Last Admin: 03/13/18 21:56 Dose: 18 mcg Venlafaxine HCl (Effexor Xr) 225 mg PO [facility] Last Admin: 03/13/18 22:09 Dose: 225 mg - Labs Labs: 03/13/18 07:00 03/13/18 07:00 PT 14.2 Seconds (9.8-13.1) H 03/09/18 01:05 INR 1.3 03/09/18 01:05 APTT 33.8 Seconds (25.6-37.1) 03/09/18 01:05 - Additional Findings Additional findings: MUsculoskekltal- R lower ext dressing dry and intact orthopedically stable Assessment and Plan - Assessment and Plan (Free Text) Assessment: A- s/p patellectomy and wound coiverager- s/p wound dehiscience PO- orthopedically stable maintain Provena wound vac
[2018-03-14 11:38] LABS: BLOOD UREA NITROGEN 10 mg/dl (7-17); CALCIUM 8.6 mg/dL (8.4-10.2); GFR NON-AFRICAN AMERICAN > 60
[2018-03-14] MEDS: Magnesium Oxide 400 mg Tab UD PO SCH (17:10)
[2018-03-14] MEDS: Tiotropium 18 mcg Cap For Inhalation IH SCH (22:50)
[2018-03-14] MEDS: Venlafaxine 75 mg ER Cap PO SCH (22:58)
[2018-03-15] MEDS: Piperacillin/Tazobact 3.375 GM in Sodium Chloride 0.9% 100 ML IVPB SCH (05:23)
[2018-03-15] MEDS: Budesonide 0.5 mg/2 ml Inhal Susp UD IH SCH ×3 (07:48→19:35)
[2018-03-15] MEDS ORDERED: Iron Sucrose 100 mg/5 ml Inj IVP ONE (08:20)
--- NOTE | 2018-03-15 09:03 | CP.PCM.DIS ---
<Ana RosaJessica - Last Filed: 03/15/18 11:21> Provider - Provider Date of Admission: 03/08/18 18:20 Attending physician: Shlomo Braun MD Consults: Orthopedic Surgery: Dr. Joel Infectious disease: Dr. Jordan Cardiology: Dr. Tripp Time Spent in preparation of Discharge (in minutes): 30 Hospital Course - Lab Results Lab Results: Micro Results 03/11/18 10:53 Knee - Right Gram Stain - Final 03/11/18 10:53 Knee - Right Wound Culture - Final Proteus Mirabilis Klebsiella Pneumoniae Ssp Pneu 03/11/18 10:33 Body Fluid - Knee-Right Gram Stain - Final 03/11/18 10:33 Body Fluid - Knee-Right Anaerobic Culture - Final NO ANAEROBES ISOLATED. 03/11/18 10:33 Body Fluid - Knee-Right Body Fluid Culture - Final Proteus Mirabilis Klebsiella Pneumoniae Ssp Pneu 03/08/18 00:50 Blood-Venous Blood Culture - Final NO GROWTH AFTER 5 DAYS 03/08/18 00:50 Blood-Venous Gram Stain - Final TEST NOT PERFORMED 03/08/18 01:20 Blood-Venous Blood Culture - Final NO GROWTH AFTER 5 DAYS 03/08/18 01:20 Blood-Venous Gram Stain - Final TEST NOT PERFORMED 03/11/18 10:53 Knee - Right Gram Stain - Final 03/11/18 10:53 Knee - Right Wound Culture - Final Proteus Mirabilis 03/11/18 10:53 Knee - Right Gram Stain - Final 03/11/18 10:53 Knee - Right Wound Culture - Final Proteus Mirabilis 03/11/18 10:53 Knee - Right Gram Stain - Final 03/11/18 10:53 Knee - Right Wound Culture - Final Proteus Mirabilis 03/11/18 10:53 Knee - Right Gram Stain - Final 03/11/18 10:53 Knee - Right Wound Culture - Final Proteus Mirabilis 03/11/18 10:53 Knee - Right Gram Stain - Final 03/11/18 10:53 Knee - Right Wound Culture - Final Proteus Mirabilis 03/11/18 10:53 Knee - Right Gram Stain - Final 03/11/18 10:53 Knee - Right Anaerobic Culture - Final NO ANAEROBES ISOLATED. 03/11/18 10:53 Knee - Right Wound Culture - Final Proteus Mirabilis 03/11/18 10:53 Knee - Right Gram Stain - Final 03/11/18 10:53 Knee - Right Wound Culture - Final Proteus Mirabilis 03/11/18 10:33 Other: Please Indicate Mycobacterial Culture - Preliminary 03/11/18 10:33 Knee Right Fungal Culture - Preliminary 03/11/18 08:24 Urine Urine Culture - Final No Growth (<1,000 CFU/ML) 03/09/18 07:58 Urine,Clean Catch Urine Culture - Final >100,000 CFU/ML. MULTIPLE SPECIES. SUGGEST REPEAT SPECIMEN. Most Recent Lab Values WBC 7.6 K/uL (4.8-10.8) 03/13/18 07:00 RBC 2.71 Mil/uL (3.80-5.20) L 03/13/18 07:00 Hgb 8.0 g/dL (12.0-16.0) L 03/13/18 07:00 Hct 23.6 % (34.0-47.0) L 03/13/18 07:00 MCV 86.9 fl (81.0-99.0) 03/13/18 07:00 MCH 29.4 pg (27.0-31.0) 03/13/18 07:00 MCHC 33.8 g/dL (33.0-37.0) 03/13/18 07:00 RDW 15.8 % (11.5-14.5) H 03/13/18 07:00 Plt Count 249 K/uL (130-400) 03/13/18 07:00 MPV 7.3 fl (7.2-11.7) 03/13/18 07:00 Neut % (Auto) 77.3 % (50.0-75.0) H 03/13/18 07:00 Lymph % (Auto) 9.6 % (20.0-40.0) L 03/13/18 07:00 Wallace % (Auto) 11.6 % (0.0-10.0) H 03/13/18 07:00 Eos % (Auto) 1.0 % (0.0-4.0) 03/13/18 07:00 Baso % (Auto) 0.5 % (0.0-2.0) 03/13/18 07:00 Neut # (Auto) 5.9 K/uL (1.8-7.0) 03/13/18 07:00 Lymph # (Auto) 0.7 K/uL (1.0-4.3) L 03/13/18 07:00 Wallace # (Auto) 0.9 K/uL (0.0-0.8) H 03/13/18 07:00 Eos # (Auto) 0.1 K/uL (0.0-0.7) 03/13/18 07:00 Baso # (Auto) 0.0 K/uL (0.0-0.2) 03/13/18 07:00 Neutrophils % (Manual) 81 % (42-75) H 03/13/18 07:00 Lymphocytes % (Manual) 8 % (20-50) L 03/13/18 07:00 Monocytes % (Manual) 10 % (0-10) 03/13/18 07:00 Basophils % (Manual) 1 % (0-2) 03/13/18 07:00 Platelet Estimate Normal (NORMAL) 03/13/18 07:00 Large Platelets Present 03/13/18 07:00 Hypochromasia (manual) Slight 03/13/18 07:00 Anisocytosis (manual) Slight 03/13/18 07:00 Macrocytosis (manual) Slight 03/13/18 07:00 Ovalocytes Moderate 03/13/18 07:00 Retic Count 1.1 % (0.5-1.5) 03/10/18 10:23 PT 14.2 Seconds (9.8-13.1) H 03/09/18 01:05 INR 1.3 03/09/18 01:05 APTT 33.8 Seconds (25.6-37.1) 03/09/18 01:05 Sodium 139 mmol/l (132-148) 03/14/18 10:30 Potassium 3.6 MMOL/L (3.6-5.0) 03/14/18 10:30 Chloride 113 mmol/L (98-107) H 03/14/18 10:30 Carbon Dioxide 24 mmol/L (22-30) 03/14/18 10:30 Anion Gap 6 (10-20) L 03/14/18 10:30 BUN 10 mg/dl (7-17) 03/14/18 10:30 Creatinine 0.6 mg/dl (0.7-1.2) L 03/14/18 10:30 Est GFR ( Amer) > 60 03/14/18 10:30 Est GFR (Non-Af Amer) > 60 03/14/18 10:30 Random Glucose 125 mg/dL (65-105) H 03/14/18 10:30 Calcium 8.6 mg/dL (8.4-10.2) 03/14/18 10:30 Magnesium 1.8 MG/DL (1.6-2.3) 03/14/18 10:30 Iron 14 ug/dL (37-170) L 03/10/18 10:23 TIBC 183 ug/dL (250-450) L 03/10/18 10:23 % Saturation 8 % (20-55) L 03/10/18 10:23 Transferrin 110.74 mg/dL (206-381) L 03/10/18 10:23 Ferritin 340.0 ng/Ml (11.1-264.0) H 03/10/18 10:23 Total Bilirubin 0.1 mg/dl (0.2-1.3) L 03/11/18 05:15 AST 16 U/L (14-36) 03/11/18 05:15 ALT 29 U/L (9-52) 03/11/18 05:15 Alkaline Phosphatase 71 U/L (38-126) 03/11/18 05:15 Troponin I 0.0190 ng/mL (0.00-0.120) 03/09/18 00:50 Total Protein 5.6 G/DL (6.3-8.2) L 03/11/18 05:15 Albumin 2.4 g/dL (3.5-5.0) L 03/11/18 05:15 Globulin 3.2 gm/dL (2.2-3.9) 03/11/18 05:15 Albumin/Globulin Ratio 0.8 (1.0-2.1) L 03/11/18 05:15 Urine Color Yellow (YELLOW) 03/09/18 02:44 Urine Clarity Turbid (Clear) 03/09/18 02:44 Urine pH 5.0 (5.0-8.0) 03/09/18 02:44 Ur Specific Dale 1.024 (1.003-1.030) 03/09/18 02:44 Urine Protein 30 mg/dL (NEGATIVE) 03/09/18 02:44 Urine Glucose (UA) Neg mg/dL (Normal) 03/09/18 02:44 Urine Ketones Negative mg/dL (NEGATIVE) 03/09/18 02:44 Urine Blood Small (NEGATIVE) 03/09/18 02:44 Urine Nitrate Negative (NEGATIVE) 03/09/18 02:44 Urine Bilirubin Negative (NEGATIVE) 03/09/18 02:44 Urine Urobilinogen 0.2-1.0 mg/dL (0.2-1.0) 03/09/18 02:44 Ur Leukocyte Esterase Large [place]/uL (Negative) 03/09/18 02:44 Urine RBC (Auto) 52 /hpf (0-3) H 03/09/18 02:44 Urine WBC Clumps (Auto) Few /hpf (NONE) H 03/09/18 02:44 Urine Microscopic WBC 956 /hpf (0-5) H 03/09/18 02:44 Ur Squamous Epith Cells 6 /hpf (0-5) H 03/09/18 02:44 Calcium Oxalate Crystal Occ /hpf (<OCC) H 03/09/18 02:44 Fluid Type Synovial fluid 03/11/18 10:33 Synovial WBC 28.0 /mm3 (0.0-150.0) 03/11/18 10:33 Synovial RBC 76300.0 /mm3 (0.0-0.0) H 03/11/18 10:33 Synovial Neutrophils 42.0 % (0-0) H 03/11/18 10:33 Synovial Lymphocytes 6.0 % (0-0) H 03/11/18 10:33 Synov Monos/Macrophage 2 % (0-0) H 03/11/18 10:33 Synovial Fluid Comment Turbid 03/11/18 10:33 Blood Type B POSITIVE 03/09/18 16:25 Antibody Screen Negative 03/09/18 16:25 Crossmatch See Detail 03/09/18 16:25 BBK History Checked Patient has bt 03/09/18 16:25 - Hospital Course Hospital Course: 88F with PMHx of HTN, HLD, COPD, chronic anemia, dementia, extensive psych hx, and 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 Right knee open wound s/p R TKR - Pain controlled. - Ortho, Dr. Joel, following - ID, Dr. Jordan, following - B/L Knee X-ray: S/P TKR b/l - Knee wound culture; + Proteus mirabilis, klebsiella pneumonia - C/w Vanc and Zosyn 88F patient admitted for evaluation and treatment of R knee wound dehiscence. Patient was given a PICC line and started on IV abx. Patient then underwent patellectomy, reconstruction of patella tendon, irrigation/debridement revision of R TKR, primary plastic clsure, and application of wound vac (DOS: 03/11/18). On day of discharge patient is hemodynamically stable and afebrile. Patient stable for discharge to [facility] for 6 weeks of IV Ceftriaxone and rehabilitation. - Date & Time of H&P Date of H&P: 03/15/18 Time of H&P: 09:00 Discharge Exam - Head Exam Head Exam: ATRAUMATIC, NORMAL INSPECTION, NORMOCEPHALIC - Eye Exam Eye Exam: Normal appearance - Respiratory Exam Respiratory Exam: NORMAL BREATHING PATTERN, UNREMARKABLE - Cardiovascular Exam Cardiovascular Exam: REGULAR RHYTHM - GI/Abdominal Exam GI & Abdominal Exam: Normal Bowel Sounds, Soft - Neurological Exam Neurological exam: Alert, Oriented x3 - Psychiatric Exam Psychiatric exam: Normal Affect, Normal Mood - Skin Skin Exam: Warm Discharge Plan - Discharge Medications Prescriptions: cefTRIAXone [Rocephin] 2 gm IV DAILY 42 Days vial - Follow Up Plan Condition: FAIR Disposition: HOME/ ROUTINE Instructions: Wound Dehiscence (DC) Additional Instructions: appt with Dr Joel in 1 wk Cont Prevena Wound Vac in [place] Keep Knee Immobilizer RT. upper arm Picc patent and intact. dressing changed today. Referrals: Mega Joel III, MD [Family Provider] - <Bindu Wilson - Last Filed: 03/15/18 15:46> Provider - Provider Date of Admission: 03/08/18 18:20 Attending physician: Shlomo Braun MD Hospital Course - Lab Results Lab Results: Micro Results 03/11/18 10:53 Knee - Right Gram Stain - Final 03/11/18 10:53 Knee - Right Wound Culture - Final Proteus Mirabilis Klebsiella Pneumoniae Ssp Pneu 03/11/18 10:33 Body Fluid - Knee-Right Gram Stain - Final 03/11/18 10:33 Body Fluid - Knee-Right Anaerobic Culture - Final NO ANAEROBES ISOLATED. 03/11/18 10:33 Body Fluid - Knee-Right Body Fluid Culture - Final Proteus Mirabilis Klebsiella Pneumoniae Ssp Pneu 03/08/18 00:50 Blood-Venous Blood Culture - Final NO GROWTH AFTER 5 DAYS 03/08/18 00:50 Blood-Venous Gram Stain - Final TEST NOT PERFORMED 03/08/18 01:20 Blood-Venous Blood Culture - Final NO GROWTH AFTER 5 DAYS 03/08/18 01:20 Blood-Venous Gram Stain - Final TEST NOT PERFORMED 03/11/18 10:53 Knee - Right Gram Stain - Final 03/11/18 10:53 Knee - Right Wound Culture - Final Proteus Mirabilis 03/11/18 10:53 Knee - Right Gram Stain - Final 03/11/18 10:53 Knee - Right Wound Culture - Final Proteus Mirabilis 03/11/18 10:53 Knee - Right Gram Stain - Final 03/11/18 10:53 Knee - Right Wound Culture - Final Proteus Mirabilis 03/11/18 10:53 Knee - Right Gram Stain - Final 03/11/18 10:53 Knee - Right Wound Culture - Final Proteus Mirabilis 03/11/18 10:53 Knee - Right Gram Stain - Final 03/11/18 10:53 Knee - Right Wound Culture - Final Proteus Mirabilis 03/11/18 10:53 Knee - Right Gram Stain - Final 03/11/18 10:53 Knee - Right Anaerobic Culture - Final NO ANAEROBES ISOLATED. 03/11/18 10:53 Knee - Right Wound Culture - Final Proteus Mirabilis 03/11/18 10:53 Knee - Right Gram Stain - Final 03/11/18 10:53 Knee - Right Wound Culture - Final Proteus Mirabilis 03/11/18 10:33 Other: Please Indicate Mycobacterial Culture - Preliminary 03/11/18 10:33 Knee Right Fungal Culture - Preliminary 03/11/18 08:24 Urine Urine Culture - Final No Growth (<1,000 CFU/ML) 03/09/18 07:58 Urine,Clean Catch Urine Culture - Final >100,000 CFU/ML. MULTIPLE SPECIES. SUGGEST REPEAT SPECIMEN. Most Recent Lab Values WBC 7.6 K/uL (4.8-10.8) 03/13/18 07:00 RBC 2.71 Mil/uL (3.80-5.20) L 03/13/18 07:00 Hgb 8.0 g/dL (12.0-16.0) L 03/13/18 07:00 Hct 23.6 % (34.0-47.0) L 03/13/18 07:00 MCV 86.9 fl (81.0-99.0) 03/13/18 07:00 MCH 29.4 pg (27.0-31.0) 03/13/18 07:00 MCHC 33.8 g/dL (33.0-37.0) 03/13/18 07:00 RDW 15.8 % (11.5-14.5) H 03/13/18 07:00 Plt Count 249 K/uL (130-400) 03/13/18 07:00 MPV 7.3 fl (7.2-11.7) 03/13/18 07:00 Neut % (Auto) 77.3 % (50.0-75.0) H 03/13/18 07:00 Lymph % (Auto) 9.6 % (20.0-40.0) L 03/13/18 07:00 Wallace % (Auto) 11.6 % (0.0-10.0) H 03/13/18 07:00 Eos % (Auto) 1.0 % (0.0-4.0) 03/13/18 07:00 Baso % (Auto) 0.5 % (0.0-2.0) 03/13/18 07:00 Neut # (Auto) 5.9 K/uL (1.8-7.0) 03/13/18 07:00 Lymph # (Auto) 0.7 K/uL (1.0-4.3) L 03/13/18 07:00 Wallace # (Auto) 0.9 K/uL (0.0-0.8) H 03/13/18 07:00 Eos # (Auto) 0.1 K/uL (0.0-0.7) 03/13/18 07:00 Baso # (Auto) 0.0 K/uL (0.0-0.2) 03/13/18 07:00 Neutrophils % (Manual) 81 % (42-75) H 03/13/18 07:00 Lymphocytes % (Manual) 8 % (20-50) L 03/13/18 07:00 Monocytes % (Manual) 10 % (0-10) 03/13/18 07:00 Basophils % (Manual) 1 % (0-2) 03/13/18 07:00 Platelet Estimate Normal (NORMAL) 03/13/18 07:00 Large Platelets Present 03/13/18 07:00 Hypochromasia (manual) Slight 03/13/18 07:00 Anisocytosis (manual) Slight 03/13/18 07:00 Macrocytosis (manual) Slight 03/13/18 07:00 Ovalocytes Moderate 03/13/18 07:00 Retic Count 1.1 % (0.5-1.5) 03/10/18 10:23 PT 14.2 Seconds (9.8-13.1) H 03/09/18 01:05 INR 1.3 03/09/18 01:05 APTT 33.8 Seconds (25.6-37.1) 03/09/18 01:05 Sodium 139 mmol/l (132-148) 03/14/18 10:30 Potassium 3.6 MMOL/L (3.6-5.0) 03/14/18 10:30 Chloride 113 mmol/L (98-107) H 03/14/18 10:30 Carbon Dioxide 24 mmol/L (22-30) 03/14/18 10:30 Anion Gap 6 (10-20) L 03/14/18 10:30 BUN 10 mg/dl (7-17) 03/14/18 10:30 Creatinine 0.6 mg/dl (0.7-1.2) L 03/14/18 10:30 Est GFR ( Amer) > 60 03/14/18 10:30 Est GFR (Non-Af Amer) > 60 03/14/18 10:30 Random Glucose 125 mg/dL (65-105) H 03/14/18 10:30 Calcium 8.6 mg/dL (8.4-10.2) 03/14/18 10:30 Magnesium 1.8 MG/DL (1.6-2.3) 03/14/18 10:30 Iron 14 ug/dL (37-170) L 03/10/18 10:23 TIBC 183 ug/dL (250-450) L 03/10/18 10:23 % Saturation 8 % (20-55) L 03/10/18 10:23 Transferrin 110.74 mg/dL (206-381) L 03/10/18 10:23 Ferritin 340.0 ng/Ml (11.1-264.0) H 03/10/18 10:23 Total Bilirubin 0.1 mg/dl (0.2-1.3) L 03/11/18 05:15 AST 16 U/L (14-36) 03/11/18 05:15 ALT 29 U/L (9-52) 03/11/18 05:15 Alkaline Phosphatase 71 U/L (38-126) 03/11/18 05:15 Troponin I 0.0190 ng/mL (0.00-0.120) 03/09/18 00:50 Total Protein 5.6 G/DL (6.3-8.2) L 03/11/18 05:15 Albumin 2.4 g/dL (3.5-5.0) L 03/11/18 05:15 Globulin 3.2 gm/dL (2.2-3.9) 03/11/18 05:15 Albumin/Globulin Ratio 0.8 (1.0-2.1) L 03/11/18 05:15 Urine Color Yellow (YELLOW) 03/09/18 02:44 Urine Clarity Turbid (Clear) 03/09/18 02:44 Urine pH 5.0 (5.0-8.0) 03/09/18 02:44 Ur Specific Dale 1.024 (1.003-1.030) 03/09/18 02:44 Urine Protein 30 mg/dL (NEGATIVE) 03/09/18 02:44 Urine Glucose (UA) Neg mg/dL (Normal) 03/09/18 02:44 Urine Ketones Negative mg/dL (NEGATIVE) 03/09/18 02:44 Urine Blood Small (NEGATIVE) 03/09/18 02:44 Urine Nitrate Negative (NEGATIVE) 03/09/18 02:44 Urine Bilirubin Negative (NEGATIVE) 03/09/18 02:44 Urine Urobilinogen 0.2-1.0 mg/dL (0.2-1.0) 03/09/18 02:44 Ur Leukocyte Esterase Large [place]/uL (Negative) 03/09/18 02:44 Urine RBC (Auto) 52 /hpf (0-3) H 03/09/18 02:44 Urine WBC Clumps (Auto) Few /hpf (NONE) H 03/09/18 02:44 Urine Microscopic WBC 956 /hpf (0-5) H 03/09/18 02:44 Ur Squamous Epith Cells 6 /hpf (0-5) H 03/09/18 02:44 Calcium Oxalate Crystal Occ /hpf (<OCC) H 03/09/18 02:44 Fluid Type Synovial fluid 03/11/18 10:33 Synovial WBC 28.0 /mm3 (0.0-150.0) 03/11/18 10:33 Synovial RBC 92380.0 /mm3 (0.0-0.0) H 03/11/18 10:33 Synovial Neutrophils 42.0 % (0-0) H 03/11/18 10:33 Synovial Lymphocytes 6.0 % (0-0) H 03/11/18 10:33 Synov Monos/Macrophage 2 % (0-0) H 03/11/18 10:33 Synovial Fluid Comment Turbid 03/11/18 10:33 Blood Type B POSITIVE 03/09/18 16:25 Antibody Screen Negative 03/09/18 16:25 Crossmatch See Detail 03/09/18 16:25 BBK History Checked Patient has bt 03/09/18 16:25 Attending/Attestation - Attestation I have personally seen and examined this patient.: Yes I have fully participated in the care of the patient.: Yes I have reviewed all pertinent clinical information, including history, physical exam and plan: Yes Notes (Text): Right Knee Wound Dehiscence with Superficial Infection ( Proteus and Klebsiella) - Discussed case with Dr Jordan - rec IV Ceftriaxone 2 grams daily x 6 wks, PICC line in place - Keep Knee Immbolizer - cont Wound Vac - ff up with Dr Joel in 1 wk Chronic Anemia, iron deficiency - IV venofer given - cont Ferrous Dementia , 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
--- NOTE | 2018-03-15 09:33 | CP.PCM.PN ---
Subjective - Date & Time of Evaluation Date of Evaluation: 03/15/18 Time of Evaluation: 08:00 - Subjective Subjective: NO CHEST PAIN OR SOB Objective - Vital Signs/Intake and Output Vital Signs (last 24 hours): Temp Pulse Resp BP Pulse Ox 98.0 F 95 H 19 152/78 H 96 03/15/18 07:54 03/15/18 07:54 03/15/18 07:54 03/15/18 07:54 03/15/18 07:54 Intake and Output: 03/15/18 03/15/18 06:59 18:59 Output Total 750 Balance -750 - Medications Medications: Current Medications Acetaminophen (Tylenol 325mg Tab) 650 mg PO Q6 PRN PRN Reason: Fever 101 and above Acetaminophen (Tylenol 325mg Tab) 650 mg PO Q6 PRN PRN Reason: Pain, Mild (1-3) Last Admin: 03/13/18 00:06 Dose: 650 mg Atorvastatin Calcium (Lipitor) 10 mg PO HS [facility] Budesonide (Pulmicort Respules) 0.5 mg IH BID [facility] Last Admin: 03/15/18 07:48 Dose: 0.5 mg Calcium Carbonate (Oscal) 500 mg PO DAILY [facility] Last Admin: 03/14/18 08:26 Dose: 500 mg Carvedilol (Coreg) 3.125 mg PO BID [facility] Last Admin: 03/14/18 16:07 Dose: 3.125 mg Cholecalciferol (Vitamin D) 2,000 intlu PO DAILY [facility] Last Admin: 03/14/18 08:28 Dose: 2,000 intlu Docusate Sodium (Colace) 200 mg PO HS [facility] Last Admin: 03/14/18 22:58 Dose: 200 mg Enoxaparin Sodium (Lovenox) 40 mg SC DAILY [facility]; Protocol Last Admin: 03/14/18 08:28 Dose: 40 mg Ferrous Sulfate (Feosol) 325 mg PO BID [facility] Last Admin: 03/14/18 16:07 Dose: 325 mg Lactated Ringer's (Lactated Ringer's) 1,000 mls @ 65 mls/hr IV .[id number] PRN PRN Reason: Hypotension Piperacillin Sod/Tazobactam (Sod 3.375 gm/ Sodium Chloride) 100 mls @ 100 mls/hr IVPB Q12@0500,1700 [facility]; Protocol Last Admin: 03/15/18 05:23 Dose: 100 mls/hr Iron Sucrose 100 mg/ Sodium (Chloride) 105 mls @ 105 mls/hr IV ONCE ONE Stop: 03/15/18 09:59 Losartan Potassium (Cozaar) 50 mg PO QPM [facility] Last Admin: 03/14/18 17:10 Dose: 50 mg Magnesium Oxide (Mag-Ox) 400 mg PO QPM [facility] Last Admin: 03/14/18 17:10 Dose: 400 mg Mirtazapine (Remeron) 15 mg PO HS [facility] Last Admin: 03/14/18 22:58 Dose: 15 mg Ondansetron HCl (Zofran Inj) 4 mg IVP ONCE PRN PRN Reason: Nausea/Vomiting Pantoprazole Sodium (Protonix Ec Tab) 40 mg PO DAILY [facility] Last Admin: 03/14/18 08:29 Dose: 40 mg Tiotropium [place] (Spiriva) 18 mcg [facility] Last Admin: 03/14/18 22:50 Dose: 18 mcg Venlafaxine HCl (Effexor Xr) 225 mg PO [facility] Last Admin: 03/14/18 22:58 Dose: 225 mg - Labs Labs: 03/13/18 07:00 03/14/18 10:30 PT 14.2 Seconds (9.8-13.1) H 03/09/18 01:05 INR 1.3 03/09/18 01:05 APTT 33.8 Seconds (25.6-37.1) 03/09/18 01:05 - Respiratory Exam Respiratory Exam: Clear to Ausculation Bilateral - Cardiovascular Exam Cardiovascular Exam: REGULAR RHYTHM, +S1, +S2 - Extremities Exam Additional comments: RLE WITH IMMOBILIZER LLE WITHOUT EDEMA Assessment and Plan - Assessment and Plan (Free Text) Plan: FOR DISCHARGE TODAY
[2018-03-15] MEDS: Enoxaparin 40 mg Syringe SC SCH (09:59)
[2018-03-15] MEDS: Pantoprazole 40 mg EC Tab PO SCH (09:59)
[2018-03-15] MEDS: Cholecalciferol 1,000 INTLU TAB PO SCH (09:59)
--- NOTE | 2018-03-15 10:37 | CP.PCM.PN ---
Subjective - Date & Time of Evaluation Date of Evaluation: 03/15/18 Time of Evaluation: 08:30 - Subjective Subjective: Patient seen and examined at bedside comfortable. No complaints of pain. No acute events over the weekend. No new complaints. Objective - Vital Signs/Intake and Output Vital Signs (last 24 hours): Temp Pulse Resp BP Pulse Ox 98.0 F 95 H 19 152/78 H 96 03/15/18 07:54 03/15/18 10:02 03/15/18 07:54 03/15/18 10:02 03/15/18 07:54 Intake and Output: 03/15/18 03/15/18 06:59 18:59 Output Total 750 Balance -750 - Medications Medications: Current Medications Acetaminophen (Tylenol 325mg Tab) 650 mg PO Q6 PRN PRN Reason: Fever 101 and above Acetaminophen (Tylenol 325mg Tab) 650 mg PO Q6 PRN PRN Reason: Pain, Mild (1-3) Last Admin: 03/13/18 00:06 Dose: 650 mg Atorvastatin Calcium (Lipitor) 10 mg PO [facility] Budesonide (Pulmicort Respules) 0.5 mg IH BID [facility] Last Admin: 03/15/18 07:48 Dose: 0.5 mg Calcium Carbonate (Oscal) 500 mg PO DAILY [facility] Last Admin: 03/15/18 09:59 Dose: 500 mg Carvedilol (Coreg) 3.125 mg PO BID [facility] Last Admin: 03/15/18 10:02 Dose: 3.125 mg Cholecalciferol (Vitamin D) 2,000 intlu PO DAILY [facility] Last Admin: 03/15/18 09:59 Dose: 2,000 intlu Docusate Sodium (Colace) 200 mg PO HS [facility] Last Admin: 03/14/18 22:58 Dose: 200 mg Enoxaparin Sodium (Lovenox) 40 mg SC DAILY [facility]; Protocol Last Admin: 03/15/18 09:59 Dose: 40 mg Ferrous Sulfate (Feosol) 325 mg PO BID [facility] Last Admin: 03/15/18 09:58 Dose: 325 mg Lactated Ringer's (Lactated Ringer's) 1,000 mls @ 65 mls/hr IV .[id number] PRN PRN Reason: Hypotension Piperacillin Sod/Tazobactam (Sod 3.375 gm/ Sodium Chloride) 100 mls @ 100 mls/hr IVPB Q12@0500,1700 [facility]; Protocol Last Admin: 03/15/18 05:23 Dose: 100 mls/hr Vancomycin HCl 1 gm/ Sodium (Chloride) 250 mls @ 166.667 mls/hr IVPB Q12 [facility]; Protocol Losartan Potassium (Cozaar) 50 mg PO QPM [facility] Last Admin: 03/14/18 17:10 Dose: 50 mg Magnesium Oxide (Mag-Ox) 400 mg PO QPM [facility] Last Admin: 03/14/18 17:10 Dose: 400 mg Mirtazapine (Remeron) 15 mg PO HS [facility] Last Admin: 03/14/18 22:58 Dose: 15 mg Ondansetron HCl (Zofran Inj) 4 mg IVP ONCE PRN PRN Reason: Nausea/Vomiting Pantoprazole Sodium (Protonix Ec Tab) 40 mg PO DAILY [facility] Last Admin: 03/15/18 09:59 Dose: 40 mg Tiotropium Badin (Spiriva) 18 mcg IH [facility] Last Admin: 03/14/18 22:50 Dose: 18 mcg Venlafaxine HCl (Effexor Xr) 225 mg PO HS [facility] Last Admin: 03/14/18 22:58 Dose: 225 mg - Labs Labs: 03/13/18 07:00 03/14/18 10:30 PT 14.2 Seconds (9.8-13.1) H 03/09/18 01:05 INR 1.3 03/09/18 01:05 APTT 33.8 Seconds (25.6-37.1) 03/09/18 01:05 - Extremities Exam Additional comments: R knee: Knee imm intact Dressings and prevena intact motor intact EHL/FHL/TA/G unable to test sensation pedal pulses intact comps soft NT b/l Assessment and Plan (1) Wound dehiscence Assessment & Plan: POD#4 s/p R knee I&D and Prevena VAC placement -continue prevena, monitor output. Continue VAC to KCI machine in rehab -strict knee immobilizer -abx as per ID -orthopedically stable for discharge -f/u in office with 7-10 of discharge -above d/w Dr. Joel in agreement Status: Acute
[2018-03-15] MEDS ORDERED: cefTRIAXone 2 GM in Sodium Chloride 0.9% 100 ML IVPB SCH (11:30)
--- NOTE | 2018-03-15 15:27 | PQF ---
PROVIDER RESPONSE TEXT: Superficial Infection, Right TKR, Proteus mirabilis and Klebsiella Sp. REVIEWER QUERY TEXT: Documentation Clarification Your help is requested in clarifying the following clinical documentation, if you can please further specify in the medical record and discharge summary. Please clarify if surgical site infection and/or r/o septic right total knee replacement are ruled in or ruled out please ER: Surgical site infection OP: R/O septic right total knee replacement, no evidence of deep sepsis Right Knee wound cultures: Proteus Mirabilis, Klebsiella Pneumoniae SSP, Pneu Rx: IVAB The patient's Clinical Indicators include: ER: 88yo female resident of [facility] presents with complication of R knee wound. State saw Bola Joel about 2 weeks ago and had acute change in appearance per rehab center. (R knee wound dehis cence hardware and patella visible minimal drainage) IVAB Query created by: Violeta Price on 03/15/2018 2:29 PM Electronically signed by: Bindu Wilson MD 03/15/2018 3:24 PM
[2018-03-16 00:42] VITALS: BP 138/74; PULSE 88; RESP 18; TEMP 99.1; O2SAT 95
--- NOTE | 2018-03-16 13:08 | VASCULAR ---
PROCEDURE: Date of procedure: 03/09/2018 Procedure: 1. Placement of a right arm PICC with ultrasound and fluoroscopic guidance, CPT 42074 2. PICC tip confirmation with spot radiograph and is in the superior vena cava Medications: 3cc 1 percent lidocaine Total Fluoro time: 15.7 seconds Radiation: 2.23 MGy EBL: 2 cc HISTORY: Infection requiring long-term IV antibiotics TECHNIQUE: Following informed consent and procedure time-out, the patient was placed supine on the interventional table and the right arm prepped and draped in the usual sterile fashion. Ultrasound showed a patent and compressible right basilic vein. After the skin was anesthetized with lidocaine, the basilic vein was accessed with micro micropuncture technique using ultrasound guidance. A guidewire was then advanced under fluoroscopic guidance into the superior vena cava. An image documenting ultrasound guidance for vascular access was permanently saved. The length of the single-lumen 4 Spanish PICC was trimmed to 33 centimeters and advanced through a peel-away sheath. The PICC was position with tip of PICC confirm a spot radiograph the superior vena cava. The PICC was secured to the patient's skin. The PICC was flushed. A biopatch and sterile dressing was applied. IMPRESSION: Placement of a single-lumen 4 Spanish PICC trimmed to 33 centimeters via right basilic vein. The tip of the PICC is confirmed with spot radiograph and is in the superior vena cava.
--- NOTE | 2018-03-22 12:11 | PQF ---
PROVIDER RESPONSE TEXT: Disruption o0f ecternal wound after primary closure due to correction inadequacy in protecting the extremioty from ecternal rotation; theree=by subjecting the recenlty operated area to further ischemi c pressure, and subsequent dehiscience REVIEWER QUERY TEXT: Documentation Clarification Your help is requested in clarifying the following clinical documentation, if you can please further specify in the medical record and discharge summary if pt's dehiscence was internal or external. Disruption of external operation wound: -dehiscence/disruption of operative wound NOS -dehiscence/disruption of closure of mucosa -dehiscence/disruption of closure of skin and subcutaneous tissue -Full thickness skin disruption -superficial disruption of operative wound Disruption of Internal operation wound: -deep disruption/dehiscence of operative wound NOS -dehiscence/disruption of closure of internal tissue -dehiscence disruption of closure of muscle or muscle flap -dehiscence/disruption of closure of tendon or ligament dehiscence/disruption of closure of superficial or muscular fascia The patient's Clinical Indicators include: xxx Query created by: Sammi Moya on 03/17/2018 9:27 AM Electronically signed by: Mega Joel MD 03/22/2018 12:09 PM
== END 2018-03-15 19:05 | DRG 908 ==
LOC: H.ER 17:12 → H.ERHOLD 18:20 → H.MEDSURG1 03-09 02:52
PROVIDERS: ADMIT Internal Medicine; ATTEND Internal Medicine
PROC: 05HY33Z Insertion of Infusion Device into Upper Vein, Percutaneous Approach (ICD-10-PCS; principal; 2018-03-09)
PROC: 0QBD0ZZ Excision of Right Patella, Open Approach (ICD-10-PCS; 2018-03-11)
PROC: 0MQN0ZZ Repair Right Knee Bursa and Ligament, Open Approach (ICD-10-PCS; 2018-03-11)
PROC: 0SBC0ZZ Excision of Right Knee Joint, Open Approach (ICD-10-PCS; 2018-03-11)
PROC: 0JQN0ZZ Repair Right Lower Leg Subcutaneous Tissue and Fascia, Open Approach (ICD-10-PCS; 2018-03-11)
DX: T81.32XA Disruption of internal operation (surgical) wound, not elsewhere classified, initial encounter (principal); T81.41XA Infection following a procedure, superficial incisional surgical site, initial encounter; N39.0 Urinary tract infection, site not specified; Z86.711 Personal history of pulmonary embolism; Z86.718 Personal history of other venous thrombosis and embolism; E78.00 Pure hypercholesterolemia, unspecified; E78.5 Hyperlipidemia, unspecified; I10 Essential (primary) hypertension; K21.9 Gastro-esophageal reflux disease without esophagitis; Z87.891 Personal history of nicotine dependence; Z74.01 Bed confinement status; Z96.653 Presence of artificial knee joint, bilateral; D50.9 Iron deficiency anemia, unspecified; G30.9 Alzheimer's disease, unspecified; F02.80 Dementia in other diseases classified elsewhere, unspecified severity, without behavioral disturbance, psychotic disturbance, mood disturbance, and anxiety; Z79.01 Long term (current) use of anticoagulants; B96.4 Proteus (mirabilis) (morganii) as the cause of diseases classified elsewhere; B96.1 Klebsiella pneumoniae [K. pneumoniae] as the cause of diseases classified elsewhere; L08.9 Local infection of the skin and subcutaneous tissue, unspecified

== ENCOUNTER 2018-03-19 20:20 | Inpatient (IN) | payer MEDICARE, BC ==
[2018-03-19 20:20] VITALS: BMI 35.9
[2018-03-19] MEDS ORDERED: Piperacillin/Tazobact 3.375 GM in Sodium Chloride 0.9% 100 ML IV STA (21:11)
--- NOTE | 2018-03-19 21:47 | ED PDOC ---
Lower Extremity Pain/Injury Time Seen by Provider: 03/19/18 20:28 Chief Complaint (Nursing): Lower Extremity Problem/Injury Chief Complaint (Provider): Lower Extremity Problem/Injury History Per: Patient, Family (daughter) History/Exam Limitations: no limitations Onset/Duration Of Symptoms: Days (1x week) Current Symptoms Are (Timing): Still Present Severity: Moderate Additional Complaint(s): 88 year old female is send to the ED by her detention for drainage from her right knee wound. Patient's daughter states that the patient had the wound vac placed on her right lateral knee after recent open reduction of a prosthetic knee dislocation. At the detention, the wound vac was appropriately suctioning, when increased discharge was seen on dressing surrounding the wound. Daughter reports a foul odor coming from wound. Daughter denies the patient having any fevers or increased pain. PMD: [facility]: Mega Joel III, MD Past Medical History Reviewed: Historical Data, Nursing Documentation, Vital Signs Vital Signs: Last Vital Signs Temp 98.0 F 03/19/18 20:23 Pulse 70 03/19/18 20:23 Resp 18 03/19/18 20:23 BP 167/77 H 03/19/18 20:23 Pulse Ox 96 03/19/18 20:23 - Medical History PMH: Anemia, Anxiety, Arthritis, COPD, Dementia, Depression, Deep Vein Thrombosis, Fractures, HTN, Hypercholesterolemia, Hyperlipidemia, Pulmonary Embolism Denies: Diabetes, Hepatitis, HIV, Personality Disorder, Chronic Kidney Disease, Seizures, Sexually Transmitted Disease - Surgical History Surgical History: Other surgeries: right knee surgery: open reduction of knee dislocation - Family History Family History: States: Unknown Family Hx - Living Arrangements Living Arrangements: Custodial/Assist Lvng - Immunization History Hx Tetanus Toxoid Vaccination: No Hx Influenza Vaccination: No Hx Pneumococcal Vaccination: No - Home Medications Home Medications: Ambulatory Orders Medication Instructions Recorded Docusate [Colace] 200 mg PO HS 05/06/17 Arformoterol [Brovana] 15 mcg IH U30RONOX neb 07/23/17 Carvedilol [Coreg] 3.125 mg PO BID #28 tab 07/23/17 Budesonide [Pulmicort Respules] 0.5 mg IH DAILY 11/07/17 Calcium Carbonate [Oscal] 500 mg PO DAILY 11/07/17 Cholecalciferol (Vitamin D3) 2,000 unit PO DAILY 11/07/17 [Vitamin D3] Pantoprazole [Protonix EC Tab] 40 mg PO DAILY 11/07/17 Tiotropium [Spiriva] 18 mcg IH HS 11/07/17 Apixaban [Eliquis] 2.5 mg PO BID 01/05/18 Potassium Chloride [K-Dur 20 mEq 20 meq PO DAILY #30 tab 01/16/18 ER Tab] Acetaminophen [Tylenol 325mg tab] 650 mg PO Q6 PRN 03/08/18 Acetaminophen [Tylenol 325mg tab] 650 mg PO Q6 PRN 03/08/18 Atorvastatin [Lipitor] 10 mg PO HS 03/08/18 Losartan [Cozaar] 50 mg PO QPM 03/08/18 Magnesium Oxide [Magox 400] 400 mg PO QPM 03/08/18 Mirtazapine [Remeron] 15 mg PO HS 03/08/18 Venlafaxine HCl [Venlafaxine HCl 225 mg PO HS 03/08/18 ER] oxyCODONE [oxyCODONE Immediate 10 mg PO Q4 PRN 03/08/18 Release Tab] Ferrous Sulfate [Feosol] 325 mg PO BID tab 03/15/18 - Allergies Allergies/Adverse Reactions: Allergies Allergy/AdvReac Type Severity Reaction Status Date / Time trazodone Allergy DIZZINESS Verified 03/19/18 20:23 Review of Systems ROS Statement: Except As Marked, All Systems Reviewed And Found Negative Musculoskeletal: Positive for: Other (right knee increased discharge seen on dressing of wound, foul odor) Physical Exam - Reviewed Nursing Documentation Reviewed: Yes Vital Signs Reviewed: Yes - Physical Exam Appears: Positive for: Non-toxic, No Acute Distress. Negative for: Well (chronically ill) Head Exam: Positive for: ATRAUMATIC, NORMOCEPHALIC Skin: Positive for: Warm, Dry Eye Exam: Positive for: EOMI, PERRL ENT: Positive for: Pharynx Is (clear), Other (tacky mucous membranes) Neck: Positive for: Painless ROM, Supple Cardiovascular/Chest: Positive for: Regular Rate, Rhythm. Negative for: Murmur Respiratory: Positive for: Normal Breath Sounds (lungs are clear to auscultation). Negative for: Respiratory Distress Gastrointestinal/Abdominal: Positive for: Soft. Negative for: Tenderness Back: Positive for: Normal Inspection Extremity: Positive for: Other (right knee: wound vac in place along lateral knee with dusky skin surrounding wound vac with soaked yellow gauze. (-) erythema. (+) diffuse edema along right lower leg. Limited ROM of right knee. ) Lymphatic: Negative for: Adenopathy Neurologic/Psych: Positive for: Alert, Oriented (x1). Negative for: Motor/Sensory Deficits - Laboratory Results Result Diagrams: 03/20/18 05:30 03/20/18 05:30 - ECG O2 Sat by Pulse Oximetry: 96 (RA) Pulse Ox Interpretation: Normal - Critical Care Notes:: Wound vac removed and demonstrates open gaping wound on the lateral knee with visible hardware. Anterior knee wound with erythema and yellow film shows this wound is intact. Medical Decision Making Medical Decision Makin:28 Initial impression: 88 year old with wound dehiscence of the right knee. Initial plan: * XRay chest portable * type and screen * VBG * EKG * CMP * CBC * PT and PTT * blood culture * urine culture * reevaluation Discussed with . Wet to dry dressing applied as instructed. Dr Ibarra to be inpatient consult for orthopedics. Patient to be hospitalized for IV antibiotics. Discussed with (hospitalist). DW Dr Ibarra. 0014 CT Right knee Findings: Total knee arthroplasty. Metallic prosthesis is in good position. Moderate osteopenia of the chest bones. Skin clement are noted. Underlying mild subcutaneous fat stranding. No fracture or dislocation is seen. No drainable fluid collection. No abscess formation. No CT evidence of osteomyelitis. Impression: Minimal fat stranding underlying the surgical wound. Unremarkable metallic hardware. No fluid collection or drainable abscess formation. No fracture or dislocation. Scribe Attestation: Documented Andrade Adame, acting as a scribe for Janeth Srivastava MD. Provider Scribe Attestation: All medical record entries made by the Scribe were at my direction and personally dictated by me. I have reviewed the chart and agree that the record accurately reflects my personal performance of the history, physical exam, medical decision making, and the department course for this patient. I have also personally directed, reviewed, and agree with the discharge instructions and disposition. Disposition - Clinical Impression Clinical Impression: Wound dehiscence Counseled Patient/Family Regarding: Studies Performed, Diagnosis - Disposition Disposition Time: 23:00 Condition: FAIR - Pt Status Changed To: Hospital Disposition Of: Inpatient - Admit Certification Admit to Inpatient:: After my assessment, the patient will require hospitalization for at least two midnights. This is because of the severity of symptoms shown, intensity of services needed, and/or the medical risk in this patient being treated as an outpatient. - POA Present On Arrival: Falls Or Trauma (risk), Surgical Site Infection (possible)
--- NOTE | 2018-03-19 22:11 | CP.PCM.HP ---
<Gabby Condon - Last Filed: 03/20/18 00:00> History of Present Illness - History of Present Illness History of Present Illness: CC: Wound dehiscence HPI: 88 YO Female with PMHx of HTN, HLD, COPD, hx PE/DVT, chronic anemia, S/p Revision of b/l TKR in 11/2017 and dementia presents to [facility] ED for wound dehiscence. Pt was recently discharged from the hospital for the same reason. Wound has not closed since TKR, wound vac was in place but stitches has been opening and the prosthesis can be visualized. Pt is from half-way, bedbound, daughter by bedside. Denies chest pain, dyspnea, n/v/d/c, fevers, chills. PMD: Dr. Moran Surgeon: Dr. Joel PMHx: HTN, HLD, COPD, hx PE/DVT, chronic anemia, extensive psych hx, S/p Revision of b/l TKR in 11/2017 and chronic dementia SurgHx: bilateral knee replacements, hernia, ORIF of left medial femoral condyle fracture (11/09/2017), S/p Revision of b/l TKR in 11/2017 FMHx: father-stroke; mother-breast cancer SHx: denies tobacco, Etoh or drugs, bed-bound Allergies: Trazodone Present on Admission - Present on Admission Any Indicators Present on Admission: No Review of Systems - Constitutional Constitutional: absent: Chills, Fever, Headache - Cardiovascular Cardiovascular: absent: Chest Pain, Dyspnea, Palpitations - Respiratory Respiratory: absent: Cough, Dyspnea - Gastrointestinal Gastrointestinal: absent: Abdominal Pain - Musculoskeletal Musculoskeletal: absent: Joint Swelling Past Patient History - Infectious Disease Hx of Infectious Diseases: None - Tetanus Immunizations Tetanus Immunization: Unknown - Past Medical History & Family History Past Medical History?: Yes - Past Social History Smoking Status: Never Smoked Alcohol: None Drugs: Denies Home Situation {Lives}: Residential - CARDIAC Hx Hypercholesterolemia: Yes Hx Hypertension: Yes - PULMONARY Hx Chronic Obstructive Pulmonary Disease (COPD): Yes Hx Pulmonary Embolism: Yes - NEUROLOGICAL Hx Dementia: Yes Hx Seizures: No - HEENT Hx HEENT Problems: Yes Hx Cataracts: Yes - RENAL Hx Chronic Kidney Disease: No - ENDOCRINE/METABOLIC Hx Endocrine Disorders: No - HEMATOLOGICAL/ONCOLOGICAL Hx Anemia: Yes Hx Human Immunodeficiency Virus (HIV): No - INTEGUMENTARY Hx Dermatological Problems: Yes (HX:Cellulitis of the lower extremities) - MUSCULOSKELETAL/RHEUMATOLOGICAL Hx Arthritis: Yes Hx Fractures: Yes - GASTROINTESTINAL Hx Gastrointestinal Disorders: Yes (GI bleed, herniorhapphy) Hx Gastroesophageal Reflux: Yes - GENITOURINARY/GYNECOLOGICAL Hx Sexually Transmitted Disorders: No - PSYCHIATRIC Hx Anxiety: Yes Hx Depression: Yes - ANESTHESIA Hx Anesthesia: Yes Hx Anesthesia Reactions: No Hx Malignant Hyperthermia: No Meds Allergies/Adverse Reactions: Allergies Allergy/AdvReac Type Severity Reaction Status Date / Time trazodone Allergy DIZZINESS Verified 03/19/18 20:23 Physical Exam - Constitutional Appears: No Acute Distress, Other (awake and alert, answering questions. Not oriented. ) - Head Exam Head Exam: NORMAL INSPECTION Additional comments: Missing multiple teeth, no dentures - Eye Exam Eye Exam: Normal appearance - Respiratory Exam Respiratory Exam: Decreased Breath Sounds (in the lower lobes ), Clear to Auscultation Bilateral, NORMAL BREATHING PATTERN. absent: Wheezes - Cardiovascular Exam Cardiovascular Exam: REGULAR RHYTHM, +S1, +S2 - GI/Abdominal Exam GI & Abdominal Exam: Normal Bowel Sounds, Soft. absent: Distended, Guarding, Tenderness - Extremities Exam Extremities exam: Negative for: pedal edema Additional comments: RLE wound dressing intact. Pics from ED MD reviewed, stitches are unbound, some purulent discharge noted, prosthesis visualized. PICC Line L arm - Back Exam Back exam: NORMAL INSPECTION - Neurological Exam Neurological exam: Alert - Psychiatric Exam Psychiatric exam: Flat Affect, Normal Mood Results - Vital Signs Recent Vital Signs: Last Vital Signs Temp 98.0 F 03/19/18 20:23 Pulse 70 03/19/18 20:23 Resp 18 03/19/18 20:23 BP 167/77 H 03/19/18 20:23 Pulse Ox 96 03/19/18 22:08 - Labs Result Diagrams: 03/19/18 22:04 03/19/18 22:04 Assessment & Plan - Assessment and Plan (Free Text) Assessment: Assessment/Plan: 88 YO Female with PMHx of HTN, HLD, COPD, hx PE/DVT, chronic anemia, S/p Revision of b/l TKR in 11/2017 and dementia is admitted for R knee wound dehiscence. Right knee wound dehiscence -acute on chronic -previous wound cx sig for Klebsiela and proteus -mild leukocytosis with neutrophilia -C/w IV abx Vanc and Zosyn -Ortho consulted, follow up recs -XR of knee, CT knee pending -Wound cx ordered -follow up Bcx and ucx -Pain management Hypokalemia -K 3.3 -EKG no acute ST or T wave changes noted -Will replace with PO K -follow up AM K History of PE/DVT -hold Eliquis 2.5mg for now -start Heparin SC Hypertension -Chronic -Controlled -C/w home medications: Coreg, Cozaar COPD -Chronic -Stable -C/w home meds HLD -c/w home meds Dementia -chronic -dysphagia diet, soft with thin liquids Normocytic Anemia -chronic -C/w Iron and Colace DVT PPX -heparin SC <Francisco Hernandez - Last Filed: 03/20/18 03:41> Results - Vital Signs Recent Vital Signs: Last Vital Signs Temp 98.2 F 03/20/18 01:42 Pulse 82 03/20/18 01:42 Resp 20 03/20/18 01:42 BP 156/76 H 03/20/18 01:42 Pulse Ox 96 03/20/18 01:42 - Labs Result Diagrams: 03/19/18 22:04 03/19/18 22:04 Labs: Laboratory Results - last 24 hr 03/19/18 03/19/18 03/19/18 21:12 22:04 22:04 WBC 11.0 H RBC 3.20 L Hgb 9.2 L Hct 28.0 L MCV 87.4 MCH 28.9 MCHC 33.1 RDW 15.5 H Plt Count 259 MPV 7.9 Neut % (Auto) 82.5 H Lymph % (Auto) 8.5 L Davie % (Auto) 6.2 Eos % (Auto) 1.5 Baso % (Auto) 1.3 Neut # (Auto) 9.1 H Lymph # (Auto) 0.9 L Davie # (Auto) 0.7 Eos # (Auto) 0.2 Baso # (Auto) 0.1 Neutrophils % (Manual) 81 H Band Neutrophils % 2 Lymphocytes % (Manual) 8 L Monocytes % (Manual) 7 Eosinophils % (Manual) 1 Basophils % (Manual) 1 Toxic Granulation Present Platelet Estimate Normal Hypochromasia (manual) Slight Poikilocytosis (manual Slight Anisocytosis (manual) Moderate Ovalocytes Slight PT INR APTT pO2 VBG pH VBG pCO2 VBG HCO3 VBG Total CO2 VBG O2 Sat (Calc) VBG Base Excess VBG Potassium Glucose Lactate FiO2 Sodium 140 Potassium 3.3 L Chloride 108 H Carbon Dioxide 26 Anion Gap 9 L BUN 15 Creatinine 0.6 L Est GFR ( Amer) > 60 Est GFR (Non-Af Amer) > 60 Random Glucose 112 H Calcium 8.6 Total Bilirubin 0.3 AST 17 ALT 24 Alkaline Phosphatase 90 Total Protein 6.5 Albumin 2.8 L Globulin 3.7 Albumin/Globulin Ratio 0.8 L Venous Blood Potassium Blood Type B POSITIVE Antibody Screen Negative BBK History Checked Patient has bt 03/19/18 03/19/18 22:04 22:07 WBC RBC Hgb Hct MCV MCH MCHC RDW Plt Count MPV Neut % (Auto) Lymph % (Auto) Davie % (Auto) Eos % (Auto) Baso % (Auto) Neut # (Auto) Lymph # (Auto) Davie # (Auto) Eos # (Auto) Baso # (Auto) Neutrophils % (Manual) Band Neutrophils % Lymphocytes % (Manual) Monocytes % (Manual) Eosinophils % (Manual) Basophils % (Manual) Toxic Granulation Platelet Estimate Hypochromasia (manual) Poikilocytosis (manual Anisocytosis (manual) Ovalocytes PT 15.3 H INR 1.3 APTT 29.5 pO2 27 L VBG pH 7.43 VBG pCO2 41 VBG HCO3 25.7 VBG Total CO2 28.5 H VBG O2 Sat (Calc) 61.9 VBG Base Excess 2.6 H VBG Potassium 3.2 L Glucose 116 H Lactate 1.4 FiO2 21.0 Sodium 138.0 Potassium Chloride 107.0 Carbon Dioxide Anion Gap BUN Creatinine Est GFR ( Amer) Est GFR (Non-Af Amer) Random Glucose Calcium Total Bilirubin AST ALT Alkaline Phosphatase Total Protein Albumin Globulin Albumin/Globulin Ratio Venous Blood Potassium 3.2 L Blood Type Antibody Screen BBK History Checked Attending/Attestation - Attestation I have personally seen and examined this patient.: Yes I have fully participated in the care of the patient.: Yes I have reviewed all pertinent clinical information: Yes Notes (Text): 03/20/18 03:27 I saw and examined this patient shoulder to shoulder with Dr Condon. I Agree with the assessment and plan which indicate my direct input. This 88 years old female with Past revision of the Right Total Knee Replacement, now returns with the hard gifford exposed beneath the wound vac. The wound vac was disconnected and the wound dressed with a knee stabilizer applied. Dr Joel was consulted, Dr Lopez is covering. The patient was discharged on 03/15/18 on Ceftriaxone to complete 9 more days. We will continue with Zosyn and Vancomycin after blood and wound cultures. CT of the Right knee and right knee X Rays are ordered. Apixaban will be held and DVT prophylaxis will be Subcutaneous Heparin which could be discontinued prior to surgery. Continue pain management. Consult Dr calhoun for cardiac clearance and Dr Jordan for ID. Francisco Hernandez MD
[2018-03-19 22:12] LABS: VENOUS BLOOD GAS BASE EXCESS 2.6 mmol/L (0.0-2.0); VENOUS BLOOD GAS PCO2 41 mmHg (40-60); VENOUS BLOOD GAS PO2 27 mm/Hg (30-55); VENOUS BLOOD PH 7.43 (7.32-7.43)
[2018-03-19 22:13] LABS: BASO # 0.1 K/uL (0.0-0.2); BASO % 1.3 % (0.0-2.0); EOS # 0.2 K/uL (0.0-0.7); EOS % 1.5 % (0.0-4.0); HEMOGLOBIN 9.2 g/dL (12.0-16.0); LYMPH # 0.9 K/uL (1.0-4.3); LYMPH % 8.5 % (20.0-40.0); MEAN CELL VOLUME 87.4 fl (81.0-99.0); MEAN CORPUSCULAR HEMOGLOBIN 28.9 pg (27.0-31.0); MEAN CORPUSCULAR HGB CONC 33.1 g/dL (33.0-37.0); MEAN PLATELET VOLUME 7.9 fl (7.2-11.7); MONO # 0.7 K/uL (0.0-0.8); MONO % 6.2 % (0.0-10.0); NEUT # 9.1 K/uL (1.8-7.0); NEUT % 82.5 % (50.0-75.0); PLATELET COUNT 259 K/uL (130-400); RED CELL DISTRIBUTION WIDTH 15.5 % (11.5-14.5)
[2018-03-19] MEDS ORDERED: Vancomycin 1 g Inj ONE (22:18)
[2018-03-19 22:19] LABS: INR 1.3; PROTHROMBIN TIME 15.3 Seconds (9.8-13.1)
[2018-03-19 22:21] LABS: PARTIAL THROMBOPLASTIN TIME 29.5 Seconds (25.6-37.1)
[2018-03-19 22:30] LABS: ALB/GLOB RATIO 0.8 (1.0-2.1); ALBUMIN 2.8 g/dL (3.5-5.0); ALT/SGPT 24 U/L (9-52); AST/SGOT 17 U/L (14-36); BLOOD UREA NITROGEN 15 mg/dl (7-17); CALCIUM 8.6 mg/dL (8.4-10.2); GFR NON-AFRICAN AMERICAN > 60
[2018-03-19] MEDS ORDERED: Potassium Chloride 20 mEq ER Tab PO ONE (22:32)
[2018-03-19 22:53] LABS: BANDS 2 % (0-2); BASOPHIL 1 % (0-2); EOSINOPHIL 1 % (0-7); LYMPHOCYTE 8 % (20-50); MONOCYTE 7 % (0-10); NEUTROPHIL 81 % (42-75); PLATELET ESTIMATE NORMAL (NORMAL); TOTAL CELLS COUNTED 100
[2018-03-19 22:54] LABS: ANISOCYTOSIS MODERATE; HYPOCHROMIC SLIGHT; OVALOCYTES SLIGHT; POIKILOCYTOSIS SLIGHT; TOXIC GRANULATION PRESENT
[2018-03-19] MEDS ORDERED: Potassium Chloride 20 mEq/15 ml LIQ UD PO ONE (23:15)
[2018-03-19] MEDS ORDERED: Patient's Own Med (Arformoterol [Brovana] 15 MCG) IH SCH (23:45)
[2018-03-19] MEDS ORDERED: Piperacillin/Tazobact 3.375 gm Inj IVPB ONE (23:58)
[2018-03-20] MEDS: Piperacillin/Tazobact 3.375 GM in Sodium Chloride 0.9% 100 ML IVPB SCH ×2 (03:24→10:14)
[2018-03-20 07:07] LABS: BASO # 0.1 K/uL (0.0-0.2); BASO % 0.7 % (0.0-2.0); EOS # 0.1 K/uL (0.0-0.7); EOS % 1.3 % (0.0-4.0); HEMOGLOBIN 8.2 g/dL (12.0-16.0); LYMPH # 0.8 K/uL (1.0-4.3); LYMPH % 9.8 % (20.0-40.0); MEAN CELL VOLUME 86.8 fl (81.0-99.0); MEAN CORPUSCULAR HEMOGLOBIN 29.5 pg (27.0-31.0); MEAN CORPUSCULAR HGB CONC 33.9 g/dL (33.0-37.0); MEAN PLATELET VOLUME 7.9 fl (7.2-11.7); MONO # 0.6 K/uL (0.0-0.8); MONO % 7.5 % (0.0-10.0); NEUT # 6.9 K/uL (1.8-7.0); NEUT % 80.7 % (50.0-75.0); RBC 2.8 Mil/uL (3.80-5.20); RED CELL DISTRIBUTION WIDTH 15.8 % (11.5-14.5); WHITE BLOOD COUNT 8.5 K/uL (4.8-10.8)
[2018-03-20] MEDS: Budesonide 0.5 mg/2 ml Inhal Susp UD IH SCH (07:15)
[2018-03-20 07:22] LABS: BLOOD UREA NITROGEN 16 mg/dl (7-17); CALCIUM 8.3 mg/dL (8.4-10.2); GFR NON-AFRICAN AMERICAN > 60
[2018-03-20] MEDS ORDERED: Povidone Iodine Topical 10% Sol ONE (08:54)
[2018-03-20] MEDS ORDERED: Patient's Own Med (Cholecalciferol (Vitamin D3) [Vitamin D3] 2,000 UNIT) PO SCH (09:00)
--- NOTE | 2018-03-20 09:36 | RAD ---
Date of service: 03/19/2018 HISTORY: wound dehiscence leg pain COMPARISON: Comparison chest 03/08/2018. FINDINGS: LUNGS: Mild bibasilar atelectasis and or scarring changes. Questionable pleural thickening and/or tiny effusions. Mild biapical pleural thickening. PLEURA: As above. No pneumothorax apparent. CARDIOVASCULAR: Aortic atherosclerotic calcification present. Cardiomegaly.. No pulmonary vascular congestion. OSSEOUS STRUCTURES: No significant abnormalities. VISUALIZED UPPER ABDOMEN: Moderately large hiatal hernia OTHER FINDINGS: None. IMPRESSION: Mild bibasilar atelectasis and or scarring changes. Questionable pleural thickening and/or tiny effusions. Mild biapical pleural thickening. Cardiomegaly. Moderately large hiatal hernia.
[2018-03-20] MEDS: Potassium Chloride 20 mEq ER Tab PO SCH (09:55)
[2018-03-20] MEDS: Venlafaxine 75 mg ER Cap PO SCH (09:56)
[2018-03-20] MEDS: Pantoprazole 40 mg EC Tab PO SCH (09:56)
[2018-03-20] MEDS: Cholecalciferol 1,000 INTLU TAB PO SCH (09:58)
--- NOTE | 2018-03-20 12:28 | CP.PCM.PN ---
Subjective - Date & Time of Evaluation Date of Evaluation: 03/20/18 Time of Evaluation: 10:00 - Subjective Subjective: Pt seen/examined at bedside this morning. Awake and alert, had eaten some breakfast. Denies chest pain, difficulty breathing, abdominal discomfort. Admitted last night for wound dehiscence on R knee (prior TKR). Objective - Vital Signs/Intake and Output Vital Signs (last 24 hours): Temp Pulse Resp BP Pulse Ox 97.4 F L 60 18 131/82 98 03/20/18 08:43 03/20/18 09:55 03/20/18 08:43 03/20/18 09:55 03/20/18 08:43 - Medications Medications: Current Medications Acetaminophen (Tylenol 325mg Tab) 650 mg PO Q6 PRN PRN Reason: Pain, Mild (1-3) Last Admin: 03/20/18 01:56 Dose: 650 mg Acetaminophen (Tylenol 325mg Tab) 650 mg PO Q6 PRN PRN Reason: Fever >100.4 F Atorvastatin Calcium (Lipitor) 10 mg PO HS [facility] Budesonide (Pulmicort Respules) 0.5 mg IH DAILY [facility] Last Admin: 03/20/18 07:15 Dose: 0.5 mg Calcium Carbonate (Oscal) 500 mg PO DAILY [facility] Last Admin: 03/20/18 09:56 Dose: 500 mg Carvedilol (Coreg) 3.125 mg PO BID [facility] Last Admin: 03/20/18 09:55 Dose: 3.125 mg Cholecalciferol (Vitamin D) 2,000 intlu PO DAILY [facility] Last Admin: 03/20/18 09:58 Dose: 2,000 intlu Docusate Sodium (Colace) 200 mg PO HS [facility] Ferrous Sulfate (Feosol) 325 mg PO BID [facility] Last Admin: 03/20/18 09:54 Dose: 325 mg Heparin Sodium (Porcine) (Heparin) 5,000 units SC Q8 [facility]; Protocol Last Admin: 03/20/18 09:56 Dose: 5,000 units Home Med (Arformoterol [Brovana]) 15 mcg IH [id number] [facility] Vancomycin HCl 1 gm/ Sodium (Chloride) 250 mls @ 166.667 mls/hr IVPB Q12 [facility]; Protocol Piperacillin Sod/Tazobactam (Sod 3.375 gm/ Sodium Chloride) 100 mls @ 100 mls/hr IVPB Q6 [facility]; Protocol Last Admin: 03/20/18 10:14 Dose: 100 mls/hr Losartan Potassium (Cozaar) 50 mg PO QPM [facility] Magnesium Oxide (Mag-Ox) 400 mg PO QPM [facility] Mirtazapine (Remeron) 15 mg PO HS [facility] Pantoprazole Sodium (Protonix Ec Tab) 40 mg PO DAILY [facility] Last Admin: 03/20/18 09:56 Dose: 40 mg Potassium Chloride (K-Dur 20 Meq Er Tab) 20 meq PO DAILY [facility] Last Admin: 03/20/18 09:55 Dose: 20 meq Tiotropium [place] (Spiriva) 18 mcg IH HS [facility] Venlafaxine HCl (Effexor Xr) 225 mg PO DAILY [facility] Last Admin: 03/20/18 09:56 Dose: 225 mg - Labs Labs: 03/20/18 05:30 03/20/18 05:30 PT 15.3 Seconds (9.8-13.1) H 03/19/18 22:04 INR 1.3 03/19/18 22:04 APTT 29.5 Seconds (25.6-37.1) 03/19/18 22:04 - Constitutional Appears: No Acute Distress, Chronically Ill - Eye Exam Eye Exam: Normal appearance - Respiratory Exam Respiratory Exam: Decreased Breath Sounds (equal bilaterally), NORMAL BREATHING PATTERN. absent: Wheezes, Respiratory Distress - Cardiovascular Exam Cardiovascular Exam: REGULAR RHYTHM, +S1, +S2 - GI/Abdominal Exam GI & Abdominal Exam: Soft. absent: Tenderness - Extremities Exam Additional comments: PICC in L arm RLE in immobilizer, able to move toes - Neurological Exam Neurological Exam: Alert. absent: Oriented x3 Assessment and Plan - Assessment and Plan (Free Text) Assessment: 88 yo female with history of HTN, HLD, COPD, hx PE/DVT, chronic anemia, s/p Revision of b/l TKR in 11/2017 and dementia is admitted for R knee wound dehiscence. Plan: Right knee wound dehiscence - Acute on chronic - Wound cx on last admission +ve Klebsiela and proteus - Continue with IV abx Vanc and Zosyn - Ortho consulted, follow up recs - Knee Xray and CT taken, f/u official reports - Wound, blood, urine cultures- f/u results - Pain management Hypokalemia - K 3.8 today, s/p repletion - K 3.3 on admission - EKG no acute ST or T wave changes noted History of PE/DVT - Hold Eliquis 2.5mg for now - Start Heparin SC Hypertension - Chronic - Controlled - Continue home medications: Coreg, Cozaar COPD - Chronic - Stable - Continue with home meds HLD - Continue home meds Dementia - Chronic - Dysphagia diet, soft with thin liquids Normocytic Anemia - Chronic - Continue with iron and colace DVT PPX - Heparin SC
--- NOTE | 2018-03-20 15:58 | RAD ---
Date of service: 03/19/2018 PROCEDURE: Right Knee Radiographs. HISTORY: Wound dehiscence. COMPARISON: Comparison made with prior radiographs of the right knee dated 03/08/2018 FINDINGS: BONES: Redemonstrated is total knee arthroplasty hardware. Hardware appears intact with satisfactory alignment... There is a poor definition of the cortex of the anterolateral tibial plateau which could be secondary to surrounding infiltration of the subcutaneous tissues as well as patient positioning however underlying cortical destructive changes cannot be completely excluded. There appears to be air within the anterolateral subcutaneous tissues of possibly representing history of wound dehiscence.. Metallic skin closure clement are present medially with at least 1 overlying the lateral joint space margin.. JOINTS: As above. JOINT EFFUSION: Small joint effusion felt be present. OTHER FINDINGS: Extensive vascular calcifications present. IMPRESSION: In situ total knee arthroplasty hardware. Hardware appears intact with satisfactory alignment... There is a poor definition of the cortex of the anterolateral tibial plateau which could be secondary to surrounding infiltration of the subcutaneous tissues as well as patient positioning however underlying cortical destructive changes cannot be completely excluded. There appears to be air within the anterolateral subcutaneous tissues of possibly representing history of wound dehiscence..
[2018-03-20] MEDS: cefTRIAXone 2 GM in Sodium Chloride 0.9% 100 ML IVPB SCH (16:39)
[2018-03-20] MEDS: Magnesium Oxide 400 mg Tab UD PO SCH (17:38)
--- NOTE | 2018-03-20 18:13 | CARD ---
APPROVED REPORT Date of service: 03/19/2018 EKG Measurement Heart [id number] <Conclusion> Normal sinus rhythm with sinus arrhythmia Right bundle branch block Abnormal ECG
[2018-03-20] MEDS: Tiotropium 18 mcg Cap For Inhalation IH SCH (21:52)
[2018-03-20] MEDS ORDERED: VENLAFAXINE HCL 225 MG PO SCH (22:00)
[2018-03-21 06:24] LABS: URINE BILIRUBIN NEGATIVE (NEGATIVE); URINE BLOOD NEGATIVE (NEGATIVE); URINE CLARITY CLEAR (Clear); URINE COLOR YELLOW (YELLOW); URINE GLUCOSE (UA) NEG (Normal); URINE LEUKOCYTE ESTERASE NEG Leu/uL (Negative); URINE PROTEIN NEGATIVE (NEGATIVE); URINE UROBILINOGEN 0.2-1.0 mg/dL (0.2-1.0)
[2018-03-21] MEDS: Budesonide 0.5 mg/2 ml Inhal Susp UD IH SCH (08:01)
--- NOTE | 2018-03-21 09:15 | CP.PCM.PN ---
Subjective - Date & Time of Evaluation Date of Evaluation: 03/21/18 Time of Evaluation: 06:45 - Subjective Subjective: Pt seen and examined at bedside. No acute event overnight. Pt slept well, have no complain Objective - Vital Signs/Intake and Output Vital Signs (last 24 hours): Temp Pulse Resp BP Pulse Ox 97.7 F 81 20 169/97 H 98 03/21/18 08:35 03/21/18 08:35 03/21/18 08:35 03/21/18 08:35 03/21/18 08:35 - Medications Medications: Current Medications Acetaminophen (Tylenol 325mg Tab) 650 mg PO Q6 PRN PRN Reason: Pain, Mild (1-3) Last Admin: 03/20/18 01:56 Dose: 650 mg Acetaminophen (Tylenol 325mg Tab) 650 mg PO Q6 PRN PRN Reason: Fever >100.4 F Atorvastatin Calcium (Lipitor) 10 mg PO HS [facility] Last Admin: 03/20/18 21:51 Dose: 10 mg Budesonide (Pulmicort Respules) 0.5 mg IH DAILY [facility] Last Admin: 03/21/18 08:01 Dose: 0.5 mg Calcium Carbonate (Oscal) 500 mg PO DAILY [facility] Last Admin: 03/20/18 09:56 Dose: 500 mg Carvedilol (Coreg) 3.125 mg PO BID [facility] Last Admin: 03/20/18 17:39 Dose: 3.125 mg Cholecalciferol (Vitamin D) 2,000 intlu PO DAILY [facility] Last Admin: 03/20/18 09:58 Dose: 2,000 intlu Docusate Sodium (Colace) 200 mg PO HS [facility] Last Admin: 03/20/18 21:51 Dose: 200 mg Ferrous Sulfate (Feosol) 325 mg PO BID [facility] Last Admin: 03/20/18 17:39 Dose: 325 mg Heparin Sodium (Porcine) (Heparin) 5,000 units SC Q8 [facility]; Protocol Last Admin: 03/21/18 00:22 Dose: 5,000 units Home Med (Arformoterol [Brovana]) 15 mcg IH Q12 [facility] Ceftriaxone Sodium 2 gm/ (Sodium Chloride) 100 mls @ 100 mls/hr IVPB DAILY [facility]; Protocol Last Admin: 03/20/18 16:39 Dose: 100 mls/hr Losartan Potassium (Cozaar) 50 mg PO QPM [facility] Last Admin: 03/20/18 17:38 Dose: 50 mg Magnesium Oxide (Mag-Ox) 400 mg PO QPM [facility] Last Admin: 03/20/18 17:38 Dose: 400 mg Mirtazapine (Remeron) 15 mg PO HS [facility] Last Admin: 03/20/18 21:51 Dose: 15 mg Pantoprazole Sodium (Protonix Ec Tab) 40 mg PO DAILY [facility] Last Admin: 03/20/18 09:56 Dose: 40 mg Potassium Chloride (K-Dur 20 Meq Er Tab) 20 meq PO DAILY [facility] Last Admin: 03/20/18 09:55 Dose: 20 meq Tiotropium [place] (Spiriva) 18 mcg IH [facility] Last Admin: 03/20/18 21:52 Dose: 18 mcg Venlafaxine HCl (Effexor Xr) 225 mg PO DAILY [facility] Last Admin: 03/20/18 09:56 Dose: 225 mg - Labs Labs: 03/20/18 05:30 03/20/18 05:30 PT 15.3 Seconds (9.8-13.1) H 03/19/18 22:04 INR 1.3 03/19/18 22:04 APTT 29.5 Seconds (25.6-37.1) 03/19/18 22:04 - Constitutional Appears: Well, Non-toxic, No Acute Distress - Head Exam Head Exam: ATRAUMATIC, NORMAL INSPECTION, NORMOCEPHALIC - Eye Exam Eye Exam: EOMI, Normal appearance, PERRL Pupil Exam: NORMAL ACCOMODATION, PERRL - ENT Exam ENT Exam: Mucous Membranes Moist, Normal Exam - Neck Exam Neck Exam: Full ROM, Normal Inspection - Respiratory Exam Respiratory Exam: Clear to Ausculation Bilateral, NORMAL BREATHING PATTERN - Cardiovascular Exam Cardiovascular Exam: REGULAR RHYTHM, +S1, +S2 - GI/Abdominal Exam GI & Abdominal Exam: Soft, Normal Bowel Sounds - Extremities Exam Extremities Exam: Full ROM, Normal Capillary Refill, Normal Inspection Additional comments: RIGHt knee covered with RAINA rap + immobilizer, Hemovac attached and draining. able to move toe PICC in L arm - Back Exam Back Exam: NORMAL INSPECTION - Neurological Exam Neurological Exam: Alert, Awake - Psychiatric Exam Psychiatric exam: Normal Affect, Normal Mood - Skin Skin Exam: Dry, Intact, Normal Color, Warm Assessment and Plan - Assessment and Plan (Free Text) Assessment: 88 yo female with history of HTN, HLD, COPD, hx PE/DVT, chronic anemia, s/p Revision of b/l TKR in 11/2017 and dementia is admitted for R knee wound dehiscence. XRay: In Situ Total Knee Arthroplasty hardware. poor definition of the cortex of the anterolateral tibial plateau could be due sorrounding infiltration of the subcutaneous tissues. Hardware appear intact There appear to be air within the anterolateral subcutaneous tissue, possible represent hx of wound dehiscence Right knee wound dehiscence - Acute on chronic - Wound cx on last admission +ve Klebsiela and proteus -Continue Rocephin 2mg - Awaiting for Dr. Joel recommendation - CT taken, f/u official reports - Wound no growth final - Pain management -Zosyn, Vanco stop Hypokalemia -Resolved - K 3.8 today, s/p repletion - K 3.3 on admission - EKG no acute ST or T wave changes noted History of PE/DVT - ELIQUIS on hold - Start Heparin SC Hypertension - Chronic - Controlled - Continue home medications: Maryjo August COPD - Chronic - Stable - Continue with home meds HLD - Continue home meds Dementia - Chronic - Dysphagia DIet pureed thick Normocytic Anemia - Chronic - Continue with iron and colace DVT PPX - Heparin SC
[2018-03-21] MEDS: Pantoprazole 40 mg EC Tab PO SCH (10:10)
[2018-03-21] MEDS: Cholecalciferol 1,000 INTLU TAB PO SCH (10:10)
[2018-03-21] MEDS: Venlafaxine 75 mg ER Cap PO SCH (10:11)
[2018-03-21] MEDS: Potassium Chloride 20 mEq ER Tab PO SCH (10:12)
[2018-03-21] MEDS: cefTRIAXone 2 GM in Sodium Chloride 0.9% 100 ML IVPB SCH (13:32)
[2018-03-21] MEDS: Magnesium Oxide 400 mg Tab UD PO SCH (17:53)
--- NOTE | 2018-03-21 20:45 | CP.PCM.CON ---
History of Present Illness - History of Present Illness History of Present Illness: Bernard Louis MD from Orthopedic Surgery Service covering for Dr. Mega Joel III. 88 yo Female w/ PMH= HTN, COPD, h/o PE, dementia presented to the ER at [facility] on 03/19/18 with Right knee wound issue. She is well known to the Orthopedic service at [facility] and Dr. Joel. She has a complex history and presentation consisting of history of dementia, [place] resident, bedbound activity level, multiple R knee surgeries. she is s/p primary Right total knee arthroplasty 12 years ago. had multiple dislocation events R knee that were treated with closed reduction. On 01/05/18, she presented to the ER at [facility] with R knee TKA prosthesis dislocated. Attempt at closed reudction was unsuccessful. After 5 days off her long-standing platelet modulating anti-coagulant, Eliquis, she was take by Dr. Joel for open reduction TKA dislocation, revision TKA component, lateral release, posterior capsule release, open synovectomy on 01/14/18. she was dc to [place] 01/16/18. On 03/09/18, she returned to [facility] ER with R knee wound breakdown. She was admitted and underwent, patellectomy, recon extensor mechanism, primary closure with relaxing incision, wound VAC application, HAMZAH, I&D dc back to [place] 03/15/18 with wound VAC on. 03/19/18, she presented back to the ER at [facility], after evaluation by ER staff, she was dx'd with R TKA wound dehiscence and admitted to the medical service. Covering for Dr. Joel I was consulted and saw/examined the pt the next morning, 03/20/18 at med/surg unit at [facility]. 03/20/18 Pt lying in bed comfortable, no complaints, denies pain. Denies fevers, chills, CAT, N&V, CP, SOB, numbness or tingling. Past Patient History - Infectious Disease Hx of Infectious Diseases: None - Tetanus Immunizations Tetanus Immunization: Unknown - Past Medical History & Family History Past Medical History?: Yes - Past Social History Smoking Status: Never Smoked - CARDIAC Hx Hypercholesterolemia: Yes Hx Hypertension: Yes - PULMONARY Hx Chronic Obstructive Pulmonary Disease (COPD): Yes Hx Pulmonary Embolism: Yes - NEUROLOGICAL Hx Dementia: Yes Hx Seizures: No - HEENT Hx HEENT Problems: Yes Hx Cataracts: Yes - RENAL Hx Chronic Kidney Disease: No - ENDOCRINE/METABOLIC Hx Endocrine Disorders: No - HEMATOLOGICAL/ONCOLOGICAL Hx Anemia: Yes Hx Human Immunodeficiency Virus (HIV): No - INTEGUMENTARY Hx Dermatological Problems: Yes (HX:Cellulitis of the lower extremities) - MUSCULOSKELETAL/RHEUMATOLOGICAL Hx Arthritis: Yes Hx Fractures: Yes - GASTROINTESTINAL Hx Gastrointestinal Disorders: Yes (GI bleed, herniorhapphy) Hx Gastroesophageal Reflux: Yes - GENITOURINARY/GYNECOLOGICAL Hx Sexually Transmitted Disorders: No - PSYCHIATRIC Hx Anxiety: Yes Hx Depression: Yes - ANESTHESIA Hx Anesthesia: Yes Hx Anesthesia Reactions: No Hx Malignant Hyperthermia: No Has any member of the family had a problem w/ anesthesia?: No Meds Allergies/Adverse Reactions: Allergies Allergy/AdvReac Type Severity Reaction Status Date / Time trazodone Allergy DIZZINESS Verified 03/19/18 20:23 - Medications Medications: Current Medications Acetaminophen (Tylenol 325mg Tab) 650 mg PO Q6 PRN PRN Reason: Pain, Mild (1-3) Last Admin: 03/21/18 20:09 Dose: 650 mg Acetaminophen (Tylenol 325mg Tab) 650 mg PO Q6 PRN PRN Reason: Fever >100.4 F Atorvastatin Calcium (Lipitor) 10 mg PO HS [facility] Last Admin: 03/20/18 21:51 Dose: 10 mg Budesonide (Pulmicort Respules) 0.5 mg IH DAILY [facility] Last Admin: 03/21/18 08:01 Dose: 0.5 mg Calcium Carbonate (Oscal) 500 mg PO DAILY [facility] Last Admin: 03/21/18 10:11 Dose: 500 mg Carvedilol (Coreg) 3.125 mg PO BID [facility] Last Admin: 03/21/18 16:37 Dose: 3.125 mg Cholecalciferol (Vitamin D) 2,000 intlu PO DAILY [facility] Last Admin: 03/21/18 10:10 Dose: 2,000 intlu Docusate Sodium (Colace) 200 mg PO HS [facility] Last Admin: 03/20/18 21:51 Dose: 200 mg Ferrous Sulfate (Feosol) 325 mg PO BID [facility] Last Admin: 03/21/18 16:38 Dose: 325 mg Heparin Sodium (Porcine) (Heparin) 5,000 units SC Q8 [facility]; Protocol Last Admin: 03/21/18 16:38 Dose: 5,000 units Home Med (Arformoterol [Brovana]) 15 mcg IH Q12 [facility] Ceftriaxone Sodium 2 gm/ (Sodium Chloride) 100 mls @ 100 mls/hr IVPB DAILY [facility]; Protocol Last Admin: 03/21/18 13:32 Dose: 100 mls/hr Losartan Potassium (Cozaar) 50 mg PO QPM [facility] Last Admin: 03/21/18 17:53 Dose: 50 mg Magnesium Oxide (Mag-Ox) 400 mg PO QPM [facility] Last Admin: 03/21/18 17:53 Dose: 400 mg Mirtazapine (Remeron) 15 mg PO HS [facility] Last Admin: 03/20/18 21:51 Dose: 15 mg Pantoprazole Sodium (Protonix Ec Tab) 40 mg PO DAILY [facility] Last Admin: 03/21/18 10:10 Dose: 40 mg Potassium Chloride (K-Dur 20 Meq Er Tab) 20 meq PO DAILY [facility] Last Admin: 03/21/18 10:12 Dose: 20 meq Tiotropium [place] (Spiriva) 18 mcg IH HS [facility] Last Admin: 03/20/18 21:52 Dose: 18 mcg Venlafaxine HCl (Effexor Xr) 225 mg PO DAILY [facility] Last Admin: 03/21/18 10:11 Dose: 225 mg Physical Exam - Extremities Exam Additional comments: Right Lower Extremity: Knee: +++ large anterior wound dehiscence with visible TKA implants, no gross pus or signs of obvious infection no active hemorrhage, medial wound also has mild dehiscence but no exposed hardware +4/5 motor strength hip flex/ext, + 5/5 motor strength ankle DF/PF, toes up & down sensory intact L2-S1, SPn/TN/DPN/SN 2+ DP, BCR all toes calves soft/nt B/L Left Lower Extremity: skin intact, -TTP, no swelling/warmth/redness, FROM at all joints w/o pain +5/% motor strength hip flex/ext, knee flex/ext, ankle DF/PF, toes up & down sensory intact L2-S1, SPn/TN/DPN/SN 2+ DP, BCR all toes Results - Vital Signs Recent Vital Signs: Last Vital Signs Temp 98.4 F 03/21/18 16:19 Pulse 84 03/21/18 17:53 Resp 18 03/21/18 16:19 BP 145/75 03/21/18 17:53 Pulse Ox 93 L 03/21/18 16:19 - Labs Result Diagrams: 03/20/18 05:30 03/20/18 05:30 Labs: Laboratory Results - last 24 hr 03/20/18 23:59 Urine Color Yellow Urine Clarity Clear Urine pH 6.0 Ur Specific [place] 1.017 Urine Protein Negative Urine Glucose (UA) Neg Urine Ketones Negative Urine Blood Negative Urine Nitrate Negative Urine Bilirubin Negative Urine Urobilinogen 0.2-1.0 Ur Leukocyte Esterase Neg Urine RBC (Auto) < 1 Assessment & Plan (1) Dislocation of prosthetic joint of knee Assessment and Plan: 88 yo female, PMH= dementia, h/o PE (on elquis at baseline), bedbound, HTN presented to the ER at [facility] with R knee wound issue Dx= R knee revision TKA/ recurrent wound dehiscence s/p R knee TKA: open relocation TKA dislocation, revision TKA component, lateral release, posterior capsule release, open synovectomy on 01/14/18. s/p R knee TKA: patellectomy, recon extensor mechanism, primary closure with relaxing incision, wound VAC application, HAMZAH, I&D 03/11/18 Procedure= the open R knee TKA wound was irrigated bedside with 2000cc sterile saline, 500cc sterile saline/iodine mix, under sterile conditions, a VAC dressing was placed on the midline and medial wounds. Patient tolerated this u rgent wound care procedure well bedside. PLAN: R knee: -continue VAC at 125mmHg, continuous, contact me with any VAC issues/malfunction -IV abx -knee immobilizer -NWB LLE -can be OOB to chair with knee immobilizer on and VAC continuously working -hold Eliquis, can start DVT proph that is short acting unless contraindicated by primary medical team -definitive plan will be decided by family and Dr. Joel on Thursday -please contact me with any questions, concerns, updates at [phone] thank you for allowing me to contribute to the care of your pt. Bernard Louis MD Orthopedic Surgery Status: Acute
[2018-03-21] MEDS ORDERED: Fluconazole IV 400mg/200ml NS 200 ML IVPB SCH (23:08)
--- NOTE | 2018-03-21 23:14 | CP.PCM.PCO ---
Assessment/Plan - Assessment and Plan (Free Text) Assessment: Cultures were noted/reviewed and prelim sig for yeast in blood. Pt is NAD. VS stable, pt remains afebrile. No leukocytosis. -will start stat dose of 800mg of Flucanazole now -c/w with 400mg of Flucanazole daily -stat blood culture now before starting abx -ID consulted for fungemia, follow up recs Case discussed with attending, Dr. Hernandez.
[2018-03-21] MEDS: Tiotropium 18 mcg Cap For Inhalation IH SCH (23:40)
[2018-03-22] MEDS ORDERED: Fluconazole IV 400mg/200ml NS 200 ML IVPB ONE (06:47)
[2018-03-22] MEDS: Budesonide 0.5 mg/2 ml Inhal Susp UD IH SCH ×2 (07:02→12:52)
[2018-03-22] MEDS ORDERED: Fluconazole IV 400mg/200ml NS 200 ML IVPB SCH (09:00)
--- NOTE | 2018-03-22 09:07 | CP.PCM.PN ---
Subjective - Date & Time of Evaluation Date of Evaluation: 03/22/18 Time of Evaluation: 08:00 - Subjective Subjective: Patient seen and examined at bedside comfortable. No complaints of pain. No acute events overnight. Objective - Vital Signs/Intake and Output Vital Signs (last 24 hours): Temp Pulse Resp BP Pulse Ox 97.4 F L 68 20 184/82 H 98 03/22/18 08:12 03/22/18 08:12 03/22/18 08:12 03/22/18 08:12 03/22/18 08:12 - Medications Medications: Current Medications Acetaminophen (Tylenol 325mg Tab) 650 mg PO Q6 PRN PRN Reason: Pain, Mild (1-3) Last Admin: 03/21/18 20:09 Dose: 650 mg Acetaminophen (Tylenol 325mg Tab) 650 mg PO Q6 PRN PRN Reason: Fever >100.4 F Atorvastatin Calcium (Lipitor) 10 mg PO HS [facility] Last Admin: 03/21/18 23:40 Dose: 10 mg Budesonide (Pulmicort Respules) 0.5 mg IH DAILY [facility] Last Admin: 03/22/18 07:02 Dose: 0.5 mg Calcium Carbonate (Oscal) 500 mg PO DAILY [facility] Last Admin: 03/21/18 10:11 Dose: 500 mg Carvedilol (Coreg) 3.125 mg PO BID [facility] Last Admin: 03/21/18 16:37 Dose: 3.125 mg Cholecalciferol (Vitamin D) 2,000 intlu PO DAILY [facility] Last Admin: 03/21/18 10:10 Dose: 2,000 intlu Docusate Sodium (Colace) 200 mg PO HS [facility] Last Admin: 03/21/18 23:40 Dose: 200 mg Ferrous Sulfate (Feosol) 325 mg PO BID [facility] Last Admin: 03/21/18 16:38 Dose: 325 mg Heparin Sodium (Porcine) (Heparin) 5,000 units SC Q8 [facility]; Protocol Last Admin: 03/22/18 01:12 Dose: 5,000 units Home Med (Arformoterol [Brovana]) 15 mcg IH Q12 [facility] Ceftriaxone Sodium 2 gm/ (Sodium Chloride) 100 mls @ 100 mls/hr IVPB DAILY [facility]; Protocol Last Admin: 03/21/18 13:32 Dose: 100 mls/hr Fluconazole (Diflucan Iv 400mg/200ml Ns) 200 mls @ 100 mls/hr IVPB DAILY [facility]; Protocol Losartan Potassium (Cozaar) 50 mg PO QPM [facility] Last Admin: 03/21/18 17:53 Dose: 50 mg Magnesium Oxide (Mag-Ox) 400 mg PO QPM [facility] Last Admin: 03/21/18 17:53 Dose: 400 mg Mirtazapine (Remeron) 15 mg PO HS [facility] Last Admin: 03/21/18 23:41 Dose: 15 mg Pantoprazole Sodium (Protonix Ec Tab) 40 mg PO DAILY [facility] Last Admin: 03/21/18 10:10 Dose: 40 mg Potassium Chloride (K-Dur 20 Meq Er Tab) 20 meq PO DAILY [facility] Last Admin: 03/21/18 10:12 Dose: 20 meq Tiotropium [place] (Spiriva) 18 mcg IH HS [facility] Last Admin: 03/21/18 23:40 Dose: 18 mcg Venlafaxine HCl (Effexor Xr) 225 mg PO DAILY [facility] Last Admin: 03/21/18 10:11 Dose: 225 mg - Labs Labs: 03/20/18 05:30 03/20/18 05:30 PT 15.3 Seconds (9.8-13.1) H 03/19/18 22:04 INR 1.3 03/19/18 22:04 APTT 29.5 Seconds (25.6-37.1) 03/19/18 22:04 - Extremities Exam Additional comments: R knee: Knee imm in place wound VAC intact with mild serosang drainage sensation intact SP/DP/TN motor intact EHL/FHL/TA/G pedal pulses intact calves soft NT b/l Assessment and Plan (1) Wound dehiscence Assessment & Plan: -Continue Wound VAC treatment @ 125mmHG and knee immobilizer -Dr. Joel does not recommend any further plastics wound procedures at this time. Recommendation is for possible RLE amputation. This was discussed by Dr. Joel with patient's family last night. Further conversation will be held by Dr. Joel and family for definitive treatment. -NWB RLE -above d/w Dr. Joel in agreement Status: Acute
[2018-03-22] MEDS: cefTRIAXone 2 GM in Sodium Chloride 0.9% 100 ML IVPB SCH (09:11)
[2018-03-22] MEDS: Venlafaxine 75 mg ER Cap PO SCH (09:16)
[2018-03-22] MEDS: Cholecalciferol 1,000 INTLU TAB PO SCH (09:18)
--- NOTE | 2018-03-22 09:31 | CP.PCM.PN ---
<Ana RosaJessica - Last Filed: 03/22/18 10:26> Subjective - Date & Time of Evaluation Date of Evaluation: 03/22/18 Time of Evaluation: 09:30 - Subjective Subjective: 88F seen and examined at bedside. Patient is resting comfortably and in NAD. She denies any acute events overnight. She denies any pain to the L knee. Denies N/V/F/SOB/CP. Objective - Vital Signs/Intake and Output Vital Signs (last 24 hours): Temp Pulse Resp BP Pulse Ox 97.4 F L 68 20 184/82 H 98 03/22/18 08:12 03/22/18 09:12 03/22/18 08:12 03/22/18 09:12 03/22/18 08:12 - Medications Medications: Current Medications Acetaminophen (Tylenol 325mg Tab) 650 mg PO Q6 PRN PRN Reason: Pain, Mild (1-3) Last Admin: 03/21/18 20:09 Dose: 650 mg Acetaminophen (Tylenol 325mg Tab) 650 mg PO Q6 PRN PRN Reason: Fever >100.4 F Atorvastatin Calcium (Lipitor) 10 mg PO HS [facility] Last Admin: 03/21/18 23:40 Dose: 10 mg Budesonide (Pulmicort Respules) 0.5 mg IH DAILY [facility] Last Admin: 03/22/18 07:02 Dose: 0.5 mg Calcium Carbonate (Oscal) 500 mg PO DAILY [facility] Last Admin: 03/22/18 09:17 Dose: 500 mg Carvedilol (Coreg) 3.125 mg PO BID [facility] Last Admin: 03/22/18 09:12 Dose: 3.125 mg Cholecalciferol (Vitamin D) 2,000 intlu PO DAILY [facility] Last Admin: 03/22/18 09:18 Dose: 2,000 intlu Docusate Sodium (Colace) 200 mg PO HS [facility] Last Admin: 03/21/18 23:40 Dose: 200 mg Ferrous Sulfate (Feosol) 325 mg PO BID [facility] Last Admin: 03/22/18 09:17 Dose: 325 mg Heparin Sodium (Porcine) (Heparin) 5,000 units SC Q8 [facility]; Protocol Last Admin: 03/22/18 09:17 Dose: 5,000 units Home Med (Arformoterol [Brovana]) 15 mcg IH Q12 [facility] Ceftriaxone Sodium 2 gm/ (Sodium Chloride) 100 mls @ 100 mls/hr IVPB DAILY [facility]; Protocol Last Admin: 03/22/18 09:11 Dose: 100 mls/hr Fluconazole (Diflucan Iv 400mg/200ml Ns) 200 mls @ 100 mls/hr IVPB DAILY [facility]; Protocol Losartan Potassium (Cozaar) 50 mg PO QPM [facility] Last Admin: 03/21/18 17:53 Dose: 50 mg Magnesium Oxide (Mag-Ox) 400 mg PO QPM [facility] Last Admin: 03/21/18 17:53 Dose: 400 mg Mirtazapine (Remeron) 15 mg PO HS [facility] Last Admin: 03/21/18 23:41 Dose: 15 mg Pantoprazole Sodium (Protonix Ec Tab) 40 mg PO DAILY [facility] Last Admin: 03/21/18 10:10 Dose: 40 mg Potassium Chloride (K-Dur 20 Meq Er Tab) 20 meq PO DAILY [facility] Last Admin: 03/21/18 10:12 Dose: 20 meq Tiotropium [place] (Spiriva) 18 mcg IH [facility] Last Admin: 03/21/18 23:40 Dose: 18 mcg Venlafaxine HCl (Effexor Xr) 225 mg PO DAILY [facility] Last Admin: 03/22/18 09:16 Dose: 225 mg - Labs Labs: 03/20/18 05:30 03/20/18 05:30 PT 15.3 Seconds (9.8-13.1) H 03/19/18 22:04 INR 1.3 03/19/18 22:04 APTT 29.5 Seconds (25.6-37.1) 03/19/18 22:04 - Constitutional Appears: Non-toxic, No Acute Distress - Head Exam Head Exam: ATRAUMATIC, NORMOCEPHALIC - Eye Exam Eye Exam: Normal appearance, PERRL - ENT Exam ENT Exam: Mucous Membranes Moist - Respiratory Exam Respiratory Exam: Clear to Ausculation Bilateral, NORMAL BREATHING PATTERN - Cardiovascular Exam Cardiovascular Exam: REGULAR RHYTHM - GI/Abdominal Exam GI & Abdominal Exam: Soft. absent: Tenderness - Extremities Exam Extremities Exam: Normal Capillary Refill Additional comments: Knee immobilizer noted to L knee. Wound vac in place and functioning properly - Neurological Exam Neurological Exam: Alert, Awake - Psychiatric Exam Psychiatric exam: Normal Affect, Normal Mood - Skin Skin Exam: Warm Assessment and Plan - Assessment and Plan (Free Text) Assessment: 88F with PMHX of HTN, HLD, COPD, hx PE/DVT, chronic anemia, s/p Revision of b/l TKR in 11/2017 and dementia is admitted for R knee wound dehiscence. Plan: Right knee wound dehiscence - Acute on chronic - Wound cx on last admission +ve Klebsiela and proteus - Wound cx, pending - ID consulted for fungemia; reccs appreciated - Blood cx, prelim + yeast - C/w 400mg Flucanazole QD - Continue Rocephin 2mg - Awaiting for Dr. Joel recommendation - CT taken, f/u official report - Pain management - Zosyn, Vanco stop Hypokalemia - Resolved - K 3.8 (03/19), s/p repletion - K 3.3 on admission - EKG no acute ST or T wave changes noted History of PE/DVT - ELIQUIS on hold - Start Heparin SC Hypertension - Chronic, controlled - Continue home medications: Maryjo August COPD - Chronic - Stable - Continue with home meds HLD - Continue home meds Dementia - Chronic - Dysphagia Diet pureed thick Normocytic Anemia - Chronic - Continue with iron and colace DVT PPX - Heparin SC <Bindu Wilson - Last Filed: 03/22/18 15:32> Objective - Vital Signs/Intake and Output Vital Signs (last 24 hours): Temp Pulse Resp BP Pulse Ox 97.4 F L 68 20 184/82 H 98 03/22/18 08:12 03/22/18 09:12 03/22/18 08:12 03/22/18 09:12 03/22/18 08:12 - Medications Medications: Current Medications Acetaminophen (Tylenol 325mg Tab) 650 mg PO Q6 PRN PRN Reason: Pain, Mild (1-3) Last Admin: 03/21/18 20:09 Dose: 650 mg Acetaminophen (Tylenol 325mg Tab) 650 mg PO Q6 PRN PRN Reason: Fever >100.4 F Atorvastatin Calcium (Lipitor) 10 mg PO HS [facility] Last Admin: 03/21/18 23:40 Dose: 10 mg Budesonide (Pulmicort Respules) 0.5 mg IH DAILY [facility] Last Admin: 03/22/18 12:52 Dose: Not Given Calcium Carbonate (Oscal) 500 mg PO DAILY [facility] Last Admin: 03/22/18 09:17 Dose: 500 mg Carvedilol (Coreg) 3.125 mg PO BID [facility] Last Admin: 03/22/18 09:12 Dose: 3.125 mg Cholecalciferol (Vitamin D) 2,000 intlu PO DAILY [facility] Last Admin: 03/22/18 09:18 Dose: 2,000 intlu Docusate Sodium (Colace) 200 mg PO HS [facility] Last Admin: 03/21/18 23:40 Dose: 200 mg Ferrous Sulfate (Feosol) 325 mg PO BID [facility] Last Admin: 03/22/18 09:17 Dose: 325 mg Home Med (Arformoterol [Brovana]) 15 mcg IH Q12 [facility] Ceftriaxone Sodium 2 gm/ (Sodium Chloride) 100 mls @ 100 mls/hr IVPB DAILY [facility]; Protocol Last Admin: 03/22/18 09:11 Dose: 100 mls/hr Fluconazole (Diflucan Iv 400mg/200ml Ns) 200 mls @ 100 mls/hr IVPB DAILY [facility]; Protocol Losartan Potassium (Cozaar) 50 mg PO QPM [facility] Last Admin: 03/21/18 17:53 Dose: 50 mg Magnesium Oxide (Mag-Ox) 400 mg PO QPM [facility] Last Admin: 03/21/18 17:53 Dose: 400 mg Mirtazapine (Remeron) 15 mg PO HS [facility] Last Admin: 03/21/18 23:41 Dose: 15 mg Pantoprazole Sodium (Protonix Ec Tab) 40 mg PO DAILY [facility] Last Admin: 03/21/18 10:10 Dose: 40 mg Potassium Chloride (K-Dur 20 Meq Er Tab) 20 meq PO DAILY [facility] Last Admin: 03/21/18 10:12 Dose: 20 meq Tiotropium [place] (Spiriva) 18 mcg IH HS [facility] Last Admin: 03/21/18 23:40 Dose: 18 mcg Venlafaxine HCl (Effexor Xr) 225 mg PO DAILY [facility] Last Admin: 03/22/18 09:16 Dose: 225 mg - Labs Labs: 03/20/18 05:30 03/20/18 05:30 PT 15.3 Seconds (9.8-13.1) H 03/19/18 22:04 INR 1.3 03/19/18 22:04 APTT 29.5 Seconds (25.6-37.1) 03/19/18 22:04 Attending/Attestation - Attestation I have personally seen and examined this patient.: Yes I have fully participated in the care of the patient.: Yes I have reviewed all pertinent clinical information, including history, physical exam and plan: Yes
--- NOTE | 2018-03-22 10:25 | CT ---
Date of service: 03/19/2018 PROCEDURE: CT RIGHT KNEE WITHOUT CONTRAST HISTORY: wound dehiscence COMPARISON: RIGHT KNEE RADIOGRAPHS 03/08/2018. TECHNIQUE: A volumetric CT acquisition through the right knee was performed without intravenous contrast with multiple reformatted dataset provided for evaluation. Radiation dose:Total exam DLP = 409.33 mGy-cm. This CT exam was performed using one or more of the following dose reduction techniques: Automated exposure control, adjustment of the mA and/or kV according to patient size, and/or use of iterative reconstruction technique. FINDINGS: Prior right knee arthroplasty does not appear significantly changed in the interval with no pattern to suggest loosening. No interval fractures identified. Gas is seen at the anterior operative wound compatible with the clinical history of wound dehiscence. No air-fluid level formation is appreciated however. The wound is largely obscured by artifact related to metallic hardware however. Nevertheless, dehiscence segment appears primarily at the mid anterior knee soft tissue level. No periosteal reaction or bony erosion is appreciated to suggest osteomyelitis overtly. No subluxation/dislocation apparent. Gross arterial calcifications appreciated primarily posterior knee soft tissues in both superficial as well as deep arteries. Medial skin clement are identified. IMPRESSION: Prior right knee arthroplasty appreciated once again without interval fracture, subluxation or sign of loosening of the prosthetic components. No overt CT sign of osteomyelitis at this time. Midline anterior soft tissue defect is compatible with clinical history of wound dehiscence. Medial skin clement are identified. Concordant preliminary report from [facility], 03/20/2018.
--- NOTE | 2018-03-22 13:23 | CP.PCM.DIS ---
<Jessica Oseguera - Last Filed: 03/22/18 13:38> Provider - Provider Date of Admission: 03/19/18 21:24 Attending physician: Francisco Hernandez Consults: Orthopedic Surgery: Dr. Joel Infectious Disease: Dr. Peterson Time Spent in preparation of Discharge (in minutes): 30 Hospital Course - Lab Results Lab Results: Micro Results 03/19/18 22:25 Knee - Right Gram Stain - Final 03/19/18 22:25 Knee - Right Wound Culture - Preliminary Gram Negative Freddy 03/19/18 22:00 Blood-Venous Blood Culture - Preliminary Yeast Species 03/19/18 22:00 Blood-Venous Gram Stain - Final 03/19/18 21:50 Blood-Venous Blood Culture - Preliminary Yeast Species 03/19/18 21:50 Blood-Venous Gram Stain - Final Most Recent Lab Values WBC 8.5 K/uL (4.8-10.8) 03/20/18 05:30 RBC 2.80 Mil/uL (3.80-5.20) L 03/20/18 05:30 Hgb 8.2 g/dL (12.0-16.0) L 03/20/18 05:30 Hct 24.3 % (34.0-47.0) L 03/20/18 05:30 MCV 86.8 fl (81.0-99.0) 03/20/18 05:30 MCH 29.5 pg (27.0-31.0) 03/20/18 05:30 MCHC 33.9 g/dL (33.0-37.0) 03/20/18 05:30 RDW 15.8 % (11.5-14.5) H 03/20/18 05:30 Plt Count 238 K/uL (130-400) 03/20/18 05:30 MPV 7.9 fl (7.2-11.7) 03/20/18 05:30 Neut % (Auto) 80.7 % (50.0-75.0) H 03/20/18 05:30 Lymph % (Auto) 9.8 % (20.0-40.0) L 03/20/18 05:30 [place] % (Auto) 7.5 % (0.0-10.0) 03/20/18 05:30 Eos % (Auto) 1.3 % (0.0-4.0) 03/20/18 05:30 Baso % (Auto) 0.7 % (0.0-2.0) 03/20/18 05:30 Neut # (Auto) 6.9 K/uL (1.8-7.0) 03/20/18 05:30 Lymph # (Auto) 0.8 K/uL (1.0-4.3) L 03/20/18 05:30 [place] # (Auto) 0.6 K/uL (0.0-0.8) 03/20/18 05:30 Eos # (Auto) 0.1 K/uL (0.0-0.7) 03/20/18 05:30 Baso # (Auto) 0.1 K/uL (0.0-0.2) 03/20/18 05:30 Neutrophils % (Manual) 81 % (42-75) H 03/19/18 22:04 Band Neutrophils % 2 % (0-2) 03/19/18 22:04 Lymphocytes % (Manual) 8 % (20-50) L 03/19/18 22:04 Monocytes % (Manual) 7 % (0-10) 03/19/18 22:04 Eosinophils % (Manual) 1 % (0-7) 03/19/18 22:04 Basophils % (Manual) 1 % (0-2) 03/19/18 22:04 Toxic Granulation Present 03/19/18 22:04 Platelet Estimate Normal (NORMAL) 03/19/18 22:04 Hypochromasia (manual) Slight 03/19/18 22:04 Poikilocytosis (manual Slight 03/19/18 22:04 Anisocytosis (manual) Moderate 03/19/18 22:04 Ovalocytes Slight 03/19/18 22:04 PT 15.3 Seconds (9.8-13.1) H 03/19/18 22:04 INR 1.3 03/19/18 22:04 APTT 29.5 Seconds (25.6-37.1) 03/19/18 22:04 pO2 27 mm/Hg (30-55) L 03/19/18 22:07 VBG pH 7.43 (7.32-7.43) 03/19/18 22:07 VBG pCO2 41 mmHg (40-60) 03/19/18 22:07 VBG HCO3 25.7 mmol/L 03/19/18 22:07 VBG Total CO2 28.5 mmol/L (22-28) H 03/19/18 22:07 VBG O2 Sat (Calc) 61.9 % (40-65) 03/19/18 22:07 VBG Base Excess 2.6 mmol/L (0.0-2.0) H 03/19/18 22:07 VBG Potassium 3.2 mmol/L (3.6-5.2) L 03/19/18 22:07 Sodium 138.0 mmol/L (132-148) 03/19/18 22:07 Chloride 107.0 mmol/L (98-107) 03/19/18 22:07 Glucose 116 mg/dL (65-105) H 03/19/18 22:07 Lactate 1.4 mmol/L (0.7-2.1) 03/19/18 22:07 FiO2 21.0 % 03/19/18 22:07 Sodium 142 mmol/l (132-148) 03/20/18 05:30 Potassium 3.8 MMOL/L (3.6-5.0) 03/20/18 05:30 Chloride 111 mmol/L (98-107) H 03/20/18 05:30 Carbon Dioxide 25 mmol/L (22-30) 03/20/18 05:30 Anion Gap 10 (10-20) 03/20/18 05:30 BUN 16 mg/dl (7-17) 03/20/18 05:30 Creatinine 0.7 mg/dl (0.7-1.2) 03/20/18 05:30 Est GFR ( Amer) > 60 03/20/18 05:30 Est GFR (Non-Af Amer) > 60 03/20/18 05:30 Random Glucose 96 mg/dL (65-105) 03/20/18 05:30 Calcium 8.3 mg/dL (8.4-10.2) L 03/20/18 05:30 Total Bilirubin 0.3 mg/dl (0.2-1.3) 03/19/18 22:04 AST 17 U/L (14-36) 03/19/18 22:04 ALT 24 U/L (9-52) 03/19/18 22:04 Alkaline Phosphatase 90 U/L (38-126) 03/19/18 22:04 Total Protein 6.5 G/DL (6.3-8.2) 03/19/18 22:04 Albumin 2.8 g/dL (3.5-5.0) L 03/19/18 22:04 Globulin 3.7 gm/dL (2.2-3.9) 03/19/18 22:04 Albumin/Globulin Ratio 0.8 (1.0-2.1) L 03/19/18 22:04 Venous Blood Potassium 3.2 mmol/L (3.6-5.2) L 03/19/18 22:07 Urine Color Yellow (YELLOW) 03/20/18 23:59 Urine Clarity Clear (Clear) 03/20/18 23:59 Urine pH 6.0 (5.0-8.0) 03/20/18 23:59 Ur Specific [place] 1.017 (1.003-1.030) 03/20/18 23:59 Urine Protein Negative mg/dL (NEGATIVE) 03/20/18 23:59 Urine Glucose (UA) Neg mg/dL (Normal) 03/20/18 23:59 Urine Ketones Negative mg/dL (NEGATIVE) 03/20/18 23:59 Urine Blood Negative (NEGATIVE) 03/20/18 23:59 Urine Nitrate Negative (NEGATIVE) 03/20/18 23:59 Urine Bilirubin Negative (NEGATIVE) 03/20/18 23:59 Urine Urobilinogen 0.2-1.0 mg/dL (0.2-1.0) 03/20/18 23:59 Ur Leukocyte Esterase Neg [place]/uL (Negative) 03/20/18 23:59 Urine RBC (Auto) < 1 /hpf (0-3) 03/20/18 23:59 Blood Type B POSITIVE 03/19/18 21:12 Antibody Screen Negative 03/19/18 21:12 BBK History Checked Patient has bt 03/19/18 21:12 - Hospital Course Hospital Course: 88F with PMHX of HTN, HLD, COPD, hx PE/DVT, chronic anemia, s/p Revision of b/l TKR in 11/2017 and dementia is admitted for R knee wound dehiscence. Right knee wound dehiscence - Acute on chronic - Wound cx on last admission +ve Klebsiela and proteus - Wound cx on most recent admission, gram - freddy - ID consulted for fungemia; reccs appreciated - Blood cx, prelim + yeast - C/w 400mg Flucanazole QD - C/w Rocephin 2mg - Ortho Consult, Dr. Joel, reccs appreciated; Dr. Joel does not recommend any further plastics wound procedures at this time. Recommendation is for possible RLE amputation - Pain management Patient was found to have R knee wound dehiscence on presentation. During her hospital course, patient was started on Rocephin and Fluconazole. Patient to be transferred to [facility] to Dr. Richardson, vascular surgery, for right lower extremity amputation. Chart reviewed, patient stable for discharge to [facility] for continued care. - Date & Time of H&P Date of H&P: 03/22/18 Time of H&P: 13:26 Discharge Exam - Head Exam Head Exam: ATRAUMATIC, NORMOCEPHALIC - Eye Exam Eye Exam: Normal appearance Pupil Exam: NORMAL ACCOMODATION - ENT Exam ENT Exam: Mucous Membranes Moist - Respiratory Exam Respiratory Exam: NORMAL BREATHING PATTERN - Cardiovascular Exam Cardiovascular Exam: REGULAR RHYTHM - GI/Abdominal Exam GI & Abdominal Exam: Normal Bowel Sounds, Soft - Extremities Exam Additional comments: Knee immobilizer noted to L knee. Wound vac in place and functioning properly - Neurological Exam Neurological exam: Alert - Psychiatric Exam Psychiatric exam: Normal Affect - Skin Skin Exam: Warm Discharge Plan - Follow Up Plan Condition: FAIR Disposition: Trans to Other Acute Care Hosp Instructions: Wound Dehiscence Additional Instructions: cont IV antibiotics d/c to [facility] for RLE amputation by Dr Richardson rt knee dressing attached to wound vac. maintained on knee immobilizer. let knee wound open to air and allevyn. <Bindu Wilson - Last Filed: 03/22/18 16:03> Provider - Provider Date of Admission: 03/19/18 21:24 Attending physician: Francisco Hernandez [facility] Course - Lab Results Lab Results: Micro Results 03/19/18 21:50 Blood-Venous S.aureus & Coag-Neg Staph PNA FISH - Preliminary 03/19/18 21:50 Blood-Venous Blood Culture - Preliminary Yeast Species 03/19/18 21:50 Blood-Venous Gram Stain - Final 03/19/18 22:25 Knee - Right Gram Stain - Final 03/19/18 22:25 Knee - Right Wound Culture - Preliminary Gram Negative Freddy 03/19/18 22:00 Blood-Venous Blood Culture - Preliminary Yeast Species 03/19/18 22:00 Blood-Venous Gram Stain - Final Most Recent Lab Values WBC 8.5 K/uL (4.8-10.8) 03/20/18 05:30 RBC 2.80 Mil/uL (3.80-5.20) L 03/20/18 05:30 Hgb 8.2 g/dL (12.0-16.0) L 03/20/18 05:30 Hct 24.3 % (34.0-47.0) L 03/20/18 05:30 MCV 86.8 fl (81.0-99.0) 03/20/18 05:30 MCH 29.5 pg (27.0-31.0) 03/20/18 05:30 MCHC 33.9 g/dL (33.0-37.0) 03/20/18 05:30 RDW 15.8 % (11.5-14.5) H 03/20/18 05:30 Plt Count 238 K/uL (130-400) 03/20/18 05:30 MPV 7.9 fl (7.2-11.7) 03/20/18 05:30 Neut % (Auto) 80.7 % (50.0-75.0) H 03/20/18 05:30 Lymph % (Auto) 9.8 % (20.0-40.0) L 03/20/18 05:30 [place] % (Auto) 7.5 % (0.0-10.0) 03/20/18 05:30 Eos % (Auto) 1.3 % (0.0-4.0) 03/20/18 05:30 Baso % (Auto) 0.7 % (0.0-2.0) 03/20/18 05:30 Neut # (Auto) 6.9 K/uL (1.8-7.0) 03/20/18 05:30 Lymph # (Auto) 0.8 K/uL (1.0-4.3) L 03/20/18 05:30 [place] # (Auto) 0.6 K/uL (0.0-0.8) 03/20/18 05:30 Eos # (Auto) 0.1 K/uL (0.0-0.7) 03/20/18 05:30 Baso # (Auto) 0.1 K/uL (0.0-0.2) 03/20/18 05:30 Neutrophils % (Manual) 81 % (42-75) H 03/19/18 22:04 Band Neutrophils % 2 % (0-2) 03/19/18 22:04 Lymphocytes % (Manual) 8 % (20-50) L 03/19/18 22:04 Monocytes % (Manual) 7 % (0-10) 03/19/18 22:04 Eosinophils % (Manual) 1 % (0-7) 03/19/18 22:04 Basophils % (Manual) 1 % (0-2) 03/19/18 22:04 Toxic Granulation Present 03/19/18 22:04 Platelet Estimate Normal (NORMAL) 03/19/18 22:04 Hypochromasia (manual) Slight 03/19/18 22:04 Poikilocytosis (manual Slight 03/19/18 22:04 Anisocytosis (manual) Moderate 03/19/18 22:04 Ovalocytes Slight 03/19/18 22:04 PT 15.3 Seconds (9.8-13.1) H 03/19/18 22:04 INR 1.3 03/19/18 22:04 APTT 29.5 Seconds (25.6-37.1) 03/19/18 22:04 pO2 27 mm/Hg (30-55) L 03/19/18 22:07 VBG pH 7.43 (7.32-7.43) 03/19/18 22:07 VBG pCO2 41 mmHg (40-60) 03/19/18 22:07 VBG HCO3 25.7 mmol/L 03/19/18 22:07 VBG Total CO2 28.5 mmol/L (22-28) H 03/19/18 22:07 VBG O2 Sat (Calc) 61.9 % (40-65) 03/19/18 22:07 VBG Base Excess 2.6 mmol/L (0.0-2.0) H 03/19/18 22:07 VBG Potassium 3.2 mmol/L (3.6-5.2) L 03/19/18 22:07 Sodium 138.0 mmol/L (132-148) 03/19/18 22:07 Chloride 107.0 mmol/L (98-107) 03/19/18 22:07 Glucose 116 mg/dL (65-105) H 03/19/18 22:07 Lactate 1.4 mmol/L (0.7-2.1) 03/19/18 22:07 FiO2 21.0 % 03/19/18 22:07 Sodium 142 mmol/l (132-148) 03/20/18 05:30 Potassium 3.8 MMOL/L (3.6-5.0) 03/20/18 05:30 Chloride 111 mmol/L (98-107) H 03/20/18 05:30 Carbon Dioxide 25 mmol/L (22-30) 03/20/18 05:30 Anion Gap 10 (10-20) 03/20/18 05:30 BUN 16 mg/dl (7-17) 03/20/18 05:30 Creatinine 0.7 mg/dl (0.7-1.2) 03/20/18 05:30 Est GFR ( Amer) > 60 03/20/18 05:30 Est GFR (Non-Af Amer) > 60 03/20/18 05:30 Random Glucose 96 mg/dL (65-105) 03/20/18 05:30 Calcium 8.3 mg/dL (8.4-10.2) L 03/20/18 05:30 Total Bilirubin 0.3 mg/dl (0.2-1.3) 03/19/18 22:04 AST 17 U/L (14-36) 03/19/18 22:04 ALT 24 U/L (9-52) 03/19/18 22:04 Alkaline Phosphatase 90 U/L (38-126) 03/19/18 22:04 Total Protein 6.5 G/DL (6.3-8.2) 03/19/18 22:04 Albumin 2.8 g/dL (3.5-5.0) L 03/19/18 22:04 Globulin 3.7 gm/dL (2.2-3.9) 03/19/18 22:04 Albumin/Globulin Ratio 0.8 (1.0-2.1) L 03/19/18 22:04 Venous Blood Potassium 3.2 mmol/L (3.6-5.2) L 03/19/18 22:07 Urine Color Yellow (YELLOW) 03/20/18 23:59 Urine Clarity Clear (Clear) 03/20/18 23:59 Urine pH 6.0 (5.0-8.0) 03/20/18 23:59 Ur Specific [place] 1.017 (1.003-1.030) 03/20/18 23:59 Urine Protein Negative mg/dL (NEGATIVE) 03/20/18 23:59 Urine Glucose (UA) Neg mg/dL (Normal) 03/20/18 23:59 Urine Ketones Negative mg/dL (NEGATIVE) 03/20/18 23:59 Urine Blood Negative (NEGATIVE) 03/20/18 23:59 Urine Nitrate Negative (NEGATIVE) 03/20/18 23:59 Urine Bilirubin Negative (NEGATIVE) 03/20/18 23:59 Urine Urobilinogen 0.2-1.0 mg/dL (0.2-1.0) 03/20/18 23:59 Ur Leukocyte Esterase Neg [place]/uL (Negative) 03/20/18 23:59 Urine RBC (Auto) < 1 /hpf (0-3) 03/20/18 23:59 Blood Type B POSITIVE 03/19/18 21:12 Antibody Screen Negative 03/19/18 21:12 BBK History Checked Patient has bt 03/19/18 21:12 Attending/Attestation - Attestation I have personally seen and examined this patient.: Yes I have fully participated in the care of the patient.: Yes I have reviewed all pertinent clinical information, including history, physical exam and plan: Yes Notes (Text): Additional Diagnoses: Fungemia -Blood c/s + for yeast - Dr Jordan consulted - rec to rpt Blood c/s and start Fluconazole 200 mg daily Chronic Iron Deficiency Anemia - Type and Cross 2 units PRBC, transfuse 1 unit PRBC gretel in prep for surgery Stage I Bilateral Buttock Decubitus Ulcer ( Present on admission) 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
--- NOTE | 2018-03-22 16:38 | CP.PCM.CON ---
History of Present Illness - History of Present Illness History of Present Illness: 88 yo female CC_ - wound dehiscience s/p open redcution dislocated/failed TKR R HPI- 88 ypo female presents after open redcution dislocated R TKR and primary closure. PT had been revised, successfully, went bact to [facility] where poor nurtsing cause excessive pressure on the wound. pt presents as admission to [facility] when I was signed out to Dr Roseanne potter Past Patient History - Infectious Disease Hx of Infectious Diseases: None - Tetanus Immunizations Tetanus Immunization: Unknown - Past Medical History & Family History Past Medical History?: Yes - Past Social History Smoking Status: Never Smoked - CARDIAC Hx Hypercholesterolemia: Yes Hx Hypertension: Yes - PULMONARY Hx Chronic Obstructive Pulmonary Disease (COPD): Yes Hx Pulmonary Embolism: Yes - NEUROLOGICAL Hx Dementia: Yes Hx Seizures: No - HEENT Hx HEENT Problems: Yes Hx Cataracts: Yes - RENAL Hx Chronic Kidney Disease: No - ENDOCRINE/METABOLIC Hx Endocrine Disorders: No - HEMATOLOGICAL/ONCOLOGICAL Hx Anemia: Yes Hx Human Immunodeficiency Virus (HIV): No - INTEGUMENTARY Hx Dermatological Problems: Yes (HX:Cellulitis of the lower extremities) - MUSCULOSKELETAL/RHEUMATOLOGICAL Hx Arthritis: Yes Hx Fractures: Yes - GASTROINTESTINAL Hx Gastrointestinal Disorders: Yes (GI bleed, herniorhapphy) Hx Gastroesophageal Reflux: Yes - GENITOURINARY/GYNECOLOGICAL Hx Sexually Transmitted Disorders: No - PSYCHIATRIC Hx Anxiety: Yes Hx Depression: Yes - ANESTHESIA Hx Anesthesia: Yes Hx Anesthesia Reactions: No Hx Malignant Hyperthermia: No Has any member of the family had a problem w/ anesthesia?: No Meds Home Medications: Home Medication List Medication Instructions Recorded Confirmed Type Acetaminophen [Tylenol 325mg tab] 650 mg PO Q6 PRN tab 03/22/18 Rx Acetaminophen [Tylenol 325mg tab] 650 mg PO Q6 PRN tab 03/22/18 Rx Cholecalciferol [Vitamin D 1000 IU] 2,000 intlu PO DAILY tab 03/22/18 Rx Venlafaxine [Effexor XR] 225 mg PO DAILY cer 03/22/18 Rx Allergies/Adverse Reactions: Allergies Allergy/AdvReac Type Severity Reaction Status Date / Time trazodone Allergy DIZZINESS Verified 03/19/18 20:23 - Medications Medications: Current Medications Acetaminophen (Tylenol 325mg Tab) 650 mg PO Q6 PRN PRN Reason: Pain, Mild (1-3) Last Admin: 03/21/18 20:09 Dose: 650 mg Acetaminophen (Tylenol 325mg Tab) 650 mg PO Q6 PRN PRN Reason: Fever >100.4 F Atorvastatin Calcium (Lipitor) 10 mg PO HS [facility] Last Admin: 03/21/18 23:40 Dose: 10 mg Budesonide (Pulmicort Respules) 0.5 mg IH DAILY [facility] Last Admin: 03/22/18 12:52 Dose: Not Given Calcium Carbonate (Oscal) 500 mg PO DAILY [facility] Last Admin: 03/22/18 09:17 Dose: 500 mg Carvedilol (Coreg) 3.125 mg PO BID [facility] Last Admin: 03/22/18 09:12 Dose: 3.125 mg Cholecalciferol (Vitamin D) 2,000 intlu PO DAILY [facility] Last Admin: 03/22/18 09:18 Dose: 2,000 intlu Docusate Sodium (Colace) 200 mg PO HS [facility] Last Admin: 03/21/18 23:40 Dose: 200 mg Ferrous Sulfate (Feosol) 325 mg PO BID [facility] Last Admin: 03/22/18 09:17 Dose: 325 mg Home Med (Arformoterol [Brovana]) 15 mcg IH Q12 [facility] Ceftriaxone Sodium 2 gm/ (Sodium Chloride) 100 mls @ 100 mls/hr IVPB DAILY [facility]; Protocol Last Admin: 03/22/18 09:11 Dose: 100 mls/hr Fluconazole (Diflucan Iv 400mg/200ml Ns) 200 mls @ 100 mls/hr IVPB DAILY [facility]; Protocol Losartan Potassium (Cozaar) 50 mg PO QPM [facility] Last Admin: 03/21/18 17:53 Dose: 50 mg Magnesium Oxide (Mag-Ox) 400 mg PO QPM [facility] Last Admin: 03/21/18 17:53 Dose: 400 mg Mirtazapine (Remeron) 15 mg PO HS [facility] Last Admin: 03/21/18 23:41 Dose: 15 mg Pantoprazole Sodium (Protonix Ec Tab) 40 mg PO DAILY [facility] Last Admin: 03/21/18 10:10 Dose: 40 mg Tiotropium [place] (Spiriva) 18 mcg IH HS [facility] Last Admin: 03/21/18 23:40 Dose: 18 mcg Venlafaxine HCl (Effexor Xr) 225 mg PO DAILY [facility] Last Admin: 03/22/18 09:16 Dose: 225 mg Physical Exam - Additional Findings Additional findings: Systemic essentially unchanged please refer to hospital;ist H+P\ MUsculoskekltal stance gairt=- defrred pt with wound dehiscience lateral aspet (knee) ( 2ndary to excessive pressure) pt also with compormise of medialk relaxing incision Results - Vital Signs Recent Vital Signs: Last Vital Signs Temp 98.6 F 03/22/18 16:04 Pulse 67 03/22/18 16:04 Resp 18 03/22/18 16:04 BP 147/62 03/22/18 16:04 Pulse Ox 96 03/22/18 16:04 - Labs Result Diagrams: 03/20/18 05:30 03/20/18 05:30 - Impressions Impression: xRAYS- LAST XRAYS REVEAL ACCEPTABLE POSITON OF REVISION ARTHROPLASTY Assessment & Plan - Assessment and Plan (Free Text) Assessment: a- S/P DISLCATED tkr WITH SUBSEQUENT WOUND DEHISCIENCE ([facility] [place] p_ DISCUSSED WITH SON dr Hector Porter- WOULD RECOMMEND- [place] amputation ; strongly feel that perfusion in th er lower extremity will NOT support flap coverage/ will not support multiple plastic procedures which in all probability in my opinion wioll end up in [place] ampoutation anyway full discussd with daughter and with DR Hector porter arrangements for transgfer to DR [facility] accomplished
[2018-03-22] MEDS: Magnesium Oxide 400 mg Tab UD PO SCH (17:04)
--- NOTE | 2018-03-22 20:47 | CP.PCM.CON ---
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 SHE HASD A RIGHT TKR IN THE PAST AND IT WAS REVISED AGAIN AND SHE WAS RECENTLY ADMITTED FOR RIGHT KNEE SURGICAL WOUND DEHISCENCE AND SHE HAD SURGERY BY DR CERVANTES. SHE IS PRESENTLY READMITTED FOR THE SAME RIGHT KNEE WOUND DEHISCENCE AGAIN. SHE WAS SEEN BY DR CERVANTES WHO BELIEVES THE PATIENT SHOULD HAVE AN AKA SHE WOUND NEED MULTIPLE SURGERIES AND WOUND GRAFTS AND HE DOESN'T BELIEVE THAT THE END RESULT WOULD BE SUCCESSFUL AND THE PATIENT WILL BE TRANSFERRED TO UNDER THE CARE OF DR BAY FOR THE SURGERY. I HAVE SEEN THE PATIENT ON PRIOR ADMISSIONS AND HAVE BEEN ASKED TO CLEAR HER FOR SURGERY. Past Patient History - Infectious Disease Hx of Infectious Diseases: None - Tetanus Immunizations Tetanus Immunization: Unknown - Past Medical History & Family History Past Medical History?: Yes - Past Social History Smoking Status: Never Smoked - CARDIAC Hx Hypercholesterolemia: Yes Hx Hypertension: Yes - PULMONARY Hx Chronic Obstructive Pulmonary Disease (COPD): Yes Hx Pulmonary Embolism: Yes - NEUROLOGICAL Hx Dementia: Yes Hx Seizures: No - HEENT Hx HEENT Problems: Yes Hx Cataracts: Yes - RENAL Hx Chronic Kidney Disease: No - ENDOCRINE/METABOLIC Hx Endocrine Disorders: No - HEMATOLOGICAL/ONCOLOGICAL Hx Anemia: Yes Hx Human Immunodeficiency Virus (HIV): No - INTEGUMENTARY Hx Dermatological Problems: Yes (HX:Cellulitis of the lower extremities) - MUSCULOSKELETAL/RHEUMATOLOGICAL Hx Arthritis: Yes Hx Fractures: Yes - GASTROINTESTINAL Hx Gastrointestinal Disorders: Yes (GI bleed, herniorhapphy) Hx Gastroesophageal Reflux: Yes - GENITOURINARY/GYNECOLOGICAL Hx Sexually Transmitted Disorders: No - PSYCHIATRIC Hx Anxiety: Yes Hx Depression: Yes - ANESTHESIA Hx Anesthesia: Yes Hx Anesthesia Reactions: No Hx Malignant Hyperthermia: No Has any member of the family had a problem w/ anesthesia?: No Meds Home Medications: Home Medication List Medication Instructions Recorded Confirmed Type Acetaminophen [Tylenol 325mg tab] 650 mg PO Q6 PRN tab 03/22/18 Rx Acetaminophen [Tylenol 325mg tab] 650 mg PO Q6 PRN tab 03/22/18 Rx Cholecalciferol [Vitamin D 1000 IU] 2,000 intlu PO DAILY tab 03/22/18 Rx Venlafaxine [Effexor XR] 225 mg PO DAILY cer 03/22/18 Rx Allergies/Adverse Reactions: Allergies Allergy/AdvReac Type Severity Reaction Status Date / Time trazodone Allergy DIZZINESS Verified 03/19/18 20:23 - Medications Medications: Current Medications Acetaminophen (Tylenol 325mg Tab) 650 mg PO Q6 PRN PRN Reason: Pain, Mild (1-3) Last Admin: 03/21/18 20:09 Dose: 650 mg Acetaminophen (Tylenol 325mg Tab) 650 mg PO Q6 PRN PRN Reason: Fever >100.4 F Atorvastatin Calcium (Lipitor) 10 mg PO HS [facility] Last Admin: 03/21/18 23:40 Dose: 10 mg Budesonide (Pulmicort Respules) 0.5 mg IH DAILY [facility] Last Admin: 03/22/18 12:52 Dose: Not Given Calcium Carbonate (Oscal) 500 mg PO DAILY [facility] Last Admin: 03/22/18 09:17 Dose: 500 mg Carvedilol (Coreg) 3.125 mg PO BID [facility] Last Admin: 03/22/18 17:03 Dose: 3.125 mg Cholecalciferol (Vitamin D) 2,000 intlu PO DAILY [facility] Last Admin: 03/22/18 09:18 Dose: 2,000 intlu Docusate Sodium (Colace) 200 mg PO HS [facility] Last Admin: 03/21/18 23:40 Dose: 200 mg Ferrous Sulfate (Feosol) 325 mg PO BID [facility] Last Admin: 03/22/18 17:04 Dose: 325 mg Home Med (Arformoterol [Brovana]) 15 mcg IH Q12 [facility] Ceftriaxone Sodium 2 gm/ (Sodium Chloride) 100 mls @ 100 mls/hr IVPB DAILY [facility]; Protocol Last Admin: 03/22/18 09:11 Dose: 100 mls/hr Fluconazole (Diflucan Iv 400mg/200ml Ns) 200 mls @ 100 mls/hr IVPB DAILY [facility]; Protocol Losartan Potassium (Cozaar) 50 mg PO QPM [facility] Last Admin: 03/22/18 17:03 Dose: 50 mg Magnesium Oxide (Mag-Ox) 400 mg PO QPM [facility] Last Admin: 03/22/18 17:04 Dose: 400 mg Mirtazapine (Remeron) 15 mg PO HS [facility] Last Admin: 03/21/18 23:41 Dose: 15 mg Pantoprazole Sodium (Protonix Ec Tab) 40 mg PO DAILY [facility] Last Admin: 11/25/18 10:10 Dose: 40 mg Tiotropium [place] (Spiriva) 18 mcg IH HS [facility] Last Admin: 03/21/18 23:40 Dose: 18 mcg Venlafaxine HCl (Effexor Xr) 225 mg PO DAILY [facility] Last Admin: 03/22/18 09:16 Dose: 225 mg Physical Exam - Respiratory Exam Respiratory Exam: Clear to Auscultation Bilateral - Cardiovascular Exam Cardiovascular Exam: REGULAR RHYTHM, +S1, +S2 - Extremities Exam Additional comments: RLE WITH IMMOBILIZER LLE WITHOUT ANY SIGNIFICANT EDEMA - Additional Findings Additional findings: EKG NSR, RBBB(NO CHANGE FROM OLD EKG) OTHER LABS NOTED ECHO OCTOBER 2017 WITH LVEF OF 40-45% Results - Vital Signs Recent Vital Signs: Last Vital Signs Temp 97.5 F L 03/22/18 18:15 Pulse 79 03/22/18 18:15 Resp 18 03/22/18 18:15 BP 167/86 H 03/22/18 18:15 Pulse Ox 96 03/22/18 16:04 - Labs Result Diagrams: 03/20/18 05:30 03/20/18 05:30 Labs: Laboratory Results - last 24 hr 03/22/18 15:56 Blood Type B POSITIVE Antibody Screen Negative Crossmatch See Detail BBK History Checked Patient has bt Assessment & Plan - Assessment and Plan (Free Text) Assessment: IGHT TKR WITH REVISIONS AND RECURRENT WOUND DEHISCENCE HYPERTENSION STABLE CARDIAC STATUS Plan: CONTINUE CATVEDILOL, LOSARTAN, ATORVASTATIN, COPD MEDS AND ANTIBIOTICS ELIQUIS HAS BEEN HELD ON THIS ADMISSION THE PATIENT IS CLEARED FOR HER RIGHT AKA
[2018-03-22] MEDS: Tiotropium 18 mcg Cap For Inhalation IH SCH (22:21)
[2018-03-23 06:19] LABS: HEMOGLOBIN 10.4 g/dL (12.0-16.0); MEAN CELL VOLUME 87.3 fl (81.0-99.0); MEAN CORPUSCULAR HEMOGLOBIN 29.8 pg (27.0-31.0); MEAN CORPUSCULAR HGB CONC 34.1 g/dL (33.0-37.0); RBC 3.5 Mil/uL (3.80-5.20); RED CELL DISTRIBUTION WIDTH 15.8 % (11.5-14.5); WHITE BLOOD COUNT 4.9 K/uL (4.8-10.8)
[2018-03-23] MEDS ORDERED: Potassium Ch 20mEq in D5-1/2NS 1,000 ML IV SCH (06:30)
[2018-03-23] MEDS ORDERED: Potassium Chl 20 mEq in D5-NS 1,000 ML IV SCH (06:45)
[2018-03-23 06:51] LABS: BLOOD UREA NITROGEN 10 mg/dl (7-17); CALCIUM 8.9 mg/dL (8.4-10.2); GFR NON-AFRICAN AMERICAN > 60
[2018-03-23] MEDS: Budesonide 0.5 mg/2 ml Inhal Susp UD IH SCH ×2 (07:13→08:04)
[2018-03-23] MEDS ORDERED: Dextrose 5%/0.45% NS 1,000 ML IV SCH (07:30)
--- NOTE | 2018-03-23 07:56 | CP.PCM.PN ---
Subjective - Date & Time of Evaluation Date of Evaluation: 03/23/18 Time of Evaluation: 07:45 - Subjective Subjective: NOT ANSWERING QUESTIONS Objective - Vital Signs/Intake and Output Vital Signs (last 24 hours): Temp Pulse Resp BP Pulse Ox 97.8 F 71 20 151/81 H 95 03/23/18 00:29 03/23/18 00:29 03/23/18 00:29 03/23/18 00:29 03/23/18 00:29 Intake and Output: 03/23/18 03/23/18 06:59 18:59 Intake Total 335 Balance 335 - Medications Medications: Current Medications Acetaminophen (Tylenol 325mg Tab) 650 mg PO Q6 PRN PRN Reason: Pain, Mild (1-3) Last Admin: 03/22/18 22:19 Dose: 650 mg Acetaminophen (Tylenol 325mg Tab) 650 mg PO Q6 PRN PRN Reason: Fever >100.4 F Atorvastatin Calcium (Lipitor) 10 mg PO HS [facility] Last Admin: 03/22/18 22:21 Dose: 10 mg Budesonide (Pulmicort Respules) 0.5 mg IH DAILY [facility] Last Admin: 03/23/18 07:13 Dose: 0.5 mg Calcium Carbonate (Oscal) 500 mg PO DAILY [facility] Last Admin: 03/22/18 09:17 Dose: 500 mg Carvedilol (Coreg) 3.125 mg PO BID [facility] Last Admin: 03/22/18 17:03 Dose: 3.125 mg Cholecalciferol (Vitamin D) 2,000 intlu PO DAILY [facility] Last Admin: 03/22/18 09:18 Dose: 2,000 intlu Docusate Sodium (Colace) 200 mg PO HS [facility] Last Admin: 03/22/18 22:20 Dose: 200 mg Ferrous Sulfate (Feosol) 325 mg PO BID [facility] Last Admin: 03/22/18 17:04 Dose: 325 mg Home Med (Arformoterol [Brovana]) 15 mcg IH Q12 [facility] Ceftriaxone Sodium 2 gm/ (Sodium Chloride) 100 mls @ 100 mls/hr IVPB DAILY [facility]; Protocol Last Admin: 03/22/18 09:11 Dose: 100 mls/hr Potassium Chloride/Dextrose/Sod Cl (Potassium Chl 20 Meq In D5-Ns) 1,000 mls @ 100 mls/hr IV .Q10H [facility] Stop: 03/24/18 06:25 Last Admin: 03/23/18 06:52 Dose: 100 mls/hr Dextrose/Sodium Chloride (Dextrose 5%/0.45% Ns 1000 Ml) 1,000 mls @ 50 mls/hr IV .Q20H [facility] Stop: 03/24/18 07:22 FLUCONAZOLE IN DEXTROSE (Fluconazole-Dext 200 Mg/100 Ml) 200 mg in 100 mls @ 100 mls/hr IVPB DAILY [facility] Losartan Potassium (Cozaar) 50 mg PO QPM [facility] Last Admin: 03/22/18 17:03 Dose: 50 mg Magnesium Oxide (Mag-Ox) 400 mg PO QPM [facility] Last Admin: 03/22/18 17:04 Dose: 400 mg Mirtazapine (Remeron) 15 mg PO HS [facility] Last Admin: 03/22/18 22:21 Dose: 15 mg Pantoprazole Sodium (Protonix Ec Tab) 40 mg PO DAILY [facility] Last Admin: 03/21/18 10:10 Dose: 40 mg Tiotropium [place] (Spiriva) [address] [facility] Last Admin: 03/22/18 22:21 Dose: 18 mcg Venlafaxine HCl (Effexor Xr) 225 mg PO DAILY [facility] Last Admin: 03/22/18 09:16 Dose: 225 mg - Labs Labs: 03/23/18 05:30 03/23/18 05:30 PT 15.3 Seconds (9.8-13.1) H 03/19/18 22:04 INR 1.3 03/19/18 22:04 APTT 29.5 Seconds (25.6-37.1) 03/19/18 22:04 - Respiratory Exam Respiratory Exam: Clear to Ausculation Bilateral - Cardiovascular Exam Cardiovascular Exam: REGULAR RHYTHM, +S1, +S2 - Extremities Exam Additional comments: RLE WITH IMMOBILIZER LLE WITHOUT EDEMA - Additional Findings Additional findings: H/H 10/30 TODAY AFTER BLOOD TRANSFUSION Assessment and Plan - Assessment and Plan (Free Text) Assessment: DEHISCENCE OF RIGHT TKR AND REVISIONS HYPERTENSION HYPERLIPIDEMIA STABLE CARDIAC STATUS Plan: FOR TRANSFER TO FOR SURGERY BY [facility]
[2018-03-23] MEDS: Cholecalciferol 1,000 INTLU TAB PO SCH (08:06)
[2018-03-23] MEDS: Venlafaxine 75 mg ER Cap PO SCH (08:07)
[2018-03-23] MEDS: cefTRIAXone 2 GM in Sodium Chloride 0.9% 100 ML IVPB SCH (08:09)
--- NOTE | 2018-03-23 08:44 | CP.PCM.PN ---
Subjective - Date & Time of Evaluation Date of Evaluation: 03/23/18 Time of Evaluation: 08:00 - Subjective Subjective: Patient seen and examined at bedside comfortable. No complaints of pain. No new complaints. Awaiting transfer to [facility] for RLE procedure with Dr. Richardson. Objective - Vital Signs/Intake and Output Vital Signs (last 24 hours): Temp Pulse Resp BP Pulse Ox 97.5 F L 62 19 166/81 H 97 03/23/18 07:59 03/23/18 08:37 03/23/18 07:59 03/23/18 08:37 03/23/18 07:59 Intake and Output: 03/23/18 03/23/18 06:59 18:59 Intake Total 335 Balance 335 - Medications Medications: Current Medications Acetaminophen (Tylenol 325mg Tab) 650 mg PO Q6 PRN PRN Reason: Pain, Mild (1-3) Last Admin: 03/22/18 22:19 Dose: 650 mg Acetaminophen (Tylenol 325mg Tab) 650 mg PO Q6 PRN PRN Reason: Fever >100.4 F Atorvastatin Calcium (Lipitor) 10 mg PO HS [facility] Last Admin: 03/22/18 22:21 Dose: 10 mg Budesonide (Pulmicort Respules) 0.5 mg IH DAILY [facility] Last Admin: 03/23/18 08:04 Dose: Not Given Calcium Carbonate (Oscal) 500 mg PO DAILY [facility] Last Admin: 03/23/18 08:08 Dose: 500 mg Carvedilol (Coreg) 3.125 mg PO BID [facility] Last Admin: 03/23/18 08:37 Dose: 3.125 mg Cholecalciferol (Vitamin D) 2,000 intlu PO DAILY [facility] Last Admin: 03/23/18 08:06 Dose: 2,000 intlu Docusate Sodium (Colace) 200 mg PO HS [facility] Last Admin: 03/22/18 22:20 Dose: 200 mg Ferrous Sulfate (Feosol) 325 mg PO BID [facility] Last Admin: 03/23/18 08:07 Dose: 325 mg Home Med (Arformoterol [Brovana]) 15 mcg IH Q12 [facility] Ceftriaxone Sodium 2 gm/ (Sodium Chloride) 100 mls @ 100 mls/hr IVPB DAILY [facility]; Protocol Last Admin: 03/23/18 08:09 Dose: 100 mls/hr Potassium Chloride/Dextrose/Sod Cl (Potassium Chl 20 Meq In D5-Ns) 1,000 mls @ 100 mls/hr IV .Q10H [facility] Stop: 03/24/18 06:25 Last Admin: 03/23/18 06:52 Dose: 100 mls/hr Dextrose/Sodium Chloride (Dextrose 5%/0.45% Ns 1000 Ml) 1,000 mls @ 50 mls/hr IV .Q20H [facility] Stop: 03/24/18 07:22 Last Admin: 03/23/18 08:10 Dose: 50 mls/hr Fluconazole (Diflucan Iv 200 Mg/100 Ml Ns) 100 mls @ 100 mls/hr IVPB DAILY [facility] Losartan Potassium (Cozaar) 50 mg PO QPM [facility] Last Admin: 03/22/18 17:03 Dose: 50 mg Magnesium Oxide (Mag-Ox) 400 mg PO QPM [facility] Last Admin: 03/22/18 17:04 Dose: 400 mg Mirtazapine (Remeron) 15 mg PO HS [facility] Last Admin: 03/22/18 22:21 Dose: 15 mg Pantoprazole Sodium (Protonix Ec Tab) 40 mg PO DAILY [facility] Last Admin: 03/21/18 10:10 Dose: 40 mg Tiotropium [place] (Spiriva) 18 mcg IH HS [facility] Last Admin: 03/22/18 22:21 Dose: 18 mcg Venlafaxine HCl (Effexor Xr) 225 mg PO DAILY [facility] Last Admin: 03/23/18 08:07 Dose: 225 mg - Labs Labs: 03/23/18 05:30 03/23/18 05:30 PT 15.3 Seconds (9.8-13.1) H 03/19/18 22:04 INR 1.3 03/19/18 22:04 APTT 29.5 Seconds (25.6-37.1) 03/19/18 22:04 - Extremities Exam Additional comments: R knee: Knee imm in place wound VAC intact with mild serosang drainage sensation intact SP/DP/TN motor intact EHL/FHL/TA/G pedal pulses intact by doppler calves soft NT b/l Assessment and Plan (1) Wound dehiscence Assessment & Plan: -Continue Wound VAC treatment @ 125mmHG and knee immobilizer -Orthopedically clear for transfer to [facility] -planned for AKA with Dr. Debra -NWB RLE -DVT ppx, continue to hold Eliquis -above d/w Dr. Joel in agreement Status: Acute
[2018-03-23] MEDS ORDERED: Fluconazole IV 200mg/100 ml NS 100 ML IVPB SCH (09:00)
[2018-03-23] MEDS ORDERED: Fluconazole IV 400mg/200ml NS 200 ML IVPB SCH (09:00)
--- NOTE | 2018-03-23 11:00 | CP.PCM.PN ---
Subjective - Date & Time of Evaluation Date of Evaluation: 03/23/18 Time of Evaluation: 10:59 - Subjective Subjective: 88F patient, seen and evaluated at bedside. Patient resting comfortably and in NAD. No acute events overnight. Patient waiting for transfer to [facility] for RLE procedure, pending bed placement. Denies N/V/F/SOB/CP. Objective - Vital Signs/Intake and Output Vital Signs (last 24 hours): Temp Pulse Resp BP Pulse Ox 97.5 F L 62 19 166/81 H 97 03/23/18 07:59 03/23/18 08:37 03/23/18 07:59 03/23/18 08:37 03/23/18 07:59 Intake and Output: 03/23/18 03/23/18 06:59 18:59 Intake Total 335 Balance 335 - Medications Medications: Current Medications Acetaminophen (Tylenol 325mg Tab) 650 mg PO Q6 PRN PRN Reason: Pain, Mild (1-3) Last Admin: 03/22/18 22:19 Dose: 650 mg Acetaminophen (Tylenol 325mg Tab) 650 mg PO Q6 PRN PRN Reason: Fever >100.4 F Atorvastatin Calcium (Lipitor) 10 mg PO HS [facility] Last Admin: 03/22/18 22:21 Dose: 10 mg Budesonide (Pulmicort Respules) 0.5 mg IH DAILY [facility] Last Admin: 03/23/18 08:04 Dose: Not Given Calcium Carbonate (Oscal) 500 mg PO DAILY [facility] Last Admin: 03/23/18 08:08 Dose: 500 mg Carvedilol (Coreg) 3.125 mg PO BID [facility] Last Admin: 03/23/18 08:37 Dose: 3.125 mg Cholecalciferol (Vitamin D) 2,000 intlu PO DAILY [facility] Last Admin: 03/23/18 08:06 Dose: 2,000 intlu Docusate Sodium (Colace) 200 mg PO HS [facility] Last Admin: 03/22/18 22:20 Dose: 200 mg Ferrous Sulfate (Feosol) 325 mg PO BID [facility] Last Admin: 03/23/18 08:07 Dose: 325 mg Home Med (Arformoterol [Brovana]) 15 mcg IH Q12 [facility] Ceftriaxone Sodium 2 gm/ (Sodium Chloride) 100 mls @ 100 mls/hr IVPB DAILY [facility]; Protocol Last Admin: 03/23/18 08:09 Dose: 100 mls/hr Potassium Chloride/Dextrose/Sod Cl (Potassium Chl 20 Meq In D5-Ns) 1,000 mls @ 100 mls/hr IV .Q10H [facility] Stop: 03/24/18 06:25 Last Admin: 03/23/18 06:52 Dose: 100 mls/hr Dextrose/Sodium Chloride (Dextrose 5%/0.45% Ns 1000 Ml) 1,000 mls @ 50 mls/hr IV .Q20H [facility] Stop: 03/24/18 07:22 Last Admin: 03/23/18 08:10 Dose: 50 mls/hr FLUCONAZOLE IN DEXTROSE (Fluconazole-Dext 200 Mg/100 Ml) 200 mg in 100 mls @ 100 mls/hr IVPB DAILY [facility] Losartan Potassium (Cozaar) 50 mg PO QPM [facility] Last Admin: 03/22/18 17:03 Dose: 50 mg Magnesium Oxide (Mag-Ox) 400 mg PO QPM [facility] Last Admin: 03/22/18 17:04 Dose: 400 mg Mirtazapine (Remeron) 15 mg PO HS [facility] Last Admin: 03/22/18 22:21 Dose: 15 mg Pantoprazole Sodium (Protonix Ec Tab) 40 mg PO DAILY [facility] Last Admin: 03/21/18 10:10 Dose: 40 mg Tiotropium [place] (Spiriva) 18 mcg IH [facility] Last Admin: 03/22/18 22:21 Dose: 18 mcg Venlafaxine HCl (Effexor Xr) 225 mg PO DAILY [facility] Last Admin: 03/23/18 08:07 Dose: 225 mg - Labs Labs: 03/23/18 05:30 03/23/18 05:30 PT 15.3 Seconds (9.8-13.1) H 03/19/18 22:04 INR 1.3 03/19/18 22:04 APTT 29.5 Seconds (25.6-37.1) 03/19/18 22:04 - Constitutional Appears: Well, Non-toxic, No Acute Distress - Head Exam Head Exam: ATRAUMATIC, NORMOCEPHALIC - Eye Exam Eye Exam: Normal appearance - ENT Exam ENT Exam: Mucous Membranes Moist - Respiratory Exam Respiratory Exam: Clear to Ausculation Bilateral - Cardiovascular Exam Cardiovascular Exam: REGULAR RHYTHM - GI/Abdominal Exam GI & Abdominal Exam: Normal Bowel Sounds - Rectal Exam Rectal Exam: NORMAL INSPECTION - Extremities Exam Additional comments: Knee immobilizer noted to L knee. - Neurological Exam Neurological Exam: Alert, Awake, Oriented x3 - Psychiatric Exam Psychiatric exam: Normal Affect, Normal Mood Assessment and Plan - Assessment and Plan (Free Text) Assessment: 88F with PMHX of HTN, HLD, COPD, hx PE/DVT, chronic anemia, s/p Revision of b/l TKR in 11/2017 and dementia is admitted for R knee wound dehiscence. Plan: 1) Right knee wound dehiscence - Acute on chronic - Ortho Consult, Dr Joel, reccs appreciated; does not recommend any further plastics wound procedures at this time. Recommendation is for possible RLE amputation - Patient awaiting transfer to [facility] for RLE procedure with Dr. Richardson. - Wound cx on last admission +ve Klebsiela and proteus - Wound cx, Klebsiela - ID consulted for fungemia; reccs appreciated - Blood cx, prelim + yeast - C/w 400mg Flucanazole QD - Continue Rocephin 2mg - CT taken, f/u official report - Pain management 2) Hypokalemia - K 3.5 (03/23) - K 3.3 on admission - EKG no acute ST or T wave changes noted 3) Fungemia -Blood c/s + for yeast - Dr Jordan consulted - rec to rpt Blood c/s and start Fluconazole 200 mg daily 4) Chronic Iron Deficiency Anemia - Type and Cross 2 units PRBC - Transfused 1 unit PRBC in prep for surgery - Continue with iron 5) Stage I Bilateral Buttock Decubitus Ulcer ( Present on admission) - boring 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
--- NOTE | 2018-03-23 16:00 | CP.PCM.PN ---
Subjective - Date & Time of Evaluation Date of Evaluation: 03/23/18 Time of Evaluation: 15:41 - Subjective Subjective: iI D NOTE PATIENT C OPEN RIGHT TKR WHO RETURNED FROM [facility].SHE RECEIVING VANCOMYCIN AND ROCEPHEN. diflucan started and f/u blood cultures done prior to starting. PATIENT GOING TO [facility] FOR RIGHT AKA. Objective - Vital Signs/Intake and Output Vital Signs (last 24 hours): Temp Pulse Resp BP Pulse Ox 97.5 F L 62 19 166/81 H 97 03/23/18 07:59 03/23/18 08:37 03/23/18 07:59 03/23/18 08:37 03/23/18 07:59 Intake and Output: 03/23/18 03/23/18 06:59 18:59 Intake Total 335 Balance 335 - Medications Medications: Current Medications Acetaminophen (Tylenol 325mg Tab) 650 mg PO Q6 PRN PRN Reason: Pain, Mild (1-3) Last Admin: 03/22/18 22:19 Dose: 650 mg Acetaminophen (Tylenol 325mg Tab) 650 mg PO Q6 PRN PRN Reason: Fever >100.4 F Atorvastatin Calcium (Lipitor) 10 mg PO HS [facility] Last Admin: 03/22/18 22:21 Dose: 10 mg Budesonide (Pulmicort Respules) 0.5 mg IH DAILY [facility] Last Admin: 03/23/18 08:04 Dose: Not Given Calcium Carbonate (Oscal) 500 mg PO DAILY [facility] Last Admin: 03/23/18 08:08 Dose: 500 mg Carvedilol (Coreg) 3.125 mg PO BID [facility] Last Admin: 03/23/18 08:37 Dose: 3.125 mg Cholecalciferol (Vitamin D) 2,000 intlu PO DAILY [facility] Last Admin: 03/23/18 08:06 Dose: 2,000 intlu Docusate Sodium (Colace) 200 mg PO HS [facility] Last Admin: 03/22/18 22:20 Dose: 200 mg Ferrous Sulfate (Feosol) 325 mg PO BID [facility] Last Admin: 03/23/18 08:07 Dose: 325 mg Home Med (Arformoterol [Brovana]) 15 mcg IH Q12 [facility] Ceftriaxone Sodium 2 gm/ (Sodium Chloride) 100 mls @ 100 mls/hr IVPB DAILY [facility]; Protocol Last Admin: 03/23/18 08:09 Dose: 100 mls/hr Potassium Chloride/Dextrose/Sod Cl (Potassium Chl 20 Meq In D5-Ns) 1,000 mls @ 100 mls/hr IV .Q10H [facility] Stop: 03/24/18 06:25 Last Admin: 03/23/18 06:52 Dose: 100 mls/hr Dextrose/Sodium Chloride (Dextrose 5%/0.45% Ns 1000 Ml) 1,000 mls @ 50 mls/hr IV .Q20H [place] Stop: 03/24/18 07:22 Last Admin: 03/23/18 08:10 Dose: 50 mls/hr FLUCONAZOLE IN DEXTROSE (Fluconazole-Dext 200 Mg/100 Ml) 200 mg in 100 mls @ 100 mls/hr IVPB DAILY [facility] Losartan Potassium (Cozaar) 100 mg PO DAILY [facility] Magnesium Oxide (Mag-Ox) 400 mg PO QPM [facility] Last Admin: 03/22/18 17:04 Dose: 400 mg Mirtazapine (Remeron) 15 mg PO HS [facility] Last Admin: 03/22/18 22:21 Dose: 15 mg Pantoprazole Sodium (Protonix Ec Tab) 40 mg PO DAILY [facility] Last Admin: 03/21/18 10:10 Dose: 40 mg Tiotropium [place] (Spiriva) 18 mcg IH HS [facility] Last Admin: 03/22/18 22:21 Dose: 18 mcg Venlafaxine HCl (Effexor Xr) 225 mg PO DAILY [facility] Last Admin: 03/23/18 08:07 Dose: 225 mg - Labs Labs: 03/23/18 05:30 03/23/18 05:30 PT 15.3 Seconds (9.8-13.1) H 03/19/18 22:04 INR 1.3 03/19/18 22:04 APTT 29.5 Seconds (25.6-37.1) 03/19/18 22:04
[2018-03-23 16:36] VITALS: BP 168/72; PULSE 78; RESP 20; TEMP 97.8; O2SAT 95
[2018-03-24] MEDS ORDERED: FLUCONAZOLE IN DEXTROSE 200 MG/100 ML PIGGYBACK IVPB SCH (09:00)
== END 2018-03-23 20:00 | disposition short-term general hospital (02) | DRG 920 ==
LOC: H.ER 20:20 → H.ERHOLD 21:24 → H.MEDSURG1 03-20 00:37
PROVIDERS: ADMIT Internal Medicine; ATTEND Internal Medicine
PROC: 3E10X8Z Irrigation of Skin and Mucous Membranes using Irrigating Substance (ICD-10-PCS; principal; 2018-03-20)
PROC: 30233N1 Transfusion of Nonautologous Red Blood Cells into Peripheral Vein, Percutaneous Approach (ICD-10-PCS; 2018-03-22)
DX: T81.31XA Disruption of external operation (surgical) wound, not elsewhere classified, initial encounter (principal); B49 Unspecified mycosis; E87.6 Hypokalemia; J44.9 Chronic obstructive pulmonary disease, unspecified; Y83.8 Other surgical procedures as the cause of abnormal reaction of the patient, or of later complication, without mention of misadventure at the time of the procedure; I10 Essential (primary) hypertension; E78.5 Hyperlipidemia, unspecified; E78.00 Pure hypercholesterolemia, unspecified; Z86.711 Personal history of pulmonary embolism; Z79.01 Long term (current) use of anticoagulants; M85.88 Other specified disorders of bone density and structure, other site; Z86.718 Personal history of other venous thrombosis and embolism; Z96.653 Presence of artificial knee joint, bilateral; F03.90 Unspecified dementia, unspecified severity, without behavioral disturbance, psychotic disturbance, mood disturbance, and anxiety; Z74.01 Bed confinement status; K21.9 Gastro-esophageal reflux disease without esophagitis; D50.9 Iron deficiency anemia, unspecified; Z66 Do not resuscitate; B96.1 Klebsiella pneumoniae [K. pneumoniae] as the cause of diseases classified elsewhere; L89.311 Pressure ulcer of right buttock, stage 1; L89.321 Pressure ulcer of left buttock, stage 1; F41.9 Anxiety disorder, unspecified; F32.9 Major depressive disorder, single episode, unspecified; Z79.51 Long term (current) use of inhaled steroids